=== PATIENT | female | born 1990 | race Two or more races ===

== ENCOUNTER 2023-04-03 21:45 | Outpatient (REF) | payer OTHER, SELFPAY ==
[2023-04-07 08:13] LABS: Age Gdln ACOG Testing Note (.); HPV Aptima Negative (Negative); IGP, Aptima HPV, rfx 16/18,45 Note (.)
== END 2023-04-03 21:46 | disposition home or self-care (01) ==
LOC: LAB 21:45
PROVIDERS: PCP Physician Assistant; Visit Provider Physician Assistant
DX: Z01.419 Encounter for gynecological examination (general) (routine) without abnormal findings (principal)
CPT/HCPCS: 87624; G0145

== ENCOUNTER 2024-07-02 15:12 | Outpatient (REF) | payer OTHER, SELFPAY | END 2024-07-02 15:13 | disposition home or self-care (01) | LOC: LAB 15:12 | PROVIDERS: PCP Physician Assistant; Visit Provider Obstetrics & Gynecology | DX: N92.6 Irregular menstruation, unspecified (principal) ==

== ENCOUNTER 2024-07-28 10:54 | Outpatient (OUT) | payer OTHER, SELFPAY | END 2024-07-28 10:55 | disposition home or self-care (01) | LOC: PST 10:55 | PROVIDERS: PCP Physician Assistant; Visit Provider Obstetrics & Gynecology | DX: Z01.818 Encounter for other preprocedural examination (principal); Z30.2 Encounter for sterilization; N92.0 Excessive and frequent menstruation with regular cycle; N93.9 Abnormal uterine and vaginal bleeding, unspecified; R10.2 Pelvic and perineal pain ==

== ENCOUNTER 2024-08-01 06:14 | Day surgery (SDC) | payer OTHER, SELFPAY ==
[2024-07-28 11:54] VITALS: BP 114/75; PULSE 80; TEMP 36.3; O2SAT 100; BMI 23.3
[2024-08-01] VITALS (11 sets, daily range): BP systolic 100–130; BP diastolic 59–82; PULSE 56–97; TEMP 36.1–36.3; O2SAT 94–100; BMI 23.5
--- OUTSIDE RECORDS SUMMARY | 2024-08-01 06:18 | XMS_ITS | CCD ---
Author Organization [facility] Care Team Providers Care Cna Instructor Name Role Phone SAMINA, DENYS Admitting Unavailable SAMINA, DENYS Attending Unavailable SAMINA, DENYS Consulting Unavailable SAMINA, DENYS Admitting Unavailable SAMINA, DENYS Attending Unavailable SAMINA, DENYS Consulting Unavailable SAMINA, DENYS Admitting Unavailable SAMINA, DENYS Attending Unavailable SAMINA, DENYS Primary Care Unavailable BOONE BAIG V Consulting Unavailable SAMINA, DENYS Consulting Unavailable SAMINA, DENYS Admitting Unavailable SAMINA, DENYS Attending Unavailable SAMINA, DENYS Consulting Unavailable Unavailable Primary Care Provider UnavailAnjana Ace Primary Care Physician [phone] Unavailable Primary Care Provider Unavailbinh e Unavailable Primary Care Provider UnavailBaldo Hawkins Primary Care Physician [phone] TREASURE AVILES Attending Unavailable TREASURE AVILES Attending Unavailable TREASURE AVILES Attending Unavailable DIMOV, VESSELIN Referring Unavailable Baldo Acosta DO Primary Care Provider Baldo Acosta Primary Care Physician Baldo Acosta DO Primary Care Provider Jeffery Rodriguez Admitting Unavailable Jeffery Rodriguez Attending Unavailable Jeffery Rodriguez Referring Unavailable Chuy Villareal Consulting Unavailable Jeffery Rodriguez Attending Unavailable Jeffery Rodriguez Referring Unavailable Jeffery Rodriguez. Admitting Unavailable Mono, Chuy L Consulting Unavailable Mono, Chuy L Consulting Unavailable Mono, Chuy L Consulting Unavailable Mono, Chuy L Consulting Unavailable Mono, Chuy L Consulting Unavailable Mono, Chuy L Consulting Unavailable Mono, Chuy L Consulting Unavailable Mono, Chuy L Consulting Unavailable Mono, Chuy L Consulting Unavailable JOVANA HERMANITA Consulting Unavailable Link, Baldo C Admitting Unavailable Link, Baldo C Attending Unavailable Link, Baldo C Referring Unavailable Link, Baldo C Admitting Unavailable Link, Baldo C Attending Unavailable Link, Baldo C Referring Unavailable JACLYN ALANIS Admitting Unavailabl e JACLYN ALANIS Attending Unavailabl e Estelle, Eunice Gonzalez Referring Unavailable Mccabe, Eunice D Admitting Unavailable Mccabe, Eunice Gonzalez Attending Unavailable Link, Baldo Mayo Attending Unavailable JACLYN ALANIS Attending Unavailabl e Jeffery Rodriguez Attending Unavailable Jeffery Rodriguez Attending Unavailable WILMA ALANISC JACLYN Alberts Attending Unav ailable CLOVER ALANIS Admitting Unav ailable Link, Baldo Mayo Attending Unavailable Link, Baldo C Attending Unavailable Unavailable Primary Care Provider Unavailabl e Unavailable Primary Care Provider Unavailabl e Link , Baldo Primary Care Provider Generic Provider MD, No Assigned Pcp Primary Car e Provider Unavailable DENYS HAAS Attending Unavailable DENYS HAAS Attending Unavailable DO Denys Haas Attending Provider Denys Haas Attending Unavailable Denys Haas Admitting Unavailable Link , Baldo Mayo Primary Care Provider GENERIC PROVIDER, NO ASSIGNED PCP Primary Care Unavailable ARMANI COPE Attending Unavailable LINK, BALDO C Primary Care Unavailable Jeffery Marcial Attending Unavailable TREASURE FRANKEL Attending Unavailabl e DO Nicho Armstrong Attending Unavailable JACLYN ALANIS Attending Unavailabl e JACLYN ALANIS Attending Unavailabl e DO Herrera Fink Attending Unavailable DO Herrera Fink Admitting Unavailable KARY SORIANO Attending Unavailable SHIRLEY SALAZAR Referring Unavailable LINK, BALDO C Primary Care Unavailable LINK, BALDO C Primary Care Unavailable LINK, BALDO C Primary Care Unavailable LINK, BALDO C Primary Care Unavailable LINK, BALDO C Primary Care Unavailable LINK, BALDO C Primary Care Unavailable DEEPALI WEST Attending Unavailable SHIRLEY SALAZAR Attending Unavailable TRINA LEON Attending Unavailable LINK, BALDO C Primary Care Unavailable KING HO Attending Unavailable TREASURE AVILES Referring Unavailable BALDO ACOSTA Primary Care Unavailable KING HO Referring Unavailable BALDO ACOSTA Primary Care Unavailable TREASURE AVILES Attending Unavailable TREASURE AVILES Referring Unavailable TREASURE AVILES Referring Unavailable Allergies Allergy Classification Reported Allergen(s) Allergy Type Date of Onset Reaction(s) Facility (4 sources) Acetaminophen / HYDROcodone; Translations: [Vicodin] Drug Allergy [facility] Repository (20 sources) Acetaminophen / HYDROcodone; Translations: [acetaminophen-hy drocodone] [facility] (20 sources) inFLIXimab; Translations: [infliximab] Drug Allergy 2 Hives, Urticaria (disorder) [facility] Work Phone: (20 sources) leflunomide; Translations: [leflunomide] Drug Allergy 3 Intolerance, Hives, Other [facility] (3 sources) Hand Hide Paster; Translations: [Hand Hide Paster] Propensity to adverse reactions (disorder) [facility] Repository (17 sources) HYDROcodone; Translations: [HYDROCODONE] Drug Allergy 3 [facility] (1 source) inFLIXimab Drug Allergy 2 [facility] (1 source) leflunomide Drug Allergy 3 [facility] (1 source) Ethyl Alcohol (Skin Cleanser) Drug Allergy 4 [facility] Work Phone: Medications Current Medications Medication Drug Class(es) Dates Sig (Normalized) Sig (Original) 1 ml abatacept 125 mg/ml prefilled syringe (3 sources) Selective T Cell Costimulation Modulator Start: 01-08-2023 End: 01-23-2023 abatacept (ORENCIA) 125 mg/mL Inject 1 syringe (125mg) subcutaneously once weekly. 4 mL 3 01/08/2023 01/23/2023 Discontinued Comment on above: Inject 1 mL subcutan eously one time a week. Inject 1 syringe (12 5mg) subcutaneously once weekly. Acetaminophen (20 sources) acetaminophen (Tylenol) 32 mg/mL suspension Take by mouth. Active acetaminophen (T YLENOL ORAL) Take by mouth. Active acetaminophen (T YLENOL ORAL) Take by mouth. 0 Active Comment on above: Take by mouth. acetaminophen 325 mg / oxyCODONE hydrochloride 5 mg oral tablet (5 sources) Opioid Agonist Start: 03-21-2023 End: 03-24-2023 Percocet 5 mg-325 mg oral tablet 1 tab(s), Oral, q6hr as needed for pain for 3 day(s), 15 tab(s), Refill(s) 0, [facility]/pharmacy #[id number], 152.4, cm, 03/21/23 11:55:00 EDT, Height/Length Dosing, 53.6, kg, 03/21/23 11:55:00 EDT, Weight Dosing Start Date: 03/21/23 Stop Date: 03/24/23 Status: Ordered Start: 01-06-2019 Percocet 325 m g-5 mg Tab 1 tab(s), Oral, q6hr as needed for pain, 10 tab(s), Refill(s) 0 Start Date: 01/06/19 Status: Ordered 0.4 ml adalimumab 100 mg/ml auto-injector (20 sources) Tumor Necrosis Factor Ladonna Start: 01-23-2023 End: 01-28-2024 adalimumab (HUMIRA,CF, PEN) 40 mg/0.4 mL pen kit Indications: Inflammatory arthritis , Rheumatoid arthritis involving multiple sites, unspecified whether rheumatoid factor present (HCC) Inject 1 pen (40 mg) subcutaneously every 2 weeks. 4 Each 2 01/28/2024 Active Start: 01-23-2023 Humira Pen 40 MG/0.4ML Pen-injector Kit pen-injector Inject 40 mg under the skin every 14 (fourteen) days. 01/23/2023 Active End: 06-30-2024 adalimumab (HUMIRA,CF, PEDI CROHNS STARTER SUBQ) Inject under the skin. 06/30/2024 Discontinued (Med List Cleanup) adalimumab (HUMI RA,CF, PEDI CROHNS STARTER SUBQ) Inject under the skin. Active Comment on above: Inject 40 mg subcuta neously every 2 weeks. Inject 1 pen (40 mg) subcutaneously every 2 weeks. Allergy (Loratadine) 10 mg oral tablet (20 sources) Start: 08-09-2022 Allergy (Loratadine) 10 mg oral tablet See Instructions, 1 tab(s) Oral PRN, Refills(s) 0 Start Date: 08/09/22 Status: Ordered Start: 08-09-2022 take 1 tablet by [facility] twice daily Allergy (Loratadine) 10 mg oral tablet 10 mg = 1 tab(s), Oral, BID, Refills(s) 0 Start Date: 08/09/22 Status: Ordered atomoxetine 80 mg oral capsule (2 sources) Norepinephrine Reuptake Inhibitor Start: 02-26-2019 take 80 mg by mouth once daily Strattera 80 mg, Oral, Daily, Refills(s) 0 Start Date: 02/26/19 Status: Ordered celecoxib 100 mg oral capsule (19 sources) Nonsteroidal Anti-inflammatory Drug Start: 09-17-2023 take 1 capsule by mouth twice daily celecoxib (CELEBREX) 100 mg capsule Take 1 capsule by mouth two times a day. 30 capsule 09/17/2023 Active Start: 05-10-2023 End: 06-09-2023 take 1 capsule by mouth twice daily celecoxib (CELEBREX) 100 mg capsule Take 1 capsule by mouth twice daily. 60 capsule 0 05/10/2023 06/09/2023 Active Comment on above: Take 1 capsule by mo [facility] twice daily. Take 1 capsule by mo [facility] two times a day. clobetasol propionate 0.5 mg/ml topical cream (1 source) Corticosteroid Start: 08-24-20 End: 09-14-19 clobetasol (TEMOVATE) 0.05 % cream Apply to affected area two times a day for 21 days. 15 g 0 08/24/2023 09/14/2023 Active Comment on above: Apply to affected ar ea two times a day for 21 days. diclofenac sodium 0.01 mg/mg topical gel (20 sources) Nonsteroidal Anti-inflammatory Drug Start: 06-03-20 apply 4 g topically four times daily diclofenac (VOLTAREN) 1 % topical gel Apply 4 g to affected area four times daily. 100 g 06/03/2023 Active Start: 02-27-2019 Voltaren Gel 1 % Gel 4 gram, Topical, QID for pain, 100 gram, Refill(s) , [facility] Start Date: 02/27/19 Status: Ordered Comment on above: Apply 4 g to affecte d area four times daily. doxycycline monohydrate 100 mg oral tablet (18 sources) Tetracycline-class Drug Start: 06-24-2024 End: 07-04-2024 take 1 tablet by mouth twice daily doxycycline monohydrate 100 mg oral tablet 100 mg = 1 tab(s), Oral, BID, X 10 day(s), # 20 tab(s), Refills(s) 0, Pharmacy: [facility]/pharmacy #[id number], 152.4, cm, 06/24/24 9:24:00 EDT, Height/Length Dosing, 54.8, kg, 06/24/24 9:24:00 EDT, Weight Dosing Start Date: 06/24/24 Stop Date: 07/04/24 Status: Ordered Start: 05-09-2024 End: 07-14-2024 take 1 tablet by mouth every twelve hours doxycycline (Vibra-Tabs) 100 mg tablet Take 1 tablet (100 mg) by mouth every 12 hours. 05/09/2024 07/14/2024 Discontinued (Therapy completed) Start: 06-03-2023 End: 06-17-2023 take 1 capsule by mouth twice daily doxycycline hyclate (VIBRAMYCIN) 100 mg capsule Take 1 capsule by mouth twice daily for 14 days. 28 capsule 0 06/03/2023 06/17/2023 Active Start: 05-10-2023 End: 05-24-2023 take 1 capsule by mouth twice daily doxycycline hyclate (VIBRAMYCIN) 100 mg capsule Take 1 capsule by mouth twice daily for 14 days. 28 capsule 0 05/10/2023 05/24/2023 Active Comment on above: Take 1 capsule by [facility] twice daily for 14 days. Ethinyl Estradiol / Ferrous fumarate / Norethindrone (3 sources) Estrogen Start: 05-31-2024 take 1 tablet by mouth in the morning Aurovela Fe 1-20, 28, 1 mg-20 mcg (21)/75 mg (7) tablet Take 1 tablet by mouth early in the morning.. 05/31/2024 Active Start: 03-20-2024 End: 03-20-2025 take 1 tablet by mouth once daily, then take 1 tablet by mouth once daily norethindrone-ethinyl estradiol (Junel F E 09/29) 1-20 MG-MCG tablet Indications: Uses control Take 1 tablet by mouth Daily Take 1 tablet by mouth daily 28 tablet 11 03/20/2024 03/20/2025 Active Start: 02-11-2024 End: 02-10-2025 norethindrone-ethinyl estrad iol (09/29) 1-20 MG-MCG tablet Indications: control counseling Take 1 tablet by mouth Daily 28 tablet 11 02/11/2024 02/10/2025 Active ethinyl estradiol 0.03 mg / norethindrone acetate 1.5 mg oral tablet (20 sources) Estrogen Start: 08-09-2022 take 1 tablet by mouth once daily Microgestin 1.5/30 oral tablet 1 tab(s), Oral, Daily, Refill(s) 0 Start Date: 08/09/22 Status: Ordered Start: 04-15-2022 take 1 tablet by steven th once daily MICROGESTIN 1.5/30 1.5-30 mg-mcg Take 1 tablet by mouth once daily. 04/15/2022 Active Start: 04-15-2022 take 1 tablet by steven th once daily MICROGESTIN 1.5/30 1.5-30 mg-mcg Take 1 tablet by mouth once daily. 0 04/15/2022 Active End: 07-14-2024 take 1 tablet by mouth once daily before mealtime .30, 21, 1.5-30 mg-mcg tablet tablet Take 1 tablet by mouth once daily in the morning. Take before meals. 07/14/2024 Discontinued (Therapy completed) take 1 tablet by steven th once daily before mealtime .30, 21, 1.5-30 mg-mcg tablet tablet Take 1 tablet by mouth once daily in the morning. Take before meals. Active Comment on above: Take 1 tablet by steven th once daily. FLUoxetine 10 mg oral capsule (2 sources) Serotonin Reuptake Inhibitor Start: 9 take 1 capsule by mouth once daily Prozac 10 mg Cap 10 mg = 1 cap(s), Oral, Daily, # 30 cap(s), Refills(s) 0 Start Date: 07/22/19 Status: Ordered folic acid 1 mg oral tablet (20 sources) Start: 4 End: 5 take 1 tablet by mouth twice daily folic acid (Folvite) 1 mg tablet Indications: Granulomatous mastitis of right breast Take 1 tablet (1 mg) by mouth 2 times a day. 60 tablet 2 06/16/2024 06/16/2025 Active Start: 05-07-2024 End: 06-16-2024 take 1 tablet by mouth once daily folic acid (Folvite) 1 mg tablet Indications: Granulomatous mastitis of right breast Take 1 tablet (1 mg) by mouth once daily. 30 tablet 11 05/07/2024 06/16/2024 Discontinued (Reorder) Start: 10-17-2022 End: 11-06-2022 take 2 tablets by mouth once daily folic acid 1 mg tablet Take 2 tablets by mouth once daily. 60 tablet 3 10/17/2022 11/06/2022 Discontinued Start: 07-18-2022 End: 07-14-2024 take 1 tablet by mouth once daily folic acid 1 mg Tab 1 mg = 1 tab(s), Oral, Daily, Refills(s) 0 Start Date: 08/09/22 Status: Ordered Comment on above: Take 1 tablet by steven once daily. Take 2 tablets by mo [facility] once daily. linezolid 600 mg oral tablet (2 sources) Oxazolidinone Antibacterial Start: 06-08-20 End: 06-22-20 take 1 tablet by mouth twice daily linezolid (ZYVOX) 600 mg tablet Take 1 tablet by mouth two times a day for 14 days. 28 tablet 2 06/08/2023 06/22/2023 Active Comment on above: Take 1 tablet by steven two times a day for 14 days. meloxicam 15 mg oral tablet (1 source) Nonsteroidal Anti-inflammatory Drug meloxicam (Mobic) 15 MG tablet 1 (one) time each day at the same time Active methotrexate 2.5 mg oral tablet (20 sources) Folate Analog Metabolic Inhibitor Start: 07-01-20 methotrexate 2.5 mg Tab 2.5 mg = 1 tab(s), Oral, q7day, # 4 tab(s), Refills(s) 0 Start Date: 07/01/24 Status: Ordered Start: 05-07-2024 End: 07-06-2024 take 6 tablets by mouth every week methotrexate (Trexall) 2.5 mg tablet Indications: Granulomatous mastitis of right breast Take 6 tablets (15 mg total) by mouth 1 (one) time per week. Follow directions carefully, and ask to explain any part you do not understand. Take exactly as directed. 12 tablet 3 05/07/2024 07/06/2024 Active Start: 08-15-2022 End: 11-06-2022 take 5 tablets by mouth every week methotrexate 2.5 mg tablet Take 5 tablets by mouth one time a week. 20 tablet 3 10/17/2022 11/06/2022 Discontinued Start: 08-09-2022 methotrexate 2 .5 mg Tab 7.5 mg = 3 tab(s), Oral, q7day, # 4 tab(s), Refills(s) 0 Start Date: 08/09/22 Status: Ordered Start: 07-18-2022 End: 08-15-2022 take 3 tablets by mouth every week methotrexate 2.5 mg tablet Take 3 tablets by mouth one time a week. 12 tablet 3 07/18/2022 08/15/2022 Discontinued Comment on above: Take 3 tablets by mo [facility] one time a week. Take 5 tablets by mo [facility] one time a week. minocycline 50 mg oral tablet (5 sources) Tetracycline-class Drug Start: 08-20-20 End: 09-19-19 take 1 tablet by mouth in the morning minocycline (Dynacin) 50 MG tablet Take 50 mg by mouth in the morning and 50 mg before bedtime. 08/22/2023 Active Comment on above: [facility] nitrofurantoin, macrocrystals 25 mg / nitrofurantoin, monohydrate 75 mg oral capsule (2 sources) Nitrofuran Antibacterial Start: 03-24-20 End: 03-31-20 take 1 capsule by mouth twice daily Macrobid 100 mg Cap 100 mg = 1 cap(s), Oral, BID, X 7 day(s), # 14 cap(s), Refills(s) 0, Pharmacy: [facility]/pharmacy #[id number], 152, cm, 03/24/24 11:36:00 EDT, Height/Length Dosing, 52.5, kg, 03/24/24 11:36:00 EDT, Weight Dosing Start Date: 03/24/24 Stop Date: 03/31/24 Status: Ordered omeprazole 20 mg delayed release oral capsule (1 source) Proton Pump Inhibitor take 1 capsule by mouth twice daily as needed omeprazole (PriLOSEC) [address] capsule Take 20 mg by mouth 2 (two) times a day as needed Active ondansetron 4 mg oral tablet (10 sources) Serotonin-3 Receptor Antagonist Start: 07-15-20 take 1 tablet by mouth every eight hours ondansetron 4 mg Tab 4 mg = 1 tab(s), Oral, q8hr, # 20 tab(s), Refills(s) 0, Pharmacy: [facility]/pharmacy #[id number], 152, cm, 07/15/24 10:32:00 EST, Height/Length Dosing, 55, kg, 07/15/24 10:32:00 EST, Weight Dosing Start Date: 07/15/24 Status: Ordered Start: 06-05-2024 ondansetron (Z ofran) 4 mg/5 mL solution 5 mL (4 mg). 06/05/2024 Active Start: 06-05-2024 End: 07-05-2024 take 1 tablet by mouth every eight hours as needed for nausea and nausea ondansetron (Zofran) 4 mg tablet Indications: Nausea TAKE 1 TABLET (4 MG) BY MOUTH EVERY 8 HOURS IF NEEDED FOR NAUSEA OR VOMITING. 20 tablet 06/05/2024 07/05/2024 Active Start: 06-03-2023 End: 07-03-2023 take 1 tablet by mouth every eight hours as needed ondansetron (ZOFRAN) 4 mg tablet Take 1 tablet by mouth every 8 hours as needed for nausea/vomiting. 30 tablet 0 06/03/2023 07/03/2023 Active Comment on above: Take 1 tablet by steven th every 8 hours as needed for nausea/vomiting. phenazopyridine hydrochloride 200 mg oral tablet (2 sources) Start: End: take 1 tablet by mouth three times daily Pyridium 200 mg Tab 200 mg = 1 tab(s), Oral, TID, X 3 day(s), # 9 tab(s), Refills(s) 0, Pharmacy: [facility]/pharmacy #[id number], 152, cm, 03/24/24 11:36:00 EDT, Height/Length Dosing, 52.5, kg, 03/24/24 11:36:00 EDT, Weight Dosing Start Date: 03/24/24 Stop Date: 03/27/24 Status: Ordered pilocarpine hydrochloride 5 mg oral tablet (20 sources) Cholinergic Receptor Agonist Start: End: take 1 tablet by mouth three times daily pilocarpine (SALAGEN) 5 mg tablet Indications: Sicca, unspecified type (HCC) TAKE 1 TABLET BY MOUTH THREE TIMES A DAY 270 tablet 1 07/24/2024 Active Comment on above: Take 1 tablet by steven th three times daily. TAKE 1 TABLET BY STEVEN TH THREE TIMES DAILY Take 1 tablet by steven th three times a day. predniSONE (17 sources) Start: predniSONE 5 mg Tab Refills(s) 0 Start Date: 07/01/24 Status: Ordered Start: 07-01-2024 predniSONE (De ltasone) 5 mg tablet 1 tablet (5 mg). 07/01/2024 Active Start: 05-07-2024 End: 07-04-2024 take 4 tablets by mouth once daily, then take 3 tablets by mouth once daily, then take 2 tablets by mouth once daily predniSONE (Deltasone) 5 mg tablet Indications: Granulomatous mastitis of right breast Take 4 tablets (20 mg) by mouth once daily for 14 days, THEN 3 tablets (15 mg) once daily for 14 days, THEN 2 tablets (10 mg) once daily. 158 tablet 05/07/2024 07/04/2024 Active Start: 01-08-2023 End: 03-27-2023 take 1 tablet by mouth once daily predniSONE (DELTASONE) 10 mg tablet Take 1 tablet by mouth once daily. 30 tablet 3 01/08/2023 03/27/2023 Discontinued Start: 04-17-2022 End: 05-15-2022 take 1 tablet by mouth once daily, then take 1 tablet by mouth once daily predniSONE (DELTASONE) 5 mg tablet Indications: Rheumatoid arthritis with negative rheumatoid factor, involving unspecified site (HCC) Take 1 tablet by mouth once daily for 14 days, THEN 1 tablet once daily for 14 days. 28 tablet 0 04/17/2022 05/15/2022 Active Start: 02-27-2019 predniSONE 5 m g, Oral, fluctuates, Refills(s) 0 Start Date: 02/27/19 Status: Ordered Comment on above: Take 1 tablet by steven th once daily for 14 days, THEN 1 tablet once daily for 14 days. Take 1 tablet by steven th once daily. Sprintec (12 sources) Start: 02-27-20 take 1 tablet by mouth once daily Sprintec 1 tab(s), Oral, Daily, Refill(s) 0 Start Date: 02/26/19 Status: Ordered Sprintec oral tablet (2 sources) Start: 07-22-20 Sprintec oral tablet 1 tab(s), Oral, Daily, 28 tab(s), Refill(s) 0 Start Date: 07/22/19 Status: Ordered sulfamethoxazole 800 mg / trimethoprim 160 mg oral tablet (2 sources) Dihydrofolate Reductase Inhibitor Antibacterial, Sulfonamide Antimicrobial Start: 07-15-20 sulfamethoxazole -trimethoprim 800 mg-160 mg Tab 160 mg, Refill(s) 0 Start Date: 07/15/24 Status: Ordered Start: 07-14-2024 End: 07-19-2024 take 1 tablet by mouth twice daily sulfamethoxazole-trimethoprim (Bactrim D S) 800-160 mg tablet Indications: bacterial urinary tract infection Take 1 tablet by mouth 2 times a day for 5 days. 10 tablet 1 07/14/2024 07/19/2024 Active tramadol hydrochloride 25 MG Oral Tablet (16 sources) Opioid Agonist Start: 07-15-2024 take 1 tablet by mouth every six hours traMADol 25 mg oral tablet 25 mg = 1 tab(s), Oral, q6hr, # 30 tab(s), Refills(s) 1, Pharmacy: [facility]/pharmacy #[id number], 152, cm, 07/15/24 10:32:00 EST, Height/Length Dosing, 55, kg, 07/15/24 10:32:00 EST, Weight Dosing Start Date: 07/15/24 Status: Ordered Start: 08-24-2023 End: 08-27-2023 take 1 tablet by mouth every eight hours as needed for pain traMADol (ULTRAM) 50 mg tablet Indications: Granulomatous mastitis of right breast Take 1 tablet by mouth every 8 hours as needed for pain for up to 3 days. 5 tablet 0 08/24/2023 08/27/2023 Active Start: 04-09-2023 End: 04-14-2023 take 1 tablet by mouth every six hours as needed traMADol (ULTRAM) 50 mg tablet Take 50 mg by mouth every 6 hours as needed. 0 04/09/2023 Active Comment on above: Take 50 mg by mouth every 6 hours as needed. Take 1 tablet by steven th every 8 hours as needed for pain for up to 3 days. Completed/Discontinued Medications Medication Drug Class(es) Dates Sig (Normalized) Sig (Original) amitriptyline hydrochloride 10 mg oral tablet (20 sources) Tricyclic Antidepressant Start: 08-15-2022 End: 10-17-2022 take 1 tablet by mouth once daily at bedtime amitriptyline (ELAVIL) 10 mg tablet Indications: Rheumatoid arthritis involving multiple sites, unspecified whether rheumatoid factor present (HCC) , Encounter for long-term (current) use of high-risk medication Take 1 tablet by mouth daily at bedtime. 30 tablet 3 10/17/2022 Active Comment on above: Take 1 tablet by steven th daily at bedtime. amoxicillin 500 mg / clavulanate 125 mg oral tablet (13 sources) Penicillin-class Antibacterial Start: 03-21-2023 End: 05-21-2023 amoxicillin-clavul anic acid (AUGMENTIN) 500-125 mg per tablet Refill(s) 0 0 03/21/2023 05/21/2023 Discontinued Start: 03-21-2023 amoxicillin-cl avulanate 500 mg-125 mg Tab Refill(s) 0 Start Date: 03/21/23 Status: Ordered Comment on above: Refill(s) 0 24 hr amphetamine aspartate 5 mg / amphetamine sulfate 5 mg / dextroamphetamine saccharate 5 mg / dextroamphetamine sulfate 5 mg extended release oral capsule (20 sources) Central Nervous System Stimulant Start: take 1 capsule by mouth once daily amphetamine-dex troamphetamine 20 mg Cap-ER 20 mg = 1 cap(s), TAKE 1 CAPSULE BY MOUTH EVERY DAY FOR 30 DAYS Start Date: 07/15/24 Status: Ordered Start: 06-05-2024 End: 07-05-2024 take 1 capsule by mouth once daily amphetamine-dextroamphetamine 20 mg Cap- ER 20 mg = 1 cap(s), Oral, Daily, X 30 day(s), # 30 cap(s), Refills(s) 0, Pharmacy: [facility] #[id number], 152.4, cm, 05/09/24 4:55:00 EDT, Height/Length Dosing, 54.8, kg, 05/09/24 4:55:00 EDT, Weight Dosing Start Date: 06/05/24 Stop Date: 07/05/24 Status: Ordered Start: 08-09-2022 End: 06-01-2024 take 1 capsule by mouth once daily amphetamine-dextroamphetamine 20 mg Cap- ER 20 mg = 1 cap(s), Oral, Daily, X 30 day(s), # 30 cap(s), Refills(s) 0, Pharmacy: [facility]/pharmacy #[id number], 152, cm, 04/15/24 13:28:00 EDT, Height/Length Dosing, 54.7, kg, 04/15/24 13:28:00 EDT, Weight Dosing Start Date: 05/02/24 Stop Date: 06/01/24 Status: Ordered take 1 tablet by [facility] once daily dextroamphetamine-amphetamine (ADDERALL) 20 mg tablet Take 20 mg by mouth once daily. Active End: 07-14-2024 amphetamine-dextroamphetamin e XR (Adderall XR) 20 mg 24 hr capsule 1 capsule (20 mg). 07/14/2024 Discontinued (Med List Cleanup) Comment on above: Take 20 mg by mouth once daily. cephalexin 500 mg oral capsule (3 sources) Cephalosporin Antibacterial Start: 06-24-2024 take 1 capsule by mouth three times daily Keflex 500 mg Cap 500 mg = 1 cap(s), Oral, TID, Take one capsule by mouth three times a day for ten days, # 30 cap(s), Refills(s) 0, Pharmacy: [facility]/pharmacy #[id number], 152.4, cm, 06/24/24 9:24:00 EDT, Height/Length Dosing, 54.8, kg, 06/24/24 9:24:00 EDT, Weight Dosing Start Date: 06/24/24 Status: Ordered Start: 05-09-2024 End: 05-19-2024 take 1 capsule by mouth three times daily Keflex 500 mg Cap 500 mg = 1 cap(s), Oral, TID, X 10 day(s), # 30 cap(s), Refills(s) 0, Pharmacy: [facility]/pharmacy #[id number], 152.4, cm, 05/09/24 4:55:00 EDT, Height/Length Dosing, 54.8, kg, 05/09/24 4:55:00 EDT, Weight Dosing Start Date: 05/09/24 Stop Date: 05/19/24 Status: Ordered cholecalciferol 1.25 mg oral capsule (6 sources) Vitamin D Start: 07-21-2022 End: 08-15-2022 take 1 capsule by mouth every week cholecalciferol, Vitamin D3, (VITAMIN D3) 1,250 mcg (50,000 unit) cap capsule Take 1 capsule by mouth one time a week. 8 capsule 0 07/21/2022 08/15/2022 Discontinued Comment on above: Take 1 capsule by mo ut one time a week. colchicine 0.6 mg oral tablet (9 sources) Start: 12-05-2022 End: 03-27-2023 take 0.5 tablet by mouth once daily, then take 1 tablet by mouth once daily colchicine 0.6 mg tablet Take 0.5 tablets by mouth once daily for 7 days, THEN 1 tablet once daily. 34 tablet 0 12/05/2022 03/27/2023 Discontinued (Side Effects) Comment on above: Take 0.5 tablets by mouth once daily for 7 days, THEN 1 tablet once daily. diphenhydrAMINE hydrochloride 25 mg oral capsule (3 sources) Histamine-1 Receptor Antagonist Start: 08-22-2022 End: 10-17-2022 take 1 capsule by mouth every six hours as needed diphenhydrAMINE (BENADRYL) 25 mg capsule Take 1 capsule by mouth every 6 hours as needed. 30 capsule 0 08/22/2022 10/17/2022 Discontinued (Discontinued by Patient) Comment on above: Take 1 capsule by mo uth every 6 hours as needed. diphenhydrAMINE 12.5 mg/5 mL hydrocortisone lidocaine visc 2% nystatin oral liquid 180 mL:120 m mL:30 mL (CPD) (4 sources) Start: 01-30-2023 End: 03-27-2023 take 5 mL by mouth every six hours as needed diphenhydrAMINE 12.5 mg/5 mL hydrocortisone lidocaine visc 2% nystatin oral liquid 180 mL:120 m mL:30 mL (CPD) Take 5 mL by mouth four times daily as needed. Swish and spit 100 mL 3 01/30/2023 03/27/2023 Discontinued Start: 01-30-2023 take 5 mL by mouth e very six hours as needed diphenhydrAMINE 12.5 mg/5 mL hydrocortisone lidocaine visc 2% nystatin oral liquid 180 mL:120 m mL:30 mL (CPD) Take 5 mL by mouth four times daily as needed. Swish and spit 100 mL 3 01/30/2023 Active Comment on above: Take 5 mL by mouth f our times daily as needed. Swish and spit fluconazole 100 mg oral tablet (17 sources) Azole Antifungal Start: End: take 1 tablet by mouth once daily fluconazole (DIFLUCAN) 100 mg tablet Take 1 tablet by mouth once daily. 30 tablet 08/20/2023 09/19/2023 Start: 07-05-2023 End: 07-19-2023 take 1 tablet by mouth once daily fluconazole (DIFLUCAN) 100 mg tablet Take 1 tablet by mouth once daily for 14 days. 14 tablet 2 07/05/2023 07/19/2023 Active Start: 06-08-2023 End: 06-22-2023 take 1 tablet by mouth once daily fluconazole (DIFLUCAN) 100 mg tablet Take 1 tablet by mouth once daily for 14 days. 14 tablet 2 06/08/2023 06/22/2023 Active Start: 05-10-2023 End: 05-10-2023 take 1 tablet by mouth once fluconazole (DIFLUCAN) 150 mg tablet Take 1 tablet by mouth one time only for 1 dose. 1 tablet 0 05/10/2023 05/10/2023 Start: 03-20-2023 End: 05-10-2023 fluconazole (DIFLUCAN) 150 m g tablet DIRECTED TAKE ONE TABLET NOW AND REPEAT IN 3 DAYS 0 03/20/2023 05/10/2023 Discontinued Comment on above: DIRECTED TAKE ONE TABLET NOW AND REPEAT IN 3 DAYS Take 1 tablet by steven th one time only for 1 dose. Take 1 tablet by steven th once daily for 14 days. Take 1 tablet by steven th once daily. Ibuprofen (9 sources) Nonsteroidal Anti-inflammatory Drug End: 05-10-2023 ibuprofen (MOTRIN ORAL) Take by mouth. 0 05/10/2023 Discontinued ibuprofen (MOTRI N ORAL) Take by mouth. 0 Active Comment on above: Take by mouth. 1 ml ketorolac tromethamine 30 mg/ml injection (1 source) Nonsteroidal Anti-inflammatory Drug, Cyclooxygenase Inhibitor Start: 08-22-2022 End: 08-22-2022 keTORolac 30 mg injection (TORADOL) Start: 08-22-2022 End: 08-22-2022 keTORolac 30 mg injection (T ORADOL) leflunomide 20 mg oral tablet (3 sources) Antirheumatic Agent Start: 11-06-2022 take 1 tablet by mouth once daily leflunomide (ARAVA) 20 mg tablet Take 1 tablet by mouth once daily. 30 tablet 3 11/06/2022 Active Comment on above: Take 1 tablet by steven th once daily. Loratadine (20 sources) Start: 08-09-2022 End: 07-14-2024 LORATADINE ORAL See Instructions, 1 tab(s) Oral PRN, Refills(s) 0 08/09/2022 07/14/2024 Discontinued (Med List Cleanup) Start: 08-09-2022 LORATADINE ORA L See Instructions, 1 tab(s) Oral PRN, Refills(s) 0 08/09/2022 Active take 1 tablet by steven th twice daily loratadine (CLARITIN) 10 mg tablet Take 10 mg by mouth twice daily. Active take 1 tablet by steven th once daily loratadine (Claritin Reditabs) 10 mg disintegrating tablet Take 1 tablet (10 mg) by mouth once daily. Active Comment on above: Take 10 mg by mouth twice daily. Physical therapy (10 sources) Start: 08-10-20 Physical therapy Physical therapy, See Instructions, 1 EA, 0, outpatient physical therapy Diagnosis: RA, Compound Start Date: 08/10/22 Status: Ordered microencapsulated potassium chloride 20 meq extended release oral tablet (1 source) Start: 07-03-20 End: 07-03-20 40 mEq, oral, Once, On Nancy 07/03/24 at 1315, For 1 dose, Best given with food and plenty of water to minimize gastric irritation. Do not crush or chew. rOPINIRole 1 mg oral tablet (20 sources) Nonergot Dopamine Agonist End: 03-27-20 take 1 tablet by mouth every twenty-four hours as needed rOPINIRole (REQUIP) 1 mg tablet Take 1 mg by mouth at bedtime as needed. 0 03/27/2023 Discontinued Comment on above: Take 1 mg by mouth a t bedtime as needed. tofacitinib 5 mg oral tablet (3 sources) Start: 11-13-19 take 1 tablet by mouth twice daily tofacitinib tablet 5 mg (XELJANZ) Indications: Rheumatoid arthritis involving multiple sites, unspecified whether rheumatoid factor present (HCC) Take 1 tablet by mouth twice daily. 60 tablet 11 11/12/2020 Active Comment on above: Take 1 tablet by steven th twice daily. Problems Active Problems Problem Classification Problem Date Documented Date Episodic/Chronic Abdominal pain (1 source) Pain in female pelvis; Translations: [Pelvic and perineal pain] 07-02-2024 Episodic Anxiety disorders (1 source) Panic disorder without agoraphobia; Translations: [Panic disorder [episodic paroxysmal anxiety]] Onset: 08-09-2022 Chronic Asthma (20 sources) Asthma 02-26-2014 Chronic Attention-deficit, conduct, and disruptive behavior disorders (2 sources) Attention deficit hyperactivity disorder; Translations: [Attention-deficit hyperactivity disorder, unspecified type] Onset: 11-19-2023 Chronic Attention-deficit, conduct, and disruptive behavior disorders (10 sources) Adult attention deficit hyperactivity disorder 11-19-2023 Chronic Contraceptive and procreative management (1 source) Sterilization requested; Translations: [Encounter for sterilization] 07-02-2024 Episodic Genitourinary symptoms and ill-defined conditions (1 source) Dysuria; Translations: [Dysuria] Onset: 03-24-2024 Episodic Headache; including migraine (20 sources) Migraine 02-26-2019 Chronic Immunizations and screening for infectious disease (2 sources) Encounter for screening for human papillomavirus (HPV); Translations: [Exposure to sexually transmissible disorder] Onset: 02-13-2020 Episodic Inflammation; infection of eye (except that caused by tuberculosis or sexually transmitteddisease) (1 source) Conjunctivitis; Translations: [Unspecified conjunctivitis] Onset: 01-20-2023 Episodic Menstrual disorders (5 sources) Irregular menstruation, unspecified; Translations: [Menorrhagia] Onset: 11-13-2019 07-02-2024 Chronic Nonmalignant breast conditions (20 sources) Chronic mastitis; Translations: [Diffuse cystic mastopathy of right breast] Onset: 05-21-2023 05-10-2023 Chronic Nonspecific chest pain (1 source) Chest pain; Translations: [Chest pain, unspecified] Onset: 08-09-2022 Episodic Osteoarthritis (20 sources) Arthritis; Translations: [Unspecified osteoarthritis, unspecified site] Onset: 07-18-2022 07-18-2022 Chronic Other aftercare (4 sources) Patient encounter status; Translations: [Other vermin exterminator (current) drug therapy] Episodic Other aftercare (13 sources) Immunosuppression; Translations: [Immunosuppression due to drug therapy] Onset: 05-07-2024 05-07-2024 Episodic Other aftercare (2 sources) Other mcc (current) drug therapy; Translations: [Other vermin exterminator (current) drug therapy] Onset: 05-07-2024 Episodic Other female genital disorders (4 sources) Abnormal uterine and vaginal bleeding, unspecified; Translations: [ABNORMAL UTERINE VAGINAL BLEED UNS] Onset: 12-29-2019 Chronic Other female genital disorders (1 source) Abnormal uterine bleeding; Translations: [Abnormal uterine and vaginal bleeding, unspecified] 07-02-2024 Chronic Other non-traumatic joint disorders (20 sources) Hip pain 06-07-2011 Episodic Other screening for suspected conditions (not mental disorders or infectious disease) (20 sources) Encounter for screening for malignant neoplasm of cervix; Translations: [Other specified abnormal findings of blood chemistry] Onset: 01-14-2020 04-09-2023 Episodic Comment on above: MRSA in axilla absce ss 05/09/2024 Other skin disorders (1 source) Folliculitis; Translations: [Follicular disorder, unspecified] 07-14-2024 Episodic Other skin disorders (2 sources) Follicular disorder, unspecified; Translations: [Follicular disorder, unspecified] Onset: 07-14-2024 Episodic Other upper respiratory infections (3 sources) Upper respiratory infection; Translations: [Acute upper respiratory infection, unspecified] Onset: 07-03-2024 07-03-2024 Episodic Residual codes; unclassified (1 source) Procedure carried out on subject; Translations: [Encounter for prophylactic measures, unspecified] Onset: 08-09-2022 Episodic Residual codes; unclassified (5 sources) Body mass index 20-24 - normal; Translations: [Body mass index (BMI) 23.0-23.9, adult] Onset: 03-23-2023 Episodic Residual codes; unclassified (8 sources) At risk of sexually transmitted infection 03-24-2024 Episodic Rheumatoid arthritis and related disease (20 sources) Rheumatoid arthritis; Translations: [Rheumatoid arthritis, unspecified] Onset: 08-09-2022 02-24-2019 Chronic Screening and history of mental health and substance abuse codes (2 sources) H/O: Disorder; Translations: [Personal history of nicotine dependence] Onset: 11-19-2023 Episodic Skin and subcutaneous tissue infections (6 sources) Abscess of limb; Translations: [Cutaneous abscess of limb, unspecified] Onset: 05-09-2024 Episodic Substance-related disorders (8 sources) Smoker; Translations: [Nicotine dependence] Onset: 08-09-2022 01-08-2016 Chronic Comment on above: Added secondary to d ocumentation in Social History. Superficial injury; contusion (2 sources) Abrasion of left upper arm, initial encounter; Translations: [Abrasion of skin of left upper arm] Onset: 07-15-2024 Episodic Systemic lupus erythematosus and connective tissue disorders (8 sources) Sicca syndrome, unspecified; Translations: [Sicca syndrome] Chronic Transient cerebral ischemia (1 source) Transient cerebral ischemia; Translations: [Transient cerebral ischemic attack, unspecified] Onset: 08-09-2022 Chronic Unclassified (15 sources) Body mass index 20-24 - normal 03-23-2023 Unclassified (2 sources) Granulomatous mastitis of right breast; Translations: [Granulomatous mastitis of right breast] Onset: 08-18-2023 Unclassified (1 source) Established Patient Onset: 05-25-2023 Unclassified (1 source) Non-smoker 07-02-2024 Unclassified (2 sources) Granulomatous mastitis, right breast; Translations: [Granulomatous mastitis, right breast] Onset: 05-07-2024 Unclassified (1 source) 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); Translations: [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)] Onset: 05-07-2024 Urinary tract infections (9 sources) Urinary tract infectious disease; Translations: [Urinary tract infection, site not specified] Onset: 03-24-2024 Episodic Past or Other Problems Problem Classification Problem Date Documented Date Episodic/Chronic Nonmalignant breast conditions (20 sources) Solitary cyst of breast; Translations: [Solitary cyst of unspecified breast] Onset: 03-21-2023 Episodic Other aftercare (20 sources) Taking high risk medication; Translations: [Other mcc (current) drug therapy] Onset: 02-24-2019 02-24-2019 Episodic Pneumonia (except that caused by tuberculosis or sexually transmitted disease) (20 sources) Pneumonia Resolved: 02-23-2010 11-21-2013 Episodic Unclassified (20 sources) Onset: 09-19-2018 Resolved: 02-08-2019 02-21-2019 Unclassified (2 sources) Granulomatous mastitis, right breast; Translations: [Granulomatous mastitis, right breast] Onset: 05-07-2024 Unclassified (1 source) 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); Translations: [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)] Onset: 05-07-2024 Viral infection (20 sources) Herpes zoster Resolved: 02-23-2010 11-21-2013 Episodic Viral infection (2 sources) Disease caused by 2019-nCoV; Translations: [COVID-19] Results Test Name Value Interpretation Reference Range Facility Ambulatory Visit Summaryon 1 09-14-2023 Ambulatory Visit Summary Ambulatory Visit Summary ALYSSA DE LEON :1990 Visit Date:07/15/2024 Ambulatory Visit Instructions Your Diagnosis Abrasion of left axillary fold with infection BMI 23.0-23.9, adult Local infection of the skin and subcutaneous tissue, unspecified Wound pain Your Care Team Attending Physician - VIKTOR WHITTEN Primary Care Physician - Baldo Acosta DO This Is Your Medications List amphetamine-dextroamp hetamine (amphetamine-dextroam phetamine 20 mg Cap-ER) ethinyl estradiol-norethindro ne (Microgestin 1.5/30 oral tablet) folic acid (folic acid 1 mg Tab) loratadine (Allergy (Loratadine) 10 mg oral tablet) methotrexate (methotrexate 2.5 mg Tab) ondansetron (ondansetron 4 mg Tab) pilocarpine (pilocarpine 5 mg Tab) predniSONE (predniSONE 5 mg Tab) sulfamethoxazole-trim ethoprim (sulfamethoxazole-tri methoprim 800 mg-160 mg Tab) tramadol (traMADol 25 mg oral tablet) Procedures Performed Fine needle biopsy of breast (2022), Lumpectomy of right breast (2022), section (11/02/2018), Root canal therapy. Discharge Vitals Heart Rate (Peripheral) 90 Respiratory Rate 16 Blood Pressure 112/62 Height 152 cm Height 60 in Weight 55 kg Weight 121 lb BMI 23.81 What to do next Scheduled Follow-Up Appointments Sunday 10:00 AM EST With: VIKTOR WHITTEN Where: [place] [address] [place] [address]- Medications What How Much When Why Instructions New tramadol (traMADol 25 mg oral tablet) 1 Tablets By Mouth Every 6 hours Wound pain Refills: 1 Pickup at [facility]/pharmacy #[id number] Unchanged amphetamine-dextroamp hetamine (amphetamine-dextroam phetamine 20 mg Cap-ER) 1 Capsules TAKE 1 CAPSULE BY MOUTH EVERY DAY FOR 30 DAYS Unchanged ethinyl estradiol-norethindro ne (Microgestin 1.5/ 30 oral tablet) 1 Tablets By Mouth Every day Unchanged folic acid (folic acid 1 mg Tab) Unchanged loratadine (Allergy (Loratadine) 10 mg oral tablet) See instructions 1 tab(s) Oral PRN Unchanged methotrexate (methotrexate 2.5 mg Tab) 1 Tablets By Mouth Every 7 days Unchanged ondansetron (ondansetron 4 mg Tab) Unchanged pilocarpine (pilocarpine 5 mg Tab) 1 Tablets By Mouth 3 times a day Unchanged predniSONE (predniSONE 5 mg Tab) Unchanged sulfamethoxazole-trim ethoprim (sulfamethoxazole-tri methoprim 800 mg-160 mg Tab) 160 Milligram Pharmacy Information [facility]/pharmacy #[id number]: [address] [place], [place] [id number] [phone] Allergies Vicodin inFLIXimab (Urticaria) leflunomide (Intolerance) Problems Ongoing - Any problem that you are currently receiving treatment for. Abnormal magnetic resonance imaging of breast Abrasion of left axillary fold with infection Adult ADHD Arthritis, rheumatoid BMI 23.0-23.9, adult Breast mass, right Left hip pain MRSA (methicillin resistant staph aureus) culture positive Nonsmoker Possible exposure to STI UTI (urinary tract infection) Historical - Any problem that you are no longer receiving treatment for. asthma Migraine Pneumonia Rheumatoid arthritis Shingles Patient Survey You may receive a survey via text or e-mail asking about your office visit. Please share your experience with us by completing your survey. We appreciate your feedback and thank you for choosing us for your care. Magdaleno Duvall [facility] Family Medicine Office/Clini c Noteon 07-15-2024 Family Medicine Office/Clinic Note Family Medicine Office/Clinic Note HPI Staff ER followup: Hospital: [facility]/ Visit date: 05/09/24 and 06/24/24 [facility] and 07/03/24 ER and 07/14/24 Wound center F/U Symptoms the patient presented with: with left armpit abscess and MRSA Current concerns: pt states abscess is closed now and is healing pt has been at [facility] twice and twice on for the ER and one for Wound cllinc F/U pt stats while at wound clinic was told her glucose lvl in her lab work was high pt stats feels so much better pt stats still feel uncomfortable 01/17 but states nothing compared to what it was Flu Delines History of Present Illness Alyssa is a 34 year old female who presents for an ER follow up. She had some abscesses in her left armpit recently. She was going to the wound care center however, the wounds are closed at this time, and she is starting to improve. She still has some lumps under the skin in the area but they are slowly decreasing. She is on Bactrim currently, and I advised her to cleanse the area with Hibiclens and zinc soap. She is having some pain that is > 5/10 especially after she works all day. She will be seeing her community health education coordinator at the end of this month and she is starting on a new med then. I am going to give her some tramadol to use for severe pain. Staff HPI reviewed and OARRAS reviewed. Review of Systems PHQ Score Initial Depression Screen Score: 0 SCORE Physical Exam Vitals & Measurements HR: 90(Peripheral) RR: 16 BP: 112/62 SpO2: 100% HT: 60 in HT: 152 cm WT: 55 kg WT: 121 lb BMI: 23.81 Left axillary region: small, round masses noted under skin. very tender. no redness Assessment/Plan 1. Abrasion of left axillary fold with infection (S40.812A: Abrasion of left upper arm, initial encounter) cleanse area with hibicleans and zinc soap continue abx 2. BMI 23.0-23.9, adult (Z68.23: Body mass index [BMI] 23.0-23.9, adult) stable Local infection of the skin and subcutaneous tissue, unspecified (L08.9: Local infection of the skin and subcutaneous tissue, unspecified) Wound pain (T14.8XXA: Other injury of unspecified body region, initial encounter) Ordered: tramadol, 25 mg = 1 tab(s), Oral, q6hr, # 30 tab(s), Refills(s) 1, Pharmacy: [facility]/pharmacy #[id number], 152, cm, 07/15/24 10:32:00 EST, Height/Length Dosing, 55, kg, 07/15/24 10:32:00 EST, Weight Dosing Follow-up No qualifying data available Problem List/Past Medical History Ongoing Abnormal magnetic resonance imaging of breast Abrasion of left axillary fold with infection Adult ADHD Arthritis, rheumatoid BMI 23.0-23.9, adult Breast mass, right Left hip pain MRSA (methicillin resistant staph aureus) culture positive Nonsmoker Possible exposure to STI UTI (urinary tract infection) Historical asthma Migraine Pneumonia Rheumatoid arthritis Shingles Procedure/Surgical History Fine needle biopsy of breast (2022), Lumpectomy of right breast (2022), section (11/02/2018), Root canal therapy. Medications Allergy (Loratadine) 10 mg oral tablet, See Instructions amphetamine-dextroamp hetamine 20 mg Cap-ER, 20 mg= 1 cap(s) folic acid 1 mg Tab methotrexate 2.5 mg Tab, 2.5 mg= 1 tab(s), Oral, q7day Microgestin 1.5/30 oral tablet, 1 tab(s), Oral, Daily ondansetron 4 mg Tab pilocarpine 5 mg Tab, 5 mg= 1 tab(s), Oral, TID predniSONE 5 mg Tab sulfamethoxazole-trim ethoprim 800 mg-160 mg Tab, 160 mg traMADol 25 mg oral tablet, 25 mg= 1 tab(s), Oral, q6hr, 1 refills Allergies Vicodin inFLIXimab (Urticaria) leflunomide (Intolerance) Social History Alcohol Current. Beer. 1-2 times per year., 06/30/2024 Employment/School - Low Risk, 08/09/2022 Home/Environment - Low Risk, 08/09/2022 Nutrition/Health - Low Risk, 08/09/2022 Substance Abuse - Denies Substance Abuse, 10/04/2010 Never., 06/30/2024 Tobacco - Denies Tobacco Use, 01/06/2019 Former smoker, quit more than 30 days ago Tobacco Use:. Never Smokeless Tobacco Use:. Household tobacco concerns: No. Yes, 07/02/2024 Family History Depression: Mother. Diabetes mellitus type 2: Father. Immunizations Vaccine Date Status Comments influenza virus vaccine, inactivated - Not Given Patient Refuses SARS-CoV-2 mRNA (tocallynameran 5y-11y) vac - Not Given Postpone due to refusal measles/mumps/rubella virus vaccine 05/25/2005 Recorded hepatitis B pediatric vaccine 08/23/1994 Recorded DTaP, unspecified formulation 08/23/1994 Recorded measles/mumps/rubella virus vaccine 09/27/1993 Recorded hepatitis B pediatric vaccine 09/27/1993 Recorded Hib, unspecified formulation 09/27/1993 Recorded hepatitis B pediatric vaccine 05/10/1993 Recorded Hib, unspecified formulation 05/10/1993 Recorded DTaP, unspecified formulation 05/10/1993 Recorded Hib, unspecified formulation 1992 Recorded DTaP, unspecified formulation 1992 Recorded Hib, unspecified formulation 1992 Recorded DTaP, unspecified formulation 1992 Recorded Normal [facility] Comment on above: Result Comment: Elec tronically Signed By: VIKTOR WHITTEN\.laci\Date and Time Signed: 07/15/24 11:25 EST BI TRANSFER OF OUTSIDE FILMS on 07-10-2024 BI TRANSFER OF OUTSIDE FILMS Outside images for comparison or treatment purposes, not interpreted by Radiologists. [facility] BI TRANSFER OF OUTSIDE FILMS Outside images for comparison or treatment purposes, not interpreted by Radiologists. [facility] BI TRANSFER OF OUTSIDE FILMS Outside images for comparison or treatment purposes, not interpreted by Radiologists. [facility] BI TRANSFER OF OUTSIDE FILMS Outside images for comparison or treatment purposes, not interpreted by Radiologists. [facility] BI TRANSFER OF OUTSIDE FILMS Outside images for comparison or treatment purposes, not interpreted by Radiologists. [facility] MR TRANSFER OF OUTSIDE FILMS on 07-10-2024 MR TRANSFER OF OUTSIDE FILMS Outside images for comparison or treatment purposes, not interpreted by Radiologists. [facility] Study Interpretation of outs deedee studyon 07-10-2024 Outside images for comparison or treatment purposes, not interpreted by Radiologists. IMAGING Outside images for comparison or treatment purposes, not interpreted by Radiologists. IMAGING Outside images for comparison or treatment purposes, not interpreted by Radiologists. IMAGING Outside images for comparison or treatment purposes, not interpreted by Radiologists. IMAGING Outside images for comparison or treatment purposes, not interpreted by Radiologists. IMAGING Outside images for comparison or treatment purposes, not interpreted by Radiologists. IMAGING Outside images for comparison or treatment purposes, not interpreted by Radiologists. IMAGING Bacteria identifiedon 2023 Bacteria identified Cx Nom (Bld) Test: Blood Culture Specimen Source: Peripheral Venipuncture Specimen Type: Blood culture Specimen Date: 07/03/2024 111 Result Date: 07/07/20242000 Result Status: Final result Abnormal: No Resulting Lab: [facility] [id number] [place] [address] CULTURE No growth at 4 days - FINAL REPORT [facility] Comment on above: Performed By: #### 2 [id number] #### JERRELL BERNARDO ([id number]) [facility] ([facility]) [address] [place] [address] Bacteria identified Cx Nom (Bld) Test: Blood Culture Specimen Source: Peripheral Venipuncture Specimen Type: Blood culture Specimen Date: 07/03/2024 1059 Result Date: 07/07/20242000 Result Status: Final result Abnormal: No Resulting Lab: [facility] [address] [id number] CULTURE No growth at 4 days - FINAL REPORT [facility] Comment on above: Performed By: #### 2 0054-8 #### JERRELL BERNARDO ([id number]) [facility] ([facility]) [address] [place] [address] 89108 CBC W Auto Differential pane l (Bld)on 07-03-2024 Basophils (Bld) [#/Vol] 0.02 10*3/uL [facility] Basophils/100 WBC (Bld) 0.3 % 0.0 - 2.0 % [facility] Eosinophils (Bld) [#/Vol] 0.08 10*3/uL [facility] Eosinophils/100 WBC (Bld) 1.2 % 0.0 - 6.0 % [facility] Erythrocyte distribution width (RBC) [Ratio] 12.8 % 11.5 - 14.5 % [facility] Hematocrit (Bld) [Volume fraction] 41.4 % 36.0 - 46.0 % [facility] Hemoglobin (Bld) [Mass/Vol] 14.6 g/dL 12.0 - 16.0 g/dL [facility] Immature granulocytes (Bld) [#/Vol] 0.01 10*3/uL [facility] Immature granulocytes/100 WBC (Bld) 0.1 % 0.0 - 0.9 % [facility] Comment on above: Immature Granulocyte Count (IG) includes promyelocytes, myelocytes and metamyelocytes but does not include bands. Percent differential counts (%) should be interpreted in the context of the absolute cell counts (cells/UL). Lymphocytes (Bld) [#/Vol] 2.8 10*3/uL [facility] Lymphocytes/100 WBC (Bld) 40.4 % 13.0 - 44.0 % [facility] MCH (RBC) [Entitic mass] 32.8 pg 26.0 - 34.[address] [facility] MCHC (RBC) [Mass/Vol] 35.3 g/dL 32.0 - 36.0 g/dL [facility] MCV (RBC) [Entitic vol] 93 fL 80 - [address] [facility] Monocytes (Bld) [#/Vol] 0.62 10*3/uL [facility] Monocytes/100 WBC (Bld) 8.9 % 2.0 - 10.0 % [facility] Neutrophils (Bld) [#/Vol] 3.4 10*3/uL [facility] Comment on above: Percent differential counts (%) should be interpreted in the context of the absolute cell counts (cells/uL). Neutrophils/100 WBC (Bld) 49.1 % 40.0 - 80.0 % [facility] Nucleated RBC/100 WBC (Bld) [Ratio] 0 % [facility] Platelets (Bld) [#/Vol] 292 10*3/uL [facility] RBC (Bld) [#/Vol] 4.45 10*6/uL [facility] WBC (Bld) [#/Vol] 6.9 10*3/uL [facility] Basophils (Bld) [#/Vol] 0.02 x10*3/uL Normal 0.00-0.10 [facility] Comment on above: Performed By: #### 5 7021-8 #### JERRELL BERNARDO ([id number]) [facility] ([facility]) [address] [place] [address] 77377 Basophils/100 WBC (Bld) 0.3 % Normal 0.0-2.0 [facility] Comment on above: Performed By: #### 5 7021-8 #### JERRELL BERNARDO ([id number]) [facility] ([facility]) [address] [place] [address] 09352 Eosinophils (Bld) [#/Vol] 0.08 x10*3/uL Normal 0.00-0.70 [facility] Comment on above: Performed By: #### 5 7021-8 #### JERRELL BERNARDO ([id number]) [facility] ([facility]) [address] [place] [address] 31821 Eosinophils/100 WBC (Bld) 1.2 % Normal 0.0-6.0 [facility] Comment on above: Performed By: #### 5 7021-8 #### JERRELL BERNARDO ([id number]) [facility] ([facility]) [address] [place] [address] 09211 Erythrocyte distribution width (RBC) [Ratio] 12.8 % Normal 11.5-14.5 [facility] Comment on above: Performed By: #### 5 7021-8 #### JERRELL BERNARDO ([id number]) [facility] ([facility]) [address] [place] [address] 64672 Hematocrit (Bld) [Volume fraction] 41.4 % Normal 36.0-46.0 [facility] Comment on above: Performed By: #### 5 7021-8 #### JERRELL BERNARDO ([id number]) [facility] ([facility]) [address] [place] [address] 42580 Hemoglobin (Bld) [Mass/Vol] 14.6 g/dL Normal 12.0-16.0 [facility] Comment on above: Performed By: #### 5 7021-8 #### JERRELL BERNARDO ([id number]) [facility] ([facility]) [address] [place] [address] 04069 Immature granulocytes (Bld) [#/Vol] 0.01 x10*3/uL Normal 0.00-0.70 [facility] Comment on above: Performed By: #### 5 7021-8 #### JERRELL BERNARDO ([id number]) [facility] ([facility]) [address] [place] [address] 68187 Immature granulocytes/100 WBC (Bld) 0.1 % Normal 0.0-0.9 [facility] Comment on above: Result Comment: Svetlana ture Granulocyte Count (IG) includes promyelocytes, myelocytes and metamyelocytes but does not include bands. Percent differential counts (%) should be interpreted in the context of the absolute cell counts (cells/UL). Performed By: #### 5 7021-8 #### JERRELL BERNARDO ([id number]) [facility] ([facility]) [address] [place] [address] 57662 Lymphocytes (Bld) [#/Vol] 2.80 x10*3/uL Normal 1.20-4.80 [facility] Comment on above: Performed By: #### 5 7021-8 #### JERRELL BERNARDO ([id number]) [facility] ([facility]) [address] [place] [address] 27744 Lymphocytes/100 WBC (Bld) 40.4 % Normal 13.0-44.0 [facility] Comment on above: Performed By: #### 5 7021-8 #### JERRELL BERNARDO ([id number]) [facility] ([facility]) [address] [place] [address] 91561 MCH (RBC) [Entitic mass] 32.8 pg Normal 26.0-34.0 [facility] Comment on above: Performed By: #### 5 7021-8 #### JERRELL BERNARDO ([id number]) [facility] ([facility]) [address] [place] [address] 38284 MCHC (RBC) [Mass/Vol] 35.3 g/dL Normal 32.0-36.0 [facility] Comment on above: Performed By: #### 5 7021-8 #### JERRELL BERNARDO ([id number]) [facility] ([facility]) [address] [place] [address] 77529 MCV (RBC) [Entitic vol] 93 fL Normal 80-100 [facility] Comment on above: Performed By: #### 5 7021-8 #### JERRELL BERNARDO ([id number]) [facility] ([facility]) [address] [place] [address] 80004 Monocytes (Bld) [#/Vol] 0.62 x10*3/uL Normal 0.10-1.00 [facility] Comment on above: Performed By: #### 5 7021-8 #### JERRELL BERNARDO ([id number]) [facility] ([facility]) [address] [place] [address] 45454 Monocytes/100 WBC (Bld) 8.9 % Normal 2.0-10.0 [facility] Comment on above: Performed By: #### 5 7021-8 #### JERRELL BERNARDO ([id number]) [facility] ([facility]) [address] [place] [address] 71641 Neutrophils (Bld) [#/Vol] 3.40 x10*3/uL Normal 1.20-7.70 [facility] Comment on above: Result Comment: Perc ent differential counts (%) should be interpreted in the context of the absolute cell counts (cells/uL). Performed By: #### 5 7021-8 #### JERRELL BERNARDO ([id number]) [facility] ([facility]) [address] [place] [address] 69928 Neutrophils/100 WBC (Bld) 49.1 % Normal 40.0-80.0 [facility] Comment on above: Performed By: #### 5 7021-8 #### JERRELL BERNARDO ([id number]) [facility] ([facility]) [address] [place] [address] 05961 Nucleated RBC/100 WBC (Bld) [Ratio] 0.0 /100 WBCs Normal 0.0-0.0 [facility] Comment on above: Performed By: #### 5 7021-8 #### JERRELL BERNARDO ([id number]) [facility] ([facility]) [address] [place] [address] 81456 Platelets (Bld) [#/Vol] 292 x10*3/uL Normal 150-450 [facility] Comment on above: Performed By: #### 5 7021-8 #### JERRELL BERNARDO ([id number]) [facility] ([facility]) [address] [place] [address] 80270 RBC (Bld) [#/Vol] 4.45 x10*6/uL Normal 4.00-5.20 [facility] Comment on above: Performed By: #### 5 7021-8 #### JERRELL BERNARDO ([id number]) [facility] ([facility]) [address] [place] [address] 87631 WBC (Bld) [#/Vol] 6.9 x10*3/uL Normal 4.4-11.3 [facility] Comment on above: Performed By: #### 5 7021-8 #### JERRELL BERNARDO ([id number]) [facility] ([facility]) [address] [place] [address] 45815 Comprehensive metabolic 2000 panelon 07-03-2024 Albumin BCP dye [Mass/Vol] 4.7 g/dL 3.4 - 5.0 g/dL [facility] ALP [Catalytic activity/Vol] 49 U/L 33 - 110 U/L [facility] ALT With P-5'-P [Catalytic activity/Vol] 21 U/L 7 - 45 U/L [facility] Comment on above: Patients treated wit h Sulfasalazine may generate falsely decreased results for ALT. Anion gap [Moles/Vol] 11 mmol/L 10 - 2 0 mmol/L [facility] AST With P-5'-P [Catalytic activity/Vol] 18 U/L 9 - 39 U/L [facility] Bilirubin [Mass/Vol] 0.6 mg/dL 0.0 - 1 .2 mg/dL [facility] Calcium [Mass/Vol] 9.1 mg/dL 8.6 - 10. 3 mg/dL [facility] Chloride [Moles/Vol] 102 mmol/L 98 - 10 7 mmol/L [facility] CO2 [Moles/Vol] 26 mmol/L 21 - 32 mmol/L [facility] Creatinine [Mass/Vol] 0.7 mg/dL 0.50 - 1.05 mg/dL [facility] eGFR - PINF [facility] Comment on above: Calculations of chung mated GFR are performed using the 2020 CKD-EPI Study Refit equation without the race variable for the IDMS-Traceable creatinine methods. https://jasn.asnjournals.org/content//ASN.60721 68891 Glucose [Mass/Vol] 110 mg/dL High 74 - 99 mg/dL [facility] Potassium [Moles/Vol] 3.4 mmol/L Low 3.5 - 5.3 mmol/L [facility] Protein [Mass/Vol] 7.5 g/dL 6.4 - 8.2 g/dL [facility] Sodium [Moles/Vol] 136 mmol/L 136 - 145 mmol/L [facility] Urea nitrogen [Mass/Vol] 9 mg/dL 6 - 23 mg/dL [facility] Albumin BCP dye [Mass/Vol] 4.7 g/dL Normal 3.4-5.0 [facility] Comment on above: Performed By: #### 2 4323-8 #### JERRELL BERNARDO ([id number]) [facility] ([facility]) [address] [place] [address] 85386 ALP [Catalytic activity/Vol] 49 U/L Normal 33-110 [facility] Comment on above: Performed By: #### 2 4323-8 #### JERRELL BERNARDO ([id number]) [facility] ([facility]) [address] [place] [address] 00676 ALT With P-5'-P [Catalytic activity/Vol] 21 U/L Normal 7-45 [facility] Comment on above: Result Comment: January ents treated with Sulfasalazine may generate falsely decreased results for ALT. Performed By: #### 2 1463-8 #### JERRELL BERNARDO ([id number]) [facility] ([facility]) [address] [place] [address] 86810 Anion gap [Moles/Vol] 11 mmol/L Normal 10-20 [facility] Comment on above: Performed By: #### 2 7243-8 #### JERRELL BERNARDO ([id number]) [facility] ([facility]) [address] [place] [address] 11439 AST With P-5'-P [Catalytic activity/Vol] 18 U/L Normal 9-39 [facility] Comment on above: Performed By: #### 2 9153-8 #### JERRELL BERNARDO ([id number]) [facility] ([facility]) [address] [place] [address] 89116 Bilirubin [Mass/Vol] 0.6 mg/dL Normal 0.0-1.2 [facility] Comment on above: Performed By: #### 2 4323-8 #### JERRELL BERNARDO ([id number]) [facility] ([facility]) [address] [place] [address] Calcium [Mass/Vol] 9.1 mg/dL Normal 8.6-10.3 [facility] Comment on above: Performed By: #### 2 4323-8 #### JERRELL BERNARDO ([id number]) [facility] ([facility]) [address] [place] [address] 63580 Chloride [Moles/Vol] 102 mmol/L Normal 98-107 [facility] Comment on above: Performed By: #### 2 4323-8 #### JERRELL BERNARDO ([id number]) [facility] ([facility]) [address] [place] [address] 52202 CO2 [Moles/Vol] 26 mmol/L Normal 21-32 [facility] Comment on above: Performed By: #### 2 4323-8 #### JERRELL BERNARDO ([id number]) [facility] ([facility]) [address] [place] [address] Creatinine [Mass/Vol] 0.70 mg/dL Normal 0.50-1.05 [facility] Comment on above: Performed By: #### 2 4323-8 #### JERRELL BERNARDO ([id number]) [facility] ([facility]) [address] [place] [address] 99887 GFR/1.73 sq M.predicted MDRD (S/P/Bld) [Vol rate/Area] mL/min/{1.73_m2} Normal >60 [facility] Comment on above: Result Comment: Calc ulations of estimated GFR are performed using the 2020 CKD-EPI Study Refit equation without the race variable for the IDMS-Traceable creatinine methods. https://jasn.asnjournals.org/content//ASN.59531 99094 Performed By: #### 2 4323-8 #### JERRELL BERNARDO ([id number]) [facility] ([facility]) [address] [place] [address] 43696 Glucose [Mass/Vol] 110 mg/dL High 74-99 [facility] Comment on above: Performed By: #### 2 4323-8 #### JERRELL BERNARDO ([id number]) [facility] ([facility]) [address] [place] [address] 39189 Potassium [Moles/Vol] 3.4 mmol/L Low 3.5-5.3 [facility] Comment on above: Performed By: #### 2 4323-8 #### JERRELL BERNARDO ([id number]) [facility] ([facility]) [address] [place] [address] 18469 Protein [Mass/Vol] 7.5 g/dL Normal 6.4-8.2 [facility] Comment on above: Performed By: #### 2 4323-8 #### JERRELL BERNARDO ([id number]) [facility] ([facility]) [address] [place] [address] 00264 Sodium [Moles/Vol] 136 mmol/L Normal 136-145 [facility] Comment on above: Performed By: #### 2 4323-8 #### JERRELL BERNARDO ([id number]) [facility] ([facility]) [address] [place] [address] 88560 Urea nitrogen [Mass/Vol] 9 mg/dL Normal 6-23 [facility] Comment on above: Performed By: #### 2 4323-8 #### JERRELL BERNARDO ([id number]) [facility] ([facility]) [address] [place] [address] 09381 FLUAV and FLUBV RNA MAGUI+prob e Nom (Unsp spec)on 07-03-2024 FLUAV RNA MAGUI+probe Ql (Resp) Not detected Not Detected [facility] FLUBV RNA MAGUI+probe Ql (Resp) Not detected Not Detected [facility] This assay is an in vitro diagnostic multiplex nucleic acid amplification test for the detection and discrimination of Influenza A & B from nasopharyngeal specimens, and has been validated for use at [facility]. Negative results do not preclude Influenza A/B infections, and should not be used as the sole basis for diagnosis, treatment, or other management decisions. If Influenza A/B and RSV PCR results are negative, testing for Parainfluenza virus, Adenovirus and Metapneumovirus is routinely performed for [facility] pediatric oncology and intensive care inpatients, and is available on other patients by placing an add-on request. [facility] FLUAV RNA MAGUI+probe Ql (Resp) Not detected Normal Not Detected [facility] Comment on above: Order Comment: This assay is an in vitro diagnostic multiplex nucleic acid amplification test for the detection and discrimination of Influenza A & B from nasopharyngeal specimens, and has been validated for use at [facility]. Negative results do not preclude Influenza A/B infections, and should not be used as the sole basis for diagnosis, treatment, or other management decisions. If Influenza A/B and RSV PCR results are negative, testing for Parainfluenza virus, Adenovirus and Metapneumovirus is routinely performed for [facility] pediatric oncology and intensive care inpatients, and is available on other patients by placing an add-on request. Performed By: #### 4 8509-4 #### JERRELL BERNARDO ([id number]) [facility] ([facility]) [address] [place] [address] 78651 FLUBV RNA MAGUI+probe Ql (Resp) Not detected Normal Not Detected [facility] Comment on above: Order Comment: This assay is an in vitro diagnostic multiplex nucleic acid amplification test for the detection and discrimination of Influenza A & B from nasopharyngeal specimens, and has been validated for use at [facility]. Negative results do not preclude Influenza A/B infections, and should not be used as the sole basis for diagnosis, treatment, or other management decisions. If Influenza A/B and RSV PCR results are negative, testing for Parainfluenza virus, Adenovirus and Metapneumovirus is routinely performed for [facility] pediatric oncology and intensive care inpatients, and is available on other patients by placing an add-on request. Performed By: #### 4 8509-4 #### JERRELL BERNARDO ([id number]) [facility] ([facility]) [address] [place] [address] Group A Streptococcus, PCRon 07-03-2024 S. pyogenes DNA MAGUI+probe Ql (Throat) Not detected Not Detected [facility] Comment on above: This assay is an FDA -cleared, real-time PCR test for the qualitative detection of Group A Streptococcus bacterial DNA from throat swabs that have not undergone a nucleic acid extraction. Negative results do not require confirmation by culture. Lactateon 07-03-2024 Lactate [Moles/Vol] 0.8 mmol/L 0.4 - 2. 0 mmol/L [facility] Lactate [Moles/Vol] 0.8 mmol/L Normal 0.4-2.0 [facility] Comment on above: Order Comment: Venip uncture immediately after or during the administration of Metamizole may lead to falsely low results. Testing should be performed immediately prior to Metamizole dosing. Performed By: #### 2 4323-8 #### JERRELL BERNARDO ([id number]) [facility] ([facility]) [address] [place] [address] Lactate [Moles/Vol] 2.4 mmol/L High 0.4 - 2. 0 mmol/L [facility] Lactate [Moles/Vol] 2.4 mmol/L High 0.4-2.0 [facility] Comment on above: Order Comment: Venip uncture immediately after or during the administration of Metamizole may lead to falsely low results. Testing should be performed immediately prior to Metamizole dosing. Performed By: #### 2 524-7 #### JERRELL BERNARDO ([id number]) [facility] ([facility]) [address] [place] [address] 68077 Lactate [Moles/Vol]on 2023 Interpretation and review of laboratory results Normal [facility] Venipuncture immediately after or during the administration of Metamizole may lead to falsely low results. Testing should be performed immediately prior to Metamizole dosing. [facility] Lipaseon 07-03-2024 Lipase [Catalytic activity/Vol] 21 U/L 9 - 82 U/L [facility] Lipase [Catalytic activity/V ol]on 07-03-2024 Interpretation and review of laboratory results Normal [facility] No Panel Informationon 07-03 Extra Tube Hold for add-ons. [facility] Comment on above: Auto resulted. [facility] Interpretation and review of laboratory results Normal [facility] Interpretation and review of laboratory results Abnormal [facility] Venipuncture immediately after or during the administration of Metamizole may lead to falsely low results. Testing should be performed immediately prior to Metamizole dosing. [facility] RSV PCRon 07-03-2024 RSV RNA MAGUI+probe Ql (Resp) Not detected Not Detected [facility] RSV RNA MAGUI+probe Ql (Resp)o n 07-03-2024 This assay is an FDA-cleared, in vitro diagnostic nucleic acid amplification test for the detection of RSV from nasopharyngeal specimens, and has been validated for use at [facility]. Negative results do not preclude RSV infections, and should not be used as the sole basis for diagnosis, treatment, or other management decisions. If Influenza A/B and RSV PCR results are negative, testing for Parainfluenza virus, Adenovirus and Metapneumovirus is routinely performed for pediatric oncology and intensive care inpatients at [facility], and is available on other patients by placing an add-on request. [facility] Respiratory syncytial virus RNAon 07-03-2024 RSV RNA MAGUI+probe Ql (Resp) Not detected Normal Not Detected [facility] Comment on above: Order Comment: This assay is an FDA-cleared, in vitro diagnostic nucleic acid amplification test for the detection of RSV from nasopharyngeal specimens, and has been validated for use at [facility]. Negative results do not preclude RSV infections, and should not be used as the sole basis for diagnosis, treatment, or other management decisions. If Influenza A/B and RSV PCR results are negative, testing for Parainfluenza virus, Adenovirus and Metapneumovirus is routinely performed for pediatric oncology and intensive care inpatients at [facility], and is available on other patients by placing an add-on request. Performed By: #### 9 2131-2 #### JERRELL BERNARDO ([id number]) [facility] ([facility]) [address] [place] [address] S. pyogenes DNA MAGUI+probe Ql (Throat)on 07-03-2024 Interpretation and review of laboratory results Normal [facility] SARS coronavirus 2 RNAon SARS-CoV-2 (COVID-19) RNA MAGUI+probe Ql (Resp) Not detected Normal Not Detected [facility] Comment on above: Order Comment: This assay has received FDA Emergency Use Authorization (EUA) and is only authorized for the duration of time that circumstances exist to justify the authorization of the emergency use of in vitro diagnostic tests for the detection of SARS-CoV-2 virus and/or diagnosis of COVID-19 infection under section 564(b)(1) of the Act, 21 U.S.C. 360bbb-3(b)(1). This assay is an in vitro diagnostic nucleic acid amplification test for the qualitative detection of SARS-CoV-2 from nasopharyngeal specimens and has been validated for use at [facility]. Negative results do not preclude COVID-19 infections and should not be used as the sole basis for diagnosis, treatment, or other management decisions. Performed By: #### 9 4500-6 #### JERRELL BERNARDO ([id number]) [facility] ([facility]) [address] [place] [address] 33285 SARS-CoV-2 (COVID-19) RNA NA A+probe Ql (Resp)on 07-03-2024 This assay has received FDA Emergency Use Authorization (EUA) and is only authorized for the duration of time that circumstances exist to justify the authorization of the emergency use of in vitro diagnostic tests for the detection of SARS-CoV-2 virus and/or diagnosis of COVID-19 infection under section 564(b)(1) of the Act, 21 U.S.C. 360bbb-3(b)(1). This assay is an in vitro diagnostic nucleic acid amplification test for the qualitative detection of SARS-CoV-2 from nasopharyngeal specimens and has been validated for use at [facility]. Negative results do not preclude COVID-19 infections and should not be used as the sole basis for diagnosis, treatment, or other management decisions. [facility] Sars-CoV-2 PCRon 10-24-2024 SARS-CoV-2 (COVID-19) RNA MAGUI+probe Ql (Resp) Not detected Not Detected [facility] Streptococcus pyogenes DNAon 07-03-2024 S. pyogenes DNA MAGUI+probe Ql (Throat) Streptococcus pyogenes DNA Not Detected This assay is an FDA-cleared, real-time PCR test for the qualitative detection of Group A Streptococcus bacterial DNA from throat swabs that have not undergone a nucleic acid extraction. Negative results do not require confirmation by culture. Normal [facility] Comment on above: Performed By: #### 6 0489-2 #### JERRELL BERNARDO ([id number]) [facility] ([facility]) [address] [place] [address] Triacylglycerol lipaseon Lipase [Catalytic activity/Vol] 21 U/L Normal [facility] Comment on above: Order Comment: Venip uncture immediately after or during the administration of Metamizole may lead to falsely low results. Testing should be performed immediately prior to Metamizole dosing. Performed By: #### 3 040-3 #### JERRELL BERNARDO ([id number]) [facility] ([facility]) [address] [place] [address] Urinalysis complete W Reflex Culture panel (U)on 07-03-2024 Appearance (U) Clear Clear [facility] Bilirubin (U) [Mass/Vol] Negative NEGATIVE [facility] Color (U) Colorless Abnormal Light-Yellow , Yellow, Dark-Yellow [facility] Epithelial cells.squamous Auto (Urine sed) [#/Area] 1-9 (SPARSE) Reference range not established. /HPF [facility] Glucose Auto test strip (U) [Mass/Vol] Normal Normal mg/dL [facility] Interpretation and review of laboratory results Abnormal [facility] [facility] Ketones (U) [Mass/Vol] Negative NEGAT CHIKI mg/dL [facility] Leukocyte esterase Auto test strip Ql (U) Negative NEGATIVE [facility] Nitrite Auto test strip Ql (U) Negative NEGATIVE [facility] pH (U) 7 [pH] 5.0, 5.5, 6.0, 6.5, 7.0, 7.5, 8.0 [facility] Protein (U) [Mass/Vol] Negative NEGAT CHIKI, 10 (TRACE), 20 (TRACE) mg/dL [facility] RBC (U) [#/Vol] 0.06 (1+) Abnormal NEGATIVE [facility] RBC Auto (Urine sed) [#/Area] 3-5 NONE, 1-2, 3-5 /HPF [facility] Specific gravity (U) [Rel density] 1.009 1.005 - 1.035 [facility] Urobilinogen (U) [Mass/Vol] Normal Normal mg/dL [facility] WBC Auto (Urine sed) [#/Area] NONE 1-5, NONE /HPF [facility] Appearance (U) Clear Normal Clear [facility] Comment on above: Performed By: #### 2 4323-8 #### JERRELL BERNARDO ([id number]) [facility] ([facility]) [address] [place] [address] Bilirubin (U) [Mass/Vol] Negative Normal NEGATIVE [facility] Comment on above: Performed By: #### 2 4323-8 #### JERRELL BERNARDO ([id number]) [facility] ([facility]) [address] [place] [address] Color (U) Colorless Normal Light-Yellow , Yellow, Dark-Yellow [facility] Comment on above: Performed By: #### 2 4323-8 #### JERRELL BERNARDO ([id number]) [facility] ([facility]) [address] [place] [address] Epithelial cells.squamous Auto (Urine sed) [#/Area] 1-9 (SPARSE) Normal Reference range not established. [facility] Comment on above: Performed By: #### 5 8077-9 #### JERRELL BERNARDO ([id number]) [facility] ([facility]) [address] [place] [address] Glucose Auto test strip (U) [Mass/Vol] Normal Normal Normal [facility] Comment on above: Performed By: #### 2 1603-8 #### JERRELL BERNARDO ([id number]) [facility] ([facility]) [address] [place] [address] Ketones (U) [Mass/Vol] Negative Normal NEGATIVE Un [facility] Comment on above: Performed By: #### 2 4323-8 #### JERRELL BERNARDO ([id number]) [facility] ([facility]) [address] [place] [address]151 Leukocyte esterase Auto test strip Ql (U) Negative Normal NEGATIVE [facility] Comment on above: Performed By: #### 2 432-8 #### JERRELL BERNADRO ([id number]) [facility] ([facility]) [address] [place] [address] 36052 Nitrite Auto test strip Ql (U) Negative Normal NEGATIVE [facility] Comment on above: Performed By: #### 2 4323-8 #### JERRELL BERNARDO ([id number]) [facility] ([facility]) [address] [place] [address]67 pH (U) 7.0 [pH] Normal 5.0, 5.5, 6.0, 6.5, 7.0, 7.5, 8.0 [facility] Comment on above: Performed By: #### 2 4323-8 #### JERRELL BERNARDO ([id number]) [facility] ([facility]) [address] [place] [address] Protein (U) [Mass/Vol] Negative Normal NEGAT CHIKI, 10 (TRACE), 20 (TRACE) [facility] Comment on above: Performed By: #### 2 4323-8 #### JERRELL BERNARDO ([id number]) [facility] ([facility]) [address] [place] [address]67 RBC (U) [#/Vol] 0.06 (1+) Abnormal NEGATIVE [facility] Comment on above: Performed By: #### 2 4323-8 #### JERRELL BERNARDO ([id number]) [facility] ([facility]) [address] [place] [address] 88327 RBC Auto (Urine sed) [#/Area] 3-5 Normal NONE, 1-2, 3-5 [facility] Comment on above: Performed By: #### 5 8077-9 #### JERRELL BERNARDO ([id number]) [facility] ([facility]) [address] [place] [address] Specific gravity (U) [Rel density] 1.009 Normal 1.005-1.035 [facility] Comment on above: Performed By: #### 2 4323-8 #### JERRELL BERNARDO ([id number]) [facility] ([facility]) [address] [place] [address]97 Urobilinogen (U) [Mass/Vol] Normal Normal Normal [facility] Comment on above: Performed By: #### 2 4323-8 #### JERRELL BERNARDO ([id number]) [facility] ([facility]) [address] [place] [address] 11840 WBC Auto (Urine sed) [#/Area] NONE Normal 1-5, NONE [facility] Comment on above: Performed By: #### 5 8077-9 #### JERRELL BERNARDO ([id number]) [facility] ([facility]) [address] [place] [address]50 XR CHEST 2 VIEWSon XR CHEST 2 VIEWS Interpreted By: Issac Estrada, STUDY: XR CHEST 2 VIEWS; 07/03/2024 11:04 am INDICATION: Signs/Symptoms:Cough. COMPARISON: None. ACCESSION NUMBER(S): [id number] ORDERING CLINICIAN: SHARATH PENDLETON FINDINGS: CARDIOMEDIASTINAL SILHOUETTE: Cardiomediastinal silhouette is normal in size and configuration. LUNGS: Lungs are clear. ABDOMEN: No remarkable upper abdominal findings. BONES: No acute osseous changes. IMPRESSION: 1. No evidence of acute cardiopulmonary process. MACRO: None Signed by: Issac Estrada 07/03/2024 12:04 PM Dictation workstation: [id number] [facility] XR Chest 2 Viewson 4 1. No evidence of acute cardiopulmonary process. MACRO: None Signed by: Issac Estrada 07/03/2024 12:04 PM Dictation workstation: [id number] Interpreted By: Issac Estrada, STUDY: XR CHEST 2 VIEWS; 07/03/2024 11:04 am INDICATION: Signs/Symptoms:Cough. COMPARISON: None. ACCESSION NUMBER(S): [id number] ORDERING CLINICIAN: SHARATH PENDLETON FINDINGS: CARDIOMEDIASTINAL SILHOUETTE: Cardiomediastinal silhouette is normal in size and configuration. LUNGS: Lungs are clear. ABDOMEN: No remarkable upper abdominal findings. BONES: No acute osseous changes. MMODAL Issac Estrada MD - 07/03/2024 Interpreted By: Issac Estrada, STUDY: XR CHEST 2 VIEWS; 07/03/2024 11:04 am INDICATION: Signs/Symptoms:Cough. COMPARISON: None. ACCESSION NUMBER(S): [id number] ORDERING CLINICIAN: SHARATH PENDLETON FINDINGS: CARDIOMEDIASTINAL SILHOUETTE: Cardiomediastinal silhouette is normal in size and configuration. LUNGS: Lungs are clear. ABDOMEN: No remarkable upper abdominal findings. BONES: No acute osseous changes. IMPRESSION: 1. No evidence of acute cardiopulmonary process. MACRO: None Signed by: Issac Estrada 07/03/2024 12:04 PM Dictation workstation: [id number] [facility] Work Phone: Radiology Study observation (narrative) [facility] Work Phone: XR Chest 2 ViewsOrdered By: Issac Estrada on 07-03-2024 [facility] Work Phone: Ambulatory Visit Summaryon 1 Ambulatory Visit Summary Ambulatory Visit Summary DE LEONALYSSA JADE :1990 Visit Date:07/02/2024 Ambulatory Visit Instructions Your Diagnosis Abscess BMI 23.0-23.9, adult Nonsmoker Your Care Team Attending Physician - VALERI FRANKEL CNP Primary Care Physician - Baldo Acosta DO This Is Your Medications List amphetamine-dextroamp hetamine (amphetamine-dextroam phetamine 20 mg Cap-ER) cephalexin (Keflex 500 mg Cap) cephalexin (cephalexin 500 mg Cap) doxycycline (doxycycline monohydrate 100 mg oral tablet) ethinyl estradiol-norethindro ne (Microgestin 1.5/30 oral tablet) folic acid (folic acid 1 mg Tab) loratadine (Allergy (Loratadine) 10 mg oral tablet) methotrexate (methotrexate 2.5 mg Tab) pilocarpine (pilocarpine 5 mg Tab) predniSONE (predniSONE 5 mg Tab) Procedures Performed Fine needle biopsy of breast (2022), Lumpectomy of right breast (2022), section (11/02/2018), Root canal therapy. Discharge Vitals Temperature (Oral) 37.5 ???C Heart Rate (Peripheral) 92 Respiratory Rate 16 Blood Pressure 112/68 Height 152 cm Height 60 in Weight 53.7 kg Weight 118.14 lb BMI 23.24 What to do next Scheduled Follow-Up Appointments Sunday 11:20 AM EDT With: Nicho Armstrong DO Where: [place] [address] [address] [place] [address]- Medications What How Much When Instructions Changed cephalexin (cephalexin 500 mg Cap) Changed cephalexin (Keflex 500 mg Cap) 1 Capsules By Mouth 3 times a day Take one capsule by mouth three times a day for ten days Unchanged amphetamine-dextroamp hetamine (amphetamine-dextroam phetamine 20 mg Cap-ER) 1 Capsules By Mouth Every day Duration: 30 Days Unchanged doxycycline (doxycycline monohydrate 100 mg oral tablet) 1 Tablets By Mouth 2 times a day Duration: 10 Days Unchanged ethinyl estradiol-norethindro ne (Microgestin 1.5/ 30 oral tablet) 1 Tablets By Mouth Every day Unchanged folic acid (folic acid 1 mg Tab) Unchanged loratadine (Allergy (Loratadine) 10 mg oral tablet) See instructions 1 tab(s) Oral PRN Unchanged methotrexate (methotrexate 2.5 mg Tab) 1 Tablets By Mouth Every 7 days Unchanged pilocarpine (pilocarpine 5 mg Tab) 1 Tablets By Mouth 3 times a day Unchanged predniSONE (predniSONE 5 mg Tab) Allergies Vicodin inFLIXimab (Urticaria) leflunomide (Intolerance) Problems Ongoing - Any problem that you are currently receiving treatment for. Abnormal magnetic resonance imaging of breast Adult ADHD Arthritis, rheumatoid BMI 22.0-22.9, adult Breast mass, right Left hip pain MRSA (methicillin resistant staph aureus) culture positive Nonsmoker Possible exposure to STI UTI (urinary tract infection) Historical - Any problem that you are no longer receiving treatment for. asthma Migraine Pneumonia Rheumatoid arthritis Shingles Patient Survey You may receive a survey via text or e-mail asking about your office visit. Please share your experience with us by completing your survey. We appreciate your feedback and thank you for choosing us for your care. Normal [facility] ED Note-Physicianon 07-02-20 ED Note-Physician ED Note-Physician Basic Information Time Seen: Mina Posadas PA-C 06/24/2024 09:23 Chief Complaint Pt was here 06/09/24 for a cyst in her left armpit. Pt states that it came back. History of Present Illness 34-year-old female comes to the ED for evaluation of abscess formation. She presents with abscess formation to the left axilla. She had similar symptoms approximately 6 weeks ago and was treated with antibiotics at that time. No fever, chills, nausea, vomiting. No drainage. Review of Systems A 10 point review of systems is negative except as noted above. Medical and Surgical History: Reviewed and noted Social history: Lives at home Tobacco: Denies Physical Exam Vitals & Measurements T: 36.4 ???C(Oral) HR: 67(Peripheral) RR: 18 BP: 110/73 SpO2: 100% HT: 152.4 cm WT: 54.8 kg BMI: 23.59 Nurses notes and vital signs reviewed and patient is not hypoxic. General: The patient appears well, resting comfortably. Skin: Warm, dry. Approximate 1.5 cm raised area of tenderness erythema and fluctuance to the left axilla. Skin is intact. No drainage. No lymphangitis. No lymphadenopathy. Head: Atraumatic. Neck: No JVD. Eye: Normal conjunctiva. Ears, Nose, Mouth, and Throat: Moist mucous membranes. Cardiovascular: Strong distal pulses. Chest wall: Respiratory: Respirations are nonlabored. Back: Normal range of motion. Musculoskeletal: Normal ROM with no gross deformity. Gastrointestinal: Urological: Neurological: Awake and alert. No focal deficits. Follows commands. Psychiatric: Cooperative. Procedure Incision and drainage: Skin was prepped with chlorhexidine. Area was locally anesthetized 1% lidocaine, 1 cc. An approximately 1 cm incision was made with a 11 blade scalpel over the apex of the abscess. A moderate amount purulent material was expressed. Patient tolerated procedure well. No adverse effects. Area dressed and bandaged by nursing staff. Medical Decision Making Patient resents with abscess formation to the left axilla. That was drained here. See procedure note. She does have a history of MRSA. Discharged on doxycycline and Keflex. Given PCP follow-up. Patient was encouraged to return to the ED if symptoms worsen or change. Assessment/Plan Abscess (L02.91: Cutaneous abscess, unspecified) Orders: cephalexin, 500 mg = 1 cap(s), Oral, TID, Take one capsule by mouth three times a day for ten days, # 30 cap(s), Refills(s) 0, Pharmacy: [facility]/pharmacy #[id number], 152.4, cm, 06/24/24 9:24:00 EDT, Height/Length Dosing, 54.8, kg, 06/24/24 9:24:00 EDT, Weight Dosing doxycycline, 100 mg = 1 tab(s), Oral, BID, X 10 day(s), # 20 tab(s), Refills(s) 0, Pharmacy: [facility]/pharmacy #[id number], 152.4, cm, 06/24/24 9:24:00 EDT, Height/Length Dosing, 54.8, kg, 06/24/24 9:24:00 EDT, Weight Dosing lidocaine, 50 mg, 5 mL, Injection, TransDermal, Once, Stop date 06/24/24 9:26:00 EDT, STAT, Start date 06/24/24 9:26:00 EDT Disposition Plan Patient Discharge Condition Disposition: Discharged home Condition: Improved and stable Counseled: Patient and/or family were counseled to workup, results, treatment plan and follow-up recommendations Discharge Prescription List Prescriptions doxycycline monohydrate 100 mg oral tablet, 100 mg= 1 tab(s), Oral, BID Keflex 500 mg Cap, 500 mg= 1 cap(s), Oral, TID Follow-up With When Contact Information Baldo Link In 3 days 06/27/2024 EDT [address] [place] [address] Business (1) Additional Instructions: Patient Education Skin Abscess Attestation I performed a substantive part of the MDM during the patient???s E/M visit. I personally made or approved the documented management plan and acknowledge its risk of complications. (Independent Interpretation) My (EKG/X-Ray/US/CT) interpretation as above. (Discussion) Management/test interpretation discussed with APC. This report was transcribed using voice recognition software. Every effort was made to ensure accuracy, however, inadvertently computerized full service vending driver mistakes may be present. Appropriate healthcare PPE was used in evaluating this patient. Problem List/Past Medical History Ongoing Abnormal magnetic resonance imaging of breast Adult ADHD Arthritis, rheumatoid BMI 22.0-22.9, adult Breast mass, right Left hip pain MRSA (methicillin resistant staph aureus) culture positive Possible exposure to STI UTI (urinary tract infection) Historical asthma Migraine Pneumonia Rheumatoid arthritis Shingles Procedure/Surgical History Fine needle biopsy of breast (2022), Lumpectomy of right breast (2022), section (11/02/2018), Root canal therapy. Medications Inpatient lidocaine 1% Inj 10 mL, 50 mg= 5 mL, TransDermal, Once Home Allergy (Loratadine) 10 mg oral tablet, See Instructions amphetamine-dextroamp hetamine 20 mg Cap-ER, 20 mg= 1 cap(s), Oral, Daily Humira Pen 40 mg/0.4 mL subcutaneous kit Microgestin 1.5/30 oral tablet, 1 tab(s), Oral, Daily pi (more content not included)... Normal [facility] Comment on above: Result Comment: Elec tronically Signed By: Mina Posadas PA-C\.br\Date and Time Signed: 06/24/24 10:07 EDT\.br\Electronically Co-Signed By: Jeffery Marcial DO\.br\Date and Time Co-Signed: 07/02/24 07:18 EDT Family Medicine Office/Raheem mayo Noteon 07-02-2024 Family Medicine Office/Clinic Note Family Medicine Office/Clinic Note Chief Complaint Lump in Armpit HPI Staff Baldo Acosta pt. Presents today due to abscess under Lt armpit & fever. Finishing 2nd round of abx. No improvement. Wound culture from April was + MRSA Pt states she immunocompromised. Hx of Breast Masses. Did take Tylenol this morning. History of Present Illness 34 year old patient of Dr. Abhinav Acosta DO presents today in f/u to ED visit on 06/24/2024 for abscess to the left axilla. The area was lanced and she was prescribed doxycycline & Keflex. She is concerned because she was never told that she has MRSA. She reports she is immunocompromised and someone should have told her she has MRSA. She wants to know why she has a fever and why she has another abscess. Xavier has a fever of 37.5 today and yesterday. She reports she has a runny nose with the fever. She reports she was strep tested at Dr. Acosta's office yesterday but she was not COVID tested. Review of Systems PHQ Score Initial Depression Screen Score: 2 SCORE Constitutional: no fever, no chills, no sweats, no weakness Skin: no Jaundice, no rash, mild lesions, nopetechiae ENMT: no ear pain, no sore throat, mild congestion, no hoarseness Respiratory: no shortness of breath, no cough, no orthopnea, no wheezing Cardiovascular: no chest pain, no palpitations, no edema Gastrointestinal: no nausea, no vomiting, no diarrhea, no GI bleeding Neurologic: no headache, no dizziness, no numbness, no weakness Psychiatric: no sleeping problems, no irritability, no mood swings/depression. Heme/Lymph: no bleeding tendency, no bruising tendency, no petechiae, no swollen nodes Allergy/Immunologic: no seasonal allergies, no food allergies, no recurrent infections, mild impaired immunity Additional ROS info: Except as noted in the above Review of Systems and in the History of Present Illness all other systems have been reviewed and are negative or noncontributory. Physical Exam Vitals & Measurements T: 37.5 ???C(Oral) HR: 92(Peripheral) RR: 16 BP: 112/68 SpO2: 98% HT: 60 in HT: 152 cm WT: 53.7 kg WT: 118.14 lb BMI: 23.24 General: alert, no acute distress Skin: warm, dry, area under the left armpit- tender to palpation; and slightly red Head: no trauma, normocephalic Neck: Trachea midline, no adenopathy, no tenderness Eye: normal conjunctiva, sclera clear Cardiovascular: regular rate and rhythm, normal peripheral perfusion Respiratory: Lungs CTA, respirations non labored Back: No tenderness, Normal ROM, Normal alignment. Extremities: no deformity, no trauma Neurological: oriented x 4, LOC appropriate for age, CN II-XII intact speech normal Psychiatric: cooperative, affect appropriate for age, normal judgement, normal psychiatric thoughts. Assessment/Plan 1. Abscess (L02.91: Cutaneous abscess, unspecified) Discontinue the Keflex & Doxycycline Start Clindamycin 300 mg one tablet po BID Discuss referral to general surgery if no improvement f/u with pcp Ordered: clindamycin, 300 mg = 1 cap(s), Oral, BID, # 20 cap(s), Refills(s) 0, Pharmacy: [facility]/pharmacy #[id number], 152, cm, 07/02/24 11:38:00 EDT, Height/Length Dosing, 53.7, kg, 07/02/24 11:38:00 EDT, Weight Dosing Rapid COVID POC 74514 2. BMI 23.0-23.9, adult (Z68.23: Body mass index [BMI] 23.0-23.9, adult) Normal BMI Diet as tolerated 3. Nonsmoker (Z78.9: Other specified health status) Encouraged to continue as a non-smoker POCT COVID test negative in the office. Follow-up No qualifying data available Problem List/Past Medical History Ongoing Abnormal magnetic resonance imaging of breast Adult ADHD Arthritis, rheumatoid BMI 22.0-22.9, adult Breast mass, right Left hip pain MRSA (methicillin resistant staph aureus) culture positive Nonsmoker Possible exposure to STI UTI (urinary tract infection) Historical asthma Migraine Pneumonia Rheumatoid arthritis Shingles Procedure/Surgical History Fine needle biopsy of breast (2022), Lumpectomy of right breast (2022), section (11/02/2018), Root canal therapy. Medications Allergy (Loratadine) 10 mg oral tablet, See Instructions amphetamine-dextroamp hetamine 20 mg Cap-ER, 20 mg= 1 cap(s), Oral, Daily clindamycin 300 mg oral cap, 300 mg= 1 cap(s), Oral, BID folic acid 1 mg Tab methotrexate 2.5 mg Tab, 2.5 mg= 1 tab(s), Oral, q7day Microgestin 1.5/30 oral tablet, 1 tab(s), Oral, Daily pilocarpine 5 mg Tab, 5 mg= 1 tab(s), Oral, TID predniSONE 5 mg Tab Allergies Vicodin inFLIXimab (Urticaria) leflunomide (Intolerance) Social History Alcohol Current. Beer. 1-2 times per year., 06/30/2024 Employment/School - Low Risk, 08/09/2022 Home/Environment - Low Risk, 08/09/2022 Nutrition/Health - Low Risk, 08/09/2022 Substance Abuse - Denies Substance Abuse, 10/04/2010 Never., 06/30/2024 Tobacco - Denies Tobacco Use, 01/06/2019 Former smoker, quit more than 30 days ago Tobacco Use:. Never Smokeless Tobac (more content not included)... Normal [facility] Comment on above: Result Comment: Elec tronically Signed By: VALERI FRANKEL CNP\.br\Date and Time Signed: 07/02/24 12:36 EDT HCG ( test) Ql (U)o n 07-02-2024 Interpretation and review of laboratory results Normal [facility] Preg Test, Ur Negative [facility] BI TRANSFER OF OUTSIDE FILMS on 06-27-2024 BI TRANSFER OF OUTSIDE FILMS Outside images for comparison or treatment purposes, not interpreted by Radiologists. Normal [facility] Study Interpretation of outs deedee studyon 06-27-2024 Outside images for comparison or treatment purposes, not interpreted by Radiologists. IMAGING ED Clinical Summaryon 2023 ED Clinical Summary ED Clinical Summary [place] [address] ED Clinical Summary Person Information Name: ALYSSA DE LEON [place] Age: 34 Years : 1990 Sex: Female Language: Colombian PCP: Baldo Acosta DO Marital Status: Single Visit Id: Visit Reason: Cyst; POSS CYST ON ARM Speciality: Acuity: 4 Enc Type: Emergency Med Service: Emergency Arrival: 06/24/2024 09:16:34 Discharge: 06/24/2024 10:41:28 LOS: 000 01:25 Checkin: 06/24/2024 09:16:34 Checkout: 06/24/2024 10:41:28 Dispo Type: Home (Routine DC) EVENTS: Event Name Event Status Request Date/Time Start Date/Time Complete Date/Time Arrive Complete 06/24/2024 09:16:34 06/24/2024 09:16:34 06/24/2024 09:16:34 Document Home Meds Request 06/24/2024 09:16:34 Triage Complete 06/24/2024 09:16:34 06/24/2024 09:24:25 06/24/2024 09:24:25 Bed Assign Complete 06/24/2024 09:19:18 06/24/2024 09:19:18 06/24/2024 09:19:18 Dr Exam Complete 06/24/2024 09:19:18 06/24/2024 09:23:26 06/24/2024 09:23:26 RN Exam Complete 06/24/2024 09:19:18 06/24/2024 09:26:20 06/24/2024 09:26:20 Registration Complete 06/24/2024 09:23:26 06/24/2024 09:35:58 06/24/2024 10:20:04 Dr Exam Complete 06/24/2024 09:24:28 06/24/2024 09:24:28 06/24/2024 09:24:28 Meds Admin Complete 06/24/2024 09:27:02 06/24/2024 10:29:27 Discharge Complete 06/24/2024 10:05:27 06/24/2024 10:41:35 06/24/2024 10:41:35 Reg Complete Request 06/24/2024 10:20:04 Reg Bed Request Complete 06/24/2024 10:20:04 06/24/2024 10:20:04 06/24/2024 10:20:04 Transfer Complete 06/24/2024 10:41:35 06/24/2024 10:41:35 06/24/2024 10:41:35 ADDRESS: [facility] [address] [facility] [id number] PHYS DOC NOTES: MEDICAL INFORMATION: Prescriptions Given: New Medications [id number], [address], [place] [id number], [phone] cephalexin (Keflex 500 mg Cap) 1 Capsules By Mouth 3 times a day. Take one capsule by mouth three times a day for ten days. Refills: 0. doxycycline (doxycycline monohydrate 100 mg oral tablet) 1 Tablets By Mouth 2 times a day for 10 Days. Refills: 0. Medications to Continue with No Changes Other Medications amphetamine-dextroamp hetamine (amphetamine-dextroam phetamine 20 mg Cap-ER) 1 Capsules By Mouth every day for 30 Days. Refills: 0. ethinyl estradiol-norethindro ne (Microgestin 1.5/30 oral tablet) 1 Tablets By Mouth every day. loratadine (Allergy (Loratadine) 10 mg oral tablet) 1 tab(s) Oral PRN. pilocarpine (pilocarpine 5 mg Tab) 1 Tablets By Mouth 3 times a day. PATIENT EDUCATION INFORMATION: Instructions: Skin Abscess Follow up: With: Address: When: Baldo Acosta [address] [place] [address] Business (1) In 3 days 06/27/2024 DIAGNOSIS: Abscess Normal [facility] ED Patient Summaryon 024 ED Patient Summary ED Patient Summary [address] [address] Patient Discharge Instructions Person Information Name: ALYSSA DE LEON Age: 34 Years Arrival Date: 06/24/2024 09:16:34 Discharge Diagnosis: Abscess Primary Care Physician: Baldo Acosta DO Provider Information Primary Provider: Jeffery Marcial DO Advanced Roll Examiner:Mina Posadas PA-C The exam and treatment you received in the Emergency Department were for an urgent problem and are not intended as complete care. It is important that you follow up with a doctor, nurse practitioner, or physician?s preschool assistant director for ongoing care. If your symptoms become worse or you do not improve as expected and you are unable to reach your usual health care provider, you should return to the Emergency Department. We are available 24 hours a day. AUSTEN DE LEONA SANDRA has been given the following list of patient education materials, prescriptions and follow-up instructions: Follow-up Instructions: With: Address: When: Baldo Aguillon [address] [place] [id number] Business (1) In 3 days 06/27/2024 In the event that this physician does not participate in your insurance network, please consult with your insurance company to find a nearby participating provider. Patient Education Materials: Skin Abscess A MESSAGE TO ALL PATIENTS REGARDING OPIOIDS PRESCRIPTION OPIOIDS: WHAT YOU NEED TO KNOW Prescription opioids can be used to help relieve buklucro-pk-kpdvnm pain and are often prescribed following a surgery or injury, or for certain health conditions. These medications can be an important part of the treatment but also come with serious risks. It is important to work with your healthcare provider to make sure you are getting the safest, most effective care. WHAT ARE THE RISKS AND SIDE EFFECTS OF OPIOID USE? Prescription opioids carry serious risks of addiction and overdose, especially with prolonged use. An opioid overdose, often marked by slowed breathing, can cause sudden . The use of prescription opioids can have a number of side effects as well, even when taken as directed: ? Tolerance?meaning you might need to take more of the medication for the same pain relief ? Physical dependence?meaning you have symptoms of withdrawal when a medication is stopped ? Increased sensitivity to pain ? Constipation ? Nausea, vomiting, and dry mouth ? Sleepiness and dizziness ? Confusion ? Depression ? Low levels of testosterone that can result in lower sex drive, energy, and strength ? Itching and sweating RISKS ARE GREATER WITH: ? History of drug misuse, substance use disorder, or overdose ? Mental health conditions (such as depression or anxiety) ? Sleep apnea ? Older age (65 years and older) ? Avoid alcohol while taking prescription opioids. Also, unless specifically advised by your health care provider, medications to avoid include: ? Benzodiazepines (such as Xanax or Valium) ? Muscle relaxants (such as Soma or Flexeril) ? Hypnotics (such as Ambien or Lunesta) ? Other prescription opioids KNOW YOUR OPTIONS Talk to your health care provider about ways to manage your pain that don?t involve prescription opioids. Some of these options may actually work better and have fewer risks and side effects. Options may include: ? Pain relievers such as acetaminophen, ibuprofen, and naproxen ? Some medication that are also used for depression or seizures ? Physical therapy and exercise ? Cognitive behavioral therapy, a psychological, goal-directed approach, in which patients learn how to modify physical, behavioral, and emotional triggers of pain and stress. IF YOU ARE PRESCRIBED OPIOIDS FOR PAIN: ? Never take opioids in greater amounts or more often than prescribed. ? Follow up with your primary health care provider. o Work together to create a plan on how to manage your pain. o Talk about ways to help manage your pain that don?t involve prescription opioids. o Talk about any and all concerns and side effects. ? Help prevent misuse and abuse o Never sell or share prescription opioids. o Never use another person?s prescription opioids. ? Store prescription opioids in a secure place and out of reach of others (this may include visitors, children, friends, and family). ? Safely dispose of unused prescription opioids: Find your community drug take-back program or your pharmacy mail-back program, or flush them down the toilet, following guidance from the Food and Drug Administration (www.fda.gov/Drugs/Re sourcesForYou). ? Visit www.cdc.gov/drugoverd ose to learn about the risks of opioids abuse and overdose. ? If you believe you may be struggling with addiction, tell your health child caregiver and ask for guidance or call [employer] National Helpline at 8-372-475-REFV. t Source: [place] Department of (more content not included)... Normal [facility] No Panel InformationOrdered By: Ophelia Fuller on 05-09-2024 GS Occasional White Blood Cells 1+ Gram Positive Cocci [facility] C reactive proteinon 024 CRP [Mass/Vol] 0.13 mg/dL Normal <1.00 [facility] Comment on above: Performed By: #### 1 988-5 #### SKYLER Winkler ([id number]) [facility] ([facility]) [address] [place] [address] CBC W Auto Differential pane l (Bld)on 05-07-2024 Basophils (Bld) [#/Vol] 0.02 x10*3/uL Normal 0.00-0.10 [facility] Comment on above: Performed By: #### 5 7021-8 #### SKYLER Winkler ([id number]) [facility] ([facility]) [address] [place] [address] 97032 Basophils/100 WBC (Bld) 0.3 % Normal 0.0-2.0 [facility] Comment on above: Performed By: #### 5 7021-8 #### SKYLER Winkler ([id number]) [facility] ([facility]) [address] [place] [address] 21661 Eosinophils (Bld) [#/Vol] 0.06 x10*3/uL Normal 0.00-0.70 [facility] Comment on above: Performed By: #### 5 7021-8 #### SKYLER Winkler ([id number]) [facility] ([facility]) [address] [place] [address] 96168 Eosinophils/100 WBC (Bld) 0.9 % Normal 0.0-6.0 [facility] Comment on above: Performed By: #### 5 7021-8 #### SKYLER Winkler ([id number]) [facility] ([facility]) [address] [place] [address] 89928 Erythrocyte distribution width (RBC) [Ratio] 12.0 % Normal 11.5-14.5 [facility] Comment on above: Performed By: #### 5 7021-8 #### SKYLER Winkler ([id number]) [facility] ([facility]) [address] [place] [address] 14863 Hematocrit (Bld) [Volume fraction] 38.3 % Normal 36.0-46.0 [facility] Comment on above: Performed By: #### 5 7021-8 #### SKYLER Winkler ([id number]) [facility] ([facility]) [address] [place] [address] 32256 Hemoglobin (Bld) [Mass/Vol] 13.0 g/dL Normal 12.0-16.0 [facility] Comment on above: Performed By: #### 5 7021-8 #### SKYLER WILEY L ([id number]) [facility] ([facility]) [address] [place] [address] 60939 Immature granulocytes (Bld) [#/Vol] 0.01 x10*3/uL Normal 0.00-0.70 [facility] Comment on above: Performed By: #### 5 7021-8 #### SKYLER Winkler ([id number]) [facility] ([facility]) [id number] [place] [address] 44368 Immature granulocytes/100 WBC (Bld) 0.1 % Normal 0.0-0.9 [facility] Comment on above: Result Comment: Svetlana ture Granulocyte Count (IG) includes promyelocytes, myelocytes and metamyelocytes but does not include bands. Percent differential counts (%) should be interpreted in the context of the absolute cell counts (cells/UL). Performed By: #### 5 7021-8 #### SKYLER Winkler ([id number]) [facility] ([facility]) [address] [place] [address] 16511 Lymphocytes (Bld) [#/Vol] 2.15 x10*3/uL Normal 1.20-4.80 [facility] Comment on above: Performed By: #### 5 7021-8 #### SKYLER Winkler ([id number]) [facility] ([facility]) [address] [place] [address] 95302 Lymphocytes/100 WBC (Bld) 31.5 % Normal 13.0-44.0 [facility] Comment on above: Performed By: #### 5 7021-8 #### SKYLER Winkler ([id number]) [facility] ([facility]) [address] [place] [address] 17610 MCH (RBC) [Entitic mass] 31.3 pg Normal 26.0-34.0 [facility] Comment on above: Performed By: #### 5 7021-8 #### SKYLER Winkler ([id number]) [facility] ([facility]) [address] [place] [address] 49701 MCHC (RBC) [Mass/Vol] 33.9 g/dL Normal 32.0-36.0 [facility] Comment on above: Performed By: #### 5 7021-8 #### SKYLER Winkler ([id number]) [facility] ([facility]) [address] [place] [address] MCV (RBC) [Entitic vol] 92 fL Normal 80-100 [facility] Comment on above: Performed By: #### 5 7021-8 #### SKYLER Winkler ([id number]) [facility] ([facility]) [address] [place] [address] Monocytes (Bld) [#/Vol] 0.32 x10*3/uL Normal 0.10-1.00 [facility] Comment on above: Performed By: #### 5 7021-8 #### SKYLER Winkler ([id number]) [facility] ([facility]) [address] [place] [address] 10647 Monocytes/100 WBC (Bld) 4.7 % Normal 2.0-10.0 [facility] Comment on above: Performed By: #### 5 7021-8 #### SKYLER Winkler ([id number]) [facility] ([facility]) [id number] [place] [address] 79020 Neutrophils (Bld) [#/Vol] 4.26 x10*3/uL Normal 1.20-7.70 [facility] Comment on above: Result Comment: Perc ent differential counts (%) should be interpreted in the context of the absolute cell counts (cells/uL). Performed By: #### 5 7021-8 #### SKYLER Winkler ([id number]) [facility] ([facility]) [address] [place] [address] Neutrophils/100 WBC (Bld) 62.5 % Normal 40.0-80.0 [facility] Comment on above: Performed By: #### 5 7021-8 #### SKYLER Winkler ([id number]) [facility] ([facility]) [id number] [place] [address] 04101 Nucleated RBC/100 WBC (Bld) [Ratio] 0.0 /100 WBCs Normal 0.0-0.0 [facility] Comment on above: Performed By: #### 5 7021-8 #### SKYLER Winkler ([id number]) [facility] ([facility]) [id number] [place] [address] 06915 Platelets (Bld) [#/Vol] 293 x10*3/uL Normal 150-450 [facility] Comment on above: Performed By: #### 5 7021-8 #### SKYLER Winkler ([id number]) [facility] ([facility]) [address] [place] [address] 58971 RBC (Bld) [#/Vol] 4.16 x10*6/uL Normal 4.00-5.20 [facility] Comment on above: Performed By: #### 5 7021-8 #### SKYLER Winkler ([id number]) [facility] ([facility]) [address] [place] [address] 93615 WBC (Bld) [#/Vol] 6.8 x10*3/uL Normal 4.4-11.3 [facility] Comment on above: Performed By: #### 5 7021-8 #### SKYLER Winkler ([id number]) [facility] ([facility]) [address] [place] [address] 03684 Comprehensive metabolic 2000 panelon 05-07-2024 Albumin BCP dye [Mass/Vol] 4.7 g/dL Normal 3.4-5.0 [facility] Comment on above: Performed By: #### 2 4323-8 #### SKYLER Winkler ([id number]) [facility] ([facility]) [id number] [place] [address] 01434 ALP [Catalytic activity/Vol] 44 U/L Normal 33-110 [facility] Comment on above: Performed By: #### 2 4323-8 #### SKYLER WILEY L ([id number]) [facility] ([facility]) [address] [place] [address] 32434 ALT With P-5'-P [Catalytic activity/Vol] 12 U/L Normal 7-45 [facility] Comment on above: Result Comment: January ents treated with Sulfasalazine may generate falsely decreased results for ALT. Performed By: #### 2 4323-8 #### SKYLER Winkler ([id number]) [facility] ([facility]) [id number] [place] [address] 96224 Anion gap [Moles/Vol] 13 mmol/L Normal 10-20 [facility] Comment on above: Performed By: #### 2 4323-8 #### SKYLER Winkler ([id number]) [facility] ([facility]) [id number] [place] [address] 82350 AST With P-5'-P [Catalytic activity/Vol] 12 U/L Normal 9-39 [facility] Comment on above: Performed By: #### 2 4323-8 #### SKYLER Winkler ([id number]) [facility] ([facility]) [address] [place] [address] 10715 Bilirubin [Mass/Vol] 0.5 mg/dL Normal 0.0-1.2 [facility] Comment on above: Performed By: #### 2 4323-8 #### SKYLER Winkler ([id number]) [facility] ([facility]) [address] [place] [address] 33495 Calcium [Mass/Vol] 9.2 mg/dL Normal 8.6-10.6 [facility] Comment on above: Performed By: #### 2 4323-8 #### SKYLER Winkler ([id number]) [facility] ([facility]) [address] [place] [address] 11766 Chloride [Moles/Vol] 102 mmol/L Normal 98-107 [facility] Comment on above: Performed By: #### 2 4323-8 #### SKYLER Winkler ([id number]) [facility] ([facility]) [address] [place] [address] 05437 CO2 [Moles/Vol] 28 mmol/L Normal 21-32 [facility] Comment on above: Performed By: #### 2 4323-8 #### SKYLER Winkler ([id number]) [facility] ([facility]) [address] [place] [address] Creatinine [Mass/Vol] 0.57 mg/dL Normal 0.50-1.05 [facility] Comment on above: Performed By: #### 2 4323-8 #### SKYLER Winkler ([id number]) [facility] ([facility]) [address] [place] [address] GFR/1.73 sq M.predicted MDRD (S/P/Bld) [Vol rate/Area] mL/min/{1.73_m2} Normal >60 [facility] Comment on above: Result Comment: Calc ulations of estimated GFR are performed using the 2020 CKD-EPI Study Refit equation without the race variable for the IDMS-Traceable creatinine methods. https://jasn.asnjournals.org/content/early/ASN.67246 01743 Performed By: #### 2 4323-8 #### SKYLER Winkler ([id number]) [facility] ([facility]) [id number] [place] [address] 64661 Glucose [Mass/Vol] 91 mg/dL Normal 74-99 [facility] Comment on above: Performed By: #### 2 4323-8 #### SKYLER iWnkler ([id number]) [facility] ([facility]) [id number] [place] [address] 15124 Potassium [Moles/Vol] 3.7 mmol/L Normal 3.5-5.3 [facility] Comment on above: Performed By: #### 2 4323-8 #### SKYLER Winkler ([id number]) [facility] ([facility]) [id number] [place] [address] 52553 Protein [Mass/Vol] 7.3 g/dL Normal 6.4-8.2 [facility] Comment on above: Performed By: #### 2 4323-8 #### SKYLER Winkler ([id number]) [facility] ([facility]) [address] [place] [address] Sodium [Moles/Vol] 139 mmol/L Normal 136-145 [facility] Comment on above: Performed By: #### 2 4323-8 #### SKYLER Winkler ([id number]) [facility] ([facility]) [address] [place] [address] Urea nitrogen [Mass/Vol] 9 mg/dL Normal 6-23 [facility] Comment on above: Performed By: #### 2 4323-8 #### SKYLER Winkler ([id number]) [facility] ([facility]) [address] [place] [address] Ambulatory Visit Summaryon 0 04-15-2024 Ambulatory Visit Summary Ambulatory Visit Summary ALYSSA DE LEON :1990 Visit Date:04/15/2024 Ambulatory Visit Instructions Your Diagnosis Adult ADHD BMI 23.0-23.9, adult Former smoker Your Care Team Attending Physician Baldo Tello DO Primary Care Physician - Baldo Acosta DO This Is Your Medications List adalimumab (Humira Pen 40 mg/0.4 mL subcutaneous kit) amphetamine-dextroamp hetamine (amphetamine-dextroam phetamine 20 mg Cap-ER) ethinyl estradiol-norethindro ne (Microgestin 1.5/30 oral tablet) loratadine (Allergy (Loratadine) 10 mg oral tablet) pilocarpine (pilocarpine 5 mg Tab) Procedures Performed Fine needle biopsy of breast (2022), Lumpectomy of right breast (2022), section (11/02/2018), Root canal therapy. Discharge Vitals Heart Rate (Peripheral) 98 Blood Pressure 109/72 Height 152 cm Height 60 in Weight 54.7 kg Weight 120.34 lb BMI 23.68 Medications What How Much When Instructions Unchanged adalimumab (Humira Pen 40 mg/ 0.4 mL subcutaneous kit) Unchanged amphetamine-dextroamp hetamine (amphetamine-dextroam phetamine 20 mg Cap-ER) 1 Capsules By Mouth Every day Duration: 30 Days Pickup at [facility] #[id number] Unchanged ethinyl estradiol-norethindro ne (Microgestin 1.5/ 30 oral tablet) 1 Tablets By Mouth Every day Unchanged loratadine (Allergy (Loratadine) 10 mg oral tablet) See instructions 1 tab(s) Oral PRN Unchanged pilocarpine (pilocarpine 5 mg Tab) 1 Tablets By Mouth 3 times a day Pharmacy Information [facility] #[id number]: [address] [place], [place] [id number] [phone] Allergies Vicodin inFLIXimab (Urticaria) leflunomide (Intolerance) Problems Ongoing - Any problem that you are currently receiving treatment for. Abnormal magnetic resonance imaging of breast Adult ADHD Arthritis, rheumatoid BMI 22.0-22.9, adult Breast mass, right Left hip pain Possible exposure to STI UTI (urinary tract infection) Historical - Any problem that you are no longer receiving treatment for. asthma Migraine Pneumonia Rheumatoid arthritis Shingles Patient Survey You may receive a survey via text or e-mail asking about your office visit. Please share your experience with us by completing your survey. We appreciate your feedback and thank you for choosing us for your care. Normal [facility] Family Medicine Office/Clini c Noteon 04-15-2024 Family Medicine Office/Clinic Note Family Medicine Office/Clinic Note Chief Complaint Annual Physical HPI Staff Patient here for Annual Physical ADHD Sleeping well: No, sleeping less than 6 hours Patient notes it has to do with her breast tumor flare up Eating habits:Eating well, maintaining weight Blood pressure:Reviewed, wnl Side effects: None Focused at home: Yes Concerns/complaints: None OARRS reviewed with no concerns Urine Drug Screen done: Due Medication Agreement updated: Yes, 11/2023 Rheumatoid Arthritis: Rheumatology referral place at last visit, scheduled: yes, appointment scheduled with , 05/07 - Patient notes with her recent breast tumor flare up she is pretty miserable right now with pain, onset 04/09. - Requesting refill: Pilocarpine, until Rheumatology appointment Labs: DUE Pap: 04/01, per pt Dr. Haas ([place]) History of Present Illness Patient presents today for recheck on ADHD. OARRS reviewed: Yes Medication Agreement updated: Yes Urine Drug Screen done: No, due today Pill Count Done: No Patient is doing well on medication. She has no concerns today. She denies any side effects to medication. She is needing refill at this time. She states that her rheumatoid appears to be flaring. Review of Systems PHQ Score Initial Depression Screen Score: 0 SCORE ROS - Provider Constitutional: no fever, no chills Skin: no rash, no lesions ENMT: no ear pain, no sore throat, no congestion, no hoarseness. Respiratory: no shortness of breath, no cough, no wheezing. Cardiovascular: no chest pain, no palpitations, no edema. Gastrointestinal: no nausea, no vomiting, no diarrhea, Musculoskeletal: yes back pain, no trauma, yes joint pain Neurologic: no headache, no dizziness, no numbness, no weakness. Psychiatric: no sleeping problems, no irritability, no mood swings/depression. Physical Exam Vitals & Measurements HR: 98(Peripheral) BP: 109/72 SpO2: 100% HT: 60 in HT: 152 cm WT: 54.7 kg WT: 120.34 lb BMI: 23.68 General: Well developed, well nourished, in no acute distress Head: Normocephalic/atrauma tic Eyes: Pupils equal, round, and reactive to light. Sclerae normal, and extraocular movements intact Lungs: Normal respiratory effort and clear to auscultation Cardio: Regular rate and rhythm, normal S1 and S2, no murmur, no rub Musculoskeletal: No deformity or scoliosis noted. Normal range of motion. Joints normal. No erythema, edema, effusion, or ecchymosis Extremity: No clubbing, cyanosis, edema, or deformity, with normal ROM in both upper and lower bilateral extremities Neurologic: Grossly normal Skin: No rash, petechiae, suspicious lesions Mental Status: Alert and oriented x3. Normal mood and affect Assessment/Plan 1. Adult ADHD (F90.9: Attention-deficit hyperactivity disorder, unspecified type) Ordered: Drug Screen POC 95508 2. BMI 23.0-23.9, adult (Z68.23: Body mass index [BMI] 23.0-23.9, adult) 3. Former smoker (Z87.891: Personal history of nicotine dependence) Orders: amphetamine-dextroamp hetamine, 20 mg = 1 cap(s), Oral, Daily, X 30 day(s), # 30 cap(s), Refills(s) 0, Pharmacy: [facility] #[id number], 152, cm, 04/15/24 13:28:00 EDT, Height/Length Dosing, 54.7, kg, 04/15/24 13:28:00 EDT, Weight Dosing amphetamine-dextroamp hetamine, 20 mg = 1 cap(s), Oral, Daily, X 30 day(s), # 30 cap(s), Refills(s) 0, Pharmacy: [facility]/pharmacy #[id number], 152, cm, 04/15/24 13:28:00 EDT, Height/Length Dosing, 54.7, kg, 04/15/24 13:28:00 EDT, Weight Dosing Follow-up With When Contact Information Baldo Acosta DO, FAM Within 3 months [address] [id number] Additional Instructions: Controlled Medication Followup Problem List/Past Medical History Ongoing Abnormal magnetic resonance imaging of breast Adult ADHD Arthritis, rheumatoid BMI 22.0-22.9, adult Breast mass, right Left hip pain Possible exposure to STI UTI (urinary tract infection) Historical asthma Migraine Pneumonia Rheumatoid arthritis Shingles Procedure/Surgical History Fine needle biopsy of breast (2022), Lumpectomy of right breast (2022), section (11/02/2018), Root canal therapy. Medications Allergy (Loratadine) 10 mg oral tablet, See Instructions amphetamine-dextroamp hetamine 20 mg Cap-ER, 20 mg= 1 cap(s), Oral, Daily Humira Pen 40 mg/0.4 mL subcutaneous kit Microgestin 1.5/30 oral tablet, 1 tab(s), Oral, Daily pilocarpine 5 mg Tab, 5 mg= 1 tab(s), Oral, TID Allergies Vicodin inFLIXimab (Urticaria) leflunomide (Intolerance) Social History Alcohol Current, Beer, 1-2 times per year, Previous treatment: None., 10/04/2010 Employment/School - Low Risk, 08/09/2022 Home/Environment - Low Risk, 08/09/2022 Nutrition/Health - Low Risk, 08/09/2022 Substance Abuse - Denies Substance Abuse, 10/04/2010 Tobacco - Denies Tobacco Use, 01/06/2019 Former smoker, quit more than 30 days ago Tobacco Use:. Never Smokeless Tobacco Use:. Cigarettes, Started a (more content not included)... Normal [facility] Comment on above: Result Comment: Elec tronically Signed By: Baldo Acosta DO\.br\Date and Time Signed: 04/15/24 14:01 EDT Chlamydia/Gonococcus, NAAon 03-27-2024 C. trachomatis rRNA MAGUI+probe Ql (Unsp spec) Negative Invalid Interpretation Code Negative [facility] Comment on above: Performed By: #### 1 [id number] #### [facility] [address] [place] [address] N. gonorrhoeae rRNA MAGUI+probe Ql (Unsp spec) Negative Invalid Interpretation Code Negative [facility] Comment on above: Result Comment: Perf ormed at: =[facility] [address] [facility] [id number] MD Bethany Tucker Performed By: #### 1 [id number] #### [facility] [address] [place] [address] Ambulatory Visit Summaryon 0 03-24-2024 Ambulatory Visit Summary Ambulatory Visit Summary ALYSSA DE LEON :1990 Visit Date:03/24/2024 Ambulatory Visit Instructions Your Diagnosis Possible exposure to STI UTI (urinary tract infection) BMI 22.0-22.9, adult Dysuria Your Care Team Attending Physician - VIKTOR WHITTEN Primary Care Physician - Baldo Acosta DO This Is Your Medications List adalimumab (Humira Pen 40 mg/0.4 mL subcutaneous kit) amphetamine-dextroamp hetamine (amphetamine-dextroam phetamine 20 mg Cap-ER) ethinyl estradiol-norethindro ne (Microgestin 1.5/30 oral tablet) loratadine (Allergy (Loratadine) 10 mg oral tablet) nitrofurantoin (Macrobid 100 mg Cap) phenazopyridine (Pyridium 200 mg Tab) pilocarpine (pilocarpine 5 mg Tab) Procedures Performed Fine needle biopsy of breast (2022), Lumpectomy of right breast (2022), section (11/02/2018), Root canal therapy. Discharge Vitals Heart Rate (Peripheral) 82 Respiratory Rate 16 Blood Pressure 108/62 Height 152 cm Height 60 in Weight 52.5 kg Weight 115.5 lb BMI 22.72 Medications What How Much When Why Instructions New nitrofurantoin (Macrobid 100 mg Cap) 1 Capsules By Mouth 2 times a day Possible exposure to STI UTI (urinary tract infection) BMI 22.0-22.9, adult Dysuria Duration: 7 Days Pickup at [facility]/pharmacy #[id number] New phenazopyridine (Pyridium 200 mg Tab) 1 Tablets By Mouth 3 times a day Possible exposure to STI UTI (urinary tract infection) BMI 22.0-22.9, adult Dysuria Duration: 3 Days Pickup at [facility]/pharmacy #[id number] Unchanged adalimumab (Humira Pen 40 mg/ 0.4 mL subcutaneous kit) Unchanged amphetamine-dextroamp hetamine (amphetamine-dextroam phetamine 20 mg Cap-ER) 1 Capsules By Mouth Every day Unchanged ethinyl estradiol-norethindro ne (Microgestin 1.5/ 30 oral tablet) 1 Tablets By Mouth Every day Unchanged loratadine (Allergy (Loratadine) 10 mg oral tablet) See instructions 1 tab(s) Oral PRN Unchanged pilocarpine (pilocarpine 5 mg Tab) 1 Tablets By Mouth 3 times a day [id number] [address] [place], [place] [phone] Allergies Vicodin inFLIXimab (Urticaria) leflunomide (Intolerance) Problems Ongoing - Any problem that you are currently receiving treatment for. Abnormal magnetic resonance imaging of breast Adult ADHD Arthritis, rheumatoid BMI 22.0-22.9, adult Breast mass, right Left hip pain Possible exposure to STI UTI (urinary tract infection) Historical - Any problem that you are no longer receiving treatment for. asthma Migraine Pneumonia Rheumatoid arthritis Shingles Patient Survey You may receive a survey via text or e-mail asking about your office visit. Please share your experience with us by completing your survey. We appreciate your feedback and thank you for choosing us for your care. Normal [facility] Family Medicine Office/Clini c Noteon 03-24-2024 Family Medicine Office/Clinic Note Family Medicine Office/Clinic Note HPI Staff Dysuria: Onset: sunday Symptoms: bladder pain, stinging urination, cramping, some breakthrough, OTC used: UA in office documented in chart History of Present Illness Alyssa is a 33 year old female who presents with s/s UTI. She is concerned about possible STI due to having sexual intercourse. We obtained a urine today and will send for culture. Staff HPI reviewed and accurate. Review of Systems PHQ Score Initial Depression Screen Score: 0 SCORE Physical Exam Vitals & Measurements HR: 82(Peripheral) RR: 16 BP: 108/62 SpO2: 98% HT: 60 in HT: 152 cm WT: 52.5 kg WT: 115.5 lb BMI: 22.72 General: alert, no acute distress ENMT: TM's clear, oral mucosa moist, no pharyngeal erythema or exudate Cardiovascular: regular rate and rhythm, normal peripheral perfusion Respiratory: Lungs CTA, respirations non labored Extremities: no deformity, no trauma Neurological: oriented x 4, LOC appropriate for age, CN II-XII intact, motor strength equal & normal bilaterally, sensation equal & normal bilaterally, speech normal Assessment/Plan 1. Possible exposure to STI (Z20.2: Contact with and (suspected) exposure to infections with a predominantly sexual mode of transmission) Urine culture ordered Ordered: nitrofurantoin, 100 mg = 1 cap(s), Oral, BID, X 7 day(s), # 14 cap(s), Refills(s) 0, Pharmacy: [facility]/pharmacy #[id number], 152, cm, 03/24/24 11:36:00 EDT, Height/Length Dosing, 52.5, kg, 03/24/24 11:36:00 EDT, Weight Dosing phenazopyridine, 200 mg = 1 tab(s), Oral, TID, X 3 day(s), # 9 tab(s), Refills(s) 0, Pharmacy: [facility]/pharmacy #[id number], 152, cm, 03/24/24 11:36:00 EDT, Height/Length Dosing, 52.5, kg, 03/24/24 11:36:00 EDT, Weight Dosing Chlamydia trachomatis, MAGUI Chlamydia/Gonococcus, MAGUI Neisseria gonorrhoeae, MAGUI UA with Cult Rflx 2. UTI (urinary tract infection) (N39.0: Urinary tract infection, site not specified) TX as prescribed Ordered: nitrofurantoin, 100 mg = 1 cap(s), Oral, BID, X 7 day(s), # 14 cap(s), Refills(s) 0, Pharmacy: [facility]/pharmacy #[id number], 152, cm, 03/24/24 11:36:00 EDT, Height/Length Dosing, 52.5, kg, 03/24/24 11:36:00 EDT, Weight Dosing phenazopyridine, 200 mg = 1 tab(s), Oral, TID, X 3 day(s), # 9 tab(s), Refills(s) 0, [id number], 152, cm, 03/24/24 11:36:00 EDT, Height/Length Dosing, 52.5, kg, 03/24/24 11:36:00 EDT, Weight Dosing Chlamydia trachomatis, MAGUI Chlamydia/Gonococcus, MAGUI Neisseria gonorrhoeae, MAGUI UA with Cult Rflx 3. BMI 22.0-22.9, adult (Z68.22: Body mass index [BMI] 22.0-22.9, adult) Ordered: nitrofurantoin, 100 mg = 1 cap(s), Oral, BID, X 7 day(s), # 14 cap(s), Refills(s) 0, [id number], 152, cm, 03/24/24 11:36:00 EDT, Height/Length Dosing, 52.5, kg, 03/24/24 11:36:00 EDT, Weight Dosing phenazopyridine, 200 mg = 1 tab(s), Oral, TID, X 3 day(s), # 9 tab(s), Refills(s) 0, [id number], 152, cm, 03/24/24 11:36:00 EDT, Height/Length Dosing, 52.5, kg, 03/24/24 11:36:00 EDT, Weight Dosing Chlamydia trachomatis, MAGUI Chlamydia/Gonococcus, MAGUI Neisseria gonorrhoeae, MAGUI UA with Cult Rflx 4. Dysuria (R30.0: Dysuria) Ordered: nitrofurantoin, 100 mg = 1 cap(s), Oral, BID, X 7 day(s), # 14 cap(s), Refills(s) 0, [id number], 152, cm, 03/24/24 11:36:00 EDT, Height/Length Dosing, 52.5, kg, 03/24/24 11:36:00 EDT, Weight Dosing phenazopyridine, 200 mg = 1 tab(s), Oral, TID, X 3 day(s), # 9 tab(s), Refills(s) 0, Pharmacy: [facility]/pharmacy #[id number], 152, cm, 03/24/24 11:36:00 EDT, Height/Length Dosing, 52.5, kg, 03/24/24 11:36:00 EDT, Weight Dosing Chlamydia trachomatis, MAGUI Chlamydia/Gonococcus, MAGUI Neisseria gonorrhoeae, MAGUI UA with Cult Rflx Urnls Dip Stick Auto w/o Microscopy POC 29741 Follow-up No qualifying data available Problem List/Past Medical History Ongoing Abnormal magnetic resonance imaging of breast Adult ADHD Arthritis, rheumatoid BMI 22.0-22.9, adult Breast mass, right Left hip pain Possible exposure to STI UTI (urinary tract infection) Historical asthma Migraine Pneumonia Rheumatoid arthritis Shingles Procedure/Surgical History Fine needle biopsy of breast (2022), Lumpectomy of right breast (2022), section (11/02/2018), Root canal therapy. Medications Allergy (Loratadine) 10 mg oral tablet, See Instructions amphetamine-dextroamp hetamine 20 mg Cap-ER, 20 mg= 1 cap(s), Oral, Daily Humira Pen 40 mg/0.4 mL subcutaneous kit Macrobid 100 mg Cap, 100 mg= 1 cap(s), Oral, BID Microgestin 1.5/30 oral tablet, 1 tab(s), Oral, Daily pilocarpine 5 mg Tab, 5 mg= 1 tab(s), Oral, TID Pyridium 200 mg Tab, 200 mg= 1 tab(s), Oral, TID Allergies Vicodin inFLIXimab (Urticaria) leflunomide (Intolerance) Social History Alcohol Current, Beer, 1-2 times per year, Previous treatment: None., 10/04/2010 Employment/School - Low Risk, 08/09/2022 Home/Environment - Low Risk, 08/09/2022 Nutrition/Health - Low Ri (more content not included)... Normal [facility] Comment on above: Result Comment: Elec tronically Signed By: VIKTOR WHITTEN\.br\Date and Time Signed: 03/24/24 11:55 EDT UA with Cult Rflxon 03-24-20 Bilirubin Ql (U) Negative Normal Negative [facility] Comment on above: Performed By: #### 4 [id number] #### [facility] [address] [place] [address] Clarity (U) Ex.Turbid Abnormal Clear [facility] Comment on above: Performed By: #### 4 [id number] #### [facility] [address] [place] [address] Color (U) Redwood Abnormal Yellow [facility] Comment on above: Result Comment: Micr oscopic readings are only performed on those samples that meet specific criteria set forth by [facility]. Performed By: #### 4 [id number] #### [facility] [address] [place] [address] Epithelial cells.squamous Auto (Urine sed) [#/Area] >10 Invalid Interpretation Code [facility] Comment on above: Performed By: #### 4 [id number] #### [facility] [address] [place] [address] Glucose Ql (U) Negative Normal Negative [facility] Comment on above: Performed By: #### 4 [id number] #### [facility] [address] [place] [address] Hemoglobin Auto test strip (U) [Mass/Vol] 2+ mg/dL Abnormal Negative [facility] Comment on above: Performed By: #### 4 [id number] #### [facility] [address] [place] [address] Ketones Auto test strip Ql (U) Negative Normal Negative [facility] Comment on above: Performed By: #### 4 [id number] #### [facility] [address] [place] [address] Leukocyte esterase Auto test strip Ql (U) Negative Normal Negative [facility] Comment on above: Performed By: #### 4 [id number] #### [facility] [address] [place] [address] Mucus Auto Ql (U) 4+ [id number] Abnormal Negative [facility] Comment on above: Performed By: #### 4 [id number] #### [facility] [address] [place] [address] Nitrite Auto test strip Ql (U) Negative Normal Negative [facility] Comment on above: Performed By: #### 4 [id number] #### [facility] [address] [place] [address] pH (U) 5.5 [pH] Invalid Interpretation Code 5.0-9.0 [facility] Comment on above: Performed By: #### 4 [id number] #### [facility] [address] [place] [address] Protein Ql (U) Trace Abnormal Negative [facility] Comment on above: Performed By: #### 4 [id number] #### [facility] [address] [place] [address] Specific gravity (U) [Rel density] 1.026 Invalid Interpretation Code 1.005-1.030 [facility] Comment on above: Performed By: #### 4 [id number] #### [facility] [address] [place] [address] Urobilinogen (U) [Mass/Vol] Negative Normal Negative [facility] Comment on above: Performed By: #### 4 [id number] #### [facility] [address] [place] [address] Type of Urine collection method Clean Catch Normal [facility] Comment on above: Performed By: #### 4 [id number] #### [facility] [address] [place] [address] URINALYSISOrdered By: SYSTEM SYSTEM on 03-24-2024 Bilirubin Ql (U) Negative Normal Negativemg/ d L [facility] UA Auto SS Clarity (U) Ex.Turbid *ABN* (03/24/24 12:05 PM) Invalid Interpretation Code Clear [facility] UA Auto SS Color (U) Redwood 1 *ABN* (03/24/24 12:05 PM) Invalid Interpretation Code Yellow [facility] UA Auto SS Comment on above: Interpretive Data: M icroscopic readings are only performed on those samples that meet specific criteria set forth by [facility]. Epithelial cells.squamous Auto (Urine sed) [#/Area] >10 graded/HPF Invalid Interpretation Code [facility] UA Auto SS Glucose Ql (U) Negative Normal Negativemg/d L [facility] UA Auto SS Hemoglobin Auto test strip (U) [Mass/Vol] 2+ mg/dL Invalid Interpretation Code Negativemg/d L [facility] UA Auto SS Ketones Auto test strip Ql (U) Negative Normal Negativemg/d L [facility] UA Auto SS Leukocyte esterase Auto test strip Ql (U) Negative Normal NegativeLeu/ uL [facility] UA Auto SS Mucus Auto Ql (U) 4+ graded/LPF Invalid Interpretation Code Negativegrad ed/LPF [facility] UA Auto SS Nitrite Auto test strip Ql (U) Negative Normal Negativemg/d L [facility] UA Auto SS pH (U) 5.5 *NA* (03/24/24 12:05 PM) Invalid Interpretation Code 5.0 - 9.0 [facility] UA Auto SS Protein Ql (U) Trace mg/dL Invalid Interpretation Code Negativemg/d L [facility] UA Auto SS Specific gravity (U) [Rel density] 1.026 *NA* (03/24/24 12:05 PM) Invalid Interpretation Code 1.005 - 1.030 [facility] UA Auto SS Urobilinogen (U) [Mass/Vol] Negative Normal Negativemg/d L [facility] UA Auto SS URINALYSISOrdered By: Young De La Torre on 03-24-2024 UA Spec Desc Clean Catch (03/24/24 12:05 PM) Normal [facility] UA Auto SS MA Mamm Diag w/CAD if perf a nd 3D RTon 11-29-2023 MA Mamm Diag w/CAD if perf and 3D RT Exam Date/Time: 11/26/2023 10:26 EDT Reason for Exam: N63.10 Unspecified lump in the right breast, unspecified quadrant;Abnormal mammogram Report [facility] [phone] IMPRESSION: BIRADS 2 BENIGN FINDINGS, NORMAL INTERVAL FOLLOW-UP Follow-up: NO FOLLOWUP NEEDED; until routine screening based on risk factors. Density: Heterogeneously dense. Vascular calcifications: Absent. EXAM: MA Mamm Diag w/CAD if perf and 3D RT DATE: 11/26/2023 9:35 AM CLINICAL HISTORY: Abnormal mammogram, N63.10 Unspecified lump in the right breast, unspecified quadrant. History of two benign medial right breast mass biopsies; only one using a marking clip. COMPARISONS: Mammograms and bilateral breast ultrasound 03/20/2023, right breast ultrasound and breast MRI 04/03/2023, ultrasound-guided right breast biopsy 04/13/2023, and outside right breast ultrasound 09/17/2023. TECHNIQUE: Routine full-field digital mammograms and 3D breast tomosynthesis of the right breast were obtained. FINDINGS: The previously biopsied partially obscured mass within the inferomedial right breast appears substantially similar to prior mammograms. There are no suspicious microcalcifications, or areas of architectural distortion identified on the current study. No significant changes are identified from the prior studies, given differences in technique and positioning. Dense Breast: Yes. CAD analysis was performed and used in the interpretation. Board Certified Radiologists. Accredited by the ACR and FDA. MAMMOGRAPHY IS VERY IMPORTANT TO YOUR HEALTH. THE CURRENT [employer] GUIDELINES RECOMMENDS ANNUAL MAMMOGRAPHY BEGINNING AT AGE 40. THIS FACILITY UTILIZES A REMINDER SYSTEM TO ENSURE ALL PATIENTS RECEIVE REMINDER Report NOTIFICATIONS AT THE APPROPRIATE TIME BASED ON THE RECOMMENDATIONS OF THIS EXAM. Ordering Provider: Baldo Acosta FINAL REPORT Dictated: 11/29/2023 2:24 pm Denis Lam MD Signed (Electronic Signature): 11/29/2023 2:24 pm Signed by: Denis Lam MD Transcribed by: LAVONNE Technologist: URSULA Assessment: BI-RADS Category 2-Benign finding Recommendation: Normal interval follow-up Normal [facility] Outside Recordson 11-28-2023 Outside Records [id number]# 1.00TIFF Normal [facility] RAD - Mammography Reporton 0 11-27-2023 RAD - Mammography Report [id number]#1 .00TIFF Normal [facility] Consent for Treatmenton 11-08 Consent for Treatment [id number]#1 .00TIFF Normal [facility] Medication Consenton 024 Medication Consent [id number]#1 .00TIFF Normal [facility] Physician Referralon 024 Physician Referral [id number]# 1.00TIFF Normal [facility] Ambulatory Visit Summaryon 0 11-19-2023 Ambulatory Visit Summary ALYSSA DE LEON :1990 Visit Date:11/19/2023 Ambulatory Visit Instructions Your Diagnosis Arthritis, rheumatoid Breast mass, right Adult ADHD BMI 23.0-23.9, adult Former smoker Your Care Team Attending Physician - Baldo Acosta DO Primary Care Physician - Baldo Acosta DO This Is Your Medications List amphetamine-dextroamp hetamine (amphetamine-dextroam phetamine 20 mg Cap-ER) Contact prescribing physician if questions or concerns adalimumab (Humira Pen 40 mg/0.4 mL subcutaneous kit) ethinyl estradiol-norethindro ne (Microgestin 1.5/30 oral tablet) loratadine (Allergy (Loratadine) 10 mg oral tablet) pilocarpine (pilocarpine 5 mg Tab) Procedures Performed Fine needle biopsy of breast (2022), Lumpectomy of right breast (2022), section (11/02/2018). Discharge Vitals Heart Rate (Peripheral) 99 Blood Pressure 120/84 Height 152 cm Height 60 in Weight 53.8 kg Weight 118.36 lb BMI 23.29 What to do next You Need to Schedule the Following Appointments Follow Up with Baldo Acosta DO, FAM When: Within 3 months Comments: Controlled Medication Followup Where: [address] [address]- You Need to Complete the Following MA Mamm Diag w/CAD if perf and 3D RT, 11/19/23, Routine, Order for Future Visit, Transport Mode: Bed, Reason: Abnormal mammogram, No, Breast mass, right, CPT-46792 US Breast Unilateral - RIGHT Complete (ONLY IF INDICATED), pp_set_radiology_subs pecialty, [place] [facility] [place] US Breast Unilateral Rt Complete, 11/19/23, Routine, Order for future visit, Transport Mode: Bed, Reason: Abnormal mammogram, No, Breast mass, right, pp_set_radiology_subs pecialty, [place] [facility] [place] Someone Will Contact You Regarding These Appointments [facility] External Ambulatory Referral, Service not offered at [facility], Rheumatology, Would like to see Dr. Levine/Dr. Gomez with [facility] if in network/taking patients, cannot go to F, 11/19/23 16:33:00 EDT, Arthritis, rheumatoid Medications What How Much When Instructions Changed amphetamine-dextroamp hetamine (amphetamine-dextroam phetamine 20 mg Cap-ER) 1 Capsules By Mouth Every day Pickup at [facility]/pharmacy #[id number] Unchanged adalimumab (Humira Pen 40 mg/ 0.4 mL subcutaneous kit) Contact prescribing physician if questions or concerns Unchanged ethinyl estradiol-norethindro ne (Microgestin 1.5/ 30 oral tablet) 1 Tablets By Mouth Every day Contact prescribing physician if questions or concerns Unchanged loratadine (Allergy (Loratadine) 10 mg oral tablet) See instructions 1 tab(s) Oral PRN Contact prescribing physician if questions or concerns Unchanged pilocarpine (pilocarpine 5 mg Tab) 1 Tablets By Mouth 3 times a day Contact prescribing physician if questions or concerns Pharmacy Information [facility]/pharmacy #[id number]: [address] [place], [place] [phone] Allergies Vicodin inFLIXimab (Urticaria) leflunomide (Intolerance) Problems Ongoing - Any problem that you are currently receiving treatment for. Abnormal magnetic resonance imaging of breast Adult ADHD Arthritis, rheumatoid BMI 23.0-23.9, adult Breast mass, right Left hip pain Historical - Any problem that you are no longer receiving treatment for. asthma Migraine Pneumonia Rheumatoid arthritis Shingles Patient Survey You may receive a survey via text or e-mail asking about your office visit. Please share your experience with us by completing your survey. We appreciate your feedback and thank you for choosing us for your care. Education Materials Fibroadenoma A fibroadenoma is a lump (tumor) in the breast. The lump is benign. This means that it is not cancer. It may move under your skin when you touch it. This kind of lump can grow in one breast or in both breasts. What are the causes? The cause of this condition is not known. What increases the risk? ? Being a woman between the ages of 20 and 30. ? Being a woman of descent. What are the signs or symptoms? Some lumps are too small to be felt. If you can feel it, it may feel like a lump that is: ? Firm. ? Round. ? Smooth. ? Able to move around a bit. How is this treated? ? Regular breast exams are done to check for changes in the lump. ? In some cases, the lump may be removed if: ? It is large. ? It keeps growing. ? It causes pain or changes in the skin of the breast. ? A young girl has a lump. Lumps in young girls tend to grow over time. Follow these instructions at home: Breast exams Check your breasts at home as told by your doctor. Report any changes or concerns. Check for the following: ? The size of the lump. ? The look and feel of the skin of your breasts. ? The look and feel of your nipples. General instructions ? Do not smoke or use any products that contain nicotine or tobacco. These can further inc (more content not included)... Normal [facility] Family Medicine Office/Clini c Noteon 11-19-2023 Family Medicine Office/Clinic Note Chief Complaint establish care HPI Staff Pt here to establish care Establish Care: History: Any previous diagnosis: see below History of seeing any specialist: Rheumatology ([facility]), Breast Surgeon ([facility]) and Oncology ([facility]) When was your last doctors visit: 10/02 Last provider: Dr. Acosta Any recent labs: no Health Maintenance UTD: Pelvic/Pap: per pt 04/01 Dr. Samina Winkler Flu: declines Acute: Current issues/complaints: Per pt due to change in insurance pt is struggling with [facility], noting they are requesting her to now pay out of pocket. Pt is requesting imaging orders due to change in breast lumps (size, placement and texture). Pt also here for refills. History of Present Illness Patient known to me from prior practice at [facility]. Patient currently sees rheumatology for management of rheumatoid arthritis. She has been doing well on her current medication setup for this condition. She has been seeing [facility] for this long-term, but with a recent insurance change she is now out of network and this is getting out of control monetarily for her. She would like to discuss changes as she is not on medication and her joints are getting painful. She would like a new referral. Patient has had a recent workup including aspiration biopsy of her right breast due to lumps found on her last exam and concerns on her mammogram. These have come back as benign structures, and she is on regular followups with general surgery. She denies any new sites of concern at this time, they are moving and changing and getting smaller at this time. She states that the bruising from the biopsy is gone, but it is still uncomfortable for her with seat belts, bras, etc. Patient has known history of adult ADHD, well managed in the past on Adderall XR 20mg PO QD. She is up to date on her OARRS and UDS, there have been no concerns with her past OARRS. She is doing well on this medication at this time, would like to continue the medication. Patient states that today she would like a new mammogram as above, refill on her Adderall XR, and would like a referral to a new community health education coordinator. Social Patient is a 33-year-old female Patient is currently Patient has 2 children. Patient has no smoking history. Patient has no use of marijuana. Patient has never abused drugs or prescriptions. Patient has social alcohol use without abuse. Medical Conditions Last physical - 2022 - [facility] Last Labs - 2022 - [facility] Patient has from records found to have the following information relevant to their care: - [facility] Review of Systems PHQ Score Initial Depression Screen Score: 0 SCORE ROS - Provider Constitutional: no fever, no chills Skin: no rash, no lesions ENMT: no ear pain, no sore throat, no congestion, no hoarseness. Respiratory: no shortness of breath, no cough, no wheezing. Cardiovascular: no chest pain, no palpitations, no edema. Gastrointestinal: no nausea, no vomiting, no diarrhea, Musculoskeletal: yes back pain, no trauma, yes joint pain Neurologic: no headache, no dizziness, no numbness, no weakness. Psychiatric: no sleeping problems, no irritability, no mood swings/depression. Physical Exam Vitals & Measurements HR: 99(Peripheral) BP: 120/84 SpO2: 100% HT: 60 in HT: 152 cm WT: 53.8 kg WT: 118.36 lb BMI: 23.29 General: Well developed, well nourished, in no acute distress Head: Normocephalic/atrauma tic Eyes: Pupils equal, round, and reactive to light. Sclerae normal, and extraocular movements intact Lungs: Normal respiratory effort and clear to auscultation Cardio: Regular rate and rhythm, normal S1 and S2, no murmur, no rub Musculoskeletal: No deformity or scoliosis noted. Normal range of motion. Joints normal. No erythema, edema, effusion, or ecchymosis Extremity: No clubbing, cyanosis, edema, or deformity, with normal ROM in both upper and lower bilateral extremities Neurologic: Grossly normal Skin: No rash, petechiae, suspicious lesions Mental Status: Alert and oriented x3. Normal mood and affect Assessment/Plan 1. Arthritis, rheumatoid (M06.9: Rheumatoid arthritis, unspecified) Patient is currently continued on Humira. We will plan to continue her while she is referred to a new community health education coordinator. Patient to call with any changes or concerns. Ordered: [facility] External Ambulatory Referral 2. Breast mass, right (N63.10: Unspecified lump in the right breast, unspecified quadrant) Patient feels mass is changing, will repeat diagnostic mammogram with ultrasound. Will call results once report comes back. Will consider referral back to general surgery based on results, her last biopsy of these sites was benign. Ordered: MA Mamm Diag w/CAD if perf and 3D RT US Breast Unilateral Rt Complete 3. Adult ADHD (F90.9: Attention-deficit hyperactivity disorder, unspecified type) Stable on Adderall XR 20mg at this time. We will hold her current medications at this dose. OARRS reviewed, controll (more content not included)... Normal [facility] Comment on above: Result Comment: Elec tronically Signed By: Baldo Acosta DO\.br\Date and Time Signed: 11/19/23 16:45 EDT Patient Educationon 11-19-19 Patient Education Obstetrics and Gynecology Fibroadenoma A fibroadenoma is a lump (tumor) in the breast. The lump is benign. This means that it is not cancer. It may move under your skin when you touch it. This kind of lump can grow in one breast or in both breasts. What are the causes? The cause of this condition is not known. What increases the risk? ? Being a woman between the ages of 20 and 30. ? Being a woman of descent. What are the signs or symptoms? Some lumps are too small to be felt. If you can feel it, it may feel like a lump that is: ? Firm. ? Round. ? Smooth. ? Able to move around a bit. How is this treated? ? Regular breast exams are done to check for changes in the lump. ? In some cases, the lump may be removed if: ? It is large. ? It keeps growing. ? It causes pain or changes in the skin of the breast. ? A young girl has a lump. Lumps in young girls tend to grow over time. Follow these instructions at home: Breast exams Check your breasts at home as told by your doctor. Report any changes or concerns. Check for the following: ? The size of the lump. ? The look and feel of the skin of your breasts. ? The look and feel of your nipples. General instructions ? Do not smoke or use any products that contain nicotine or tobacco. These can further increase your cancer risk. If you need help quitting, ask your doctor. ? Keep all follow-up visits. You will need breast exams on a regular basis. Contact a doctor if: ? The lump changes in size or feels different. ? The lump starts to be painful. ? You find a new lump. ? You have any changes in how the skin on your breast looks. ? You have any changes in your nipple, such as: ? Fluid leaking from your nipple. ? Redness around your nipple. Summary ? A fibroadenoma is a lump (tumor) in the breast. The lump is benign. This means that it is not cancer. ? This may feel firm, round, or smooth, and it may move around a bit when touched. Some lumps are too small to be felt. ? Do breast exams at home. Watch for changes in the size of the lump. ? Contact your doctor if the lump grows bigger or starts to cause pain. Also, let your doctor know if you have any changes in your nipple or in how the skin on your breast looks. This information is not intended to replace advice given to you by your health care provider. Make sure you discuss any questions you have with your health care provider. Document Revised: 06/27/2021 Document Reviewed: 06/27/2021 [employer] Patient Education ? 2022 [employer] [facility] CBC W Auto Differential pane l (Bld)on 10-02-2023 Basophils (Bld) [#/Vol] 0.03 10*3/uL Normal <0.11 [facility] Comment on above: Order Comment: Speci men Type: BLOOD SPECIMENOrdering Facility: [facility] Address: [address] [place] [address] Performed By: #### 5 7021-8 ####[facility] LABCLIA [id number] [place] [address] Basophils/100 WBC (Bld) 0.4 % Normal [facility] Comment on above: Order Comment: Speci men Type: BLOOD SPECIMENOrdering Facility: [facility] Address: [address] [place] [address] Performed By: #### 5 7021-8 ####[facility] LABCLIA [id number] [place] [address] Differential cell count method Nom (Bld) Auto Normal [facility] Comment on above: Order Comment: Speci men Type: BLOOD SPECIMENOrdering Facility: [facility] Address: [address] [place] [address] Performed By: #### 5 7021-8 ####[facility] LABCLIA [id number] [place] [address] Eosinophils (Bld) [#/Vol] 0.26 10*3/uL Normal <0.46 [facility] Comment on above: Order Comment: Speci men Type: BLOOD SPECIMENOrdering Facility: [facility] Address: [address] [place] [address] Performed By: #### 5 7021-8 ####[facility] LABCLIA [id number] [place] [address] Eosinophils/100 WBC (Bld) 3.8 % Normal [facility] Comment on above: Order Comment: Speci men Type: BLOOD SPECIMENOrdering Facility: [facility] Address: [address] [place] [address] Performed By: #### 5 7021-8 ####[facility] LABCLIA [id number] [place] [address] Erythrocyte distribution width (RBC) [Ratio] 12.5 % Normal 11.5-15.0 [facility] Comment on above: Order Comment: Speci men Type: BLOOD SPECIMENOrdering Facility: [facility] Address: [address] [place] [address] Performed By: #### 5 7021-8 ####[facility] LABCLIA [id number] [place] [address] Hematocrit (Bld) [Volume fraction] 40.6 % Normal 36.0-46.0 [facility] Comment on above: Order Comment: Speci men Type: BLOOD SPECIMENOrdering Facility: [facility] Address: [address] [place] [address] Performed By: #### 5 7021-8 ####[facility] LABCLIA [id number] [place] [address] Hemoglobin (Bld) [Mass/Vol] 14.0 g/dL Normal 11.5-15.5 [facility] Comment on above: Order Comment: Speci men Type: BLOOD SPECIMENOrdering Facility: [facility] Address: [address] [place] [address] Performed By: #### 5 7021-8 ####[facility] LABCLIA [id number] [place] [address] Immature granulocytes (Bld) [#/Vol] 0.03 10*3/uL Normal <0.10 [facility] Comment on above: Order Comment: Speci men Type: BLOOD SPECIMENOrdering Facility: [facility] Address: [address] [place] [address] Performed By: #### 5 7021-8 ####[facility] LABCLIA [id number] [place] [address] Immature granulocytes/100 WBC (Bld) 0.4 % Normal [facility] Comment on above: Order Comment: Speci men Type: BLOOD SPECIMENOrdering Facility: [facility] Address: [address] [place] [address] Performed By: #### 5 7021-8 ####[facility] LABCLIA [id number] [place] [address] Lymphocytes (Bld) [#/Vol] 2.51 10*3/uL Normal 1.00-4.00 [facility] Comment on above: Order Comment: Speci men Type: BLOOD SPECIMENOrdering Facility: [facility] Address: [address] [place] [address] Performed By: #### 5 7021-8 ####[facility] LABCLIA [id number] [place] [address] Lymphocytes/100 WBC (Bld) 36.4 % Normal [facility] Comment on above: Order Comment: Speci men Type: BLOOD SPECIMENOrdering Facility: [facility] Address: [address] [place] [address] Performed By: #### 5 7021-8 ####[facility] LABCLIA [id number] [place] [address] MCH (RBC) [Entitic mass] 31.3 pg Normal 26.0-34.0 [facility] Comment on above: Order Comment: Speci men Type: BLOOD SPECIMENOrdering Facility: [facility] Address: [address] [place] [address] Performed By: #### 5 7021-8 ####[facility] LABCLIA [id number] [place] [address] MCHC (RBC) [Mass/Vol] 34.5 g/dL Normal 30.5-36.0 [facility] Comment on above: Order Comment: Speci men Type: BLOOD SPECIMENOrdering Facility: [facility] Address: [address] [place] [address] Performed By: #### 5 7021-8 ####[facility] LABCLIA [id number] [place] [address] MCV (RBC) [Entitic vol] 90.6 fL Normal 80.0-100.0 [facility] Comment on above: Order Comment: Speci men Type: BLOOD SPECIMENOrdering Facility: [facility] Address: [address] [place] [address] Performed By: #### 5 7021-8 ####[facility] LABCLIA [id number] [place] [address] Monocytes (Bld) [#/Vol] 0.48 10*3/uL Normal <0.87 [facility] Comment on above: Order Comment: Speci men Type: BLOOD SPECIMENOrdering Facility: [facility] Address: [address] [place] [address] Performed By: #### 5 7021-8 ####[facility] LABCLIA [id number] [place] [address] Monocytes/100 WBC (Bld) 7.0 % Normal [facility] Comment on above: Order Comment: Speci men Type: BLOOD SPECIMENOrdering Facility: [facility] Address: [address] [place] [address] Performed By: #### 5 7021-8 ####[facility] LABCLIA [id number] [place] [address] Neutrophils (Bld) [#/Vol] 3.58 10*3/uL Normal 1.45-7.50 [facility] Comment on above: Order Comment: Speci men Type: BLOOD SPECIMENOrdering Facility: [facility] Address: [address] [place] [address] Performed By: #### 5 7021-8 ####[facility] LABIA [id number] [place] [address] Neutrophils/100 WBC (Bld) 52.0 % Normal [facility] Comment on above: Order Comment: Speci men Type: BLOOD SPECIMENOrdering Facility: [facility] Address: [address] [place] [address] Performed By: #### 5 7021-8 ####[facility] LABCLIA [id number] [place] [address] Nucleated RBC (Bld) [#/Vol] 10*3/uL Normal <0.01 [facility] Comment on above: Order Comment: Speci men Type: BLOOD SPECIMENOrdering Facility: [facility] Address: [address] [place] [address] Performed By: #### 5 7021-8 ####[facility] LABCLIA [id number] [place] [address] Nucleated RBC/100 WBC (Bld) [Ratio] 0.0 /100 WBC Normal [facility] Comment on above: Order Comment: Speci men Type: BLOOD SPECIMENOrdering Facility: [facility] Address: [address] [place] [address] Performed By: #### 5 7021-8 ####[facility] LABCLIA [id number] [place] [address] Platelet mean volume (Bld) [Entitic vol] 9.6 fL Normal 9.0-12.7 [facility] Comment on above: Order Comment: Speci men Type: BLOOD SPECIMENOrdering Facility: [facility] Address: [address] [place] [address] Performed By: #### 5 7021-8 ####[facility] LABCLIA [id number] [place] [address] Platelets (Bld) [#/Vol] 282 10*3/uL Normal 150-400 [facility] Comment on above: Order Comment: Speci men Type: BLOOD SPECIMENOrdering Facility: [facility] Address: [address] [place] [address] Performed By: #### 5 7021-8 ####[facility] LABCLIA [id number] [place] [address] RBC (Bld) [#/Vol] 4.48 10*6/uL Normal 3.90-5.20 [facility] Comment on above: Order Comment: Speci men Type: BLOOD SPECIMENOrdering Facility: [facility] Address: [address] [place] [address] Performed By: #### 5 7021-8 ####[facility] LABCLIA [id number] [place] [address] WBC (Bld) [#/Vol] 6.89 10*3/uL Normal 3.70-11.00 [facility] Comment on above: Order Comment: Speci men Type: BLOOD SPECIMENOrdering Facility: [facility] Address: [address] [place] [address] Performed By: #### 5 7021-8 ####[facility] LABCLIA [id number] [place] [address] Lillian 09-18-2023 TREASUREN Telephone (SANIA) HALEYALYSSA L ([id number]) 1990 F Date Time Provider Department 09/18/23 JANIE HERMAN During your visit today, we recorded the following information about you: Janie Herman MD 09/18/2023 3:50 PM Signed Missed about 3 doses of humira, feels achy but has not had any joint swelling. She was otherwise doing well. Okay to resume Humira, Humira does not seem to be the cause for her breast lesion since it did not get better despite missing for almost 6 weeks. 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 Start prednisone 30 mg twice daily for 7 days then 25 mg twice daily for another 7 days then 20 mg twice daily for another 7 days then 15 mg twice daily until next visit with breast clinic in a month. We discussed possible side effects including mood changes, insomnia, temporary increase in blood pressure and blood glucose. Carolyn Sage 09/19/2023 9:51 AM Signed Called and spoke with patient. Unable to schedule patient due to the insurance being out of network. I placed a referral waiting for authorization and someone will contact to schedule once cleared. Carolyn Sage September 19, 2023 9:50 AM Allergies As of Date: 09/18/2023 Noted Allergy Reaction HYDROCODONE-ACETAMINO PHEN 04/30/2018 4 - Hives INFLIXIMAB 08/22/2022 4 - Hives LEFLUNOMIDE 12/05/2022 5 - Intolerance Date Reviewed: 09/17/2023 Reviewed by: Chata Daley LPN - Fully Assessed Order(s):predniSONE (DELTASONE) 10 mg tabletTake 3 tablets by mouth two times a day for 7 days, THEN 2.5 tablets two times a day for 7 days, THEN 2 tablets two times a day for 7 days, THEN 1.5 tablets two times a day for 10 days.Disp: 135 tabletRfl: 0 Prescriptions as of 09/19/2023 - predniSONE (DELTASONE) 10 mg tablet Take 3 tablets by mouth two times a day for 7 days, THEN 2.5 tablets two times a day for 7 days, THEN 2 tablets two times a day for 7 days, THEN 1.5 tablets two times a day for 10 days. - celecoxib (CELEBREX) 100 mg capsule Take 1 capsule by mouth two times a day. - Minocycline HCl 50 mg tablet Take 1 tablet by mouth two times a day. - fluconazole (DIFLUCAN) 100 mg tablet Take 1 tablet by mouth once daily. - adalimumab (HUMIRA,CF, PEN) 40 mg/0.4 mL pen kit Inject 1 pen (40 mg) subcutaneously every 2 weeks. - diclofenac (VOLTAREN) 1 % topical gel Apply 4 g to affected area four times daily. - pilocarpine (SALAGEN) 5 mg tablet TAKE 1 TABLET BY MOUTH THREE TIMES DAILY - acetaminophen (TYLENOL ORAL) Take by mouth. - loratadine (CLARITIN) 10 mg tablet Take 10 mg by mouth twice daily. - MICROGESTIN 1.5/30 1.5-30 mg-mcg Take 1 tablet by mouth once daily. - dextroamphetamine-amp hetamine (ADDERALL) 20 mg tablet Take 20 mg by mouth once daily. 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 Encounter Status:Closed by JANIE HERMAN on 09/18/23 [facility] CNOVon 09-17-2023 CNOV Office Visit ([facility] ) ALYSSA DE LEON ([id number]) 1990 F Date Time Provider Department 09/17/23 3:00 PM [facility] During your visit today, we recorded the following information about you: Chata Daley LPN 09/17/2023 3:25 PM Signed Increased right breast pain Last mammogram on: 03/20/23 bilateral Results: see report Is the patient active on MyChart Yes Electronically Signed By: Chata Daley LPN In Department: [facility] REVIEW OF PATIENT HISTORY: OB History T0 L2 SAB0 IAB0 Ectopic0 Multiple0 Live Births0 FAMILY HISTORY Problem Relation Age of Onset Bipolar disorder Mother Diabetes Father Breast Cancer Paternal Aunt PAST MEDICAL HISTORY Diagnosis Date Anxiety Depression Rheumatoid arthritis (HCC) PAST SURGICAL HISTORY Procedure Laterality Date NONE US BREAST NEEDLE CORE BIOPSY RT Right 03/23/2023 Social History Tobacco Use Smoking status: Former Types: Cigarettes Quit date: 02/25/2016 Years since quittin.5 Smokeless tobacco: Never Tobacco comments: Less than a pack. Substance Use Topics Alcohol use: Never Drug use: Never Treasure Aviles DO 09/18/2023 3:38 PM Signed REASON FOR TODAY'S VISIT: Patient presents with: Established Patient: Right breast pain Marleen De Leon is a 33 year old / female who presented with a RIGHT breast painful mass on 03/06/2023. 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 States right breast is very painful (8/10 on scale) and she is taking Tramadol nightly along with Elavil. On Humira. Denies any nipple discharge. Trial of doxycyline without tolerability Minocycline currently - but not able to again tolerate the full dose (Dr. Ho ID) Kenalog injection on 08/24/23. States it helps for 2 weeks but not the chronic pain is back . She is tearful. States this has not improved since February Repeat imaging today RESULT: #[id number] - [facility] BREAST LTD RT LIMITED ULTRASOUND OF RIGHT BREAST: 09/17/2023 HISTORY: Granulomatous Mastitis Of Right Breast. RESULT: Comparison is made to exams dated: 03/20/2023 ultrasound and 04/13/2023 ultrasound. Real-time ultrasound of the right breast was performed. Farnsworth scale images of the real-time examination were reviewed. Ultrasound evaluation of the area of clinical concern in the medial right breast was performed. There are multiple ill defined confluent hypoechoic areas at 3:00 1-3 cmfn, consistent with known biopsy proven granulomatous mastitis. This appears similar compared to ultrasound from 03/2023, and slightly more prominent compared to 04/2023. The patient received kenalog injection on 08/24/2023. No new suspicious sonographic findings. IMPRESSION: BENIGN FINDING There is no sonographic evidence of malignancy. Multiple ill defined hypoechoic areas at 3:0 in the right breast consistent with known biopsy proven granulomatous mastitis, not suspiciously changed compared to 03/2023. Follow up to full clinical and imaging resolution is recommended. Imaging follow up interval can be at the discretion of the surgeon based on the overall clinical asessment of the patient. If the patient continues to clinically improve, a three month follow up ultrasound may be considered. Patient is under the care of Dr. Aviles. EXAMINATION: GEN alert and orientated, well nourished, calm Regional Lymph Nodes There is no concerning supraclavicular, infraclavicular or cervical lymphadenopathy. BREASTS: The patient was examined in the upright and supine position. RIGHT breast continued palpable mass(es) @ 3:00 2 cm FN no fistulas, some resolving ecchymosis from recent injection. No signs of infection, no improvement RIGHT axilla no palpable axillary lymphadenopathy LEFT breast soft, no dominant masses, nipple everted, no discharge, no skin changes LEFT axilla no palpable axillary lymphadenopathy ABD soft, non-distended, non-tender, no organomegaly EXT ambulated independently, good ROM of upper extremities, no evidence of lymphedema IMPRESSION: Alyssa De Leon is a 33 year old female with IGM sx since February 2024. Not worsening, but not improving PLAN: Discussed moving forward with trial of high-does systemic steroids at this pint. She is in agreement. I will reach out to her community health education coordinator Dr. Herman to discuss management of steroid course. She has our names and numbers to stay in touch if she has any questions, concerns or problems in the interim. Treasure Aviles, Breast Surgeon Cc: Dr. Batsheva Ho Referring Provider: STEFAN (more content not included)... Normal [facility] [employer] BREAST LTD RTon 09-17 [facility] [employer] BREAST LTD RT * * *Final Report* * * DATE OF EXAM: Sep 17 2023 3:42PM [id number] - [facility] [employer] [facility]AST [employer] RT / PROCEDURE REASON: Granulomatous mastitis of right breast * * * * Physician Interpretation * * * * RESULT: #[id number] - [facility] [employer] BREAST [employer] RT LIMITED ULTRASOUND OF RIGHT BREAST: 09/17/2023 HISTORY: Granulomatous Mastitis Of Right Breast. RESULT: Comparison is made to exams dated: 03/20/2023 ultrasound and 04/13/2023 ultrasound. Real-time ultrasound of the right breast was performed. Farnsworth scale images of the real-time examination were reviewed. Ultrasound evaluation of the area of clinical concern in the medial right breast was performed. There are multiple ill defined confluent hypoechoic areas at 3:00 1-3 cmfn, consistent with known biopsy proven granulomatous mastitis. This appears similar compared to ultrasound from 03/2023, and slightly more prominent compared to 04/2023. The patient received kenalog injection on 08/24/2023. No new suspicious sonographic findings. IMPRESSION: BENIGN FINDING There is no sonographic evidence of malignancy. Multiple ill defined hypoechoic areas at 3:0 in the right breast consistent with known biopsy proven granulomatous mastitis, not suspiciously changed compared to 03/2023. Follow up to full clinical and imaging resolution is recommended. Imaging follow up interval can be at the discretion of the surgeon based on the overall clinical asessment of the patient. If the patient continues to clinically improve, a three month follow up ultrasound may be considered. Patient is under the care of Dr. Aviles. Stephy Gregorio M.D. sb/sorin:09/17/2023 16:04:50 Actuary(s): RT Kvng(Aristeo)(M), [facility] Ultrasound BI-RADS: 2 Benign finding Multiple national specialty organizations have released breast cancer screening guidelines for women at average risk for developing breast cancer - guidelines that are based on both evidence and opinion, yet differ on when to start and how often to screen for breast cancer. With representation from Breast Imaging, Internal Medicine, Women's Health, Family Medicine, and Medical/Surgical Oncology, the [facility] has carefully reviewed the data and reached the following consensus: 1) All women should engage in shared decision-making with their providers to decide when to start and how often to screen; 2) All women should have the opportunity to start screening mammography at age 40; 3) For women ages 45-55, we recommend annual screening mammograms; 4) For women ages 55 and over, we support both the transition from an annual to a biennial interval if this aligns more with patient's values and preferences, or continuation with annual screening; 5) All women should discuss with their providers when to stop screening mammograms. Explosive Operator Grenade: Sorin Transcribe Date/Time: Sep 17 2023 3:21P Dictated by: STEPHY GREGORIO MD This examination was interpreted and the report reviewed and electronically signed by: STEPHY GREGORIO MD on Sep 17 2023 4:04PM EST [id number] Normal [facility] US Breast - right limitedon 09-17-2023 IMPRESSION: BENIGN FINDING There is no sonographic evidence of malignancy. Multiple ill defined hypoechoic areas at 3:0 in the right breast consistent with known biopsy proven granulomatous mastitis, not suspiciously changed compared to 03/2023. Follow up to full clinical and imaging resolution is recommended. Imaging follow up interval can be at the discretion of the surgeon based on the overall clinical asessment of the patient. If the patient continues to clinically improve, a three month follow up ultrasound may be considered. Patient is under the care of Dr. Aviles. Stephy kerr/sorin:09/17/2023 16:04:50 Actuary(s): RT Kvng(R)(M), [facility] Ultrasound BI-RADS: 2 Benign finding Multiple national specialty organizations have released breast cancer screening guidelines for women at average risk for developing breast cancer - guidelines that are based on both evidence and opinion, yet differ on when to start and how often to screen for breast cancer. With representation from Breast Imaging, Internal Medicine, Women's Health, Family Medicine, and Medical/Surgical Oncology, the [facility] has carefully reviewed the data and reached the following consensus: 1) All women should engage in shared decision-making with their providers to decide when to start and how often to screen; 2) All women should have the opportunity to start screening mammography at age 40; 3) For women ages 45-55, we recommend annual screening mammograms; 4) For women ages 55 and over, we support both the transition from an annual to a biennial interval if this aligns more with patient's values and preferences, or continuation with annual screening; 5) All women should discuss with their providers when to stop screening mammograms. Explosive Operator Grenade: Sorin Transcribe Date/Time: Sep 17 2023 3:21P Dictated by: STEPHY GREGORIO MD This examination was interpreted and the report reviewed and electronically signed by: STEPHY GREGORIO MD on Sep 17 2023 4:04PM [facility] DIVISION OF RADIOLOGY * * *Final Report* * * DATE OF EXAM: Sep 17 2023 3:42PM [facility] 0594 - [facility] RT / PROCEDURE REASON: Granulomatous mastitis of right breast * * * * Physician Interpretation * * * * RESULT: #[id number] - [facility] RT LIMITED ULTRASOUND OF RIGHT BREAST: 09/17/2023 HISTORY: Granulomatous Mastitis Of Right Breast. RESULT: Comparison is made to exams dated: 03/20/2023 ultrasound and 04/13/2023 ultrasound. Real-time ultrasound of the right breast was performed. Farnsworth scale images of the real-time examination were reviewed. Ultrasound evaluation of the area of clinical concern in the medial right breast was performed. There are multiple ill defined confluent hypoechoic areas at 3:00 1-3 cmfn, consistent with known biopsy proven granulomatous mastitis. This appears similar compared to ultrasound from 03/2023, and slightly more prominent compared to 04/2023. The patient received kenalog injection on 08/24/2023. No new suspicious sonographic findings. DIVISION OF RADIOLOGY Provider, [facility] - 09/17/2023 * * *Final Report* * * DATE OF EXAM: Sep 17 2023 3:42PM [facility] 0594 - [facility] RT / PROCEDURE REASON: Granulomatous mastitis of right breast * * * * Physician Interpretation * * * * RESULT: #[id number] - [facility] RT LIMITED ULTRASOUND OF RIGHT BREAST: 09/17/2023 HISTORY: Granulomatous Mastitis Of Right Breast. RESULT: Comparison is made to exams dated: 03/20/2023 ultrasound and 04/13/2023 ultrasound. Real-time ultrasound of the right breast was performed. Farnsworth scale images of the real-time examination were reviewed. Ultrasound evaluation of the area of clinical concern in the medial right breast was performed. There are multiple ill defined confluent hypoechoic areas at 3:00 1-3 cmfn, consistent with known biopsy proven granulomatous mastitis. This appears similar compared to ultrasound from 03/2023, and slightly more prominent compared to 04/2023. The patient received kenalog injection on 08/24/2023. No new suspicious sonographic findings. IMPRESSION IMPRESSION: BENIGN FINDING There is no sonographic evidence of malignancy. Multiple ill defined hypoechoic areas at 3:0 in the right breast consistent with known biopsy proven granulomatous mastitis, not suspiciously changed compared to 03/2023. Follow up to full clinical and imaging resolution is recommended. Imaging follow up interval can be at the discretion of the surgeon based on the overall clinical asessment of the patient. If the patient continues to clinically improve, a three month follow up ultrasound may be considered. Patient is under the care of Dr. Aviles. Stephy kerr/sorin:09/17/2023 16:04:50 Actuary(s): RT Kvng(R)(M), [facility] Ultrasound BI-RADS: 2 Benign finding Multiple national specialty organizations have released breast cancer screening guidelines for women at average risk for developing breast cancer - guidelines that are based on both evidence and opinion, yet differ on when to start and how often to screen for breast cancer. With representation from Breast Imaging, Internal Medicine, Women's Health, Family Medicine, and Medical/Surgical Oncology, the [facility] has carefully reviewed the data and reached the following consensus: 1) All women should engage in shared decision-making with their providers to decide when to start and how often to screen; 2) All women should have the opportunity to start screening mammography at age 40; 3) For women ages 45-55, we recommend annual screening mammograms; 4) For women ages 55 and over, we support both the transition from an annual to a biennial interval if this aligns more with patient's values and preferences, or continuation with annual screening; 5) All women should discuss with their providers when to stop screening mammograms. Explosive Operator Grenade: Sorin Transcribe Date/Time: Sep 17 2023 3:21P Dictated by: STEPHY GREGORIO MD This examination was interpreted and the report reviewed and electronically signed by: STEPHY GREGORIO MD on Sep 17 2023 4:04PM EST [facility] Radiology Study observation (narrative) [facility] US Breast - right limitedOrd ered By: Ccyesi Provider on 09-17-2023 [facility] CNPNon 09-13-2023 [facility] DE LEONALYSSA JADE ([id number]) 1990 F Date Time Provider Department 09/13/23 KING HO During your visit today, we recorded the following information about you: Luis Frances 09/13/2023 1:37 PM Signed 3 weeks ago the patient had injections into her breast tumors. Pt has been in a lot of pain, tenderness, and tomorrow will be 3 weeks post injections. She would like to discuss this with you. [phone] (home) Luis Lara 09/14/2023 11:23 AM Addendum Pt reports that she has crippling pain in her breasts and would like to discuss this with you. [phone] (home) Luis Shah Called patient back. Excruciating pain. WOrse over last few days. No relief of pain w steroid injections. Black and bruised area still not resolved. She worries the cysts have ruptured. Pain w slightest touch. Can keep Minocycline down once daily. No change in pain w atbxs. Patient tearful- cannot tolerate/function w ongoing unrelieved pain any longer. Advised ED admission if it continues. Pain control. Can try IV Doxy 100 bid- in the past some relief w doxy but GI intolerant. Imaging of breast and potential resection for aim of cure. King Ho Allergies As of Date: 09/13/2023 Noted Allergy Reaction HYDROCODONE-ACETAMINO PHEN 04/30/2018 4 - Hives INFLIXIMAB 08/22/2022 4 - Hives LEFLUNOMIDE 12/05/2022 5 - Intolerance Date Reviewed: 08/24/2023 Reviewed by: Chata Daley LPN - Fully Assessed Reason for Visit: Patient Question [5217] Prescriptions as of 09/14/2023 - clobetasol (TEMOVATE) 0.05 % cream Apply to affected area two times a day for 21 days. - Minocycline HCl 50 mg tablet Take 1 tablet by mouth two times a day. - fluconazole (DIFLUCAN) 100 mg tablet Take 1 tablet by mouth once daily. - adalimumab (HUMIRA,CF, PEN) 40 mg/0.4 mL pen kit Inject 1 pen (40 mg) subcutaneously every 2 weeks. - diclofenac (VOLTAREN) 1 % topical gel Apply 4 g to affected area four times daily. - pilocarpine (SALAGEN) 5 mg tablet TAKE 1 TABLET BY MOUTH THREE TIMES DAILY - acetaminophen (TYLENOL ORAL) Take by mouth. - loratadine (CLARITIN) 10 mg tablet Take 10 mg by mouth twice daily. - MICROGESTIN 1.5/30 1.5-30 mg-mcg Take 1 tablet by mouth once daily. - dextroamphetamine-amp hetamine (ADDERALL) 20 mg tablet Take 20 mg by mouth once daily. 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] 08/18/2023 Encounter Status:Closed by KING HO on 09/14/23 Normal [facility] Transfer Inon 09-13-2023 Transfer In 104.35 1 [id number] .00TIFF [facility] Auth for Release of Medical Recordson 09-12-2023 Auth for Release of Medical Records 47 [id number] .00TIFF [facility] Auth for Release of Medical Records [id number] .00TIFF [facility] Auth for Release of Medical Records 35 [id number] .00TIFF [facility] Auth for Release of Medical Records [id number] .00TIFF Normal [facility] CNOVon 08-24-2023 CNOV Office Visit (GENSF) DE LEONALYSSA JADE ([id number]) 1990 F Date Time Provider Department 08/24/23 9:30 AM [facility] GENSF During your visit today, we recorded the following information about you: Treasure Aviles DO 09/04/2023 12:33 PM Signed REASON FOR TODAY'S VISIT: Patient presents with: Established Patient: Injection right breast HISTORY of PRESENT ILLNESS: Patient was initially seen for a follow up of RIGHT breast IGM IGM on 08/10/2023 At that time, she was continuing the antibiotic therapy and reported some improvement of symptoms, but not resolution of the issue. She was scheduled to return for ultrasound-guided Kenalog injection for IGM 08/24/2023 in the office. PROCEDURE RIGHT breast IGM kenalog/lidocine injection Risks and benefits were discussed with the patient and she agreed to proceed. Consent signed. Patient and site were confirmed. The palpable RIGHT breast abscess @ 2:00 was identified with US and the additional mass @ 3:00 and the area was prepped and draped in a sterile manner. In the RIGHT breast using US guidance, a 1 cc of lidocaine 1% was used to make a small skin wheal for local anesthesia at 2:00 and 3:00. Next a 18 nicol needle was advanced to the abscess. Aspiration was attempted, but the material was too thick. Kenalog (40mg.ml), 2 ampule was mixed with 5 cc of lidocine 1% Under US guidance 0.5 cc of the mixture at a time was slowly injected into the tissue planes surrounding the abscesses both at 2:00 posterior and at 3:00 anterior. Total Used: (total 80 mg/ML and 7 cc lidocaine 1% injected, 2 areas UIQ) The patient tolerated the procedure well. A bandage was placed over the are and a ice pack. Topical temovate steroid cream was prescribed and the patient instructed to place this TID over the injection sites to prevent development of fistula. She tolerated the procedure well. RTC in 2 weeks for a wound check. She has genetic testing pending for next month. Treasure Aviles, DO Breast Surgeon cc: Tere Norton [address] [facility] [address] Chata Daley LPN 08/24/2023 9:36 AM Signed Pt here for injection to right breast for pain Last mammogram on: 03/20/23 bilateral Results: see report Is the patient active on MyChart Yes Electronically Signed By: Chata Daley LPN In Department: GENERAL SURGERY REVIEW OF PATIENT HISTORY: OB History T0 L2 SAB0 IAB0 Ectopic0 Multiple0 Live Births0 FAMILY HISTORY Problem Relation Age of Onset Bipolar disorder Mother Diabetes Father Breast Cancer Paternal Aunt PAST MEDICAL HISTORY Diagnosis Date Anxiety Depression Rheumatoid arthritis (HCC) PAST SURGICAL HISTORY Procedure Laterality Date NONE US BREAST NEEDLE CORE BIOPSY RT Right 03/23/2023 Social History Tobacco Use Smoking status: Former Types: Cigarettes Quit date: 02/25/2016 Years since quittin.4 Smokeless tobacco: Never Tobacco comments: Less than a pack. Substance Use Topics Alcohol use: Never Drug use: Never Referring Provider: TERE NORTON V [[id number]] Allergies As of Date: 08/24/2023 Noted Allergy Reaction HYDROCODONE-ACETAMINO PHEN 04/30/2018 4 - Hives INFLIXIMAB 08/22/2022 4 - Hives LEFLUNOMIDE 12/05/2022 5 - Intolerance Date Reviewed: 08/24/2023 Reviewed by: Chata Daley LPN - Fully Assessed Reason for Visit: Established Patient [175] Cmt: Injection right breast Primary Visit Diagnosis:Granulomato us mastitis of right breast [N61.21] Order(s):[] triamcinolone acetonide 40 mg injection (KeNALog 40)Disp: Rfl: [] triamcinolone acetonide 40 mg injection (KeNALog 40)Disp: Rfl: clobetasol (TEMOVATE) 0.05 % creamApply to affected area two times a day for 21 days.Disp: 15 gRfl: 0 [] traMADol (ULTRAM) 50 mg tabletTake 1 tablet by mouth every 8 hours as needed for pain for up to 3 days.Disp: 5 tabletRfl: 0 Prescriptions as of 09/04/2023 - clobetasol (TEMOVATE) 0.05 % cream Apply to affected area two times a day for 21 days. - Minocycline HCl 50 mg tablet Take 1 tablet by mouth two times a day. - fluconazole (DIFLUCAN) 100 mg tablet Take 1 tablet by mouth once daily. - adalimumab (HUMIRA,CF, PEN) 40 mg/0.4 mL pen kit Inject 1 pen (40 mg) subcutaneously every 2 weeks. - diclofenac (VOLTAREN) 1 % topical gel Apply 4 g to affected area four times daily. - pilocarpine (SALAGEN) 5 mg tablet TAKE 1 TABLET BY MOUTH THREE TIMES DAILY - acetaminophen (TYLENOL ORAL) Take by mouth. - loratadine (CLARITIN) 10 mg tablet Take 10 mg by mouth twice daily. - MICROGESTIN 1.5/30 1.5-30 mg-mcg Take 1 tablet by mouth once daily. - dextroamphetamine-amp hetamine (ADDERALL) 20 mg tablet Take 20 mg by mouth once daily. Meds Comments as of 07/18/2022: CBD cream Problem List As Of Date 08/24/2023 Noted Resolved Rheu (more content not included)... [facility] 08-24-2023 LOUISE Telephone (RHEUMN) ALYSSA DE LEON ([id number]) 1990 F Date Time Provider Department 08/24/23 JANIE HERMAN During your visit today, we recorded the following information about you: Hanny Knapp 08/24/2023 11:55 AM Signed Faxed form to [phone]. 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 - traMADol (ULTRAM) 50 mg tablet Take 1 tablet by mouth every 8 hours as needed for pain for up to 3 days. - Minocycline HCl 50 mg tablet Take 1 tablet by mouth two times a day. - fluconazole (DIFLUCAN) 100 mg tablet Take 1 tablet by mouth once daily. - adalimumab (HUMIRA,CF, PEN) 40 mg/0.4 mL pen kit Inject 1 pen (40 mg) subcutaneously every 2 weeks. - diclofenac (VOLTAREN) 1 % topical gel Apply 4 g to affected area four times daily. - pilocarpine (SALAGEN) 5 mg tablet TAKE 1 TABLET BY MOUTH THREE TIMES DAILY - acetaminophen (TYLENOL ORAL) Take by mouth. - loratadine (CLARITIN) 10 mg tablet Take 10 mg by mouth twice daily. - MICROGESTIN 1.5/30 1.5-30 mg-mcg Take 1 tablet by mouth once daily. - dextroamphetamine-amp hetamine (ADDERALL) 20 mg tablet Take 20 mg by mouth once daily. 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 Patient asking if Dr. Herman will read over her notes and clear her for injection without being seen. Patient states she cancelled her appointment today as she did not feel well. Patient has been identified by name and birthdate. Duration of symptoms: N/A Person calling: self Call patient at: on cell [phone] (home) [phone] (cell) Was an appointment scheduled: No Closing statement: Results or non-symptom based questions: Thank you for calling [facility], your call will be returned within the next business day. Becka Erazo Radha Stone LPN 08/21/2023 11:59 AM Signed Called to get clarification as to what injection patient referring. Requested return call or MC. Janie Herman MD 08/21/2023 2:26 PM Signed I think she is talking about steroid injection into her breast. If this is the case, please let her know that this is okay from my perspective. Thank you Radha Lynne LPN 08/23/2023 12:46 PM Signed Patient aware of below. Allergies As of Date: 08/21/2023 Noted Allergy Reaction HYDROCODONE-ACETAMINO PHEN 04/30/2018 4 - Hives INFLIXIMAB 08/22/2022 4 - Hives LEFLUNOMIDE 12/05/2022 5 - Intolerance Date Reviewed: 08/10/2023 Reviewed by: Chata Daley LPN - Fully Assessed Reason for Visit: Patient Question [3147] Prescriptions as of 08/23/2023 - Minocycline HCl 50 mg tablet Take 1 tablet by mouth two times a day. - fluconazole (DIFLUCAN) 100 mg tablet Take 1 tablet by mouth once daily. - adalimumab (HUMIRA,CF, PEN) 40 mg/0.4 mL pen kit Inject 1 pen (40 mg) subcutaneously every 2 weeks. - diclofenac (VOLTAREN) 1 % topical gel Apply 4 g to affected area four times daily. - traMADol (ULTRAM) 50 mg tablet Take 50 mg by mouth every 6 hours as needed. - pilocarpine (SALAGEN) 5 mg tablet TAKE 1 TABLET BY MOUTH THREE TIMES DAILY - acetaminophen (TYLENOL ORAL) Take by mouth. - amitriptyline (ELAVIL) 10 mg tablet Take 1 tablet by mouth daily at bedtime. - loratadine (CLARITIN) 10 mg tablet Take 10 mg by mouth twice daily. - MICROGESTIN 1.5/30 1.5-30 mg-mcg Take 1 tablet by mouth once daily. - dextroamphetamine-amp hetamine (ADDERALL) 20 mg tablet Take 20 mg by mouth once daily. 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 Zyvox not option/insurance. Initial response to Doxy + Celebrex but could not tolerateGI side effects. R breat lumpy and throbbing- limiting- cannot wear nl bra. 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 REVIEW OF SYSTEMS: All systems were reviewed and are negative except for the ones mentioned in the HPI. PHYSICAL EXAM: Last menstrual period 07/30/2023. GEN:NAD HEENT:MMM NECK:supple no LAD LUNGS:CTA HEART:RRR ABD:soft,BS present EXT: no tenderness SKIN:no rash Breast tender indurated R CURRENT MEDICATIONS: Current Outpatient Medications Medication Sig adalimumab (HUMIRA,CF, PEN) 40 mg/0.4 mL pen kit Inject 1 pen (40 mg) subcutaneously every 2 weeks. diclofenac (VOLTAREN) 1 % topical gel Apply 4 g to affected area four times daily. traMADol (ULTRAM) 50 mg tablet Take 50 mg by mouth every 6 hours as needed. pilocarpine (SALAGEN) 5 mg tablet TAKE 1 TABLET BY MOUTH THREE TIMES DAILY acetaminophen (TYLENOL ORAL) Take by mouth. amitriptyline (ELAVIL) 10 mg tablet Take 1 tablet by mouth daily at bedtime. (Patient taking differently: Take 10 mg by mouth at bedtime as needed.) loratadine (CLARITIN) 10 mg tablet Take 10 mg by mouth twice daily. MICROGESTIN 1.5/30 1.5-30 mg-mcg Take 1 tablet by mouth once daily. dextroamphetamine-amp hetamine (ADDERALL) 20 mg tablet Take 20 mg by mouth once daily. No current facility-administered medications for this visit. Antibiotic Treatment Duration: 2 weeks Medication Related Side Effects: none LABS:reviewed Culture:[place] Imaging:Imaging studies personally reviewed and discussed with team. 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 If no change in pain after 1-2 weeks of steroid injection- Minocycline can be tried. King Ho MD 08/20/2023 Referring Provider: TREASURE AVILES [[id number]] Allergies As of Date: 08/20/2023 Noted Allergy Reaction HYDROCODONE-ACETAMINO PHEN 04/30/2018 4 - Hives INFLIXIMAB 08/22/2022 4 - Hives LEFLUNOMIDE 12/05/2022 5 - Intolerance Date Reviewed: 08/10/2023 Reviewed by: Chata Daley LPN - Fully Assessed Primary Visit Diagnosis:Granulomato us mastitis of right breast [N61.21] Order(s):Minocycline HCl 50 mg tabletTake 1 tablet by mouth two times a day.Disp: 60 tabletRfl: 0 fluconazole (DIFLUCAN) 100 mg tabletTake 1 tablet by mouth once daily.Disp: 30 tabletRfl: 0 Prescriptions as of 08/21/2023 - Minocycline HCl 50 mg tablet Take 1 tablet by mouth two times a day. - fluconazole (DIFLUCAN) 100 mg tablet Take 1 tablet by mouth once daily. - adalimumab (HUMIRA,CF, PEN) 40 mg/0.4 mL pen kit Inject 1 pen (40 mg) subcutaneously every 2 weeks. - diclofenac (VOLTAREN) 1 % topical gel Apply 4 g to affected area four times daily. - traMADol (ULTRAM) 50 mg tablet Take 50 mg by mouth every 6 hours as needed. - pilocarpine (SALAGEN) 5 mg tablet TAKE 1 TABLET BY MOUTH THREE TIMES DAILY - acetaminophen (TYLENOL ORAL) Take by mouth. - amitriptyline (ELAVIL) 10 mg tablet Take 1 tablet by mouth daily at bedtime. - loratadine (CLARITIN) 10 mg tablet Take 10 mg by mouth twice daily. - MICROGESTIN 1.5/30 1.5-30 mg-mcg Take 1 tablet by mouth once daily. - dextroamphetamine-amp hetamine (ADDERALL) 20 mg tablet Take 20 mg by mouth once daily. 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 FLUCONAZOLE 100 MG TABLET 30 t* 0 08/20/2023 09/19/2023 Route: ORAL Sig: Take 1 tablet by mouth once daily. Encounter Status:Closed by KING HO on 08/21/[address] [facility] for Release of Medical Recordson 08-14-2023 Auth for Release of Medical Records [id number] .00TIFF [facility] CNOVon 08-10-2023 CNOV Office Visit (GENSF) ALYSSA DE LEON ([id number]) 1990 F Date Time Provider Department 08/10/23 3:30 PM [facility]ILES During your visit today, we recorded the following information about you: Last Period 07/30/23 Treasure Aviles DO 08/18/2023 7:48 AM Signed REASON FOR TODAY'S VISIT: Patient presents with: Established Patient Follow Up HISTORY of PRESENT ILLNESS: Alyssa De Leon is a 32 year old female with a RIGHT breast 3 cm cystic mass structure @ 3:00 position, core bx consistent with IGM. Review showed corynebacterium. HISTORY: Patient was last seen for a follow up of a recurrent RIGHT breast infection, core biopsy consistent with IGM. At that time, she was healing and she was scheduled to meet with Dr. King Ho ( ID) who recommended Zyvox 600 mg po bid, but antibiotic was not covered by her insurance. One time dose of IV Dalbancin was recommended She states she saw some decreased pain improvement with doxycycline but had no appetite and lost 15 pounds. She is disappointed that she did not achieve better relief with the [place]. She does have a follow up later this month. She also has a next week with her community health education coordinator Dr. Janie Herman. She takes Humaria for inflammatory arthritis. (+[place]) Has tried medications in the past see Dr. Herman note 03/27/23 close the medications and side effects. States she has tolerated steroids in the past but currently not on them. States regarding her breast she has noticed increased pain over the past month. Specifically when she raises her arm above her head to get a plate or cup. 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 States she hold her breast most days due to the inflammatory change. She has prescriptions for Ultram. She states she has tried topical Voltaren gel but has not received any relief. States she cannot do celebrex or ibuprofen. EXAMINATION: GEN alert and orientated, well nourished, calm Regional Lymph Nodes There is no concerning supraclavicular, infraclavicular or cervical lymphadenopathy. BREASTS: The patient was examined in the upright and supine position. RIGHT breast soft, lanette a 3 cm mass, centimeters from the nipple approximately 1 cm deep which corresponds to her area of pain and palpable IgM, she does not have any fistula tract formation or overlying skin thckening or erythema, nipple everted, no discharge, no skin changes RIGHT axilla no palpable axillary lymphadenopathy LEFT breast soft, no dominant masses, nipple everted, no discharge, no skin changes LEFT axilla no palpable axillary lymphadenopathy ABD soft, non-distended, non-tender, no organomegaly EXT ambulated independently, good ROM of upper extremities, no evidence of lymphedema IMPRESSION: Alyssa De Leon is a 33 year old female with 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 Corynebacterium identified on stains. Is currently following with ID on antibiotic therapy. Presents today complaining of increased pain. PLAN: Discussed IGM is more common in patients with history of autoimmune disorder. We discussed the course of IGM, and that per the literature it typically resolve within 5 to 18 months and mainstay of treatment is symptomatic. Many patients can manage symptoms, however in cases where symptoms worsen despite antibiotics targeted to corynebacterium - the first next step would be to employ use of steroids. Intrathecal lesion injection of a steroid specifically Kenalog mixed with lidocaine would be the next step over oral antibiotics -although she could try that as an option as well. She has a follow-up with her community health education coordinator next week and will discuss. Plan for ultrasound-guided Kenalog injection for IGM 08/24/2023 in the office. Follow up with ID, Dr. Ho scheduled She has our names and numbers to stay in touch if she has any questions, concerns or problems in the interim. Treasure Aviles, DO Breast Surgeon Cc: Dr. Janie Hreman (Rheum) Dr. King Ho (ID) cc: Chata Daley LPN 08/10/2023 3:48 PM Signed Mastitis follow up Last mammogram on: 03/20/23 bilateral Results: see report Is the patient active on MyChart Yes Electronically Signed By: Chata Daley LPN In Department: GENERAL SURGERY REVIEW OF PATIENT HISTORY: OB History T0 L2 SAB0 IAB0 Ectopic0 Multiple0 Live Births0 FAMILY HISTORY Problem Relation Age of Onset Bipolar disorder Mother Diabetes Father Breast Cancer Paternal Aunt PAST MEDICAL HISTORY Diagnosis Date Anxiety Depression Rheumatoid arthritis (HCC) PAST SURGICAL HISTORY Procedure Laterality Date NONE US BREAST NEEDLE CORE BIOPSY RT Right 03/23/2023 Social History Tobacco Use Smoking status: Former Types: Cigarettes Quit date: 02/25/2016 Years since quittin.4 Smokeless tobacco (more content not included)... Normal [facility] LE Venous Duplex Lefton 1 US LE Venous Duplex Left Exam Date/Time: 06/11/2023 18:48 EDT Reason for Exam: R07.1 Report IMPRESSION: NO EVIDENCE OF VENOUS THROMBOSIS INVOLVING VISUALIZED DEEP VEINS OF THE LEFT LEG. CLINICAL HISTORY: R07.1. Left calf pain. COMMENT: On the left, the external iliac vein, greater saphenous vein, common femoral vein, deep femoral vein, femoral vein, and popliteal vein demonstrate spontaneous phasic venous flow, with augmentation, non-pulsatility, and compressibility every 2 cm. The left posterior tibial and peroneal veins of the deep venous system compress. The contralateral right common femoral vein demonstrates spontaneous phasic venous flow. Ordering Provider: Baldo Acosta FINAL REPORT Dictated: 06/12/2023 11:58 am Chuy Villareal M.D. Signed (Electronic Signature): 06/12/2023 11:58 am Signed by: Chuy Villareal M.D. Transcribed by: LAVONNE Technologist: FRENCH [facility] Consent for Treatmenton Consent for Treatment [id number] .00CD:127 [facility] Physician Orderon 06-11-2023 Physician Order [id number] .00CD:127 [facility] Physician Order [id number] .00CD:127 [facility] CNOVon 05-25-2023 CNOV Office Visit (GENSF) ALYSSA DE LEON ([id number]) 1990 F Date Time Provider Department 05/25/23 1:00 PM [facility] During your visit today, we recorded the following information about you: Treasure Aviles DO 06/03/2023 3:14 PM Signed REASON FOR TODAY'S VISIT: No chief complaint on file. HISTORY of PRESENT ILLNESS: Alyssa De Leon is a 32 year old female with a RIGHT breast 3 cm cystic mass structure @ 3:00 position, core bx consistent with IGM. Pathology review shows corynebacterium. HISTORY: Patient was initially seen for a recurrent RIGHT breast infection on 05/10/2023 At that time, her imaging and past history was thought to be consistent with idiopathic granulomatous mastitis. Cultures results were reviewed and she began a two week course of doxycyline was prescribed and consult With infections disease physician as well as a genetic counselor. These consult are scheduled for the near future. Returns to day for a wound check. Reports area does feel less tender and slightly improved with the medicine States she is nauseous and not eating. Cannot tell if it is from the antibiotics EXAMINATION: GEN alert and orientated, well nourished, calm Regional Lymph Nodes There is no concerning supraclavicular, infraclavicular or cervical lymphadenopathy. BREASTS: The patient was examined in the upright and supine position. RIGHT breast soft, with 3 cm palpable area medial corresponding to the IGM, no fistula tracts, not draining, nipple everted, no discharge, no skin changes RIGHT axilla no palpable axillary lymphadenopathy ABD soft, non-distended, non-tender, no organomegaly EXT ambulated independently, good ROM of upper extremities, no evidence of lymphedema IMPRESSION: Alyssa De Leon is a 32 year old female with a RIGHT breast 3 cm cystic mass structure @ 3:00 position, core bx consistent with IGM. Review shows corynebacterium. PLAN:. Ms. De Leon will follow-up with Dr. Ho (ID) as scheduled, 06/08/2023. Continue with doxycycline, Voltaren gel topical and script given for zofran to help with the nausea. Ms. De Leon will follow-up with me in 1 month. She has our names and numbers to stay in touch if she has any questions, concerns or problems in the interim. Treasure Aviles, DO Breast Surgeon Chata Daley LPN 05/25/2023 1:22 PM Signed Follow up Last mammogram on: 03/20/2023 bilateral Results: see report Is the patient active on MyChart Yes Electronically Signed By: Chata Daley LPN In Department: GENERAL SURGERY REVIEW OF PATIENT HISTORY: OB History T0 L2 SAB0 IAB0 Ectopic0 Multiple0 Live Births0 FAMILY HISTORY Problem Relation Age of Onset Bipolar disorder Mother Diabetes Father Breast Cancer Paternal Aunt PAST MEDICAL HISTORY Diagnosis Date Anxiety Depression Rheumatoid arthritis (HCC) PAST SURGICAL HISTORY Procedure Laterality Date NONE US BREAST NEEDLE CORE BIOPSY RT Right 03/23/2023 Social History Tobacco Use Smoking status: Former Types: Cigarettes Quit date: 02/25/2016 Years since quittin.2 Smokeless tobacco: Never Tobacco comments: Less than a pack. Substance Use Topics Alcohol use: Never Drug use: Never Allergies As of Date: 05/25/2023 Noted Allergy Reaction HYDROCODONE-ACETAMINO PHEN 04/30/2018 4 - Hives INFLIXIMAB 08/22/2022 4 - Hives LEFLUNOMIDE 12/05/2022 5 - Intolerance Date Reviewed: 05/25/2023 Reviewed by: Chata Daley LPN - Fully Assessed Reason for Visit: Established Patient [175] Primary Visit Diagnosis:Mastitis chronic, right [N60.11] Order(s):doxycycline hyclate (VIBRAMYCIN) 100 mg capsuleTake 1 capsule by mouth twice daily for 14 days.Disp: 28 capsuleRfl: 0 diclofenac (VOLTAREN) 1 % topical gelApply 4 g to affected area four times daily.Disp: 100 gRfl: 0 ondansetron (ZOFRAN) 4 mg tabletTake 1 tablet by mouth every 8 hours as needed for nausea/vomiting.Disp: 30 tabletRfl: 0 Prescriptions as of 06/03/2023 - doxycycline hyclate (VIBRAMYCIN) 100 mg capsule Take 1 capsule by mouth twice daily for 14 days. - diclofenac (VOLTAREN) 1 % topical gel Apply 4 g to affected area four times daily. - ondansetron (ZOFRAN) 4 mg tablet Take 1 tablet by mouth every 8 hours as needed for nausea/vomiting. - traMADol (ULTRAM) 50 mg tablet Take 50 mg by mouth every 6 hours as needed. - celecoxib (CELEBREX) 100 mg capsule Take 1 capsule by mouth twice daily. - pilocarpine (SALAGEN) 5 mg tablet TAKE 1 TABLET BY MOUTH THREE TIMES DAILY - acetaminophen (TYLENOL ORAL) Take by mouth. - adalimumab (HUMIRA,CF, PEN) 40 mg/0.4 mL pen kit Inject 1 pen (40 mg) subcutaneously every 2 weeks. - amitriptyline (ELAVIL) 10 mg tablet Take 1 tablet by mouth daily at bedtime. - loratadine (CLARITIN) 10 mg tablet Take 10 mg by mouth twice daily. - MICROGESTIN 1.02/06 (more content not included)... Normal [facility] Pathology Noteon 05-15-2023 Pathology Note [id number] .00CD:127 Normal [facility] Pathology Reporton Pathology Report [id number]# 1.00CD:127 Normal [facility] Pathology Noteon 05-07-2023 Pathology Note [id number]#1 .00CD:127 Normal [facility] RAD - MISCon 05-07-2023 RAD - MISC [id number]# 1.00CD:127 Normal [facility] XR CHEST 2V FRONTAL/LATon [facility] Physician Referralon 023 Physician Referral [id number] .00CD:127 Normal [facility] General Surgery Office/Clini c Noteon 04-23-2023 General Surgery Office/Clinic Note HPI Staff Alyssa is a 32 y.o. female here for s/p US needle core bx done 04/09/2023 I/O right breast biopsy done 03/23/2023 MRI and US done 04/03/2023 She continues with pain but has noticed some improvement when taking tramadol History of Present Illness Alyssa Wilson is a 32-year-old female who presents today for a follow-up of an ultrasound-guided core needle biopsy of the right breast. Final pathology is pending due to waiting on heme sustained per discussion with our pathologist. However, preliminary report shows no malignancy, but benign granulomatous disease that is in the right breast. The patient states that her pain is better controlled with a combination of tramadol which we prescribed her as well as amitriptyline with her community health education coordinator, Dr. Simental. Review of Systems ROS - Constitutional: No fever, no sweats, no weight loss. Eyes: No glasses, no blurred vision, no visual loss. ENMT: No dentures, no hoarseness, no swallowing difficulties, no hearing loss, no ear infection (s), no nose bleeds. Cardiovascular: Normal blood pressure, no chest pain, regular heartbeat, no heart murmur. Respiratory: No shortness of breath, no cough, no wheezing, no asthma. Gastrointestinal: No nausea, no vomiting, no diarrhea, no constipation, no change in bowel habits, no abdominal pain, no hepatitis. Genitourinary: No kidney stones, no urine infection, no difficulty passing urine. Musculoskeletal: No pain, no weakness. Skin: No changing moles, no rash, no skin lumps. Neurologic: No seizures, no epilepsy, no headache. Psychiatric: No emotional, no psychiatric problem. Endocrine: No thyroid, no diabetes. Heme/Lymph: No bleeding problems, no anemia, no blood clots, no transfusions. Allergy/Immunologic: No swollen lymph nodes/glands, no IV drug abuse. Other: Additional ROS info: Except as noted in the above Review of Systems and in the History of Present Illness, all other systems have been reviewed and are negative or noncontributory. Physical Exam General: No acute distress Respiratory: Unlabored breathing on room air Cardiac: Regular rate and rhythm Abdomen: Soft nontender nondistended Assessment/Plan The patient is a 32-year-old female with what appears to be granulomatous disease of the breasts. 1. Breast mass, right (N63.10: Unspecified lump in the right breast, unspecified quadrant) We will refer her to [facility] given the patient's history of rheumatoid arthritis or extensive previous adverse reactions to her immunosuppression medication and the absence of a clear cause for the granular formation. For example, she has had no prior infections nor recent trauma to the breast. We will refer her to breast surgery for further evaluation per the patient's request. Portions of this record may have been created with voice recognition artificial intelligence software, specifically Airseed, Burpple and or TrustHop. Substitutions may have occurred voice recognition and artificial intelligence software. ATTESTATION: Documentation services were performed after patient or guardian consented to allow [employer] to record this visit. KAPIL transit specialist and provider reviewed before signing. KAPIL: Aliza Verdugo. Follow-up No qualifying data available Problem List/Past Medical History Ongoing Abnormal magnetic resonance imaging of breast Arthritis, rheumatoid BMI 23.0-23.9, adult Breast mass, right Left hip pain Historical asthma Migraine Pneumonia Rheumatoid arthritis Shingles Medications Allergy (Loratadine) 10 mg oral tablet, 10 mg= 1 tab(s), Oral, BID amitriptyline 10 mg Tab, Oral, Once a day (at bedtime) amphetamine-dextroamp hetamine 20 mg Cap-ER, 20 mg= 1 cap(s), Oral, Daily folic acid 1 mg Tab, 1 mg= 1 tab(s), Oral, Daily Humira Pen 40 mg/0.4 mL subcutaneous kit Microgestin 1.5/30 oral tablet, 1 tab(s), Oral, Daily Physical therapy, See Instructions pilocarpine 5 mg Tab, 5 mg= 1 tab(s), Oral, TID Sprintec, 1 tab(s), Oral, Daily Allergies Vicodin inFLIXimab (Urticaria) leflunomide (Intolerance) Social History Alcohol Current, Beer, 1-2 times per month, 01/20/2023 Alcohol use interferes with work or home: No., 06/11/2018 Current, Beer, 1-2 times per week, 03/10/2018 Current, Beer, 1-2 times per year, Previous treatment: None., 10/04/2010 Employment/School - Low Risk, 08/09/2022 Home/Environment - Low Risk, 08/09/2022 Nutrition/Health - Low Risk, 08/09/2022 Substance Abuse - Denies Substance Abuse, 10/04/2010 Tobacco - Denies Tobacco Use, 01/06/2019 Former smoker, quit more than 30 days ago Tobacco Use:., 04/20/2023 Past, 06/09/2012 Family History Depression: Mother. Diabetes mellitus type 2: Father. Immunizations Vaccine Date Status Comments SARS-CoV-2 mRNA (tosiseran 5y-11y) vac - Not Given Postpone due to refusal [facility] Comment on above: Result Comment: Elec tronically Signed By: Jeffery Rodriguez MD\.br\Date and Time Signed: 04/23/23 08:10 EDT\.br\Electronically Co-Signed By: Aliza Verdugo.br\Date and Time Co-Signed: 04/20/23 12:31 EDT Consent for Treatmenton Consent for Treatment [id number] .00CD:127 [facility] RAD - Consent to Procedureon 04-13-2023 RAD - Consent to Procedure [id number]# 1.00CD:127 [facility] RAD - MISCon 04-13-2023 RAD - MISC [id number]# 1.00CD:127 Normal [facility] US Breast biopsy Vac Asst, F irst Lesionon 04-13-2023 US Breast biopsy Vac Asst, First Lesion Exam Date/Time: 04/13/2023 14:25 EDT Reason for Exam: N63.10;Breast Mass / Nodule Addendum ADDENDUM: FINAL PATHOLOGIC DIAGNOSIS: RIGHT BREAST NODULE, 3 O'CLOCK, ULTRASOUND GUIDED CORE BIOPSY: \X2013\ BENIGN BREAST WITH EXTENSIVE PATCHY AND PERIDUCTAL ACUTE CHRONIC GRANULOMATOUS INFLAMMATION AND GRANULATION TISSUE. The pathologic diagnosis corresponds to the imaging findings, and appropriate follow-up imaging is suggested. Ordering Provider: Jeffery Rodriguez FINAL REPORT Dictated: 04/25/2023 9:43 am Denis Lam MD Signed (Electronic Signature): 04/25/2023 9:43 am Signed by: Denis Lam MD Transcribed by: LAVONNE Technologist: MARYCRUZ, Report IMPRESSION: ULTRASOUND-GUIDED RIGHT BREAST BIOPSY. BIOPSY RESULTS ARE PENDING. EXAM: US Breast biopsy Vac Asst, First Lesion DATE: 04/13/2023 CLINICAL HISTORY: Breast Mass / Nodule, N63.10. COMPARISON: 04/03/2023. PROCEDURE: Informed consent was obtained. Sterile technique, local lidocaine anesthesia and ultrasound guidance were used to place a 9 gauge [facility] vacuum-assisted biopsy needle directly within to the suspicious nodule within the 3 o'clock position of the the breast. Numerous core samples were obtained in the usual fashion. A NOBOT top hat-shaped marking clip was then deployed. Report The patient tolerated the procedure without evidence of an immediate complication. She was discharged home in stable condition with usual instructions. Ordering Provider: Jeffery Rodriguez FINAL REPORT Dictated: 04/13/2023 3:16 pm Denis Lam MD Signed (Electronic Signature): 04/13/2023 3:16 pm Signed by: Denis Lam MD Transcribed by: LAVONNE Technologist: MARYCRUZ, Report last revised on 04/25/2023 09:43 EDT by Denis Lam MD [facility] Insurance Correspondenceon 0 04-09-2023 Insurance Correspondence [id number] #1.00CD:127 Normal [facility] General Surgery Office/Clini c Noteon 04-06-2023 General Surgery Office/Clinic Note Chief Complaint Follow up to s/p breast biopsy HPI Staff Alyssa is a 32 y.o. female here for follow up to breast mass I/O right breast biopsy done 03/23/2023-pathology completed MRI and US done 04/03/2023 She continues with pain History of Present Illness Alyssa De Leon is a 32-year-old female who presents today for a follow-up of right breast ultrasound and MRI. She was biopsied in the office on 03/23/2023, which showed a 3 o'clock right breast mass consistent with benign breast tissue with focal myxoid fibrosis and mild periductal and perivascular lymphocytic infiltration. There was continued clinical correlation. The pathology note recommended re-biopsy; however, the patient reports the pain has not improved at all. She is wearing a sports bra, which does provide some support. Review of Systems ROS - Constitutional: No fever, no sweats, no weight loss. Eyes: No glasses, no blurred vision, no visual loss. ENMT: No dentures, no hoarseness, no swallowing difficulties, no hearing loss, no ear infection (s), no nose bleeds. Cardiovascular: Normal blood pressure, no chest pain, regular heartbeat, no heart murmur. Respiratory: No shortness of breath, no cough, no wheezing, no asthma. Gastrointestinal: No nausea, no vomiting, no diarrhea, no constipation, no change in bowel habits, no abdominal pain, no hepatitis. Genitourinary: No kidney stones, no urine infection, no difficulty passing urine. Musculoskeletal: No pain, no weakness. Skin: No changing moles, no rash, no skin lumps. Neurologic: No seizures, no epilepsy, no headache. Psychiatric: No emotional, no psychiatric problem. Endocrine: No thyroid, no diabetes. Heme/Lymph: No bleeding problems, no anemia, no blood clots, no transfusions. Allergy/Immunologic: No swollen lymph nodes/glands, no IV drug abuse. Other: Additional ROS info: Except as noted in the above Review of Systems and in the History of Present Illness, all other systems have been reviewed and are negative or noncontributory. Physical Exam Vitals & Measurements BP: 106/73 HT: 60 in HT: 152 cm WT: 53 kg WT: 116.6 lb BMI: 22.94 General: No acute distress Respiratory: Unlabored breathing on room air Cardiac: Regular rate and rhythm Abdomen: Soft nontender nondistended Breast: There is an area of small superficial bruising above the biopsy site, though the mass is still palpable and tender. There is no axillary adenopathy on the right side. The mass in question for review purposes is at the 3 o'clock position on the right side. Assessment/Plan The patient is a 32-year-old female with a right breast mass with inconclusive findings on biopsy. 1. Breast mass, right (N63.10: Unspecified lump in the right breast, unspecified quadrant) We will proceed with an excisional biopsy if the results of the MRI should prove inconclusive as well, so as to further ascertain the underlying source of the lesion. ATTESTATION: Portions of this record may have been created with voice recognition artificial intelligence software, specifically Airseed, Burpple and or TrustHop. Substitutions may have occurred due to inherent limitations of voice recognition and artificial intelligence software. ATTESTATION: Documentation services were performed after patient or guardian consented to allow [employer] to record this visit. KAPIL transit specialist and provider reviewed before signing. KAPIL: Benji Kearney / Pasted by [employer]. Follow-up No qualifying data available Problem List/Past Medical History Ongoing Arthritis, rheumatoid BMI 23.0-23.9, adult Breast mass, right Left hip pain Historical asthma Migraine Pneumonia Rheumatoid arthritis Shingles Medications Allergy (Loratadine) 10 mg oral tablet, 10 mg= 1 tab(s), Oral, BID amoxicillin-clavulana te 500 mg-125 mg Tab amphetamine-dextroamp hetamine 20 mg Cap-ER, 20 mg= 1 cap(s), Oral, Daily folic acid 1 mg Tab, 1 mg= 1 tab(s), Oral, Daily Humira Pen 40 mg/0.4 mL subcutaneous kit Microgestin 1.5/30 oral tablet, 1 tab(s), Oral, Daily Physical therapy, See Instructions pilocarpine 5 mg Tab, 5 mg= 1 tab(s), Oral, TID Sprintec, 1 tab(s), Oral, Daily Allergies Vicodin inFLIXimab (Urticaria) leflunomide (Intolerance) Social History Alcohol Current, Beer, 1-2 times per month, 01/20/2023 Alcohol use interferes with work or home: No., 06/11/2018 Current, Beer, 1-2 times per week, 03/10/2018 Current, Beer, 1-2 times per year, Previous treatment: None., 10/04/2010 Employment/School - Low Risk, 08/09/2022 Home/Environment - Low Risk, 08/09/2022 Nutrition/Health - Low Risk, 08/09/2022 Substance Abuse - Denies Substance Abuse, 10/04/2010 Tobacco - Denies Tobacco Use, 01/06/2019 Former smoker, quit more than 30 days ago Tobacco Use:., 04/06/2023 Past, 06/09/2012 Family History Depression: Mother. Diabetes mellitus type 2: Father. Imm (more content not included)... Normal [facility] Comment on above: Result Comment: Elec tronically Signed By: Jeffery Rodriguez MD\.br\Date and Time Signed: 04/06/23 12:12 EDT\.br\Electronically Co-Signed By: Freedom An\.br\Date and Time Co-Signed: 04/06/23 11:16 EDT MRI Breast w/o and w/ Contra st, [place] 04-06-2023 MRI Breast w/o and w/ Contrast, Bilat Exam Date/Time: 04/03/2023 14:51 EDT Reason for Exam: breast mass on exam with discordant imaging;Other (please specify) Report IMPRESSION: BI-RADS CATEGORY 4: SUSPICIOUS. THIS MASS WOULD BE AMENABLE TO ULTRASOUND-GUIDED BIOPSY. CLINICAL HISTORY: breast mass on exam with discordant imaging. Palpable right breast mass, with core biopsy on 03/23/2023: Benign breast tissue with focal myxoid fibrosis, mild periductal and perivascular lymphocytic inflammation. COMPARISON: Mammogram and ultrasound 03/20/2023 and ultrasound 04/03/2023. COMMENT: Unenhanced and intravenous contrast enhanced images were obtained. There is a heterogeneous to extreme amount of fibroglandular tissue within the breasts. There is a minimal level of background parenchymal enhancement in the breasts. In the right breast, at and medial to the nipple line on axial views, and at and inferior to the nipple line on sagittal views, there is a contrast-enhancing mass, that measures approximately 2.5 x 4.5 x 2.5 cm. This mass is mainly located at mid to posterior depth, but on the sagittal images, there is a band of contrast enhancement extending to the retroareolar region and there is apparent mild nipple retraction. The mass has lobulated irregular margin. The long axis of the mass is directed towards the nipple. The mass appears to be comprised of multiple contiguous nodular areas of contrast enhancement. There are thin lines of contrast enhancement extending from the mass to the medial skin. On kinetic analysis, there is a fast initial phase of contrast enhancement followed by plateau delayed phase. No abnormal contrast enhancement nor contrast enhancing lesion in the left breast is noted. There are small bilateral axillary lymph nodes, without prominently enlarged lymph nodes noted. No chest wall mass is evident. ULTRASOUND RIGHT BREAST. An ultrasound was obtained at all clock face positions and in the central/ retroareolar region of the right breast. On scanning of the palpable lump at 3:00, there is an irregularly contoured area of heterogeneous echogenicity, with hypoechogenicity predominating, and with quite irregular margin. This has a long axis diameter of approximately 4 cm. On color flow Doppler images, there is prominent vascular flow within this mass. The remainder of the right breast is unremarkable on this ultrasound exam. The patient was discussed with Dr. Rodriguez on 04/06/2023. Report Ordering Provider: Jeffery Rodriguez FINAL REPORT Dictated: 04/06/2023 1:43 pm Chuy Villareal M.D. Signed (Electronic Signature): 04/06/2023 1:43 pm Signed by: Chuy Villareal M.D. Transcribed by: LAVONNE Technologist: CARL Technical Comments MultiHance Contrast amount in ml's: 10 Normal [facility] US Breast Unilateral Rt Comp leteon 04-06-2023 US Breast Unilateral Rt Complete Exam Date/Time: 04/03/2023 13:47 EDT Reason for Exam: N63.10 Report PLEASE REFER TO THE MRI BREAST REPORT. Ordering Provider: Eunice Mccabe FINAL REPORT Dictated: 04/06/2023 1:44 pm Chuy Villareal M.D. Signed (Electronic Signature): 04/06/2023 1:44 pm Signed by: Chuy Villareal M.D. Transcribed by: LAVONNE Technologist: FABIOLA Normal [facility] Consent for Treatmenton 03-11 Consent for Treatment [id number] .[id number]:127 [facility] Consent for Treatment [id number] .[id number]:127 [facility] RAD - MISCon 04-03-2023 RAD - MISC [id number] 1.00CD:127 [facility] RAD - MRI Screening Formon 0 04-03-2023 RAD - MRI Screening Form [id number] 1.00CD:127 [facility] Urinalysis complete panel (U )on 12-05-2022 Bilirubin Ql (U) Negative Negative [facility] Clarity (Unsp spec) Clear Clear [facility] Color (U) Colorless Yellow [facility] Epithelial cells LM.HPF (Urine sed) [#/Area] Few [facility] Glucose Test strip (U) [Mass/Vol] Negative Trace, Negative [facility] Hemoglobin Ql (U) Trace Negative, Trace [facility] Ketones Ql (U) Negative Trace, Negative [facility] Leukocyte esterase Test strip Ql (U) Negative Negative, 25 Danny/uL [facility] Nitrite Ql (U) Negative Negative [facility] pH (U) 6.5 [pH] 5.0 - 8.0 [facility] Protein (U) [Mass/Vol] Negative Trace , Negative [facility] RBC LM.HPF (Urine sed) [#/Area] 0-3 /HPF 0-3 /HPF [facility] Specific gravity (U) [Rel density] 1.009 1.005 - 1.030 [facility] Urobilinogen Ql (U) Negative Negative [facility] WBC LM.HPF (Urine sed) [#/Area] 0-5 /HPF 0-5 /HPF [facility] CBC W Auto Differential pane l (Bld)on 10-17-2022 Basophils (Bld) [#/Vol] 0.03 10*3/uL <0.11 k/uL [facility] Basophils/100 WBC (Bld) 0.7 % [facility] Differential cell count method Nom (Bld) Auto [facility] Eosinophils (Bld) [#/Vol] 0.22 10*3/uL <0.46 k/uL [facility] Eosinophils/100 WBC (Bld) 4.8 % [facility] Erythrocyte distribution width (RBC) [Ratio] 12.6 % 11.5 - 15.0 % [facility] Hematocrit (Bld) [Volume fraction] 38.5 % 36.0 - 46.0 % [facility] Hemoglobin (Bld) [Mass/Vol] 13.0 g/dL 11.5 - 15.5 g/dL [facility] Immature granulocytes (Bld) [#/Vol] <0.10 k/uL [facility] Immature granulocytes/100 WBC (Bld) 0.2 % [facility] Lymphocytes (Bld) [#/Vol] 1.66 10*3/uL 1.00 - 4.00 k/uL [facility] Lymphocytes/100 WBC (Bld) 36.0 % [facility] MCH (RBC) [Entitic mass] 31.0 pg 26.0 - 34.0 pg [facility] MCHC (RBC) [Mass/Vol] 33.8 g/dL 30.5 - 36.0 g/dL [facility] MCV (RBC) [Entitic vol] 91.7 fL 80.0 - 100.0 fL [facility] Monocytes (Bld) [#/Vol] 0.32 10*3/uL <0.87 k/uL [facility] Monocytes/100 WBC (Bld) 6.9 % [facility] Neutrophils (Bld) [#/Vol] 2.37 10*3/uL 1.45 - 7.50 k/uL [facility] Neutrophils/100 WBC (Bld) 51.4 % [facility] Nucleated RBC (Bld) [#/Vol] <0.01 k/uL [facility] Nucleated RBC/100 WBC (Bld) [Ratio] 0.0 /100 WBC [facility] Platelet mean volume (Bld) [Entitic vol] 10.2 fL 9.0 - 12.7 fL [facility] Platelets (Bld) [#/Vol] 322 10*3/uL 150 - 400 k/uL [facility] RBC (Bld) [#/Vol] 4.20 10*6/uL 3.90 - 5.2 0 m/uL [facility] WBC (Bld) [#/Vol] 4.61 10*3/uL 3.70 - 11. 00 k/uL [facility] CBC W Auto Differential pane l (Bld)on 08-15-2022 Basophils (Bld) [#/Vol] 0.04 10*3/uL <0.11 k/uL [facility] Basophils/100 WBC (Bld) 0.5 % [facility] Differential cell count method Nom (Bld) Auto [facility] Eosinophils (Bld) [#/Vol] 0.18 10*3/uL <0.46 k/uL [facility] Eosinophils/100 WBC (Bld) 2.2 % [facility] Erythrocyte distribution width (RBC) [Ratio] 11.8 % 11.5 - 15.0 % [facility] Hematocrit (Bld) [Volume fraction] 41.7 % 36.0 - 46.0 % [facility] Hemoglobin (Bld) [Mass/Vol] 14.1 g/dL 11.5 - 15.5 g/dL [facility] Immature granulocytes (Bld) [#/Vol] 0.08 10*3/uL <0.10 k/uL [facility] Immature granulocytes/100 WBC (Bld) 1.0 % [facility] Lymphocytes (Bld) [#/Vol] 2.36 10*3/uL 1.00 - 4.00 k/uL [facility] Lymphocytes/100 WBC (Bld) 29.0 % [facility] MCH (RBC) [Entitic mass] 30.3 pg 26.0 - 34.0 pg [facility] MCHC (RBC) [Mass/Vol] 33.8 g/dL 30.5 - 36.0 g/dL [facility] MCV (RBC) [Entitic vol] 89.7 fL 80.0 - 100.0 fL [facility] Monocytes (Bld) [#/Vol] 0.52 10*3/uL <0.87 k/uL [facility] Monocytes/100 WBC (Bld) 6.4 % [facility] Neutrophils (Bld) [#/Vol] 4.95 10*3/uL 1.45 - 7.50 k/uL [facility] Neutrophils/100 WBC (Bld) 60.9 % [facility] Nucleated RBC (Bld) [#/Vol] <0.01 k/uL [facility] Nucleated RBC/100 WBC (Bld) [Ratio] 0.0 /100 WBC [facility] Platelet mean volume (Bld) [Entitic vol] 9.9 fL 9.0 - 12.7 fL [facility] Platelets (Bld) [#/Vol] 373 10*3/uL 150 - 400 k/uL [facility] RBC (Bld) [#/Vol] 4.65 10*6/uL 3.90 - 5.2 0 m/uL [facility] WBC (Bld) [#/Vol] 8.13 10*3/uL 3.70 - 11. 00 k/uL [facility] ESR Westergren method (Bld) [Velocity]on 08-15-2022 ESR (Bld) [Velocity] 47 mm/h High 0 - 20 mm/hr Cl [facility] CHEMISTRYOrdered By: SYSTEM SYSTEM on 08-10-2022 Troponin I.cardiac [Mass/Vol] 3.10 pg/mL Low 10.10 - 27.10 pg/mL [facility] CHEMISTRYOrdered By: SYSTEM SYSTEM on 08-09-2022 Albumin [Mass/Vol] 4.2 g/dL Normal 3.3 - 5.0 gm/dL [facility] Albumin/Globulin [Mass ratio] 1.3 {ratio} Normal 1.1 - 2.2 [facility] ALP [Catalytic activity/Vol] 58 [iU]/d Normal 21 - 98 Int._Unit/L [facility] ALT No additional P-5'-P [Catalytic activity/Vol] 20 [iU]/d Normal 6 - 46 Int._Unit/L [facility] Anion gap [Moles/Vol] 17 mmol/L High 6 - 16 mEq/L [facility] AST [Catalytic activity/Vol] 26 [iU]/d Normal 5 - 43 Int._Unit/L [facility] Bilirubin [Mass/Vol] 0.6 mg/dL Normal 0.0 - 1 .1 mg/dL [facility] Bilirubin.direct [Mass/Vol] 0.1 mg/dL Normal 0.1 - 0.4 mg/dL [facility] Bilirubin.indirect [Mass or moles/Vol] 0.5 mg/dL Normal 0.1 - 0.9 mg/dL [facility] Calcium [Mass/Vol] 9.1 mg/dL Normal 8.9 - 11. 1 mg/dL [facility] Chloride [Moles/Vol] 99 mmol/L Low 101 - 1 11 mmol/L [facility] CO2 [Moles/Vol] 24 mmol/L Normal 21 - 31 mmol/L [facility] Creatinine [Mass/Vol] 0.5 mg/dL Normal 0.5 - 1.3 mg/dL [facility] CRP [Mass/Vol] 2.5 mg/dL High <=1.9mg/dL [facility] Remis ol GFR/1.73 sq M.predicted among blacks MDRD (S/P/Bld) [Vol rate/Area] mL/min/1.73 m2 Normal >=59mL/min/1 .73 m2 [facility] Chem S GFR/1.73 sq M.predicted among non-blacks MDRD (S/P/Bld) [Vol rate/Area] mL/min/1.73 m2 Normal >=59mL/min/1 .73 m2 [facility] Chem S Globulin (S) [Mass/Vol] 3.3 g/dL Normal 1.4 - 4.0 gm/dL [facility] Glucose [Mass/Vol] 106 mg/dL Normal 55 - 199 mg/dL [facility] Lactate [Mass/Vol] 1.9 mmol/L Normal 0.5 - 2.2 mmol/L [facility] Lipase [Catalytic activity/Vol] 28 U/L Normal 13 - 58 unit/L [facility] Potassium [Moles/Vol] 3.8 mmol/L Normal 3.5 - 5.3 mmol/L [facility] Protein [Mass/Vol] 7.5 g/dL Normal 6.0 - 7.8 gm/dL [facility] Sodium [Moles/Vol] 136 mmol/L Normal 135 - 145 mmol/L [facility] Troponin I.cardiac [Mass/Vol] pg/mL Low 10.10 - 27.10 pg/mL [facility] Urea nitrogen [Mass/Vol] 10 mg/dL Normal 5 - 21 mg/dL [facility] Urea nitrogen/Creatinine [Mass ratio] 20 mg/mg Normal 10 - 20 [facility] COAGULATIONOrdered By: Milvia Mo on 08-09-2022 aPTT Coag (PPP) [Time] 27.1 s Normal 25.1 - 36.5 second(s) [facility]ag INR Coag (PPP) [Relative time] 1.0 {INR} Invalid Interpretation Code [facility] Auto Coag PT Coag (PPP) [Time] 11.4 s Normal 9.4 - 1 2.5 second(s) [facility]ag HEMATOLOGYOrdered By: SYSTEM SYSTEM on 08-09-2022 Basophils/100 WBC (Bld) 0.4 % Normal 0.0 - 2.0 % [facility] Basophils/Leukocytes Auto (Bld) [Pure # fraction] 0.0 E9/L Normal 0.0 - 0.2 E9/L [facility] Eosinophils/100 WBC (Bld) 0.2 % Normal 0.0 - 8.0 % [facility] Eosinophils/Leukocytes Auto (Bld) [Pure # fraction] 0.0 E9/L Normal 0.0 - 0.5 E9/L [facility] Lymphocytes/100 WBC (Bld) 15.4 % Normal 14.0 - 50.0 % [facility] Lymphocytes/Leukocytes Auto (Bld) [Pure # fraction] 1.8 E9/L Normal 1.0 - 4.0 E9/L [facility] Monocytes/100 WBC (Bld) 6.5 % Normal 4.0 - 14.0 % [facility] Monocytes/Leukocytes Auto (Bld) [Pure # fraction] 0.8 E9/L Normal 0.2 - 1.0 E9/L [facility] Neutrophils/100 WBC (Bld) 77.5 % High 36.0 - 75.0 % [facility] Neutrophils/Leukocytes Auto (Bld) [Pure # fraction] 9.0 E9/L High 2.0 - 7.5 E9/L [facility] HEMATOLOGYOrdered By: Klaudai Luna on 08-09-2022 Erythrocyte distribution width (RBC) [Ratio] 12.6 % Normal 10.9 - 14.2 % [facility] Hematocrit (Bld) [Volume fraction] 37.9 % Normal 34.0 - 46.0 % [facility] Hemoglobin (Bld) [Mass/Vol] 13.7 g/dL Normal 12.0 - 16.0 gm/dL [facility] MCH (RBC) [Entitic mass] 30.9 pg Normal 27.0 - 34.0 pg [facility] MCHC (RBC) [Mass/Vol] 36.1 g/dL High 31.4 - 36.0 gm/dL [facility] MCV (RBC) [Entitic vol] 85.7 fL Normal 80.0 - 100.0 fL [facility] Platelet mean volume (Bld) [Entitic vol] 7.5 fL Normal 6.4 - 10.8 fL [facility] Platelets (Bld) [#/Vol] 279.0 E9/L Normal 150.0 - 500.0 E9/L [facility] RBC (Bld) [#/Vol] 4.4 E12/L Normal 4.3 - 5.9 E12/L [facility] Sed Rate Automated 23 mm/h Normal 0 - 34 mm/hr [facility] WBC corrected for nucl RBC Auto (Bld) [#/Vol] 11.6 E9/L High 4.0 - 11.0 E9/L [facility] Comment on above: Result Comment: Slid e reviewed by ts. SEROLOGYOrdered By: Chata Mo on 08-09-2022 HCG.beta subunit (U) [Moles/Vol] Negative Normal [facility] URINALYSISOrdered By: Jean Claude Mo on 08-09-2022 Bacteria LM Ql (Urine sed) Trace /HPF Normal Trace/HPF [facility] Bilirubin Ql (U) Negative (08/09/22 4:20 PM) Normal Negative [facility] Clarity (U) Clear (08/09/22 4:20 PM) Normal Clear [facility] Color (U) Yellow (08/09/22 4:20 PM) Normal Yellow [facility] Epithelial cells.squamous LM.HPF (Urine sed) [#/Area] 3-4 /HPF Normal 0-2/HPF [facility] o [facility] Glucose Test strip (U) [Mass/Vol] Negative (08/09/22 4:20 PM) Normal Negative [facility] Hemoglobin Ql (U) 1+ *ABN* (08/09/22 4:20 PM) Invalid Interpretation Code Negative [facility] Ketones (U) [Mass/Vol] Negative (08/09/22 4:20 PM) Normal Negative [facility] Auto SS Bessie.plasma/Bessie .RBC (Bld) [Mass ratio] 4-20 /HPF Normal 0-3/HPF [facility] Nitrite Ql (U) Negative (08/09/22 4:20 PM) Normal Negative [facility] pH (U) 7.0 *NA* (08/09/22 4:20 PM) Invalid Interpretation Code 5.0 - 9.0 [facility] Protein (U) [Mass/Vol] Negative (08/09/22 4:20 PM) Normal Negative [facility] Specific gravity (U) [Rel density] 1.010 *NA* (08/09/22 4:20 PM) Invalid Interpretation Code 1.005 - 1.030 [facility] UA Spec Desc Clean Catch (08/09/22 4:20 PM) Normal [facility] Urobilinogen Qn (U) 0.6217487 {Winter'U}/dL Normal 0.0 - 1.0 EU/dL [facility] Auto SS WBC Auto Ql (U) Negative (08/09/22 4:20 PM) Normal Negative [facility]A Auto SS WBC LM.HPF (Urine sed) [#/Area] 0-5 /HPF Normal 0-5/HPF [facility]A Auto SS No Panel Informationon 07-18 [facility] Reference Laboratory Testing Ordered By: Generated DomainUser on 10-02-2021 SARS-CoV-2 (COVID-19) RNA MAGUI+probe Ql (Resp) Detected Invalid Interpretation Code Not Detected [facility] Comment on above: Result Comment: January ents who have a positive COVID-19 test result may now have treatment options. Treatment options are available for patients with mild to moderate symptoms and for hospitalized patients. Visit our website at [email or web address] for resources and information. This nucleic acid amplification test was developed and its performance characteristics determined by [facility]. Nucleic acid amplification tests include RT-PCR and TMA. This test has not been FDA cleared or approved. This test has been authorized by FDA under an Emergency Use Authorization (EUA). This test is only authorized for the duration of time the declaration that circumstances exist justifying the authorization of the emergency use of in vitro diagnostic tests for detection of SARS-CoV-2 virus and/or diagnosis of COVID-19 infection under section 564(b)(1) of the Act, 21 U.S.C. 360bbb-3(b) (1), unless the authorization is terminated or revoked sooner. When diagnostic testing is negative, the possibility of a false negative result should be considered in the context of a patient's recent exposures and the presence of clinical signs and symptoms consistent with COVID-19. An individual without symptoms of COVID-19 and who is not shedding SARS-CoV-2 virus would expect to have a negative (not detected) result in this assay. Performed at: [address] [id number] PhD Jose Munoz Reference Laboratory Testing Ordered By: [facility] DomainUser on 09-27-2021 SARS-CoV-2 (COVID-19) RNA MAGUI+probe Ql (Resp) Detected Invalid Interpretation Code Not Detected [facility] Comment on above: Result Comment: January ents who have a positive COVID-19 test result may now have treatment options. Treatment options are available for patients with mild to moderate symptoms and for hospitalized patients. Visit our website at [email or web address] for resources and information. This nucleic acid amplification test was developed and its performance characteristics determined by [employer]. Nucleic acid amplification tests include RT-PCR and TMA. This test has not been FDA cleared or approved. This test has been authorized by FDA under an Emergency Use Authorization (EUA). This test is only authorized for the duration of time the declaration that circumstances exist justifying the authorization of the emergency use of in vitro diagnostic tests for detection of SARS-CoV-2 virus and/or diagnosis of COVID-19 infection under section 564(b)(1) of the Act, 21 U.S.C. 360bbb-3(b) (1), unless the authorization is terminated or revoked sooner. When diagnostic testing is negative, the possibility of a false negative result should be considered in the context of a patient's recent exposures and the presence of clinical signs and symptoms consistent with COVID-19. An individual without symptoms of COVID-19 and who is not shedding SARS-CoV-2 virus would expect to have a negative (not detected) result in this assay. Performed at: [facility] [id number] PhD Jose Munoz PAP ACOG PANEL 2: 21 to 29on 02-18-2020 Age Gdln ACOG Testing - [facility] Comment on above: Performed By: #### [id number] #### [facility] [address] [place] [address] Paulo Cheney DIAGNOSIS: Comment [facility] Comment on above: Result Comment: NEGA TIVE FOR INTRAEPITHELIAL LESION OR MALIGNANCY. THIS SPECIMEN WAS RESCREENED PART OF OUR PRESIDING JUDGE PROGRAM. Performed By: #### [id number] #### [facility] [address] [place] [address] Paulo Cheney Methodology: Comment [facility] Comment on above: Result Comment: This liquid based SurePath(R) pap test was screened with the assistance of an image guided system. Performed By: #### [id number] #### [facility] [address] [place] [address] Paulo Cheney Note: Comment [facility] Comment on above: Result Comment: The Pap smear is a screening test designed to aid in the detection of premalignant and malignant conditions of the uterine cervix. It is not a diagnostic procedure and should not be used as the sole means of detecting cervical cancer. Both false-positive and false-negative reports do occur. . Performed By: #### [id number] #### [facility] [address] [place] [address] Paulo Cheney Performed by: Comment Normal [facility] Comment on above: Result Comment: Shagufta Hernandez, Specialty Food Products Supervisor (ASCP) Performed By: #### [id number] #### [facility] [address] [place] [address] Paulo Cheney QC reviewed by: Comment Normal [facility] Comment on above: Result Comment: Selin Anderson, Supervisory Specialty Food Products Supervisor (ASCP) Performed By: #### [id number] #### [facility] [address] [place] [address] Pauloshauna Cheney Reflex Criteria: Comment Normal [facility] Comment on above: Result Comment: The HPV DNA reflex criteria were not met with this specimen result therefore, no HPV testing was performed. . Performed By: #### 4 [id number] #### [facility] [address] [place] [address] Paulo Noni Specimen adequacy: Comment Normal [facility] Comment on above: Result Comment: Sati sfactory for evaluation. Endocervical and/or squamous metaplastic cells (endocervical component) are present. Performed By: #### 4 [id number] #### [facility] [address] [place] [address] Paulo Noni . . Normal [facility] Comment on above: Performed By: #### [id number] #### [facility] [address] [place] [address] Paulo Cheney MRI PITUITARY WO W CONon MRI PITUITARY WO W CON EXAMINATION: MRI PITUITARY WO W CON HISTORY: Abnormal prolactin COMPARISON: No relevant comparison available. TECHNIQUE: A variety of imaging planes and parameters were utilized for visualization of suspected pathology. Images were performed without and with 12 ml intravenous Dotarem contrast. FINDINGS: PITUITARY: Normal size for age and gender. No visible lesion of the pituitary, infundibulum, suprasellar cistern, or cavernous sinus. BRAIN: Limited views of the included areas are unremarkable. SINUSES: Limited views of the included areas demonstrate no significant mucosal thickening or fluid. ORBITS: Limited views are unremarkable. OTHER: Negative. IMPRESSION: No focal or enhancing mass identified in the pituitary gland to explain the patient's abnormal prolactin level Electronically authenticated by: BOONE BAIG Date: 2020-01-14 14:[address] [facility] PROLACTINon 12-30-2019 Prolactin 24.8 ng/mL Critically high 4.8-23.[address] [facility] Comment on above: Performed By: #### P ROLAC #### [facility] [address] [place], [place] [id number] Paulo Noni CBC AUTO DIFFon 12-29-2019 Basophils (Bld) [#/Vol] 0.0 103/ul Normal 0.0-0.[address] [facility] Comment on above: Performed By: #### C BC #### [facility] [address] [place], [place] [id number] Paulo Noni Basophils/100 WBC (Bld) 0.6 % Normal 0.2-2.[address] [facility] Comment on above: Performed By: #### C BC #### [facility] [address] [place], [place] [id number] Paulo Noni Eosinophils (Bld) [#/Vol] 0.1 103/ul Normal 0.0-0.[address] [facility] Comment on above: Performed By: #### C BC #### [facility] [address] [place] [address] Paulo Noni Eosinophils/100 WBC (Bld) 1.8 % Normal 0.9-7.[address] [facility] Comment on above: Performed By: #### C BC #### [facility] [address] [place] [address] Paulo Noni Erythrocyte distribution width (RBC) [Ratio] 11.9 % Normal 11.0-15.[address] [facility] Comment on above: Performed By: #### C BC #### [facility] [address] [place] [address] Paulo Noni Hematocrit (Bld) [Volume fraction] 40.6 % Normal 36.0-48.[address] [facility] Comment on above: Performed By: #### C BC #### [facility] [address] [place], [place] [id number] Paulo Noni Hemoglobin (Bld) [Mass/Vol] 13.7 g/dL Normal 12.0-16.[address] [facility] Comment on above: Performed By: #### C BC #### [facility] [address] [place] [address] Paulo Noni IG # 0.03 10e3/ul Normal 0.00-0.[address] [facility] Comment on above: Performed By: #### C BC #### [facility] [address] [place], [place] [id number] Paulo Noni IG % 0.5 % Normal 0.0-0.[address] [facility] Comment on above: Performed By: #### C BC #### [facility] [address] [place], [place] [id number] Paulo Noni Lymphocytes (Bld) [#/Vol] 2.3 103/ul Normal 1.2-3.[address] [facility] Comment on above: Performed By: #### C BC #### [facility] [address] [place], [place] [id number] Paulo Noni Lymphocytes/100 WBC (Bld) 36.9 % Normal 20.5-60.[address] [facility] Comment on above: Performed By: #### C BC #### [facility] [address] [place], [place] [id number] Paulo Noni MANUAL DIFF REQ NO Normal [facility] Comment on above: Performed By: #### C BC #### [facility] [address] [place], [place] [id number] Paulo Noni MCH (RBC) [Entitic mass] 30.9 pg Normal 26.7-34.[address] [facility] Comment on above: Performed By: #### C BC #### [facility] [address] [place], [place] [id number] Pauloshauna Cheney MCHC (RBC) [Mass/Vol] 33.7 g/dL Normal 29.9-35.[address] [facility] Comment on above: Performed By: #### C BC #### [facility] [address] [place], [place] [id number] Paulo Noni MCV (RBC) [Entitic vol] 91.4 fL Normal 81.0-99.[address] [facility] Comment on above: Performed By: #### C BC #### [facility] [address] [place], [place] [id number] Paulo Noni Monocytes (Bld) [#/Vol] 0.5 103/ul Normal 0.3-0.8 [facility] Comment on above: Performed By: #### C BC #### [facility] Laboratory [address], [place] [address] Paulo Noni Monocytes/100 WBC (Bld) 7.2 % Normal 1.7-12.[address] [facility] Comment on above: Performed By: #### C BC #### [facility] [address], [place] [address] Paulo Noni Neutrophils (Bld) [#/Vol] 3.3 103/ul Normal 1.4-6.[address] [facility] Comment on above: Performed By: #### C BC #### [facility] [address] [place] [id number] Paulo Noni Neutrophils/100 WBC (Bld) 53.0 % Normal 43.0-75.[address] [facility] Comment on above: Performed By: #### C BC #### [facility] [address] [place] [id number] Paulo Noni Platelet mean volume (Bld) [Entitic vol] 10.2 fL Normal 9.5-13.[address] [facility] Comment on above: Performed By: #### C BC #### [facility] [address] [place] [id number] Paulo Noni Platelets (Bld) [#/Vol] 312 103/ul Normal 150-[address] [facility] Comment on above: Performed By: #### C BC #### [facility] [address] [place] [address] Paulo Noni RBC (Bld) [#/Vol] 4.44 106/ul Normal 4.20-5.40 [facility] Comment on above: Performed By: #### C BC #### [facility] [address] [place] [id number] Paulo Noni WBC (Bld) [#/Vol] 6.2 103/ul Normal 4.0-11.0 [facility] Comment on above: Performed By: #### C BC #### [facility] [address] [place] [id number] Paulo Noni PREG QUANT HCGon 12-29-2019 HCG QUANT <1.[address] [facility] Comment on above: Performed By: #### T SH, PREGQNT #### [facility] [address] [place] [address] Paulo Noni HCG RANGE SEE BELOW Normal [facility] Comment on above: Result Comment: 0-1 WEEK 40-300 1-2 WEEKS 100-1,000 2-3 WEEKS 500-6,000 3-4 WEEKS 5,000-200,000 1-2 MONTHS 10,000-100,000 2-3 MONTHS 3,000-50,000 2ND TRIMESTER 1,000-50,000 3RD TRIMESTER Performed By: #### T SH, PREGQNT #### [facility] [address] [place] [address] Paulo Noni TSHon 12-29-2019 TSH Qn 1.274 uIU/mL Normal 0.470-4.680 [facility] Comment on above: Performed By: #### T SH, PREGQNT #### [facility] [address] [place] [address] Paulo Noni TSH Qn SEE BELOW Normal [facility] Comment on above: Result Comment: <0.3 4 UIU/ml HYPERTHYROID 0.34-5.60 UIU/ml EUTHYROID >5.60 UIU/ml HYPOTHYROID Performed By: #### T SH, PREGQNT #### [facility] [address] [place] [address] Paulo Noni PREG QUANT HCGon 11-13-2019 HCG QUANT <1.[address] [facility] Comment on above: Performed By: #### P REGQNT #### [facility] [address] [place] [address] Paulo Noni HCG RANGE SEE BELOW Normal [facility] Comment on above: Result Comment: 0-1 WEEK 40-300 1-2 WEEKS 100-1,000 2-3 WEEKS 500-6,000 3-4 WEEKS 5,000-200,000 1-2 MONTHS 10,000-100,000 2-3 MONTHS 3,000-50,000 2ND TRIMESTER 1,000-50,000 3RD TRIMESTER Performed By: #### P REGQNT #### [facility] [address] [place] [address] Paulo Cheney Vital Signs Date Time Vital Sign Value Performing Clinician Claudia koch 07-15-2024 10:23-0500 Blood Pressure Location JACLYN ALANIS [facility] 07-15-2024 10:23-0500 Diastolic blood pressure 62 mm[Hg] JACLYN ALANIS [facility] 07-15-2024 10:23-0500 Heart rate 90 /min JACLYN ALANIS [facility] 07-15-2024 10:23-0500 Respiratory rate 16 /min JACLYN ALANIS [facility] 07-15-2024 10:23-0500 SaO2% (BldA) [Mass fraction] 100 % JACLYN ALANIS [facility] 07-15-2024 10:23-0500 Systolic blood pressure 112 mm[Hg] JACLYN ALANIS [facility] 07-14-2024 10:06-0500 Body height 152.4 cm Trina Leon MD Work Phone: [facility] 07-14-2024 10:06-0500 Body mass index (BMI) [Ratio] 23.53 kg/m2 Trina Leon MD Work Phone: [facility] 07-14-2024 10:06-0500 Body weight 54.66 kg Trina Leon MD Work Phone: [facility] 07-14-2024 10:06-0500 Diastolic blood pressure 80 mm[Hg] Trina Leon MD Work Phone: [facility] 07-14-2024 10:06-0500 Systolic blood pressure 110 mm[Hg] Trina Leon MD Work Phone: [facility] 07-03-2024 14:41-0400 Diastolic blood pressure 80 mm[Hg] No Generic Provider [facility] 07-03-2024 14:41-0400 Heart rate 80 /min No Generic Provider [facility] 07-03-2024 14:41-0400 Respiratory rate 18 /min No Generic Provider [facility] 07-03-2024 14:41-0400 SaO2% (BldA) [Mass fraction] 100 % No Generic Provider [facility] 07-03-2024 14:41-0400 Systolic blood pressure 118 mm[Hg] No Generic Provider [facility] 07-03-2024 10:22-0400 Body height 152.4 cm No Generic Provider [facility] 07-03-2024 10:22-0400 Body mass index (BMI) [Ratio] 22.85 kg/m2 No Generic Provider [facility] 07-03-2024 10:22-0400 Body temperature 97.9 [degF] No Generic Provider [facility] 07-03-2024 10:22-0400 Body weight 53.07 kg No Generic Provider [facility] 07-02-2024 13:04-0400 Body mass index (BMI) [Ratio] 23.01 kg/m2 Denys Samina DO Work Phone: [facility] 07-02-2024 13:04-0400 Body weight 53.43 kg Denys Samina DO Work Phone: [facility] 07-02-2024 13:04-0400 Diastolic blood pressure 70 mm[Hg] Denys Samina DO Work Phone: [facility] 07-02-2024 13:04-0400 Systolic blood pressure 118 mm[Hg] Denys Samina DO Work Phone: [facility] 07-01-2024 14:31-0400 Blood [facility] 07-01-2024 14:31-0400 Body temperature 99.5 [degF] Nicho Cromley [facility] 07-01-2024 14:31-0400 Diastolic blood pressure 70 mm[Hg] Nicho Nathaniel [facility] 07-01-2024 14:31-0400 Heart rate 99 /min [facility] 07-01-2024 14:31-0400 SaO2% (BldA) [Mass fraction] 98 % [facility] 07-01-2024 14:31-0400 Systolic blood pressure 100 mm[Hg] Nicho Armstrong [facility] 06-30-2024 15:52-0400 Body mass index (BMI) [Ratio] 23.63 kg/m2 Kary Soriano INSPECTOR RUBBER STAMP DIE-THREAD MACHINE OPERATOR Work Phone: [facility] 06-30-2024 15:52-0400 Body temperature 98.8 [degF] Kary Soriano INSPECTOR RUBBER STAMP DIE-THREAD MACHINE OPERATOR Work Phone: [facility] 06-30-2024 15:52-0400 Body weight 54.88 kg Kary Soriano INSPECTOR RUBBER STAMP DIE-THREAD MACHINE OPERATOR Work Phone: [facility] 06-30-2024 15:52-0400 Diastolic blood pressure 72 mm[Hg] Kary Soriano INSPECTOR RUBBER STAMP DIE-THREAD MACHINE OPERATOR Work Phone: [facility] 06-30-2024 15:52-0400 Heart rate 106 /min Kary Soriano INSPECTOR RUBBER STAMP DIE-THREAD MACHINE OPERATOR Work Phone: [facility] 06-30-2024 15:52-0400 Systolic blood pressure 113 mm[Hg] Kary Soriano INSPECTOR RUBBER STAMP DIE-THREAD MACHINE OPERATOR Work Phone: [facility] 06-24-2024 09:20-0400 Body temperature 97.52 [degF] Jeffery Marcial [facility] 06-24-2024 09:20-0400 Diastolic blood pressure 73 mm[Hg] Jeffery Marcial [facility] 06-24-2024 09:20-0400 Heart rate 67 /min Jeffery Marcial [facility] 06-24-2024 09:20-0400 Respiratory rate 18 /min Jeffery Marcial [facility] 06-24-2024 09:20-0400 SaO2% (BldA) [Mass fraction] 100 % Jeffery Marcial [facility] 06-24-2024 09:20-0400 Systolic blood pressure 110 mm[Hg] Jeffery Marcial [facility] 06-16-2024 09:26-0400 Body height 152.4 cm Shirley Salazar MD Work Phone: [facility] 06-16-2024 09:26-0400 Body mass index (BMI) [Ratio] 23.63 kg/m2 Shirley Salazar MD Work Phone: [facility] 06-16-2024 09:26-0400 Body temperature 97.7 [degF] Shirley Salazar MD Work Phone: [facility] 06-16-2024 09:26-0400 Body weight 54.88 kg Shirley Salazar MD Work Phone: [facility] 06-16-2024 09:26-0400 Diastolic blood pressure 76 mm[Hg] Shirley Salazar MD Work Phone: [facility] 06-16-2024 09:26-0400 Heart rate 78 /min Shirley Salazar MD Work Phone: [facility] 06-16-2024 09:26-0400 Systolic blood pressure 111 mm[Hg] Shirley Salazar MD Work Phone: [facility] 05-09-2024 04:48-0400 Body temperature 98.06 [degF] Herrera Fink [facility] 05-09-2024 04:48-0400 Diastolic blood pressure 72 mm[Hg] Kaylinn Dokken [facility] 05-09-2024 04:48-0400 Heart rate 81 /min Kaylinn Dokken [facility] 05-09-2024 04:48-0400 Respiratory rate 16 /min Sevenylinn Dokken [facility] 05-09-2024 04:48-0400 SaO2% (BldA) [Mass fraction] 100 % Sevenylinn Dokken [facility] 05-09-2024 04:48-0400 Systolic blood pressure 110 mm[Hg] Kaylinn Dokken [facility] 04-15-2024 13:24-0400 Blood Pressure Location Baldo Link [facility] 04-15-2024 13:24-0400 Diastolic blood pressure 72 mm[Hg] Baldo Link [facility] 04-15-2024 13:24-0400 Heart rate 98 /min Baldo Link [facility] 04-15-2024 13:24-0400 SaO2% (BldA) [Mass fraction] 100 % Baldo Link [facility] 04-15-2024 13:24-0400 Systolic blood pressure 109 mm[Hg] Baldo Link [facility] 03-24-2024 11:28-0400 Blood Pressure Location JACLYN ALANIS [facility] 03-24-2024 11:28-0400 Diastolic blood pressure 62 mm[Hg] JACLYN ALANIS [facility] 03-24-2024 11:28-0400 Heart rate 82 /min JACLYN ALANIS [facility] 03-24-2024 11:28-0400 Respiratory rate 16 /min JACLYN ALANIS [facility] 03-24-2024 11:28-0400 SaO2% (BldA) [Mass fraction] 98 % JACLYN ALANIS [facility] 03-24-2024 11:28-0400 Systolic blood pressure 108 mm[Hg] JACLYN ALANIS [facility] 11-19-2023 16:12-0400 Blood Pressure Location Baldo Link [facility] 11-19-2023 16:12-0400 Diastolic blood pressure 84 mm[Hg] Baldo Link [facility] 11-19-2023 16:12-0400 Heart rate 99 /min Baldo Link [facility] 11-19-2023 16:12-0400 SaO2% (BldA) [Mass fraction] 100 % Baldo Link [facility] 11-19-2023 16:12-0400 Systolic blood pressure 120 mm[Hg] Baldo Link [facility] 03-27-2023 09:04-0400 Body weight 55.34 kg Janie Herman MD Work Phone: [facility] 03-27-2023 09:04-0400 Diastolic blood pressure 75 mm[Hg] Janie Herman MD Work Phone: [facility] 03-27-2023 09:04-0400 Heart rate 75 /min Janie Herman MD Work Phone: [facility] 03-27-2023 09:04-0400 SaO2% (BldA) [Mass fraction] 99 % Janie Herman MD Work Phone: [facility] 03-27-2023 09:04-0400 Systolic blood pressure 106 mm[Hg] Janie Herman MD Work Phone: [facility] 03-23-2023 09:30-0400 Diastolic blood pressure 73 mm[Hg] Jeffery Rodriguez [facility] 03-23-2023 09:30-0400 Heart rate 85 /min Jeffery Rodriguez [facility] 03-23-2023 09:30-0400 SaO2% (BldA) [Mass fraction] 98 % Jeffery Rodriguez [facility] 03-23-2023 09:30-0400 Systolic blood pressure 106 mm[Hg] Jeffery Rodriguez [facility] 03-21-2023 11:51-0400 Body temperature 98.42 [degF] Federico Gongora [facility] 03-21-2023 11:51-0400 Diastolic blood pressure 74 mm[Hg] Federico Gongora [facility] 03-21-2023 11:51-0400 Heart rate 105 /min Federico Gongora [facility] 03-21-2023 11:51-0400 Respiratory rate 16 /min Federico Gongora [facility] 03-21-2023 11:51-0400 SaO2% (BldA) [Mass fraction] 100 % Federico Gongora [facility] 03-21-2023 11:51-0400 Systolic blood pressure 113 mm[Hg] Federico Gongora [facility] 01-20-2023 20:52-0400 Body temperature 97.52 [degF] Federico Gongora [facility] 01-20-2023 20:52-0400 Diastolic blood pressure 75 mm[Hg] Federico Gongora [facility] 01-20-2023 20:52-0400 Heart rate 89 /min Federico Gongora [facility] 01-20-2023 20:52-0400 Respiratory rate 16 /min Federico Gongora [facility] 01-20-2023 20:52-0400 SaO2% (BldA) [Mass fraction] 99 % Federico Gongora [facility] 01-20-2023 20:52-0400 Systolic blood pressure 114 mm[Hg] Federico Gongora [facility] 12-05-2022 10:42-0400 Body weight 59.28 kg Janie Herman MD Work Phone: [facility] 12-05-2022 10:42-0400 Diastolic blood pressure 72 mm[Hg] Janie Herman MD Work Phone: [facility] 12-05-2022 10:42-0400 Heart rate 76 /min Janie Herman MD Work Phone: [facility] 12-05-2022 10:42-0400 SaO2% (BldA) [Mass fraction] 98 % Janie Herman MD Work Phone: [facility] 12-05-2022 10:42-0400 Systolic blood pressure 109 mm[Hg] Janie Herman MD Work Phone: [facility] 10-17-2022 10:32-0500 Body weight 58.88 kg Janie Herman MD Work Phone: [facility] 10-17-2022 10:32-0500 Diastolic blood pressure 66 mm[Hg] Janie Herman MD Work Phone: [facility] 10-17-2022 10:32-0500 Heart rate 96 /min Janie Herman MD Work Phone: [facility] 10-17-2022 10:32-0500 SaO2% (BldA) [Mass fraction] 99 % Janie Herman MD Work Phone: [facility] 10-17-2022 10:32-0500 Systolic blood pressure 111 mm[Hg] Janie Herman MD Work Phone: [facility] 08-22-2022 15:45-0500 Diastolic blood pressure 72 mm[Hg] Rheu Gill Work Phone: [facility] 08-22-2022 15:45-0500 Heart rate 91 /min Rheu Gill Work Phone: [facility] 08-22-2022 15:45-0500 Systolic blood pressure 113 mm[Hg] Rheu Gill Work Phone: [facility] 08-22-2022 15:10-0500 Respiratory rate 20 /min Rheu Gill Work Phone: [facility] 08-22-2022 14:32-0500 Body temperature 98.71 [degF] Rheu Gill Work Phone: [facility] 08-15-2022 10:25-0500 Body temperature 97.5 [degF] Janie Herman MD Work Phone: [facility] 08-15-2022 10:25-0500 Body weight 60.33 kg Janie Herman MD Work Phone: [facility] 08-15-2022 10:25-0500 Diastolic blood pressure 72 mm[Hg] Janie Herman MD Work Phone: [facility] 08-15-2022 10:25-0500 Heart rate 90 /min Janie Herman MD Work Phone: [facility] 08-15-2022 10:25-0500 SaO2% (BldA) [Mass fraction] 95 % Janie Herman MD Work Phone: [facility] 08-15-2022 10:25-0500 Systolic blood pressure 127 mm[Hg] Janie Herman MD Work Phone: [facility] 08-10-2022 13:23-0500 Hourly Rounding [facility] 08-10-2022 13:23-0500 Promise to Return [facility] 08-10-2022 12:52-0500 Hourly Rounding [facility] 08-10-2022 12:52-0500 Promise to Return [facility] 08-10-2022 11:52-0500 Hourly Rounding [facility] 08-10-2022 11:52-0500 Promise to Return [facility] 08-10-2022 11:50-0500 Blood Pressure Location [facility] 08-10-2022 11:50-0500 Body temperature 98.24 [degF] [facility] 08-10-2022 11:50-0500 BP/Pulse Patient Position [facility] 08-10-2022 11:50-0500 Diastolic blood pressure 50 mm[Hg] [facility] 08-10-2022 11:50-0500 Heart rate 83 /min [facility] 08-10-2022 11:50-0500 Mean blood pressure 63 mm[Hg] [facility] 08-10-2022 11:50-0500 SaO2% (BldA) [Mass fraction] 98 % [facility] 08-10-2022 11:50-0500 [facility] 88 [facility] 11:00-0500 Diastolic blood pressure 53 mm[Hg] [facility] 08-10-2022 11:00-0500 Mean blood pressure 65 mm[Hg] [facility] 08-10-2022 08:24-0500 Body temperature 97.34 [degF] [facility] 08-10-2022 08:24-0500 [facility]astolic blood [facility] 69 mm[facility]Hg] [facility]10[facility] 08:24-0500 Heart rate 91 /min [facility] 08-10-2022 08:24-0500 Mean blood pressure 79 mm[Hg] [facility] 08-10-2022 08:24-0500 SaO2% (BldA) [Mass fraction] 98 % [facility] 08-10-2022 08:24-0500 Systolic blood pressure 101 mm[Hg] [facility] 08-10-2022 07:00-0500 Mean blood pressure 80 mm[Hg] [facility] 08-10-2022 04:13-0500 Body temperature 98.42 [degF] [facility] 08-10-2022 04:13-0500 Heart rate 82 /min [facility] 08-10-2022 04:13-0500 Mean blood pressure 75 mm[Hg] [facility] 08-10-2022 04:13-0500 Respiratory rate 16 /min [facility] 08-10-2022 04:13-0500 SaO2% (BldA) [Mass fraction] 100 % [facility] 08-09-2022 19:15-0500 Blood Pressure Location [facility] 08-09-2022 18:00-0500 Heart rate 96 /min [facility] 08-09-2022 14:58-0500 Body temperature 99.32 [degF] Jael DUARTE [facility] 08-01-2022 10:26-0500 Diastolic blood pressure 72 mm[Hg] Rheu Gill Work Phone: [facility] 08-01-2022 10:26-0500 Heart rate 84 /min Rheu Gill Work Phone: [facility] 08-01-2022 10:26-0500 Respiratory rate 18 /min Rheu Gill Work Phone: [facility] 08-01-2022 10:26-0500 Systolic blood pressure 114 mm[Hg] Rheu Gill Work Phone: [facility] 08-01-2022 08:00-0500 Body temperature 97.9 [degF] Rheu Gill Work Phone: [facility] 08-01-2022 08:00-0500 Body weight 58.79 kg Rheu Gill Work Phone: [facility] 04-17-2022 09:30-0400 Body height 152.4 cm Abbi Ceron PA-C Work Phone: [facility] 04-17-2022 09:30-0400 Body weight 56.7 kg Abbi Ceron PA-C Work Phone: [facility] Encounters Encounter Date Encounter Type Care Provider Facility Start: 08-11-2024 ambulatory JACLYN ALANIS Fa cility: [facility] Start: 07-24-2024 End: 07-24-2024 Refill Janie Herman MD Work Phone: Rheumatology Comment on above: Refill Request Start: 07-18-2024 End: 07-18-2024 ambulatory BALDO C LINK Facility:[facility] Start: 07-15-2024 End: 07-15-2024 ambulatory JACLYN ALANIS Facility:[facility] Start: 07-15-2024 End: 07-15-2024 Patient encounter procedure JACLYN ALANIS [facility] [place] Start: 07-14-2024 End: 07-14-2024 Office consultation new/estab patient 80 min Trina Leon MD Work Phone: [facility] Comment on above: Folliculitis (Primar y Dx) Start: 07-14-2024 End: 07-14-2024 ambulatory TRINA Ramirez [facility] Start: 07-10-2024 End: 07-10-2024 Subsequent hospital visit by physician Rad External Film EF RAD EXTERNAL FILM VIRTUAL Comment on above: Arrived Start: 07-10-2024 End: 07-10-2024 ambulatory BALDO ACOSTA [facility] Start: 07-07-2024 End: 07-07-2024 ambulatory ARMANI Ramirez [facility] Start: 07-07-2024 End: 07-07-2024 Patient encounter procedure Armani Cope MD Work Phone: [facility] Comment on above: Arrived Start: 07-03-2024 End: 07-03-2024 Emergency department patient visit NO ASSIGNED PCP GENERIC PROVIDER [facility] Comment on above: Abscess of axilla, l eft (Primary Dx); Upper respiratory tract infection, unspecified type Start: 07-02-2024 End: 07-02-2024 Patient encounter procedure Denys Samina DO Work Phone: [facility] Comment on above: Pre-op examination; Request for sterilization; Menorrhagia with regular cycle; Abnormal uterine bleeding (AUB); Pelvic pain in female Start: 07-02-2024 End: 07-02-2024 Preprocedural examination done Denys Samina DO Work Phone: [facility] Start: 07-02-2024 End: 07-02-2024 Departed Referred DO Denys Samina Work Phone: [facility] Work Phone: Start: 07-02-2024 End: 07-02-20[facility] Start: 07-02-2024 End: 07-02-2024 ambulatory THREAD MACHINE OPERATOR VALERI FRANKEL Facility:[facility] Start: 07-01-2024 End: 07-01-2024 ambulatory DO Nicho Armstrong Facility: [facility] Start: 07-01-2024 End: 07-01-2024 Patient encounter procedure Nicho Armstrong [facility] [place] Start: 06-30-2024 End: 06-30-2024 ambulatory [facility] Start: 06-30-2024 End: 06-30-2024 Office outpatient new 45 minutes Kary Metcalfwin INSPECTOR RUBBER STAMP DIE-THREAD MACHINE OPERATOR Work Phone: [facility] Comment on above: 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 Start: 06-27-2024 End: 06-27-2024 Subsequent hospital visit by physician Rad External Film EF RAD EXTERNAL FILM VIRTUAL Comment on above: Arrived Start: 06-27-2024 End: 06-27-2024 ambulatory KARY [facility] Start: 06-24-2024 End: 06-24-2024 Emergency department patient visit Jeffery Marcial [facility] Start: 06-19-2024 End: 06-19-2024 Specialty Pharmacy [facility] Comment on above: SPP Inflammatory Con ditions - Medication Refill (Humira CF - (NCA 01/2025)) Start: 06-16-2024 End: 06-16-2024 ambulatory SHIRLEY SALAZAR [facility] Start: 06-16-2024 End: 06-16-2024 Office outpatient new 60 minutes Shirley Salazar MD Work Phone: [facility] Comment on above: Rheumatoid arthritis in remission (Multi) (Primary Dx); High risk medication use; Granulomatous mastitis of right breast Start: 05-20-2024 End: 05-20-2024 Specialty Pharmacy [facility] Comment on above: SPP Inflammatory Con ditions - Medication Refill (Humira - (NCA 01/2025)) Start: 05-09-2024 End: 05-09-2024 Emergency department patient visit Herrera Fink [facility] Start: 05-07-2024 End: 05-07-2024 ambulatory KARY [facility] Start: 05-07-2024 End: 05-07-2024 ambulatory [facility] Start: 04-22-2024 Specialty Pharmacy [facility] Comment on above: SPP Inflammatory Con ditions - Medication Refill (Humira CF - (NCA 01/2025)) Start: 04-15-2024 End: 04-15-2024 ambulatory Baldo C Link Facility:[facility] Start: 04-15-2024 End: 04-15-2024 Patient encounter procedure Baldo C Link [facility] Start: 04-08-2024 End: 04-08-2024 ambulatory Baldo C Link Facility:[facility] Start: 04-08-2024 End: 04-08-2024 Patient encounter procedure Baldo C Link [facility] Start: 03-25-2024 Specialty Pharmacy [facility] Comment on above: SPP Inflammatory Con ditions - Medication Refill (Humira - (NCA 03/2026)) Start: 03-24-2024 End: 03-24-2024 Lab Drop off JACLYN ALANIS [facility] Start: 03-24-2024 End: 03-24-2024 ambulatory JACLYN ALANIS Facility:[facility] Start: 03-24-2024 End: 03-24-2024 Patient encounter procedure JACLYN ALANIS [facility] Start: 02-25-2024 Specialty Pharmacy [facility] Comment on above: SPP Inflammatory Con ditions - Medication Refill (Humira CF -()) Start: 01-29-2024 Specialty Pharmacy Odessa Heath [facility] Comment on above: SPP Inflammatory Con ditions - Medication Refill (Humira CF) Start: 01-28-2024 Refill Janie Herman MD Work Phone: Rheumatology Comment on above: Refill Request Start: 01-21-2024 Refill Janie Herman MD Work Phone: Rheumatology Comment on above: Med Change Request Start: 01-05-2024 Refill Janie Herman MD Work Phone: Rheumatology Comment on above: Refill Request Start: 01-01-2024 End: 01-01-2024 ambulatory DENYS HAAS Not Available Start: 12-31-2023 Specialty Pharmacy Odessa rahman [facility] Comment on above: SPP Inflammatory Con ditions - Medication Refill (Humira) Start: 11-27-2023 Refill Janie Herman MD Work Phone: Rheumatology Comment on above: Refill Request Start: 11-26-2023 End: 11-26-2023 ambulatory Baldo C Link Facility:[facility] Start: 11-26-2023 End: 11-26-2023 Patient encounter procedure Baldo C Link [facility] Start: 11-19-2023 End: 11-19-2023 ambulatory Baldo C Link Facility:[facility] Start: 11-19-2023 End: 11-19-2023 Patient encounter procedure Baldo C Link [facility] Start: 11-06-2023 Specialty Pharmacy Odessa Heath RP [facility] Comment on above: SPP Inflammatory Con ditions - Medication Refill (Humira CF) Start: 10-02-2023 End: 10-02-2023 ambulatory Akosua DIOGO Facility:[facility] Start: 09-17-2023 End: 09-17-2023 Subsequent hospital visit by physician Diagnostic Mammo [facility] Comment on above: 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 [N61.21] Start: 09-17-2023 End: 09-19-2023 ambulatory [facility] Facility:[facility] Start: 08-24-2023 Telephone encounter Janie cash MD Work Phone: Rheumatology Comment on above: Forms (Patient gualberto tant form ) Start: 08-24-2023 End: 08-24-2023 ambulatory [facility] Facility:[facility] Start: 08-21-2023 Telephone encounter Janie cash MD Work Phone: Rheumatology Comment on above: Patient Question Start: 08-20-2023 End: 08-21-2023 ambulatory KING HO Facility:[facility] Start: 08-20-2023 End: 08-21-2023 Patient encounter procedure King Ho MD Work Phone: Infectious Disease Comment on above: 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 (Primary Dx) Start: 08-10-2023 End: 08-10-2023 ambulatory [facility] Facility:[facility] Start: 08-10-2023 End: 08-10-2023 Patient encounter procedure Treasure Aviles DO Work Phone: General Surgery Comment on above: 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 (Primary Dx) Start: 07-24-2023 Specialty Pharmacy Brad Arrieta [facility] Comment on above: SPP Inflammatory Con ditions - Medication Refill (Humira) Start: 07-23-2023 Refill Janie Herman MD Work Phone: Rheumatology Comment on above: Refill Request Start: 07-05-2023 Refill King Ho MD Work Phone: Infectious Disease Comment on above: Refill Request Start: 07-04-2023 Nursing evaluation o f patient and report Itz Fregoso RN Infectious Disease Comment on above: Mastitis chronic, ri ght (Primary Dx) Start: 06-25-2023 Specialty Pharmacy Brad Arrieta [facility] Comment on above: SPP Inflammatory Con ditions - Medication Refill (Humira) Start: 06-11-2023 End: 06-11-2023 ambulatory Baldo C Link Facility:[facility] Start: 06-11-2023 End: 06-11-2023 Patient encounter procedure Baldo C Link [facility] Start: 06-08-2023 Telephone encounter King Ho MD Work Phone: Infectious Disease Comment on above: Medication Problem ( Linezolid) Start: 06-08-2023 End: 06-08-2023 Patient encounter procedure King Ho MD Work Phone: Infectious Disease Comment on above: Mastitis chronic, ri ght Start: 06-01-2023 Specialty Pharmacy Brad Arrieta [facility] Comment on above: SPP Inflammatory Con ditions - Medication Refill (Humira CF) Start: 05-25-2023 End: 05-25-2023 ambulatory TREASURE A STEFAN Facility:[facility] Start: 05-25-2023 End: 05-25-2023 Patient encounter procedure Treasurerodrick Allredente DO Work Phone: General Surgery Comment on above: Mastitis chronic, ri ght (Primary Dx) Start: 05-10-2023 End: 05-10-2023 Patient encounter procedure Treasurerodrick Allredente DO Work Phone: [facility] Comment on above: Mastitis chronic, ri ght (Primary Dx) Start: 05-07-2023 Specialty Pharmacy Brad Arrieta [facility] Comment on above: SPP Inflammatory Con ditions - Medication Refill (Humira) Start: 05-02-2023 ambulatory Chata brown LPN Work Phone: [facility] Comment on above: Regarding imaging on 05/10 Start: 05-02-2023 E-mail encounter fro m caregiver Chata Daley LPN Work Phone: [facility] Start: 05-01-2023 End: 05-01-2023 Subsequent hospital visit by physician Xr [facility] Comment on above: Inflammatory arthrit is [M19.90] Start: 04-27-2023 ambulatory Brad Arrieta [facility] CC [facility] Start: 04-27-2023 Follow-up encounter Brad Arrieta [facility] Comment on above: SPP Inflammatory Con ditions - Follow-up (Humira); Insurance Authorization (Prior Auth Renewal Pending) Start: 04-25-2023 Orders Only Chata brown LPN Work Phone: [facility] Start: 04-24-2023 Orders Only Janie Herman MD Work Phone: Rheumatology Comment on above: Inflammatory arthrit is (Primary Dx) Final Start: 04-20-2023 End: 04-20-2023 ambulatory Jeffery Rodriguez Facility:[facility] Start: 04-20-2023 End: 04-20-2023 Patient encounter procedure Jeffery Rodriguez [facility] [place] Start: 04-13-2023 End: 04-13-2023 ambulatory Chuy Villareal Facility:[facility] Start: 04-13-2023 End: 04-13-2023 Patient encounter procedure Jeffery Rodriguez [facility] Start: 04-06-2023 End: 04-06-2023 ambulatory Jeffery Rodriguez Facility:[facility] Start: 04-03-2023 End: 04-03-2023 ambulatory Jeffery Rodriguez Facility:[facility] Start: 03-27-2023 End: 03-27-2023 Office outpatient visit 25 minutes Janie Herman MD Work Phone: Rheumatology Comment on above: Rheumatoid arthritis involving multiple sites, unspecified whether rheumatoid factor present (HCC) (Primary Dx); Encounter for long-term (current) use of high-risk medication Start: 03-23-2023 End: 03-23-2023 Lab Drop off Jeffery Edmondsrika [facility] Start: 03-23-2023 End: 03-23-2023 Patient encounter procedure Jeffery Edmondsrika [facility] General Surgery [place] Start: 03-21-2023 End: 03-21-2023 Emergency department patient visit Federico Gongora [facility] Start: 03-20-2023 End: 03-20-2023 Patient encounter procedure Eunice Mccabe [facility] Start: 02-12-2023 Telephone encounter Janie cash MD Work Phone: Rheumatology Comment on above: Medication Problem Start: 02-06-2023 Telephone encounter Janie cash MD Work Phone: [address] [place] [address] Comment on above: Medication Assistanc e Start: 01-30-2023 Orders Only Janie Herman MD Work Phone: Rheumatology Start: 01-23-2023 Orders Only Janie Herman MD Work Phone: Rheumatology Comment on above: Inflammatory arthrit is (Primary Dx); Rheumatoid arthritis involving multiple sites, unspecified whether rheumatoid factor present (HCC) Start: 01-20-2023 End: 01-20-2023 Emergency department patient visit Federico Gongora [facility] Start: 01-09-2023 ambulatory Brad Arrieta [facility] CC [facility] Start: 01-09-2023 Patient encounter procedure Brad Arrieta [facility] Comment on above: SPP Inflammatory Con ditions - Treatment Referral (Orencia); Insurance Authorization (Prior Auth Submission Pending) Start: 01-07-2023 ambulatory Janie Herman MD Work Phone: Rheumatology Comment on above: Update Start: 12-14-2022 Refill Patsamira hernandez MD Work Phone: Rheumatology Comment on above: Refill Request Start: 12-06-2022 Telephone encounter Janie cash MD Work Phone: Rheumatology Comment on above: Patient Update; Wris t Pain Start: 12-05-2022 End: 12-05-2022 Office outpatient visit 25 minutes Janie Herman MD Work Phone: Rheumatology Comment on above: Rheumatoid arthritis involving multiple sites, unspecified whether rheumatoid factor present (HCC) (Primary Dx); Encounter for long-term (current) use of high-risk medication Start: 11-06-2022 Telephone encounter Janie cash MD Work Phone: Rheumatology Comment on above: Patient Update; Hand Pain Start: 10-17-2022 End: 10-17-2022 Office outpatient visit 25 minutes Janie Herman MD Work Phone: Rheumatology Comment on above: Rheumatoid arthritis involving multiple sites, unspecified whether rheumatoid factor present (HCC) (Primary Dx); High risk medication use; Encounter for long-term (current) use of high-risk medication Start: 09-10-2022 Refill Patsamira hernandez MD Work Phone: Rheumatology Comment on above: Refill Request Start: 08-22-2022 End: 08-22-2022 ambulatory Rheu Chair 3 Gill Work Phone: Infusion Comment on above: Inflammatory arthrit is (Primary Dx); Rheumatoid arthritis of multiple sites with negative rheumatoid factor (HCC) Start: 08-21-2022 ambulatory Janie Herman MD Work Phone: Infusion Comment on above: Infusion for tomorro w Start: 08-21-2022 E-mail encounter fro m caregiver Janie Herman MD Work Phone: [facility] Start: 08-15-2022 End: 08-15-2022 Patient encounter procedure Janie Herman MD Work Phone: Rheumatology Comment on above: Rheumatoid arthritis involving multiple sites, unspecified whether rheumatoid factor present (HCC) (Primary Dx); Encounter for long-term (current) use of high-risk medication Start: 08-14-2022 Telephone encounter Janie cash MD Work Phone: Rheumatology Comment on above: Appointment Start: 08-12-2022 ambulatory Radha Drew RN NURSE O N CALL Comment on above: Question (Remicade q uestion) Start: 08-09-2022 End: 08-10-2022 [facility] Start: 08-01-2022 End: 08-01-2022 ambulatory Jaymeu Chair 4 Gill Work Phone: Infusion Comment on above: Inflammatory arthrit is (Primary Dx); Rheumatoid arthritis of multiple sites with negative rheumatoid factor (HCC) Start: 07-28-2022 Telephone encounter Janie cash MD Work Phone: Rheumatology Comment on above: Infusion Start: 07-21-2022 Orders Only Janie Herman MD Work Phone: Rheumatology Start: 07-20-2022 Telephone encounter Janie cash MD Work Phone: [facility] Comment on above: Insurance Authorizat ion (Renflexis Approval ( 07/19/2022 - 10/17/2022 175.5 mg D1, D15 for induction: caresource)) Start: 07-18-2022 Telephone encounter Janie cash MD Work Phone: Rheumatology Comment on above: Medication Preauthor ization Start: 07-18-2022 End: 07-18-2022 Subsequent hospital visit by physician [facility] Comment on above: Rheumatoid arthritis involving multiple sites, unspecified whether rheumatoid factor present (HCC) [M06.9] Start: 06-19-2022 Refill Patsamira hernandez MD Work Phone: Rheumatology Comment on above: Refill Request Start: 04-17-2022 End: 04-17-2022 ambulatory Abbi Osmany PENNINGTON Work Phone: Family Medicine Comment on above: Rheumatoid arthritis with negative rheumatoid factor, involving unspecified site (HCC) (Primary Dx) Start: 04-17-2022 End: 04-17-2022 Telemedicine consultation with patient Abbi Edgarnj PENNINGTON Work Phone: [facility] Start: 12-14-2021 Refill Patsamira hernandez MD Work Phone: Rheumatology Comment on above: Refill Request Start: 10-02-2021 End: 12-31-2021 Patient encounter procedure Anjana Barreto [facility] Start: 09-27-2021 End: 12-26-2021 Patient encounter procedure Anjana Barreto [facility] Start: 02-12-2020 End: 02-12-2020 Patient encounter procedure DENYS SAMINA Facility:[facility] Start: 01-14-2020 End: 01-15-2020 Patient encounter procedure DENYS SAMINA Facility:[facility] Start: 12-29-2019 End: 12-30-2019 Patient encounter procedure DENYS SAMINA Facility:[facility] Start: 11-13-2019 End: 11-14-2019 Patient encounter procedure DENYS SAMINA Facility:[facility] Procedures Date Procedure Procedure Detail Performing Clinician Start: 07-10-2024 End: 07-10-2024 Study Interpretation of outside study External Data Provider Generic Start: 07-03-2024 Assay of lactate Sharath Pendleton PA-C Work Phone: Start: 07-03-2024 Urinalysis complete W Reflex Culture panel - Urine Sharath Pendleton PA-C Work Phone: Start: 07-03-2024 Urnls dip stick/tabl et reagent auto microscopy Sharath Pendleton PA-C Work Phone: Start: 07-03-2024 Radiologic exam ches t 2 views Sharath Pendleton PA-C Work Phone: Start: 07-03-2024 Comprehensive metabo lic panel Sharath BAUMANN-C Work Phone: Start: 07-03-2024 EXTRA TUBES Sharath dao PA-C Work Phone: Start: 07-03-2024 Iadna streptococcus group a amplified probe tq Sharath BAUMANN-C Work Phone: Start: 07-03-2024 Influenza virus A an d B RNA [Identifier] in Unspecified specimen by MAGUI with probe detection Sharath BAUMANN-C Work Phone: Start: 07-03-2024 LAVENDER TOP Sharath dao PA-C Work Phone: Start: 07-03-2024 LIGHT BLUE TOP Sharath BAUMANN-C Work Phone: Start: 07-03-2024 Respiratory syncytia l virus RNA [Presence] in Respiratory specimen by MAGUI with probe detection Sharath BAUMANN-C Work Phone: Start: 07-03-2024 SARS-CoV-2 (COVID-19 ) RNA [Presence] in Respiratory specimen by MAGUI with probe detection Sharath BAUMANN-C Work Phone: Start: 07-02-2024 Urine test visual color cmprsn meths Denys Samina DO Work Phone: Start: 06-27-2024 Study Interpretation of outside study Non- Radiology Contrast Provider Start: 09-17-2023 Us breast uni real t lin with image limited Treasure Aviles DO Work Phone: Start: 05-01-2023 Radiologic exam ches t 2 views Janie Herman MD Work Phone: Start: 04-03-2023 Microscopic observat ion [Identifier] in Cervix by Cyto stain Rad Film Start: 09-10-2022 Fine needle aspirati on of breast Baldo Link Comment on above: Right x 2 Start: 09-10-2022 Lumpectomy of right breast Baldo Link Start: 07-18-2022 Radiologic examinati on sacroiliac jnts <3 views Janie Herman MD Work Phone: Start: 10-01-2020 Adult depression scr eening assessment Joselyn Foster MD Work Phone: Start: 11-02-2018 section Baldo sánchez Comment on above: Healthy baby boy Treatment of root ca nal of tooth JACLYN ALANIS Plan of Treatment Date Care Activity Detail Author Start: 04-03-2026 Screening for malign ant neoplasm of cervix [facility] Start: 10-24-2024 End: 10-24-2024 Patient encounter procedure 10/24/2024 1:30 PM EST Office Visit [facility] [address] [place] [address] Kary Soriano, INSPECTOR RUBBER STAMP DIE-THREAD MACHINE OPERATOR [address] [place] [address] [facility] Start: 08-13-2024 End: 08-13-2024 Patient encounter procedure 08/13/2024 8:30 AM EST Office Visit [facility] [address] [place] [address] Eunice Sahu PA [address] [address] [facility] Start: 08-06-2024 End: 08-06-2024 Patient encounter procedure [facility] Start: 07-14-2024 End: 07-14-2024 Patient encounter procedure 07/14/2024 9:30 AM EST Office Visit [place] [address] [place] [address] Armani Cope MD [address] [place] [address] [address] [place], [place] [id number] [facility] Start: 06-30-2024 End: 06-30-2024 Patient encounter procedure 06/30/2024 3:30 PM EDT Office Visit [facility] [address] [place] [address] Kary Soriano, INSPECTOR RUBBER STAMP DIE-THREAD MACHINE OPERATOR [address] [place] [address] [facility] Start: 06-24-2024 End: 06-24-2024 Specialty Pharmacy 06/24/2024 10:00 AM EDT Specialty Pharmacy [facility] [id number] [place] [address] Pharmacist, [facility] [place] [address] REFILL - Humira- NCA 01/2025- PAx 09/13/24 - 06/27-LVM 06/19 [facility] Comment on above: REFILL - Humira- NCA 01/2025- PAx 09/13/24 - 06/27-LVM 06/19 Start: 06-16-2024 End: 06-16-2025 C reactive protein [Mass/volume] in Serum or Plasma C-Reactive Protein Lab Routine Rheumatoid arthritis in remission (Multi) High risk medication use Expected: 06/16/2024 (Approximate), Expires: 06/16/2025 [facility] Work Phone: Comment on above: Expected: 06/16/2024 (Approximate), Expires: 06/16/2025 Start: 06-16-2024 End: 06-16-2025 CBC W Auto Differential panel - Blood CBC and Auto Differential Lab Routine Rheumatoid arthritis in remission (Multi) High risk medication use Expected: 06/16/2024 (Approximate), Expires: 06/16/2025 [facility] Service [facility] Work Phone: Comment on above: Expected: 06/16/2024 (Approximate), Expires: 06/16/2025 Start: 06-16-2024 End: 06-16-2025 Comprehensive metabolic 2000 panel - Serum or Plasma Comprehensive Metabolic Panel Lab Routine Rheumatoid arthritis in remission (Multi) High risk medication use Expected: 06/16/2024 (Approximate), Expires: 06/16/2025 [facility] Work Phone: Comment on above: Expected: 06/16/2024 (Approximate), Expires: 06/16/2025 Start: 06-16-2024 End: 06-16-2025 Erythrocyte sedimentation rate Sedimentation Rate Lab Routine Rheumatoid arthritis in remission (Multi) High risk medication use Expected: 06/16/2024 (Approximate), Expires: 06/16/2025 [facility] Work Phone: Comment on above: Expected: 06/16/2024 (Approximate), Expires: 06/16/2025 Start: 05-27-2024 End: 05-27-2024 Specialty Pharmacy 05/27/2024 10:15 AM EDT Specialty Pharmacy [facility] [place] [address] Pharmacist, [facility] [address] [place] [address] [place] [phone] REFILL - Humira- NCA 01/2025- PAx 09/13/24 - ND 05/30 - pt due for f/u patient aware 04/22-LVM /10, 9*13 [facility] Comment on above: REFILL - Humira- NCA 01/2025- PAx 09/13/24 - ND 05/30 - pt due for f/u patient aware 04/22-LVM 9/10, 9*13 Start: 05-23-2024 End: 05-23-2024 Specialty Pharmacy 05/23/2024 10:15 AM EDT Specialty Pharmacy [facility] [employer] [address] [phone] Pharmacist, [facility] [address] [place] [address] [place] [address] REFILL - Humira- NCA 01/2025- PAx 09/13/24 - 05/30 - pt due for f/u patient aware 04/22-LVM 05/20 [facility] Comment on above: REFILL - Humira- NCA 01/2025- PAx 09/13/24 - 05/30 - pt due for f/u patient aware 04/22-LVM 05/20 Start: 05-20-2024 End: 05-20-2024 Specialty Pharmacy 05/20/2024 10:00 AM EDT Specialty Pharmacy [facility] [address] [place] [id number] Pharmacist, [facility] [address] [place] [address] [place] [address] REFILL - Humira- NCA 01/2025- PAx 09/13/24 - 05/30 - pt due for f/u patient aware 04/22 [facility] Comment on above: REFILL - Humira- NCA 01/2025- PAx 09/13/2405/30 - pt due for f/u patient aware 04/22 Start: 05-11-2024 Influenza vaccination [facility] Start: 03-28-2024 End: 03-28-2024 Specialty Pharmacy 03/28/2024 10:00 AM EDT Specialty Pharmacy [facility] [address] [place] [id number] Pharmacist, [facility] [address] [place] [address] [place] [address] REFILL - Humira- NCA 01/2025- PAx 09/13/2404/04 - LVM 03/25 [facility] Comment on above: REFILL - Humira- NCA 01/2025- PAx 09/13/2404/04 - LVM 03/25 Start: 02-28-2024 End: 02-28-2024 Specialty Pharmacy 02/28/2024 10:00 AM EDT Specialty Pharmacy [facility] [address] [place] [phone] Pharmacist, [facility] [address] [place] [address] [place] [address] REFILL - Humira- NCA 01/2025- PAx 09/13/24 - ND 03/07 - LVM 02/24 [facility] Comment on above: REFILL - Humira- NCA 01/2025- PAx 09/13/24 - ND 03/07 - LVM 02/24 Start: 02-01-2024 End: 02-01-2024 Specialty Pharmacy 02/01/2024 10:00 AM EDT Specialty Pharmacy [facility] [address] [place] [phone] Pharmacist, [facility] [address] [place] [address] [place] [address] REFILL - Humira- PAx 09/13/24 - 02/07 - LVM 01/28 [facility] Comment on above: REFILL - Humira- PAx 09/13/24 - 02/07 - LVM 01/28 Start: 01-29-2024 End: 01-29-2024 Specialty Pharmacy 01/29/2024 11:00 AM EDT Specialty Pharmacy [facility] [address] [place] [id number] Pharmacist, [facility] [address] [place] [address] [place] [address] REFILL - Humira- PAx 09/13/24 - 02/07 [facility] Comment on above: REFILL - Humira- PAx 09/13/24 - 02/07 Start: 01-08-2024 End: 01-08-2024 Patient encounter procedure 01/08/2024 8:00 AM EDT Office Visit [facility] [address] [place] [address] Cele Tellez, [facility] [address] [place] [address] Mastitis chronic, right [N60.11] [facility] Comment on above: Mastitis chronic, ri ght [N60.11] Start: 09-10-2023 Behavioral Health Screening Behavioral Health Screening [facility] Start: 09-10-2023 Depression Assessment Depression Ass essment [facility] Start: 05-11-2023 Influenza vaccination [facility] Start: 04-24-2023 End: 06-24-2023 Angiotensin converting enzyme [Enzymatic activity/volume] in Serum or Plasma LEANDER/ANGIOTENSIN BLD Lab Routine Inflammatory arthritis Expected: 04/24/2023, Expires: 06/24/2023 [facility] Work Phone: Comment on above: Expected: 04/24/2023 , Expires: 06/24/2023 Start: 04-24-2023 End: 06-24-2023 ANTI NEUTRO CYTO AB ANTI NEUTRO CYTO AB Lab Routine Inflammatory arthritis Expected: 04/24/2023, Expires: 06/24/2023 [facility] Work Phone: Comment on above: Expected: 04/24/2023 , Expires: 06/24/2023 Start: 04-24-2023 End: 06-24-2023 Myeloperoxidase Ab [Units/volume] in Serum MYELOPEROXID AUTOAB Lab Routine Inflammatory arthritis Expected: 04/24/2023, Expires: 06/24/2023 [facility] Work Phone: Comment on above: Expected: 04/24/2023 , Expires: 06/24/2023 Start: 04-24-2023 End: 06-24-2023 PROTEINASE 3 ANTIBODY PROTEINASE 3 ANTIBODY Lab Routine Inflammatory arthritis Expected: 04/24/2023, Expires: 06/24/2023 [facility] Work Phone: Comment on above: Expected: 04/24/2023 , Expires: 06/24/2023 Start: 03-27-2023 End: 05-27-2023 C reactive protein [Mass/volume] in Serum or Plasma [facility] Work Phone: Comment on above: Expected: 03/27/2023 , Expires: 05/27/2023 Start: 03-27-2023 End: 05-27-2023 CBC W Auto Differential panel - Blood [facility] Work Phone: Comment on above: Expected: 03/27/2023 , Expires: 05/27/2023 Start: 03-27-2023 End: 05-27-2023 Comprehensive metabolic 2000 panel - Serum or Plasma [facility] Work Phone: Comment on above: Expected: 03/27/2023 , Expires: 05/27/2023 Start: 03-27-2023 End: 05-27-2023 Erythrocyte sedimentation rate [facility] Work Phone: Comment on above: Expected: 03/27/2023 , Expires: 05/27/2023 Start: 12-05-2022 End: 02-04-2023 [place] BY IFA WITH REFLEX [facility] Work Phone: Comment on above: Expected: 12/05/2022 , Expires: 02/04/2023 Start: 12-05-2022 End: 02-04-2023 CBC W Auto Differential panel - Blood [facility] Work Phone: Comment on above: Expected: 12/05/2022 , Expires: 02/04/2023 Start: 12-05-2022 End: 02-04-2023 Comprehensive metabolic 2000 panel - Serum or Plasma [facility] Work Phone: Comment on above: Expected: 12/05/2022 , Expires: 02/04/2023 Start: 12-05-2022 End: 02-04-2023 DNA double strand Ab [Units/volume] in Serum by Immunoassay [facility] Work Phone: Comment on above: Expected: 12/05/2022 , Expires: 02/04/2023 Start: 12-05-2022 End: 02-04-2023 Extractable nuclear Ab panel - Serum [facility] Work Phone: Comment on above: Expected: 12/05/2022 , Expires: 02/04/2023 Start: 10-17-2022 End: 12-17-2022 Albumin [Mass/volume] in Serum or Plasma [facility] Work Phone: Comment on above: Expected: 10/17/2022 , Expires: 12/17/2022 Start: 10-17-2022 End: 12-17-2022 Aspartate aminotransferase [Enzymatic activity/volume] in Serum or Plasma [facility] Work Phone: Comment on above: Expected: 10/17/2022 , Expires: 12/17/2022 Start: 10-17-2022 End: 12-17-2022 C reactive protein [Mass/volume] in Serum or Plasma [facility] Work Phone: Comment on above: Expected: 10/17/2022 , Expires: 12/17/2022 Start: 10-17-2022 End: 12-17-2022 CREATININE BLD [facility] Work Phone: Comment on above: Expected: 10/17/2022 , Expires: 12/17/2022 Start: 10-17-2022 End: 12-17-2022 Erythrocyte sedimentation rate [facility] Work Phone: Comment on above: Expected: 10/17/2022 , Expires: 12/17/2022 Start: 09-10-2022 DEPRESSION ASSESSMENT DEPRESSION ASS ESSMENT [facility] Start: 08-15-2022 End: 10-15-2022 Albumin [Mass/volume] in Serum or Plasma [facility] Work Phone: Comment on above: Expected: 08/15/2022 , Expires: 10/15/2022 Start: 08-15-2022 End: 10-15-2022 Aspartate aminotransferase [Enzymatic activity/volume] in Serum or Plasma [facility] Work Phone: Comment on above: Expected: 08/15/2022 , Expires: 10/15/2022 Start: 08-15-2022 End: 10-15-2022 C reactive protein [Mass/volume] in Serum or Plasma [facility] Work Phone: Comment on above: Expected: 08/15/2022 , Expires: 10/15/2022 Start: 08-15-2022 End: 10-15-2022 Creatine kinase [Enzymatic activity/volume] in Serum or Plasma [facility] Work Phone: Comment on above: Expected: 08/15/2022 , Expires: 10/15/2022 Start: 08-15-2022 End: 10-15-2022 CREATININE BLD [facility] Work Phone: Comment on above: Expected: 08/15/2022 , Expires: 10/15/2022 Start: 08-15-2022 End: 10-15-2022 INFLIXIMAB ACTIVITY AND NEUTRALIZING AB [facility] Work Phone: Comment on above: Expected: 08/15/2022 , Expires: 10/15/2022 Start: 2022 HPV TESTING HPV TESTING [facility] Start: 2022 Screening for malign ant neoplasm of cervix HPV Testing [facility] Start: 05-11-2022 Influenza vaccination [facility] Start: 10-01-2021 Adult depression scr eening assessment DEPRESSION SCREENING [facility] Start: 09-10-2021 DEPRESSION ASSESSMENT DEPRESSION ASS ESSMENT [facility] Start: 2013 PAP TESTING PAP TESTING [facility] Start: 2013 Screening for malign ant neoplasm of cervix [facility] Start: 2011 Hepatitis A Vaccines (1 of 2 - Risk 2-dose series) Hepatitis A Vaccines (1 of 2 - Risk 2-dose series) [facility] Start: 2011 SHINGRIX VACCINE (1 of 2) GARY GRIX VACCINE (1 of 2) [facility] Start: 2011 Urine microalbumin profile [facility] Start: 2011 Zoster Vaccines (1 of 2) Zoste r Vaccines (1 of 2) [facility] Start: 2010 Anxiety Screening Anxiety Screening [facility] Start: 2010 Depression Screening Depression Scre ening [facility] Start: 2010 Diabetes mellitus screening Diabetes Screening [facility] Start: 2010 Hepatitis C screening Hepatitis C Sc reening [facility] Start: 2010 HIV SCREENING HIV SCREENING [facility] Start: 2010 HIV screening HIV Screening [facility] Start: 06-22-2005 Varicella vaccination Varicell a Vaccines (1 of - 13+ 2-dose series) [facility] Start: 2003 DTaP/Tdap/Td Vaccine s (5 - Tdap) DTaP/Tdap/Td Vaccines (5 - Tdap) [facility] Start: 2003 Screening for malign ant neoplasm of cervix Cervical Cancer Screening [facility] Start: 1998 PNEUMOCOCCAL (1 - PCV) PNEUMOCOCCAL (1 - PCV) [facility] Start: 1998 Pneumococcal vaccination [facility] Start: 1998 Pneumococcal Vaccine : Pediatrics (0 to 5 Years) and At-Risk Patients (6 to 64 Years) (1 of 2 - PCV) Pneumococcal Vaccine: Pediatrics (0 to 5 Years) and At-Risk Patients (6 to 64 Years) (1 of 2 - PCV) [facility] Start: 1997 COVID-19 VACCINE (#1) COVID-19 VACCI NE (#1) [facility] Start: 1997 COVID-19 VACCINE (1) COVID-19 VACCIN E (1) [facility] Start: 1996 IPV Vaccines (4 of 4 - 4-dose series) IPV Vaccines (4 of 4 - 4-dose series) [facility] Start: 1992 COVID-19 VACCINE (#1) COVID-19 VACCI NE (#1) [facility] Start: 1992 HIV screening HIV Screening [facility] Start: 1992 Lipid panel Lipid Panel [facility] Start: 1992 Yearly Adult Physical Yearly Adult P hysical [facility] End: 07-03-2024 Bacteria identified in Blood by Culture [facility] Work Phone: Comment on above: STAT (Lab) for 1 Occ urrences starting 07/03/2024 until 07/03/2024 Biopsy endometrium Biopsy endome trium Procedures Routine Pre-op examination Menorrhagia with regular cycle Abnormal uterine bleeding (AUB) Pelvic pain in female Ordered: 07/02/2024 [facility] Work Phone: Comment on above: Ordered: 07/02/2024 End: 12-14-2022 C reactive protein [Mass/volume] in Serum or Plasma C-REACTIVE PROTEIN (CRP) Lab Routine Sicca, unspecified type (HCC) Every 2 months for 6 Occurrences starting 12/14/2021 until 12/14/2022 [facility] Work Phone: Comment on above: Every 2 months for 6 Occurrences starting 12/14/2021 until 12/14/2022 End: 12-14-2022 CBC W Auto Differential panel - Blood CBC + DIFF Lab Routine Sicca, unspecified type (HCC) Every 2 months for 6 Occurrences starting 12/14/2021 until 12/14/2022 [facility] Work Phone: Comment on above: Every 2 months for 6 Occurrences starting 12/14/2021 until 12/14/2022 End: 06-07-2024 CBC W Auto Differential panel - Blood CBC + DIFF Lab Routine Mastitis chronic, right Once per week for 4 Occurrences starting 06/08/2023 until 06/07/2024 [facility] Work Phone: Comment on above: Once per week for 4 Occurrences starting 06/08/2023 until 06/07/2024 End: 12-14-2022 Comprehensive metabolic 2000 panel - Serum or Plasma COMP METABOLIC PANEL Lab Routine Sicca, unspecified type (HCC) Every 2 months for 6 Occurrences starting 12/14/2021 until 12/14/2022 [facility] Work Phone: Comment on above: Every 2 months for 6 Occurrences starting 12/14/2021 until 12/14/2022 End: 12-14-2022 Erythrocyte sedimentation rate SED RATE WESTERGREN Lab Routine Sicca, unspecified type (HCC) Every 2 months for 6 Occurrences starting 12/14/2021 until 12/14/2022 [facility] Work Phone: Comment on above: Every 2 months for 6 Occurrences starting 12/14/2021 until 12/14/2022 End: 07-03-[address] [place] [address] [facility] Work Phone: Comment on above: Once for 1 Occurrenc es starting 07/03/2024 until 07/03/2024 OUTSIDE SURG PATH SL DEEDEE REVIEW OUTSIDE SURG PATH SLIDE REVIEW Lab Routine Ordered: 04/25/2023 [facility] Work Phone: Comment on above: Ordered: 04/25/2023 End: 05-23-2024 Radiologic exam chest 2 views XR CHEST 2V FRONTAL/LAT Radiology Routine Inflammatory arthritis 1 Occurrences starting 04/24/2023 until 05/23/2024 [facility] Work Phone: Comment on above: 1 Occurrences starti ng 04/24/2023 until 05/23/2024 End: 07-03-2024 Urinalysis complete W Reflex Culture panel - Urine [facility] Work Phone: Comment on above: Once (Lab) for 1 Occ urrences starting 07/03/2024 until 07/03/2024 [facility] c [facility] c [facility] c [facility] c [facility] c [facility] c [facility] c [facility] c [facility] c [facility] c [facility] c [facility] Immunizations Immunization Date Immunization Notes Care Provider Ayush arriaga 05-25-2005 measles, mumps and rubella virus vaccine Baldo Link [facility] 08-23-1994 DTaP, unspecified formulation Baldo Link [facility] 08-23-1994 hepatitis B vaccine, pediatric or pediatric/adolescent dosage Baldo Link [facility] 09-27-1993 hepatitis B vaccine, pediatric or pediatric/adolescent dosage Baldo Link [facility] 09-27-1993 Hib, unspecified formulation Baldo Link [facility] 09-27-1993 measles, mumps and rubella virus vaccine Baldo Link [facility] 09-27-1993 poliovirus vaccine, unspecified formulation Shirley Salazar MD Work Phone: [facility] Work Phone: 05-10-1993 DTaP, unspecified formulation Baldo Link [facility] 05-10-1993 hepatitis B vaccine, pediatric or pediatric/adolescent dosage Baldo Link [facility] 05-10-1993 Hib, unspecified formulation Baldo Link [facility] 1992 DTaP, unspecified formulation Baldo Link [facility] 1992 Hib, unspecified formulation Baldo Link [facility] 1992 DTaP, unspecified formulation Baldo Link [facility] 1992 Hib, unspecified formulation Baldo Link [facility] NEGATED: Highlighted row has not occurred!07-01-2024 influenza virus vaccine, unspecified formulation Nicho Armstrong [facility] NEGATED: Highlighted row has not occurred!03-23-2023 SARS-CoV-2 mRNA (tozinameran 5y-11y) vaccine Jeffery Rodriguez [facility] [place] Payers Date Payer Category Payer Self-pay [id number] 2023 Managed Care (Private) [employer] [id number] 2023 Private Health Insurance MÓNICA EMERSON [id number] 2023 Unknown [id number]. 1.13.159.2. [id number] 2023 Unknown [id number] 2022 Medicaid [id number] 2018 Medicaid [employer] [id number] 2018-Present [phone] [address] [place] [address] Medicaid [id number]. [id number] 2018 Medicaid [id number]. 1.13.159.2. [id number] 1992 Unknown [id number] 2.16.840.1.739675.3.579.2. 593 1992 Unknown [id number] 2.16.840.1.386366.3.579.2. 593 1992 Unknown [id number] 2.16.840.1.421032.3.579.2. 593 1992 Unknown [id number] 2.16.840.1.275891.3.579.2. 593 1992 Unknown [id number] 2.16.840.1.664057.3.579.2. 727 1992 Unknown [id number] 2.16.840.1.066100.3.579.2. 727 1992 Unknown [id number] 2.16.840.1.768098.3.579.2. 727 1992 Unknown [id number] 2.16.840.1.132515.3.579.2. 727 1992 Unknown [id number] 2.16.840.1.394092.3.579.2. 727 1992 Unknown [id number] 2.16.840.1.333227.3.579.2. 727 1992 Unknown [id number] 2.16.840.1.134455.3.579.2. 72 1992 Unknown [id number] 2.16.840.1.676832.3.579.2. 727 1992 Unknown [id number] 2.16.840.1.185566.3.579.2. 72 1992 Unknown [id number] 2.16.840.1.738035.3.579.2. 727 1992 Unknown [id number] 2.16.840.1.529706.3.579.2. 727 1992 Unknown [id number] 2.16.840.1.714272.3.579.2. 727 1992 Unknown [id number] 2.16.840.1.757833.3.579.2. 1259 1992 Unknown [id number] 2.16.840.1.471586.3.579.2. 1259 1992 Unknown [id number] 2.16.840.1.509931.3.579.2. 1246 1992 Unknown [id number] 2.16.840.1.277774.3.579.2. 1246 1992 Unknown [id number] 2.16.840.1.939799.3.579.2. 727 1992 Unknown [id number] 2.16.840.1.186374.3.579.2. 727 1992 Unknown [id number] 2.16.840.1.069444.3.579.2. 727 1992 Unknown [id number] 2.16.840.1.003245.3.579.2. 727 1992 Unknown [id number] 2.16.840.1.379170.3.579.2. 727 1992 Unknown [id number] 2.16.840.1.184931.3.579.2. 727 1992 Unknown [id number] 2.16.840.1.161285.3.579.2. 1244 1992 Unknown [id number] 2.16.840.1.558982.3.579.2. 1244 1992 Unknown [id number] 2.16.840.1.336420.3.579.2. 1244 1992 Unknown [id number] 2.16.840.1.840049.3.579.2. 1244 1992 Unknown [id number] 2.16.840.1.224511.3.579.2. 1244 1992 Unknown [id number] 2.16.840.1.243237.3.579.2. 1244 1992 Unknown [id number] 2.16.840.1.307261.3.579.2. 1244 1992 Unknown [id number] 2.16.840.1.723598.3.579.2. 124 1992 Unknown [id number] 2.16.840.1.279380.3.579.2. 1244 1992 Unknown [id number] 2.16.840.1.130625.3.579.2. 124 1992 Unknown [id number] 2.16.840.1.229552.3.579.2. 124 1992 Unknown [id number] 2.16.840.1.038671.3.579.2. 124 1992 Unknown [id number] 2.16.840.1.955772.3.579.2. 1244 1959 Unknown [id number] Private Health Insurance [employer] [id number] Unknown [id number] 2.16.840.1.418764.3.579.2. 531 Social History Date Type Detail Facility Start: 02-24-2019 End: 04-17-2022 Tobacco smoking status NHIS Ex-smoker [facility] End: 02-25-2016 History of tobacco use Current smoker [facility] End: 02-25-2016 History of tobacco use Cigarette Smoker [facility] Start: 02-24-2019 End: 04-17-2022 Tobacco use and exposure Smokeless tobacco non-user [facility] Start: 02-24-2019 End: 04-17-2022 Tobacco Comment Less than a pack. [facility] Start: 1992 Sex Assigned At Not on file [facility] Tobacco Past [facility] Comment on above: Pt states she quit s moking in April when she found out she was Start: 04-17-2022 End: 01-15-2023 Sex Assigned At Female [facility] Start: 04-17-2022 End: 08-24-2023 Alcohol intake Lifetime non-drinker (finding) [facility] Start: 04-17-2022 History SDOH Alcohol Frequency 3 [facility] Start: 04-17-2022 History SDOH Alcohol Std Drinks 1 [facility] Start: 04-17-2022 History SDOH Social Connections Phone 5 [facility] Start: 04-17-2022 History SDOH Social Connections [employer]op[employer] 98 [facility] Start: 04-17-2022 History SDOH Social Connections Membership 2 [facility] Start: 04-17-2022 History SDOH Social Connections Living 7 [facility] Start: 07-08-2022 End: 07-07-2024 Exposure to SARS-CoV-2 (event) Not sure [facility] Tobacco smoking status No Smokin g Status Entered [facility] Start: 04-17-2022 End: 01-15-2023 History of Social function [facility] How often do you att end jain or sikh services? Patient refused [facility] Do you belong to any clubs or organizations such as jain groups, unions, fraternal or athletic groups, or school groups? No [facility] Are you now , , , , never or living with a partner? Never [facility] How often to you hav e a drink containing alcohol? 2-4 times a month [facility] How many standard dr inks containing alcohol do you have on a typical day? 1 or 2 [facility] How hard is it for y ou to pay for the very basics like food, housing, medical care, and heating Somewhat hard [facility] Do you feel stress - tense, restless, nervous, or anxious, or unable to sleep at night because your mind is troubled all the time - these days [OSQ] To some extent [facility] (I/We) worried jayme er (my/our) food would run out before (I/we) got money to buy more. DK or Refused [facility] Start: 07-04-2024 End: 07-14-2024 In the past 12 months, was there a time when you were not able to pay the mortgage or rent on time? Yes [facility] Start: 06-16-2024 End: 07-14-2024 Alcoholic beverage intake Ex-drinker (finding) [facility] Work Phone: Start: 04-03-2023 Gender identity Identifies as female gender (finding) [facility] Start: 07-02-2024 Alcoholic beverage intake Curr ent drinker of alcohol (finding) [facility] Start: 04-03-2023 Alcohol Comment 1-2 drinks les s than monthly in the past year, Caffeine intake: rarely [facility] Start: 1992 Sex assigned at [facility] Functional Status Date Assessment Result Facility 07-15-2024 Functional Status N/A [facility] 07-01-2024 Functional Status N/A [facility] 06-24-2024 Functional Status N/A [facility] 05-09-2024 Functional Status N/A [facility] 04-15-2024 Functional Status N/A [facility] 03-24-2024 Functional Status N/A [facility] 11-19-2023 Functional Status N/A [facility] 03-23-2023 Functional Status N/A [facility] [place] 03-21-2023 Functional Status N/A [facility] 01-20-2023 Functional Status N/A [facility] 08-09-2022 Functional Status No [facility] 08-09-2022 Functional Status N/A [facility] Clinical Notes 12-14-2021 to 07-24-2024 Telephone Encounter - Vale Felton RN - 07/24/2024 3:02 PM ESTTelephone Encounter - Vale Felton RN - 07/24/2024 3:02 PM Rand Leon MD - 07/14/2024 10:15 AM ESTPatient Instructions Note Date & Type Note Facility 07-24-2024 Telephone encounter Note Images from the original note were not included. Most recent Rheumatology visit: 03/27/2023 (with Janie Herman) Last Bone Density on file: None on file Rheumatology Care Team: None on file Recent Office Visits - This Specialty 03/27/2023 Rheumatoid arthritis involving multiple sites, unspecified whether rheumatoid factor present (HCC) Rheumatology Janie Herman MD 12/27/2022 Inflammatory arthritis Rheumatology Janie Herman MD 12/05/2022 Rheumatoid arthritis involving multiple sites, unspecified whether rheumatoid factor present (HCC) Rheumatology Janie Herman MD Upcoming Rheumatology Appointments - Next 365 Days No appointments to display CBC: Latest Ref Rng & Units 03/27/2023 10/02/2023 CBC WBC 3.70 - 11.00 k/uL 5.06 6.89 Hemoglobin 11.5 - 15.5 g/dL 13.0 14.0 Hematocrit 36.0 - 46.0 % 39.6 40.6 Platelet Count 150 - 400 k/uL 325 282 Abs Neut (ANC) 1.45 - 7.50 k/uL 2.43 3.58 Abs Lymph 1.00 - 4.00 k/uL 2.20 2.51 Vitamin D: None on file in the last 6 months LFT: Latest Ref Rng & Units 12/05/2022 03/27/2023 CMP Sodium 136 - 144 mmol/L 139 140 Potassium 3.7 - 5.1 mmol/L 4.0 3.5 Chloride 97 - 105 mmol/L 103 104 CO2 22 - 30 mmol/L 26 25 Glucose 74 - 99 mg/dL 86 84 BUN 7 - 21 mg/dL 6 10 Creatinine 0.58 - 0.96 mg/dL 0.59 0.63 Calcium 8.5 - 10.2 mg/dL 9.6 8.8 AST 13 - 35 U/L 19 29 ALT 7 - 38 U/L 17 35 Alkaline Phosphatase 34 - 123 U/L 65 48 Hepatic Function: Creatinine: None on file in the last 6 months ESR/CRP: None on file in the last 6 months Uric Acid: None on file in the last 6 months Open Standing (Multiple Instance) Lab Orders None Open Future (Single Instance) Lab Orders None [facility] 07-24-2024 Miscellaneous Notes Images from the original note were not included. Most recent Rheumatology visit: 03/27/2023 (with Janie Herman) Last Bone Density on file: None on file Rheumatology Care Team: None on file Recent Office Visits - This Specialty 03/27/2023 Rheumatoid arthritis involving multiple sites, unspecified whether rheumatoid factor present (HCC) Rheumatology Janie Herman MD 12/27/2022 Inflammatory arthritis Rheumatology Janie Herman MD 12/05/2022 Rheumatoid arthritis involving multiple sites, unspecified whether rheumatoid factor present (HCC) Rheumatology Janie Herman MD Upcoming Rheumatology Appointments - Next 365 Days No appointments to display CBC: Latest Ref Rng & Units 03/27/2023 10/02/2023 CBC WBC 3.70 - 11.00 k/uL 5.06 6.89 Hemoglobin 11.5 - 15.5 g/dL 13.0 14.0 Hematocrit 36.0 - 46.0 % 39.6 40.6 Platelet Count 150 - 400 k/uL 325 282 Abs Neut (ANC) 1.45 - 7.50 k/uL 2.43 3.58 Abs Lymph 1.00 - 4.00 k/uL 2.20 2.51 Vitamin D: None on file in the last 6 months LFT: Latest Ref Rng & Units 12/05/2022 03/27/2023 CMP Sodium 136 - 144 mmol/L 139 140 Potassium 3.7 - 5.1 mmol/L 4.0 3.5 Chloride 97 - 105 mmol/L 103 104 CO2 22 - 30 mmol/L 26 25 Glucose 74 - 99 mg/dL 86 84 BUN 7 - 21 mg/dL 6 10 Creatinine 0.58 - 0.96 mg/dL 0.59 0.63 Calcium 8.5 - 10.2 mg/dL 9.6 8.8 AST 13 - 35 U/L 19 29 ALT 7 - 38 U/L 17 35 Alkaline Phosphatase 34 - 123 U/L 65 48 Hepatic Function: Creatinine: None on file in the last 6 months ESR/CRP: None on file in the last 6 months Uric Acid: None on file in the last 6 months Open Standing (Multiple Instance) Lab Orders None Open Future (Single Instance) Lab Orders None documented in this encounter [facility] 07-14-2024 History of Present illness Narrative 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 Land Checker: Brad Del Real CMA Comments NPV Had abscess in left armpit in the Middle of April. Had 2 biopsies done. Took antibiotics. Second biopsy came back positive for MRSA, was treated with antibiotics. On 06/24 she had the mass lanced. She went to the ER on 07/05. Was given another antibiotic, completed treatment. Hx of breast tumors, autoimmune disorder. Mass is on left armpit. Closed wound. Possibly HS. Noticed that her blood work was flagged for high blood sugar. Father has Type 2 diabetes. Last edited by Brad Del Real CMA on 07/14/2024 10:24 AM. Reviewed case with patient, reviewed plans. 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 HISTORY: Past Medical History: Diagnosis Date Arthritis Breast mass 03/06/23 GERD (gastroesophageal reflux disease) IgM deficiency (Multi) Rheumatoid arthritis Past Surgical History: Procedure Laterality Date BREAST BIOPSY BREAST LUMPECTOMY SECTION, LOW TRANSVERSE DENTAL SURGERY Social History Socioeconomic History Marital status: Single Spouse name: Not on file Number of children: Not on file Years of education: Not on file Highest education level: Not on file Occupational History Not on file Tobacco Use Smoking status: Former Current packs/day: 0.00 Types: Cigarettes Quit date: 09/10/2015 Years since quittin.8 Smokeless tobacco: Never Vaping Use Vaping status: Never Used Substance and Sexual Activity Alcohol use: Not Currently Drug use: Never Sexual activity: Yes Partners: Male control/protection: Other Comment: Pill form Other Topics Concern Not on file Social History Narrative Not on file Social Drivers of Health Financial Resource Strain: Medium Risk (04/17/2022) Received from [facility] Overall Financial Resource Strain (CARDIA) Difficulty of Paying Living Expenses: Somewhat hard Food Insecurity: Unknown (04/17/2022) Received from [facility] Hunger Vital Sign Worried About Running Out of Food in the Last Year: Patient declined Ran Out of Food in the Last Year: Patient declined Transportation Needs: Unknown (04/17/2022) Received from [facility] PRAPARE - Transportation Lack of Transportation (Medical): Patient declined Lack of Transportation (Non-Medical): Patient declined Physical Activity: Insufficiently Active (04/17/2022) Received from [facility] Exercise Vital Sign Days of Exercise per Week: 5 days Minutes of Exercise per Session: 20 min Stress: Stress Concern Present (04/17/2022) Received from [facility] [employer] [place] [employer] - Occupational Stress Questionnaire Feeling of Stress : To some extent Social Connections: Unknown (04/17/2022) Received from [facility] Social Connection and Isolation Panel [NHANES] Frequency of Communication with Friends and Family: More than three times a week Frequency of Social Gatherings with Friends and Family: Twice a week Attends Orthodox Services: Patient declined Active Member of Clubs or Organizations: No Attends Club or Organization Meetings: Patient declined Marital Status: Never Intimate Partner Violence: Not on file Housing Stability: Not on file Cancer-related family history includes Breast cancer in her father's sister; Cancer in her paternal grandmother; Colon cancer in her paternal grandfather. PHYSICAL EXAM: BP 110/80 Ht 1.524 m (5') Wt 54.7 kg (120 lb 8 oz) LMP 06/21/2024 (Exact Date) BMI 23.53 kg/m GEN: A&O, NAD HEENT: head HC/AT, no visible goiter PSYCH: normal affect, non-anxious Right axillary area to pigmented areas no tracking healed folliculitis? IMPRESSION/PLAN: 34-year-old axillary folliculitis with MRSA unclear if treated with appropriate antibiotics, no current suspicion for chronic wound issues Decontamination with Hibiclens nightly for 2 weeks Bactrim if recurrence Trina Leon MD documented in this encounter [facility] Work Phone: 07-03-2024 Emergency department Note HPI Chief Complaint Patient presents with Fever Pt thinks she is becoming septic from mrsa diagnosed back in April, c/o fever and flu like sx A 34-year-old female patient with autoimmune disease comes into the emergency department today concerned about sepsis. States she has been treated for an axillary abscess. States this about a month ago states it altered for MRSA. States she just got put on a new antibiotic she had a second lesion forearm yesterday. States he is also been having upper respiratory symptoms including cough, congestion just generally not feeling well in that regard. States when she went to have her axilla evaluated she expressed her concern and wanting blood work but request were not filled. This purpose comes into the emergency department today for further evaluation. Patient History No past medical history on file. No past surgical history on file. No family history on file. Social History Tobacco Use Smoking status: Former Types: Cigarettes Smokeless tobacco: Never Substance Use Topics Alcohol use: Not Currently Drug use: Not on file Physical Exam ED Triage Vitals Temperature Heart Rate Respirations BP 07/03/24 1022 07/03/24 1022 07/03/24 1022 07/03/24 1022 36.6 C (97.9 F) 98 17 (!) 132/94 Pulse Ox Temp Source Heart Rate Source Patient Position 07/03/24 1022 07/03/24 1022 07/03/24 1022 07/03/24 1344 100 % Temporal Monitor Sitting BP Location FiO2 (%) 07/03/24 1344 -- Left arm Physical Exam Constitutional: General: She is not in acute distress. Appearance: Normal appearance. She is not ill-appearing or diaphoretic. HENT: Head: Normocephalic and atraumatic. Nose: Congestion present. Eyes: Extraocular Movements: Extraocular movements intact. Conjunctiva/sclera: Conjunctivae normal. Pupils: Pupils are equal, round, and reactive to light. Cardiovascular: Rate and Rhythm: Normal rate and regular rhythm. Pulmonary: Effort: Pulmonary effort is normal. No respiratory distress. Breath sounds: Normal breath sounds. No stridor. No wheezing. Musculoskeletal: General: Normal range of motion. Cervical back: Normal range of motion. Skin: General: Skin is warm and dry. Comments: Indurated erythematous 1 cm area to the left axilla, no fluctuance or pustule Neurological: General: No focal deficit present. Mental Status: She is alert and oriented to person, place, and time. Mental status is at baseline. ED Course & MDM Diagnoses as of 07/03/24 1430 Abscess of axilla, left Upper respiratory tract infection, unspecified type No data recorded [place] Coma Scale Score: 15 (07/03/24 1318 : Tristan Agarwal LPN) Medical Decision Making A 34-year-old female patient with autoimmune disease comes into the emergency department today concerned about sepsis. States she has been treated for an axillary abscess. States this about a month ago states it altered for MRSA. States she just got put on a new antibiotic she had a second lesion forearm yesterday. States he is also been having upper respiratory symptoms including cough, congestion just generally not feeling well in that regard. States when she went to have her axilla evaluated she expressed her concern and wanting blood work but request were not filled. This purpose comes into the emergency department today for further evaluation. Patient had laboratory studies ordered, chest x-ray ordered as well as testing for COVID-19, influenza, RSV, strep pharyngitis. Rule out pneumonia, leukocytosis, shift, acute kidney injury or electrolyte abnormality. Patient negative for strep pharyngitis COVID-19 influenza and RSV. Lipase negative, potassium 3.4 p.o. potassium ordered for the patient. Normal renal function no leukocytosis or left shift. Initial lactate of 2.4. Urinalysis negative. Repeat lactate 0.8. I looked at patient's charting where she was prescribed her antibiotic she was placed on clindamycin and this would be appropriate as it covers for staph. Will give patient close follow-up with wound care center. Patient agrees with this plan expressed verbal understanding. Questions were answered. Historian is the patient Diagnosis: Left axillary abscess, URI Labs Reviewed COMPREHENSIVE METABOLIC PANEL - Abnormal Result Value Glucose 110 (*) Sodium 136 Potassium 3.4 (*) Chloride 102 Bicarbonate 26 Anion Gap 11 Urea Nitrogen 9 Creatinine 0.70 eGFR >90 Calcium 9.1 Albumin 4.7 Alkaline Phosphatase 49 Total Protein 7.5 AST 18 Bilirubin, Total 0.6 ALT 21 LACTATE - Abnormal Lactate 2.4 (*) Narrative: Venipuncture immediately after or during the administration of Metamizole may lead to falsely low results. Testing should be performed immediately prior to Metamizole dosing. URINALYSIS WITH REFLEX CULTURE AND MICROSCOPIC - Abnormal Color, Urine Colorless (*) Appearance, Urine Clear Specific [place], Urine 1.009 pH, Urine 7.0 Protein, Urine NEGATIVE Glucose, Urine Normal Blood, Urine 0.06 (1+) (*) Ketones, Urine NEGATIVE Bilirubin, Urine NEGATIVE Urobilinogen, Urine Normal Nitrite, Urine NEGATIVE Leukocyte Esterase, Urine NEGATIVE GROUP A STREPTOCOCCUS, PCR - Normal Group A Strep PCR Not Detected LIPASE - Normal Lipase 21 Narrative: Venipuncture immediately after or during the administration of Metamizole may lead to falsely low results. Testing should be performed immediately prior to Metamizole dosing. SARS-COV-2 PCR - Normal Coronavirus 2019, PCR Not Detected Narrative: This assay has received FDA Emergency Use Authorization (EUA) and is only authorized for the duration of time that circumstances exist to justify the authorization of the emergency use of in vitro diagnostic tests for the detection of SARS-CoV-2 virus and/or diagnosis of COVID-19 infection under section 564(b)(1) of the Act, 21 U.S.C. 360bbb-3(b)(1). This assay is an in vitro diagnostic nucleic acid amplification test for the qualitative detection of SARS-CoV-2 from nasopharyngeal specimens and has been validated for use at [facility]. Negative results do not preclude COVID-19 infections and should not be used as the sole basis for diagnosis, treatment, or other management decisions. INFLUENZA A AND B PCR - Normal Flu A Result Not Detected Flu B Result Not Detected Narrative: This assay is an in vitro diagnostic multiplex nucleic acid amplification test for the detection and discrimination of Influenza A & B from nasopharyngeal specimens, and has been validated for use at [facility]. Negative results do not preclude Influenza A/B infections, and should not be used as the sole basis for diagnosis, treatment, or other management decisions. If Influenza A/B and RSV PCR results are negative, testing for Parainfluenza virus, Adenovirus and Metapneumovirus is routinely performed for [facility] pediatric oncology and intensive care inpatients, and is available on other patients by placing an add-on request. RSV PCR - Normal RSV PCR Not Detected Narrative: This assay is an FDA-cleared, in vitro diagnostic nucleic acid amplification test for the detection of RSV from nasopharyngeal specimens, and has been validated for use at [facility]. Negative results do not preclude RSV infections, and should not be used as the sole basis for diagnosis, treatment, or other management decisions. If Influenza A/B and RSV PCR results are negative, testing for Parainfluenza virus, Adenovirus and Metapneumovirus is routinely performed for pediatric oncology and intensive care inpatients at [facility], and is available on other patients by placing an add-on request. LACTATE - Normal Lactate 0.8 Narrative: Venipuncture immediately after or during the administration of Metamizole may lead to falsely low results. Testing should be performed immediately prior to Metamizole dosing. BLOOD CULTURE BLOOD CULTURE CBC WITH AUTO DIFFERENTIAL WBC 6.9 nRBC 0.0 RBC 4.45 Hemoglobin 14.6 Hematocrit 41.4 MCV 93 MCH 32.8 MCHC 35.3 RDW 12.8 Platelets 292 Neutrophils % 49.1 Immature Granulocytes %, Automated 0.1 Lymphocytes % 40.4 Monocytes % 8.9 Eosinophils % 1.2 Basophils % 0.3 Neutrophils Absolute 3.40 Immature Granulocytes Absolute, Automated 0.01 Lymphocytes Absolute 2.80 Monocytes Absolute 0.62 Eosinophils Absolute 0.08 Basophils Absolute 0.02 URINALYSIS WITH REFLEX CULTURE AND MICROSCOPIC Narrative: The following orders were created for panel order Urinalysis with Reflex Culture and Microscopic. Procedure Abnormality Status --------- ------ Urinalysis with Reflex C...[[id number]] Abnormal Final result Extra Urine Farnsworth Tube[[id number]] In process Please view results for these tests on the individual orders. EXTRA URINE FARNSWORTH TUBE URINALYSIS MICROSCOPIC WITH REFLEX CULTURE WBC, Urine NONE RBC, Urine 3-5 Squamous Epithelial Cells, Urine 1-9 (SPARSE) XR chest 2 views Final Result 1. No evidence of acute cardiopulmonary process. MACRO: None Signed by: Issac Estrada 07/03/2024 12:04 PM Dictation workstation: [id number] Procedure Procedures Sharath Pendleton PA-C 07/03/24 1430 [address] encounter [facility] Work Phone: 07-03-2024 Physician Emergency department Note HPI Chief Complaint Patient presents with Fever Pt thinks she is becoming septic from mrsa diagnosed back in April, c/o fever and flu like sx A 34-year-old female patient with autoimmune disease comes into the emergency department today concerned about sepsis. States she has been treated for an axillary abscess. States this about a month ago states it altered for MRSA. States she just got put on a new antibiotic she had a second lesion forearm yesterday. States he is also been having upper respiratory symptoms including cough, congestion just generally not feeling well in that regard. States when she went to have her axilla evaluated she expressed her concern and wanting blood work but request were not filled. This purpose comes into the emergency department today for further evaluation. Patient History No past medical history on file. No past surgical history on file. No family history on file. Social History Tobacco Use Smoking status: Former Types: Cigarettes Smokeless tobacco: Never Substance Use Topics Alcohol use: Not Currently Drug use: Not on file Physical Exam ED Triage Vitals Temperature Heart Rate Respirations BP 07/03/24 1022 07/03/24 1022 07/03/24 1022 07/03/24 1022 36.6 C (97.9 F) 98 17 (!) 132/94 Pulse Ox Temp Source Heart Rate Source Patient Position 07/03/24 1022 07/03/24 1022 07/03/24 1022 07/03/24 1344 100 % Temporal Monitor Sitting BP Location FiO2 (%) 07/03/24 1344 -- Left arm Physical Exam Constitutional: General: She is not in acute distress. Appearance: Normal appearance. She is not ill-appearing or diaphoretic. HENT: Head: Normocephalic and atraumatic. Nose: Congestion present. Eyes: Extraocular Movements: Extraocular movements intact. Conjunctiva/sclera: Conjunctivae normal. Pupils: Pupils are equal, round, and reactive to light. Cardiovascular: Rate and Rhythm: Normal rate and regular rhythm. Pulmonary: Effort: Pulmonary effort is normal. No respiratory distress. Breath sounds: Normal breath sounds. No stridor. No wheezing. Musculoskeletal: General: Normal range of motion. Cervical back: Normal range of motion. Skin: General: Skin is warm and dry. Comments: Indurated erythematous 1 cm area to the left axilla, no fluctuance or pustule Neurological: General: No focal deficit present. Mental Status: She is alert and oriented to person, place, and time. Mental status is at baseline. ED Course & MDM Diagnoses as of 07/03/24 1430 Abscess of axilla, left Upper respiratory tract infection, unspecified type No data recorded [place] Coma Scale Score: 15 (07/03/24 1318 : Tristan Agarwal LPN) Medical Decision Making A 34-year-old female patient with autoimmune disease comes into the emergency department today concerned about sepsis. States she has been treated for an axillary abscess. States this about a month ago states it altered for MRSA. States she just got put on a new antibiotic she had a second lesion forearm yesterday. States he is also been having upper respiratory symptoms including cough, congestion just generally not feeling well in that regard. States when she went to have her axilla evaluated she expressed her concern and wanting blood work but request were not filled. This purpose comes into the emergency department today for further evaluation. Patient had laboratory studies ordered, chest x-ray ordered as well as testing for COVID-19, influenza, RSV, strep pharyngitis. Rule out pneumonia, leukocytosis, shift, acute kidney injury or electrolyte abnormality. Patient negative for strep pharyngitis COVID-19 influenza and RSV. Lipase negative, potassium 3.4 p.o. potassium ordered for the patient. Normal renal function no leukocytosis or left shift. Initial lactate of 2.4. Urinalysis negative. Repeat lactate 0.8. I looked at patient's charting where she was prescribed her antibiotic she was placed on clindamycin and this would be appropriate as it covers for staph. Will give patient close follow-up with wound care center. Patient agrees with this plan expressed verbal understanding. Questions were answered. Historian is the patient Diagnosis: Left axillary abscess, URI Labs Reviewed COMPREHENSIVE METABOLIC PANEL - Abnormal Result Value Glucose 110 (*) Sodium 136 Potassium 3.4 (*) Chloride 102 Bicarbonate 26 Anion Gap 11 Urea Nitrogen 9 Creatinine 0.70 eGFR >90 Calcium 9.1 Albumin 4.7 Alkaline Phosphatase 49 Total Protein 7.5 AST 18 Bilirubin, Total 0.6 ALT 21 LACTATE - Abnormal Lactate 2.4 (*) Narrative: Venipuncture immediately after or during the administration of Metamizole may lead to falsely low results. Testing should be performed immediately prior to Metamizole dosing. URINALYSIS WITH REFLEX CULTURE AND MICROSCOPIC - Abnormal Color, Urine Colorless (*) Appearance, Urine Clear Specific [place], Urine 1.009 pH, Urine 7.0 Protein, Urine NEGATIVE Glucose, Urine Normal Blood, Urine 0.06 (1+) (*) Ketones, Urine NEGATIVE Bilirubin, Urine NEGATIVE Urobilinogen, Urine Normal Nitrite, Urine NEGATIVE Leukocyte Esterase, Urine NEGATIVE GROUP A STREPTOCOCCUS, PCR - Normal Group A Strep PCR Not Detected LIPASE - Normal Lipase 21 Narrative: Venipuncture immediately after or during the administration of Metamizole may lead to falsely low results. Testing should be performed immediately prior to Metamizole dosing. SARS-COV-2 PCR - Normal Coronavirus 2019, PCR Not Detected Narrative: This assay has received FDA Emergency Use Authorization (EUA) and is only authorized for the duration of time that circumstances exist to justify the authorization of the emergency use of in vitro diagnostic tests for the detection of SARS-CoV-2 virus and/or diagnosis of COVID-19 infection under section 564(b)(1) of the Act, 21 U.S.C. 360bbb-3(b)(1). This assay is an in vitro diagnostic nucleic acid amplification test for the qualitative detection of SARS-CoV-2 from nasopharyngeal specimens and has been validated for use at [facility]. Negative results do not preclude COVID-19 infections and should not be used as the sole basis for diagnosis, treatment, or other management decisions. INFLUENZA A AND B PCR - Normal Flu A Result Not Detected Flu B Result Not Detected Narrative: This assay is an in vitro diagnostic multiplex nucleic acid amplification test for the detection and discrimination of Influenza A & B from nasopharyngeal specimens, and has been validated for use at [facility]. Negative results do not preclude Influenza A/B infections, and should not be used as the sole basis for diagnosis, treatment, or other management decisions. If Influenza A/B and RSV PCR results are negative, testing for Parainfluenza virus, Adenovirus and Metapneumovirus is routinely performed for [facility] pediatric oncology and intensive care inpatients, and is available on other patients by placing an add-on request. RSV PCR - Normal RSV PCR Not Detected Narrative: This assay is an FDA-cleared, in vitro diagnostic nucleic acid amplification test for the detection of RSV from nasopharyngeal specimens, and has been validated for use at [facility]. Negative results do not preclude RSV infections, and should not be used as the sole basis for diagnosis, treatment, or other management decisions. If Influenza A/B and RSV PCR results are negative, testing for Parainfluenza virus, Adenovirus and Metapneumovirus is routinely performed for pediatric oncology and intensive care inpatients at [facility], and is available on other patients by placing an add-on request. LACTATE - Normal Lactate 0.8 Narrative: Venipuncture immediately after or during the administration of Metamizole may lead to falsely low results. Testing should be performed immediately prior to Metamizole dosing. BLOOD CULTURE BLOOD CULTURE CBC WITH AUTO DIFFERENTIAL WBC 6.9 nRBC 0.0 RBC 4.45 Hemoglobin 14.6 Hematocrit 41.4 MCV 93 MCH 32.8 MCHC 35.3 RDW 12.8 Platelets 292 Neutrophils % 49.1 Immature Granulocytes %, Automated 0.1 Lymphocytes % 40.4 Monocytes % 8.9 Eosinophils % 1.2 Basophils % 0.3 Neutrophils Absolute 3.40 Immature Granulocytes Absolute, Automated 0.01 Lymphocytes Absolute 2.80 Monocytes Absolute 0.62 Eosinophils Absolute 0.08 Basophils Absolute 0.02 URINALYSIS WITH REFLEX CULTURE AND MICROSCOPIC Narrative: The following orders were created for panel order Urinalysis with Reflex Culture and Microscopic. Procedure Abnormality Status --------- ------ Urinalysis with Reflex C...[[id number]] Abnormal Final result Extra Urine Farnsworth Tube[[id number]] In process Please view results for these tests on the individual orders. EXTRA URINE FARNSWORTH TUBE URINALYSIS MICROSCOPIC WITH REFLEX CULTURE WBC, Urine NONE RBC, Urine 3-5 Squamous Epithelial Cells, Urine 1-9 (SPARSE) XR chest 2 views Final Result 1. No evidence of acute cardiopulmonary process. MACRO: None Signed by: Issac Estrada 07/03/2024 12:04 PM Dictation workstation: [id number] Procedure Procedures Sharath Pendleton PA-C 07/03/24 1430 [facility] Work Phone: 07-02-2024 History of Present illness Narrative Reason for Appointment: Patient ID: Alyssa De Leon is a 34 y.o. female who presents for Pre-op Visit and Endometrial Biopsy Patient presents today for Pre Op/Endometrial Biopsy appointment. Patient is scheduled to undergo Da Ayaz assisted Bilateral Laparoscopic Salpingectomy and Endometrial Ablation with Leanne on 08/01/[address] Haas at [facility]. MEDICATIONS Current Outpatient Medications Medication Instructions amphetamine-dextroamphetamine (Adderall) 20 MG tablet 20 mg, Oral, Daily RT amphetamine-dextroamphetamine XR (Adderall XR) 20 MG 24 hr capsule TAKE 1 CAPSULE BY MOUTH ONCE DAILY IN THE MORNING DX: F90.0 celecoxib (CELEBREX) 100 mg, Oral, 2 times daily Humira (2 Pen) 40 mg, Subcutaneous, Every 14 days meloxicam (Mobic) 15 MG tablet Every 24 hours minocycline (DYNACIN) 50 mg, Oral, 2 times daily norethindrone-ethinyl estradiol (09/29) 1-20 MG-MCG tablet 1 tablet, Oral, Daily norethindrone-ethinyl estradiol (09/29) 1-20 MG-MCG tablet 1 tablet, Oral, Daily, Take 1 tablet by mouth daily omeprazole (PRILOSEC) 20 mg, Oral, 2 times daily PRN pilocarpine (SALAGEN) 5 mg, Oral, 3 times daily ALLERGIES Allergies Allergen Reactions Hydrocodone-Acetaminophen Hives Other Reaction(s): hives Ethyl Alcohol (Skin Cleanser) Other Reaction(s): Unknown Hydrocodone Infliximab Hives Leflunomide Other Reaction(s): Intolerance PROBLEMS Active Ambulatory Problems Diagnosis Date Noted No Active Ambulatory Problems Resolved Ambulatory Problems Diagnosis Date Noted No Resolved Ambulatory Problems Past Medical History: Diagnosis Date Chronic allergic rhinitis History of shingles Irregular heartbeat RA (rheumatoid arthritis) ([facility]) Varicella zoster HISTORY PAST MEDICAL HISTORY SOCIAL HISTORY Past Medical History: Diagnosis Date Chronic allergic rhinitis History of shingles Irregular heartbeat full term(2012) RA (rheumatoid arthritis) ([facility]) Varicella zoster Social History Tobacco Use Smoking status: Former Types: Cigarettes Smokeless tobacco: Not on file Substance Use Topics Alcohol use: Yes Comment: 1-2 drinks less than monthly in the past year, Caffeine intake: rarely Drug use: Not on file FAMILY HISTORY Family History Problem Relation Name Age of Onset Diabetes Father Asthma Father Breast cancer Father's Sister SURGICAL HISTORY Past Surgical History: Procedure Laterality Date SECTION, LOW TRANSVERSE OTHER SURGICAL HISTORY 2013 vaginal forceps WISDOM TOOTH EXTRACTION 2012 REVIEW OF SYSTEMS Review of Systems: Review of Systems Constitutional: Negative. HENT: Negative. Eyes: Negative. Respiratory: Negative. Cardiovascular: Negative. Gastrointestinal: Negative. Genitourinary: Positive for menstrual problem and pelvic pain. Musculoskeletal: Negative. Skin: Negative. Neurological: Negative. All other systems reviewed and are negative. Hematological: Negative. Endocrine: Negative. Allergic/Immunologic: Negative. OBJECTIVE Objective: Physical Exam Constitutional: Appearance: Normal appearance. She is well-developed. Genitourinary: Vulva normal. Cardiovascular: Rate and Rhythm: Normal rate and regular rhythm. Pulmonary: Effort: Pulmonary effort is normal. Breath sounds: Normal breath sounds. Abdominal: General: Bowel sounds are normal. There is no distension. Palpations: Abdomen is soft. Tenderness: There is no abdominal tenderness. There is no guarding or rebound. Musculoskeletal: General: No swelling. Normal range of motion. Right lower leg: No edema. Left lower leg: No edema. Neurological: Mental Status: She is alert and oriented to person, place, and time. Skin: General: Skin is warm and dry. Psychiatric: Mood and Affect: Mood normal. Behavior: Behavior normal. Vitals and nursing note reviewed. Exam conducted with a skein yarn dyer helper present. Vitals: Estimated body mass index is 23.59 kg/m as calculated from the following: Height as of 04/03/23: 5'. Weight as of 01/01/24: 120 lb 12.8 oz. BP: No LMP recorded. ASSESSMENT & PLAN ICD-10-CM 1. Pre-op examination Z01.818 2. Request for sterilization Z30.2 3. Menorrhagia with regular cycle N92.0 4. Abnormal uterine bleeding (AUB) N93.9 5. Pelvic pain in female R10.2 EMBX: Patient was placed in dorsal lithotomy position with feet in stirrups. A sterile speculum was placed into the vagina and the cervix was visualized. The cervix was grasped with a single tooth tenaculum. The endometrial pipette was placed through the cervix into the uterus, endometrial curettage was performed and sampling was obtained, endometrial curettings were placed in formalin, and single tooth tenaculum was removed. Excellent hemostasis was assured. All instruments were removed from vagina. Pre Op: Patient is doing well but has desire for sterilization and has complaints of bleeding and pelvic pain. Patient has tried hormone therapy in the past but all attempts to subside patients issues of bleeding have failed. I have discussed conservative management vs. surgical management with the patient in detail and patient desires surgical management at this time. Patient has voiced understanding that a Bilateral Salpingectomy is considered to be permanent and patient will undergo Da Ayaz assisted Bilateral Laparoscopic Salpingectomy & Endometrial Ablation with Leanne on 08/01/2024. Surgical consents were signed, mmc was reviewed, and patient is to proceed to [facility] OR. Follow Up: Patient is to follow up between 1-2 weeks post op to assess proper healing and recovery from procedure. Documented by Noni Wheeler LPN on behalf of: Denys Haas DO documented in this encounter [facility] 06-30-2024 History of Present illness Narrative Images from the original note were not included. Alyssa De Leon female 1990 34 y.o. [id number] HPI Alyssa De Leon is a 34 y.o. female [facility]ous [facility]itis. 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 Histochemical stains show rare gram-positive rods in cystic spaces, morphologically compatible with Corynebacterium. She was followed by Rheumatology at [facility] which it is suspect her paradoxical granulomatous could be a reaction to TNFi (extremely rare). She is now seeing Dr Salazar in rheumatology at and is on prednisone. She states she has breast pain 4 on 0-10 painscall, and lumps. Was on Humira -January 2023-June 2024 for seronegative RA diagnosed as a teen and has taken many various medications for her RA. She is on Trexall and prednisone taper and doxycycline. BREAST IMAGIN12/26/2023 left breast diagnostic mammogram and left ultrasound, BI-RADS Category 3, left breast asymmetry without ultrasound correlate. 12/14/2023 bilateral screening mammogram, BI-RADS Category 0, left breast asymmetry Additional imaging at [facility] but not available at the time of her visit. REPRODUCTIVE HISTORY: menarche age 14, , first age 22, did not breastfeed, premenopausal, heterogeneously dense breast tissue, benign breast biopsy FAMILY CANCER HISTORY: Maternal aunt: breast cancer Paternal great aunt: breast cancer REVIEW OF SYSTEMS Constitutional: Negative for appetite change, fatigue, fever and unexpected weight change. HENT: Negative for ear pain, hearing loss, nosebleeds, sore throat and trouble swallowing. Eyes: Negative for discharge, itching and visual disturbance. Respiratory: Negative for cough, chest tightness and shortness of breath. Cardiovascular: Negative for chest pain, palpitations and leg swelling. Breast: as indicated in HPI Gastrointestinal: Negative for abdominal pain, constipation, diarrhea and nausea. Endocrine: Negative for cold intolerance and heat intolerance. Genitourinary: Negative for dysuria, frequency, hematuria, pelvic pain and vaginal bleeding. Musculoskeletal: Negative for arthralgias, back pain, gait problem, joint swelling and myalgias. Skin: Negative for color change and rash. Allergic/Immunologic: Negative for environmental allergies and food allergies. Neurological: Negative for dizziness, tremors, speech difficulty, weakness, numbness and headaches. Hematological: Does not bruise/bleed easily. Psychiatric/Behavioral: Negative for agitation, dysphoric mood and sleep disturbance. The patient is not nervous/anxious. MEDICATIONS Current Outpatient Medications Medication Instructions acetaminophen (Tylenol) 32 mg/mL suspension oral amphetamine-dextroamphetamine (Adderall) 20 mg tablet 20 mg, oral, Daily RT doxycycline (Vibra-Tabs) 100 mg tablet 1 tablet, Every 12 hours scheduled (0630,1830) folic acid (FOLVITE) 1 mg, oral, 2 times daily .5, 21, 1.5-30 mg-mcg tablet tablet 1 tablet, oral, Daily before breakfast LORATADINE ORAL See Instructions, 1 tab(s) Oral PRN, Refills(s) 0 methotrexate (TREXALL) 15 mg, oral, Weekly, Follow directions carefully, and ask to explain any part you do not understand. Take exactly as directed. ondansetron (ZOFRAN) 4 mg, oral, Every 8 hours PRN pilocarpine (SALAGEN) 5 mg, oral, 3 times daily predniSONE (Deltasone) 5 mg tablet Take 4 tablets (20 mg) by mouth once daily for 14 days, THEN 3 tablets (15 mg) once daily for 14 days, THEN 2 tablets (10 mg) once daily. ALLERGIES Allergies Allergen Reactions Hydrocodone Hives Infliximab Hives Leflunomide Hives Other Reaction(s): Intolerance Patient Active Problem List Diagnosis Date Noted Granulomatous mastitis of right breast 05/07/2024 Rheumatoid arthritis in remission (Multi) 05/07/2024 Immunosuppression due to drug therapy 05/07/2024 No past medical history on file. No past surgical history on file. No family history on file. SOCIAL HISTORY Social History Tobacco Use Smoking status: Former Types: Cigarettes Smokeless tobacco: Never Substance Use Topics Alcohol use: Not Currently VITALS Vitals: 06/30/24 1552 BP: 113/72 Pulse: 106 Temp: 37.1 C (98.8 F) PHYSICAL EXAM Patient is alert and oriented x3, with appropriate mood. The gait is steady and hand grasps are equal. Sclera clear. The breasts are nearly symmetrical. The tissue is soft without palpable abnormalities, discrete nodules or masses. The skin is normal without scarring and nipples appear normal. There is no cervical, supraclavicular, or axillary lymphadenopathy palpable. The left axilla with 2 visible noninfective pustules. Heart rate and rhythm normal, S1 and S2 appreciated. The lungs are clear bilaterally. Abdomen is soft & non-tender. Physical Exam ASSESSMENT/PLAN 1. Granulomatous mastitis of right breast Referral to Breast Surgery Follow up as needed. No clinical evidence of granulomatous mastitis. JEB Ortega [facility] documented in this encounter [facility] Work Phone: 06-24-2024 Hospital Discharge instructions Patient Education 06/24/2024 10:41:35 Skin Abscess Skin Abscess A skin abscess is an infected area on or under your skin. It contains pus and other material. An abscess may also be called a furuncle, carbuncle, or boil. It is often the result of an infection caused by bacteria. An abscess can occur in or on almost any part of your body. Sometimes, an abscess may break open (rupture) on its own. In most cases, it will keep getting worse unless it is treated. An abscess can cause pain and make you feel ill. An untreated abscess can cause infection to spread to other parts of your body or your bloodstream. The abscess may need to be drained. You may also need to take antibiotics. What are the causes? An abscess occurs when germs, like bacteria, pass through your skin and cause an infection. This may be caused by: A scrape or cut on your skin. A puncture wound through your skin, such as a needle injection or insect bite. Blocked oil or sweat glands. Blocked and infected hair follicles. A fluid-filled sac that forms beneath your skin (sebaceous cyst) and becomes infected. What increases the risk? You may be more likely to develop an abscess if: You have problems with blood circulation, or you have a weak body defense system (immune system). You have diabetes. You have dry and irritated skin. You get injections often or use IV drugs. You have a foreign body in a wound, such as a splinter. You smoke or use tobacco products. What are the signs or symptoms? Symptoms of this condition include: A painful, firm bump under the skin. A bump with pus at the top. This may break through the skin and drain. Other symptoms include: Redness and swelling around the abscess. Warmth or tenderness. Swelling of the lymph nodes (glands) near the abscess. A sore on the skin. How is this diagnosed? This condition may be diagnosed based on a physical exam and your medical history. You may also have tests done, such as: A test of a sample of pus. This may be done to find what is causing the infection. Blood tests. Imaging tests, such as an ultrasound, CT scan, or MRI. How is this treated? A small abscess that drains on its own may not need to be treated. Treatment for larger abscesses may include: Moist heat or a heat pack applied to the area a few times a day. Incision and drainage. This is a procedure to drain the abscess. Antibiotics. For a severe abscess, you may first get antibiotics through an IV and then change to antibiotics by mouth. Follow these instructions at home: Medicines Take [id number] and prescription medicines only as told by your provider. If you were prescribed antibiotics, take them as told by your provider. Do not stop using the antibiotic even if you start to feel better. Abscess care If you have an abscess that has not drained, apply heat to the affected area. Use the heat source that your provider recommends, such as a moist heat pack or a heating pad. ?Place a towel between your skin and the heat source. ?Leave the heat on for 20 30 minutes at a time. ?If your skin turns bright red, remove the heat right away to prevent miller. The risk of miller is higher if you cannot feel pain, heat, or cold. Follow instructions from your provider about how to take care of your abscess. Make sure you: ?Cover the abscess with a bandage (dressing). ?Wash your hands with soap and water for at least 20 seconds before and after you change the dressing or gauze. If soap and water are not available, use hand cigarette and filter chief inspector. ?Change your dressing or gauze as told by your provider. Check your abscess every day for signs of an infection that is getting worse. Check for: ?More redness, swelling, pain, or tenderness. ?More fluid or blood. ?Warmth. ?More pus or a worse smell. General instructions To avoid spreading the infection: ?Do not share personal care items, towels, or hot tubs with others. ?Avoid making skin contact with other people. ?Be careful when getting rid of used dressings, wound packing, or any drainage from the abscess. Do not use any products that contain nicotine or tobacco. These products include cigarettes, chewing tobacco, and vaping devices, such as e-cigarettes. If you need help quitting, ask your provider. Do not use any creams, ointments, or liquids unless you have been told to by your provider. Contact a health care provider if: You see redness that spreads quickly or red streaks on your skin spreading away from the abscess. You have any signs of worse infection at the abscess. You vomit every time you eat or drink. You have a fever, chills, or muscle aches. The cyst or abscess returns. Get help right away if: You have severe pain. You make less pee (urine) than normal. This information is not intended to replace advice given to you by your health care provider. Make sure you discuss any questions you have with your health care provider. Document Revised: 04/11/2023 Document Reviewed: 04/11/2023 [employer] Patient Education 2023 CNS Response. Follow Up Care 06/24/2024 09:17:31 With:Baldo Link Address: [address] [place] [address] Business (1) When:06/27/2024 10:05:24 [facility] 06-24-2024 Note ED Patient Education Note Infectious Disease Skin Abscess A skin abscess is an infected area on or under your skin. It contains pus and other material. An abscess may also be called a furuncle, carbuncle, or boil. It is often the result of an infection caused by bacteria. An abscess can occur in or on almost any part of your body. Sometimes, an abscess may break open (rupture) on its own. In most cases, it will keep getting worse unless it is treated. An abscess can cause pain and make you feel ill. An untreated abscess can cause infection to spread to other parts of your body or your bloodstream. The abscess may need to be drained. You may also need to take antibiotics. What are the causes? An abscess occurs when germs, like bacteria, pass through your skin and cause an infection. This may be caused by: ? A scrape or cut on your skin. ? A puncture wound through your skin, such as a needle injection or insect bite. ? Blocked oil or sweat glands. ? Blocked and infected hair follicles. ? A fluid-filled sac that forms beneath your skin (sebaceous cyst) and becomes infected. What increases the risk? You may be more likely to develop an abscess if: ? You have problems with blood circulation, or you have a weak body defense system (immune system). ? You have diabetes. ? You have dry and irritated skin. ? You get injections often or use IV drugs. ? You have a foreign body in a wound, such as a splinter. ? You smoke or use tobacco products. What are the signs or symptoms? Symptoms of this condition include: ? A painful, firm bump under the skin. ? A bump with pus at the top. This may break through the skin and drain. Other symptoms include: ? Redness and swelling around the abscess. ? Warmth or tenderness. ? Swelling of the lymph nodes (glands) near the abscess. ? A sore on the skin. How is this diagnosed? This condition may be diagnosed based on a physical exam and your medical history. You may also have tests done, such as: ? A test of a sample of pus. This may be done to find what is causing the infection. ? Blood tests. ? Imaging tests, such as an ultrasound, CT scan, or MRI. How is this treated? A small abscess that drains on its own may not need to be treated. Treatment for larger abscesses may include: ? Moist heat or a heat pack applied to the area a few times a day. ? Incision and drainage. This is a procedure to drain the abscess. ? Antibiotics. For a severe abscess, you may first get antibiotics through an IV and then change to antibiotics by mouth. Follow these instructions at home: Medicines ? Take [id number] and prescription medicines only as told by your provider. ? If you were prescribed antibiotics, take them as told by your provider. Do not stop using the antibiotic even if you start to feel better. Abscess care ? If you have an abscess that has not drained, apply heat to the affected area. Use the heat source that your provider recommends, such as a moist heat pack or a heating pad. ? Place a towel between your skin and the heat source. ? Leave the heat on for 20?30 minutes at a time. ? If your skin turns bright red, remove the heat right away to prevent miller. The risk of miller is higher if you cannot feel pain, heat, or cold. ? Follow instructions from your provider about how to take care of your abscess. Make sure you: ? Cover the abscess with a bandage (dressing). ? Wash your hands with soap and water for at least 20 seconds before and after you change the dressing or gauze. If soap and water are not available, use hand cigarette and filter chief inspector. ? Change your dressing or gauze as told by your provider. ? Check your abscess every day for signs of an infection that is getting worse. Check for: ? More redness, swelling, pain, or tenderness. ? More fluid or blood. ? Warmth. ? More pus or a worse smell. General instructions ? To avoid spreading the infection: ? Do not share personal care items, towels, or hot tubs with others. ? Avoid making skin contact with other people. ? Be careful when getting rid of used dressings, wound packing, or any drainage from the abscess. ? Do not use any products that contain nicotine or tobacco. These products include cigarettes, chewing tobacco, and vaping devices, such as e-cigarettes. If you need help quitting, ask your provider. ? Do not use any creams, ointments, or liquids unless you have been told to by your provider. Contact a health care provider if: ? You see redness that spreads quickly or red streaks on your skin spreading away from the abscess. ? You have any signs of worse infection at the abscess. ? You vomit every time you eat or drink. ? You have a fever, chills, or muscle aches. ? The cyst or abscess returns. Get help right away if: ? You have severe pain. ? You make less pee (urine) than normal. This information is not intended to replac (more content not included)... [facility] 06-19-2024 Note HNO ID: [id number] Author: ?, ?, ? Service: ? Author Type: ? Type: Progress Notes Filed: 07/04/2024 09:29 Note Text: Unable to reach patient for refill of Humira after multiple call attempts. Pt last refilled medication on 05/29/2024. Will schedule future follow-up in 2 weeks from today's date. Office will be updated if future attempts are unsuccessful. Eduarda Staley CPhT [facility] 06-19-2024 Note HNO ID: [id number] Author: ODESSA HEATH RPh Service: ? Author Type: ? Type: Progress Notes Filed: 07/18/2024 11:06 Note Text: Attestation signed by Odessa Heath RPh at 07/18/2024 11:06 AM Unable to reach pt after multiple attempts to set up delivery. Rx will be profiled at this time. If pt contacts us, we are happy to set up delivery for them at that time. No additional action required by [facility] at this time. Odessa Heath, AdrienD Clinical Pharmacist, [employer] [facility] ; Pool: P [facility] Pool #: [id number] [facility] Discontinuation Assessment: Disease group: Inflammatory Medication: HUMIRA SUBCUTANEOUS Discontinue reason: Unable to reach patient Eduarda Staley CPhT [facility] 06-16-2024 History of Present illness Narrative Rheumatology New Outpatient Note Subjective Alyssa De Leon is a 33 y.o. female presenting today for Rheumatoid Arthritis. History of Presenting Problem: Rheum history: Diagnosed with seronegative inflammatory arthritis For many years RF/ACPA -ve [place] 1:160 + sicca symptoms Hydroxychloroquine - Discontinued because of inefficacy Certolizumab (06/03/20) - painful skin sores, muscle aches and cramps, leg swelling. It was helping her joint pain and swelling. Xeljanz 11/2020-11/2021 - diarrhea, nausea, headache, did not help much with joint pain and swelling Infliximab 10/2017-08/2018, 90% of symptoms had resolved, 08/2022- infusion reaction, hives, back pain, numbness Leflunomide 20 mg daily 10/2022 discontinued 10/12 ? 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 Histochemical stains show rare gram-positive rods in cystic spaces, morphologically compatible with Corynebacterium. Has tried doxycycline but Had side effects from doxycycline and was discontinued Currently , distressed because of IGM and is getting worse Current immunosuppressant Now on Humira - since January 2023 for seronegative RA MTX 15 mg weekly Prednisone 10 mg daily Past Medical History: History reviewed. No pertinent past medical history. Allergies: Allergies Allergen Reactions Hydrocodone Hives Infliximab Hives Leflunomide Hives Other Reaction(s): Intolerance Medications: Current Outpatient Medications: acetaminophen (Tylenol) 32 mg/mL suspension, Take by mouth., Disp: , Rfl: adalimumab (HUMIRA,CF, PEDI CROHNS STARTER SUBQ), Inject under the skin., Disp: , Rfl: adalimumab (HUMIRA,CF, PEDI CROHNS STARTER SUBQ), Inject under the skin., Disp: , Rfl: folic acid (Folvite) 1 mg tablet, Take 1 tablet (1 mg) by mouth once daily., Disp: 30 tablet, Rfl: 1.02/06, 21, 1.5-30 mg-mcg tablet tablet, Take 1 tablet by mouth once daily in the morning. Take before meals., Disp: , Rfl: LORATADINE ORAL, See Instructions, 1 tab(s) Oral PRN, Refills(s) 0, Disp: , Rfl: methotrexate (Trexall) 2.5 mg tablet, Take 6 tablets (15 mg total) by mouth 1 (one) time per week. Follow directions carefully, and ask to explain any part you do not understand. Take exactly as directed., Disp: 12 tablet, Rfl: 3 ondansetron (Zofran) 4 mg tablet, TAKE 1 TABLET (4 MG) BY MOUTH EVERY 8 HOURS IF NEEDED FOR NAUSEA OR VOMITING., Disp: 20 tablet, Rfl: 0 pilocarpine (Salagen) 5 mg tablet, Take 1 tablet (5 mg) by mouth 3 times a day., Disp: , Rfl: predniSONE (Deltasone) 5 mg tablet, Take 4 tablets (20 mg) by mouth once daily for 14 days, THEN 3 tablets (15 mg) once daily for 14 days, THEN 2 tablets (10 mg) once daily., Disp: 158 tablet, Rfl: 0 Review of Systems: Constitutional: Denies fever, chills Eyes: Denies dry eyes, pain in the eyes ENT: Denies dry mouth, loss of taste, sores in the mouth Cardiovascular: Denies chest pain, palpitations Respiratory: Denies shortness of breath Gastrointestinal: Denies heartburn Integumentary: Denies photosensitivity, rash or lesions, Raynaud's Neurological: Denies any numbness or tingling MSK: As per HPI. All 10 review of systems have been reviewed and are negative for complaint except as noted in the HPI Objective Physical Examination: Vitals: 06/16/24 0926 BP: 111/76 Pulse: 78 Temp: 36.5 C (97.7 F) Growth %ile [employer] Medias can only be used for patients less than 20 years old. Ht Readings from Last Encounters: 06/16/24 1.524 m (5') Wt Readings from Last 1 Encounters: 06/16/24 54.9 kg (121 lb) General - NAD, sitting up in chair, well-groomed, pleasant, AAOx3 Head: Normocephalic, atraumatic Eyes - PERRLA, EOMI. No conjunctiva injection. Mouth/ENT - Moist oral and nasal mucosa. No facial rash. Cardiovascular - Normal S1, S2. Regular rate and rhythm. No murmurs or rubs. Lungs - Symmetric chest expansion. Clear to auscultation bilaterally. Skin - No rashes or ulcers. Skin warm and dry. No erythema on bilateral cheeks. Extremities - No edema, cyanosis ,or clubbing Neurological - Alert and oriented x 3, grossly intact. No focal deficit. Musculoskeletal - Shoulders: Full ROM, without pain, no swelling, warmth or tenderness. Elbows: Full ROM, without pain, no swelling, warmth or tenderness. Wrists: Full ROM, without pain, no swelling, warmth or tenderness. MCP: No swelling, warmth or tenderness. Metacarpal squeeze negative PIP: No swelling, warmth or tenderness. DIP: No swelling, warmth or tenderness. Hands [employer] Agent: 5/5. Sacroiliac joints: No local tenderness. MUKUND negative. Hips: Full ROM. No malalignment. Knees: Full ROM, without pain, no swelling, warmth or point tenderness. Ankles: Full ROM, without pain, swelling, warmth or tenderness. Toes: Metatarsal squeeze negative Cervical spine: No tenderness or limitation of movement Lumbar spine: No tenderness or limitation of movement Assessment/Plan Alyssa De Leon is a 33 y.o. 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 RF/ACPA -ve. [place] 1:160 + sicca symptoms -Reviewed labs from 04/2024: CBC/CMP/CRP normal -Hand/foot x-rays 07/2022: No acute radiographic findings. No bony erosions. -Continue Humira 40 mg subcutaneous q 14 days, methotrexate 15 mg weekly, folic acid 1 mg daily -Encouraged to increase exercise and physical activity -Advised to improve cardiovascular risk factors (smoking, BP, diabetes, lipids..etc) ##Granulomatous mastitis: -As per previous evaluations by Dr. Martinez: It is plausible that this is a paradoxical granulomatous reaction to TNFi which is extremely rare -Will hold adalimumab and see response with. -s/p doxycycline -Continue to follow with breast surgeon. The assessment and plan, risk and benefits were discussed with the patient. All of the patients questions were answered and patient agrees to the plan. Shirley Salazar MD Clinical Nuclear Monitoring Technician Department of Rheumatology [facility] Subjective Patient ID: Alyssa De Leon is a 33 y.o. female who presents for Rheumatoid Arthritis. HPI Review of Systems Objective Physical Exam Assessment/Plan Shirley Salazar MD 06/16/24 10:15 AM documented in this encounter [facility] Work Phone: 06-16-2024 Instructions Shirley Salazar MD - 06/16/2024 9:20 AM EDT Hold Humira Continue MTX 15 mg weekly Increase folic acid to 1 mg twice daily Prednisone as per Dr. Martinez 10 mg daily for 4 weeks, then go down to 5 mg daily until follow up documented in this encounter [facility] Work Phone: 05-20-2024 Note HNO ID: [id number] Author: BRAD ARRIETA [facility] Service: ? Author Type: ? Type: Progress Notes Filed: 05/28/2024 15:55 Note Text: [facility] Specialty Refill Assessment Medication(s): Humira Patient's current medication list and adherence status to current therapy were reviewed by Specialty Pharmacy clinical pharmacist to identify any new drug interactions or non-compliance to therapy. Therapy continues to be appropriate for disease, patient response, and medical condition. Verification of therapeutic benefit and effectiveness with current therapy was completed. Adverse events, barriers in adherence, and side effects were assessed and addressed if applicable. Will proceed with refill with no changes in therapy - patient progressing towards achieving therapeutic goals based on medication-specific laboratory parameters, disease state markers and outcomes. Office/provider notes have been reviewed prior to dispensing the medication. Last Rheum OV 03/27/23. No future appt scheduled at this time. Last labs Apr 2023. Will inform provider. Cindy Arritea PharmD Clinical Pharmacist, [employer] [facility] ; Pool: [facility] Pool #: [id number] [employer] Planning Internship Assessment Patient confirmed: Yes Med/dose confirmed: Yes Supplies needed: Bandages, Sharps container Missed doses: No Estimated days supply on hand: 0 Next cycle/dose due: 05/30/24 Copay amount: 0 Payment confirmed: Yes Delivery method: FedEx Signature required: Waived on patient request Delivery address: [address] [address] Delivery date: 05/30/24 Questions or concerns for the pharmacist?: No Did you have any side effects believed to be related to this medication, that resulted in hospitalization?: No Current Outpatient Medications on File Prior to Visit Medication Sig adalimumab (HUMIRA,CF, PEN) 40 mg/0.4 mL pen kit Inject 1 pen (40 mg) subcutaneously every 2 weeks. pilocarpine (SALAGEN) 5 mg tablet TAKE 1 TABLET BY MOUTH THREE TIMES A DAY celecoxib (CELEBREX) 100 mg capsule Take 1 capsule by mouth two times a day. diclofenac (VOLTAREN) 1 % topical gel Apply 4 g to affected area four times daily. acetaminophen (TYLENOL ORAL) Take by mouth. loratadine (CLARITIN) 10 mg tablet Take 10 mg by mouth twice daily. MICROGESTIN 1.5/30 1.5-30 mg-mcg Take 1 tablet by mouth once daily. dextroamphetamine-amphetamine (ADDERALL) 20 mg tablet Take 20 mg by mouth once daily. No current facility-administered medications on file prior to visit. [facility] SPECIALTY CLINICAL ASSESSMENT - INFLAMMATORY CONDITIONS V6: Ivent complete: Yes Assessment to use: Refill Assessment of injection issues: Yes Infection screening, including annual TB assessment when applicable to medication: Yes Current medication list (including drug interaction assessment): Yes Experience of adverse reactions to the medication: Yes Date of influenza vaccination reminder: 06/04/2023 Date of most recent vaccination assessment: 06/04/2023 Treatment Plan Information: Humira CF 40mg/0.4mL pen Inject 1 pen (40 mg) subcutaneously every 2 weeks. 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 Tx Plan Start Date: No information available Estimated Start Date Info: No information available Est. Estimated Treatment Duration: Until disease progression or unacceptable toxicity Frankie Guaman CPhT, Inflammatory/allergy [facility] [phone] [facility] 05-11-2024 Note Microbiology PROCEDURE: Wound Culture [R1] SOURCE: Abscess BODY SITE: Axilla COLLECTED DATE/TIME: 05/09/2024 05:44 EDT RECEIVED DATE/TIME: 05/09/2024 11:19 EDT START DATE/TIME: 05/09/2024 11:19 EDT FREE TEXT SOURCE: Herrera Fink DO, DO, Kaylinn A FINAL REPORTS Final Report [] Verified Date/Time: 05/11/2024 12:17 EDT 2+ Methicillin-Resistant Staphylococcus aureus MRSA Final Report Printed to Emergency Dept (1300) Result Review. STAINS Gram Stain Report [] Verified Date/Time: 05/09/2024 12:04 EDT Occasional White Blood Cells 1+ Gram Positive Cocci SUSCEPTIBILITY RESULTS ____ LEGEND: S=Susceptible, N/R=Not Reported, Blank=Data not available, or drug not advisable or tested, I=Intermediate, ESBL=Extended spectrum beta-lactamase, R=Resistant, TFG=Thymidine-dependent strain, MAIRA=Beta-lactamase positive, JANE=mcg/m;(mg/L), S*=Predicted susceptible interp, R*=Predicted resistant interp MRSA Antibiotic JANE Dilutn JANE Interp Amoxicillin/ >4/2 R* Clavulanate Ampicillin >8 R* Ampicillin/ 16/8 R* Sulbactam Azithromycin >4 R Cefazolin <=8 R* Ceftaroline <=0.5 S Ciprofloxacin <=1 S Clindamycin <=0.25 S Daptomycin <=1 S Erythromycin >4 R Gentamicin <=4 S Inducible <=4/0.5 Negative Clindamycin Levofloxacin <=1 S Linezolid <=2 S Oxacillin >2 R Penicillin >8 R* Rifampin <=1 S Tetracycline <=4 S Trimethoprim/ <=0.5/9.5 S Sulfa Vancomycin 1 S Performing Locations R1: This test was performed at: [facility], [address] [place] [address], [id number] , , [facility] Comment on above: Performed By: #### 2 [id number] #### [facility] [address] [place] [id number] 05-09-2024 Evaluation + Plan note Extrac bailey from: Title:ED Note Author:Herrera Fink DO Date :05/09/24 Axillary abscess (L02.419: C utaneous abscess of limb, unspecified) Orders: acetaminophen-oxycodone, 1 EA, Tab, Oral, Once, Stop date 05/09/24 5:48:00 EDT, STAT, Start date 05/09/24 5:48:00 EDT cephalexin, 500 mg = 1 cap(s), Cap, Oral, Once, Stop date 05/09/24 5:16:00 EDT, STAT, Start date 05/09/24 5:16:00 EDT, 05/09/24 5:16:00 EDT cephalexin, 500 mg = 1 cap(s), Oral, TID, X 10 day(s), # 30 cap(s), Refills(s) 0, [id number], 152.4, cm, 05/09/24 4:55:00 EDT, Height/Length Dosing, 54.8, kg, 05/09/24 4:55:00 EDT, Weight Dosing doxycycline, 100 mg = 1 cap(s), Cap, Oral, Once, Stop date 05/09/24 5:16:00 EDT, STAT, Start date 05/09/24 5:16:00 EDT, 05/09/24 5:16:00 EDT doxycycline, 100 mg = 1 tab(s), Oral, q12hr, X 10 day(s), # 20 tab(s), Refills(s) 0, [id number], 152.4, cm, 05/09/24 4:55:00 EDT, Height/Length Dosing, 54.8, kg, 05/09/24 4:55:00 EDT, Weight Dosing Wound Culture [facility] 08-30-2024 Hospital Discharge instructions Patient Education 05/09/2024 05:55:14 Skin Abscess, Qfiz-cq-Dwea Skin Abscess A skin abscess is an infected spot of skin. It can have pus in it. An abscess can happen in any part of your body. Some abscesses break open (rupture) on their own. Most keep getting worse unless they are treated. If your abscess is not treated, the infection can spread deeper into your body and blood. This can make you feel sick. What are the causes? Germs that enter your skin. This may happen if you have: ?A cut or scrape. ?A wound from a needle or an insect bite. ?Blocked oil or sweat glands. ?A problem with the spot where your hair goes into your skin. ?A fluid-filled sac called a cyst under your skin. What increases the risk? Having problems with how your blood moves through your body. Having a weak body defense system (immune system). Having diabetes. Having dry and irritated skin. Needing to get shots often. Putting drugs into your body with a needle. Having a splinter or something else in your skin. Smoking. What are the signs or symptoms? A firm bump under your skin that hurts. A bump with pus at the top. Redness and swelling. Warm or tender spots. A sore on the skin. How is this treated? You may need to: Put a heat pack or a warm, wet washcloth on the spot. Have the pus drained. Take antibiotics. Follow these instructions at home: Medicines Take lfyz-xcg-tekvabk and prescription medicines only as told by your doctor. If you were prescribed antibiotics, take them as told by your doctor. Do not stop taking them even if you start to feel better. Abscess care If you have an abscess that has not drained, put heat on it. Use the heat source that your doctor recommends, such as a moist heat pack or a heating pad. ?Place a towel between your skin and the heat source. ?Leave the heat on for 20 30 minutes. ?If your skin turns bright red, take off the heat right away to prevent miller. The risk of miller ishigher if you cannot feel pain, heat, or cold. Follow instructions from your doctor about how to take care of your abscess. Make sure you: ?Cover the abscess with a bandage. ?Wash your hands with soap and water for at least 20 seconds before and after you change your bandage. If you cannot use soap and water, use hand cigarette and filter chief inspector. ?Change your bandage as told by your doctor. Check your abscess every day for signs that the infection is getting worse. Check for: ?More redness, swelling, or pain. ?More fluid or blood. ?Warmth. ?More pus or a worse smell. General instructions To keep the infection from spreading: ?Do not share personal items or towels. ?Do not go in a hot tub with others. ?Avoid making skin contact with others. ?Be careful when you get rid of used bandages or any pus from the abscess. Do not smoke or use any products that contain nicotine or tobacco. If you need help quitting, ask your doctor. Contact a doctor if: You see red streaks on your skin near the abscess. You have any signs of worse infection. You vomit every time you eat or drink. You have a fever, chills, or muscle aches. The cyst or abscess comes back. Get help right away if: You have very bad pain. You make less pee (urine) than normal. This information is not intended to replace advice given to you by your health care provider. Make sure you discuss any questions you have with your health care provider. Document Revised: 04/11/2023 Document Reviewed: 04/11/2023 [employer] Patient Education 2023 SmartCare system Follow Up Care 05/09/2024 04:48:16 With:Baldo Link Address: [address] [place], [place] [id number]- Business (1) When:05/12/2024 05:46:25 Comments:Take the antibiotics as prescribed till you have completed the course. Follow-up with your primary care doctor in the next 2 to 3 days for further evaluation management. Please return to the ED for any new or worsening symptoms. [facility] 08-13-2024 History of Present illness Narrative* Eduarda Staley - 04/22/2024 9:58 AM EDT [facility] Specialty Refill Assessment Medication(s): Humira Patient's current medication list and adherence status to current therapy were reviewed by Specialty Pharmacy clinical pharmacist to identify any new drug interactions or non-compliance to therapy. Therapy continues to be appropriate for disease, patient response, and medical condition. Verification of therapeutic benefit and effectiveness with current therapy was completed. Adverse events, barriers in adherence, and side effects were assessed and addressed if applicable. Will proceed with refill with no changes in therapy - patient progressing towards achieving therapeutic goals based on medication- specific laboratory parameters, disease state markers and outcomes. Wedding Planning Internship Assessment Patient confirmed: Yes Med/dose confirmed: Yes Supplies needed: No supplies needed Missed doses: No Estimated days supply on hand: 0 Next cycle/dose due: 05/02/24 Copay amount: 0 Payment confirmed: Yes Delivery method: FedEx Signature required: No Delivery address: [address] [place] [address] [address] [place] [place], [place] [address] Delivery date: 04/29/24 Questions or concerns for the pharmacist?: No Did you have any side effects believed to be related to this medication, that resulted in hospitalization?: No Current Outpatient Medications on File Prior to Visit Medication Sig adalimumab (HUMIRA,CF, PEN) 40 mg/0.4 mL pen kit Inject 1 pen (40 mg) subcutaneously every 2 weeks. pilocarpine (SALAGEN) 5 mg tablet TAKE 1 TABLET BY MOUTH THREE TIMES A DAY celecoxib (CELEBREX) 100 mg capsule Take 1 capsule by mouth two times a day. diclofenac (VOLTAREN) 1 % topical gel Apply 4 g to affected area four times daily. acetaminophen (TYLENOL ORAL) Take by mouth. loratadine (CLARITIN) 10 mg tablet Take 10 mg by mouth twice daily. MICROGESTIN 1.5/30 1.5-30 mg-mcg Take 1 tablet by mouth once daily. dextroamphetamine-amphetamine (ADDERALL) 20 mg tablet Take 20 mg by mouth once daily. No current facility-administered medications on file prior to visit. [facility] SPECIALTY CLINICAL ASSESSMENT - INFLAMMATORY CONDITIONS V6: Assessment to use: Refill Date of influenza vaccination reminder: 06/04/2023 Date of most recent vaccination assessment: 06/04/2023 Treatment Plan Information: Humira CF 40mg/0.4mL pen Inject 1 pen (40 mg) subcutaneously every 2 weeks. 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 Tx Plan Start Date: No information available Estimated Start Date Info: No information available Est. Estimated Treatment Duration: Until disease progression or unacceptable toxicity Eduarda Staley CPhT [facility] NoteHNO ID: [id number] Author: ODESSA HEATH RPh Service: ? Author Type: ? Type: Progress Notes Filed: 04/23/2024 16:52 Note Text: [facility] Specialty Refill Assessment Medication(s): Humira Patient's current medication list and adherence status to current therapy were reviewed by Specialty Pharmacy clinical pharmacist to identify any new drug interactions or non-compliance to therapy. Therapy continues to be appropriate for disease, patient response, and medical condition. Verification of therapeutic benefit and effectiveness with current therapy was completed. Adverse events, barriers in adherence, and side effects were assessed and addressed if applicable. Will proceed with refill with no changes in therapy - patient progressing towards achieving therapeutic goals based on medication-specific laboratory parameters, disease state markers and outcomes. Odessa Heath PharmD Clinical Pharmacist, [employer] [facility] ; Pool: [facility]AG[facility] Pool #: [id number] Wedding Planning Internship Assessment Patient confirmed: Yes Med/dose confirmed: Yes Supplies needed: No supplies needed Missed doses: No Estimated days supply on hand: 0 Next cycle/dose due: 05/02/24 Copay amount: 0 Payment confirmed: Yes Delivery method: FedEx Signature required: No Delivery address: [address] [place] [address] [address] [place], [place] [address] Delivery date: 04/29/24 Questions or concerns for the pharmacist?: No Did you have any side effects believed to be related to this medication, that resulted in hospitalization?: No Current Outpatient Medications on File Prior to Visit Medication Sig adalimumab (HUMIRA,CF, PEN) 40 mg/0.4 mL pen kit Inject 1 pen (40 mg) subcutaneously every 2 weeks. pilocarpine (SALAGEN) 5 mg tablet TAKE 1 TABLET BY MOUTH THREE TIMES A DAY celecoxib (CELEBREX) 100 mg capsule Take 1 capsule by mouth two times a day. diclofenac (VOLTAREN) 1 % topical gel Apply 4 g to affected area four times daily. acetaminophen (TYLENOL ORAL) Take by mouth. loratadine (CLARITIN) 10 mg tablet Take 10 mg by mouth twice daily. MICROGESTIN 1.5/30 1.5-30 mg-mcg Take 1 tablet by mouth once daily. dextroamphetamine-amphetamine (ADDERALL) 20 mg tablet Take 20 mg by mouth once daily. No current facility-administered medications on file prior to visit. [facility] SPECIALTY CLINICAL ASSESSMENT - INFLAMMATORY CONDITIONS V6: Assessment to use: Refill Assessment of injection issues: Yes Infection screening, including annual TB assessment when applicable to medication: Yes Current medication list (including drug interaction assessment): Yes Experience of adverse reactions to the medication: Yes Date of influenza vaccination reminder: 06/04/2023 Date of most recent vaccination assessment: 06/04/2023 Treatment Plan Information: Humira CF 40mg/0.4mL pen Inject 1 pen (40 mg) subcutaneously every 2 weeks. 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 Tx Plan Start Date: No information available Estimated Start Date Info: No information available Est. Estimated Treatment Duration: Until disease progression or unacceptable toxicity Eduarda Staley [facility] Discharge instructions Follow Up Care 04/08/2024 12:41:05 With:Baldo Acosta DO, FAM Address: [address] [id number]- When:3 months Comments:Controlled Medication Followup [facility] [place] 07-16-2024 NoteHNO ID: [id number] Author: ODESSA HEATH RPh Service: ? Author Type: ? Type: Progress Notes Filed: 03/28/2024 15:07 Note Text: [facility] Refill Assessment Medication(s): Humira CF Patient's current medication list and adherence status to current therapy were reviewed by Specialty Pharmacy clinical pharmacist to identify any new drug interactions or non-compliance to therapy. Therapy continues to be appropriate for disease, patient response, and medical condition. Verification of therapeutic benefit and effectiveness with current therapy was completed. Adverse events, barriers in adherence, and side effects were assessed and addressed if applicable. Will proceed with refill with no changes in therapy - patient progressing towards achieving therapeutic goals based on medication-specific laboratory parameters, disease state markers and outcomes. Odessa Heath, PharmD Clinical Pharmacist, [employer] [facility] ; Pool: [facility] Pool #: [id number] Wedding Planning Internship Assessment Patient confirmed: Yes Med/dose confirmed: Yes Supplies needed: No supplies needed Missed doses: No Estimated days supply on hand: 0 Next cycle/dose due: 04/04/24 Copay amount: 0 Payment confirmed: Yes Delivery method: FedEx Signature required: No Delivery address: [address] [facility] [place], [place] [address] Delivery date: 04/01/24 Questions or concerns for the pharmacist?: No Did you have any side effects believed to be related to this medication, that resulted in hospitalization?: No Current Outpatient Medications on File Prior to Visit Medication Sig adalimumab (HUMIRA,CF, PEN) 40 mg/0.4 mL pen kit Inject 1 pen (40 mg) subcutaneously every 2 weeks. pilocarpine (SALAGEN) 5 mg tablet TAKE 1 TABLET BY MOUTH THREE TIMES A DAY celecoxib (CELEBREX) 100 mg capsule Take 1 capsule by mouth two times a day. diclofenac (VOLTAREN) 1 % topical gel Apply 4 g to affected area four times daily. acetaminophen (TYLENOL ORAL) Take by mouth. loratadine (CLARITIN) 10 mg tablet Take 10 mg by mouth twice daily. MICROGESTIN 1.5/30 1.5-30 mg-mcg Take 1 tablet by mouth once daily. dextroamphetamine-amphetamine (ADDERALL) 20 mg tablet Take 20 mg by mouth once daily. No current facility-administered medications on file prior to visit. [facility] Visit Assessment - Inflammatory Conditions: Assessment to use: Refill Vaccination Assessment: Date of influenza vaccination reminder: 06/04/2023 Date of most recent vaccination assessment: 06/04/2023 Treatment Plan Information: Treatment Plan Information: Humira CF 40mg/0.4mL pen Inject 1 pen (40 mg) subcutaneously every 2 weeks. 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 Past therapies: Remicade (anaphylaxis), Xeljanz, Cimzia, leflunomide, MTX Estimated Treatment Duration: Until disease progression or unacceptable toxicity Refill Assessment: Concurrent med therapy and DMARD screening: Yes Assessment of injection issues: Yes Screening for infection: Yes Adverse reactions and mitigation: Yes COPD monitoring (Orencia): N/A Assessment of efficacy: Yes Eduarda Staley CPhT [facility] Evaluation + Plan note Diagnostic Tests Pending * Chlamydia/Gonococcus, MAGUI 03/24/24 [facility]06-17-2024 NoteHNO ID: [id number] Author: ODESSA HEATH RPh Service: ? Author Type: ? Type: Progress Notes Filed: 03/04/2024 09:26 Note Text: [facility] Refill Assessment Medication(s): Humira CF Patient's current medication list and adherence status to current therapy were reviewed by Specialty Pharmacy clinical pharmacist to identify any new drug interactions or non-compliance to therapy. Therapy continues to be appropriate for disease, patient response, and medical condition. Verification of therapeutic benefit and effectiveness with current therapy was completed. Adverse events, barriers in adherence, and side effects were assessed and addressed if applicable. Will proceed with refill with no changes in therapy - patient progressing towards achieving therapeutic goals based on medication-specific laboratory parameters, disease state markers and outcomes. Odessa Heath PharmD Clinical Pharmacist, [employer] [facility] ; Pool: [facility] Pool #: [id number] Wedding Planning Internship Assessment Patient confirmed: Yes Med/dose confirmed: Yes Supplies needed: No supplies needed Missed doses: No Estimated days supply on hand: 0 Next cycle/dose due: 03/07/24 Copay amount: 0 Payment confirmed: Yes Delivery method: FedEx Signature required: No Delivery address: [address] [place] [address] [place], [place] [id number] Delivery date: 03/06/24 Questions or concerns for the pharmacist?: No Did you have any side effects believed to be related to this medication, that resulted in hospitalization?: No Current Outpatient Medications on File Prior to Visit Medication Sig adalimumab (HUMIRA,CF, PEN) 40 mg/0.4 mL pen kit Inject 1 pen (40 mg) subcutaneously every 2 weeks. pilocarpine (SALAGEN) 5 mg tablet TAKE 1 TABLET BY MOUTH THREE TIMES A DAY celecoxib (CELEBREX) 100 mg capsule Take 1 capsule by mouth two times a day. diclofenac (VOLTAREN) 1 % topical gel Apply 4 g to affected area four times daily. acetaminophen (TYLENOL ORAL) Take by mouth. loratadine (CLARITIN) 10 mg tablet Take 10 mg by mouth twice daily. MICROGESTIN 1.5/30 1.5-30 mg-mcg Take 1 tablet by mouth once daily. dextroamphetamine-amphetamine (ADDERALL) 20 mg tablet Take 20 mg by mouth once daily. No current facility-administered medications on file prior to visit. [facility] Visit Assessment - Inflammatory Conditions: Assessment to use: Refill Vaccination Assessment: Date of influenza vaccination reminder: 06/04/2023 Date of most recent vaccination assessment: 06/04/2023 Treatment Plan Information: Treatment Plan Information: Humira CF 40mg/0.4mL pen Inject 1 pen (40 mg) subcutaneously every 2 weeks. 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 Author Type: ? Type: Progress Notes Filed: 02/01/2024 12:43 Note Text: [facility]ty Refill Assessment Medication(s): Humira CF Patient's current medication list and adherence status to current therapy were reviewed by Specialty Pharmacy clinical pharmacist to identify any new drug interactions or non-compliance to therapy. Therapy continues to be appropriate for disease, patient response, and medical condition. Verification of therapeutic benefit and effectiveness with current therapy was completed. Adverse events, barriers in adherence, and side effects were assessed and addressed if applicable. Will proceed with refill with no changes in therapy - patient progressing towards achieving therapeutic goals based on medication-specific laboratory parameters, disease state markers and outcomes. Date of Alyssa De Leon's last Rheumatology office visit: 03/27/23 Next appointment date: none Last labs: 10/02/23 Last TB test: TB Result Date Value Ref Range Status 07/18/2022 Negative Final Odessa Heath PharmD Clinical Pharmacist, [employer] [facility] ; Pool: P [facility] Pool #: [id number] [employer] Assessment Patient confirmed: Yes Med/dose confirmed: Yes Supplies needed: Bandages Missed doses: No Estimated days supply on hand: 0 Next cycle/dose due: 02/08/24 Copay amount: 0 Payment confirmed: Yes Delivery method: FedEx Signature required: No Delivery address: [address] [place] [address] [place], [place] [id number] Delivery date: 02/06/24 Questions or concerns for the pharmacist?: No Current Outpatient Medications on File Prior to Visit Medication Sig adalimumab (HUMIRA,CF, PEN) 40 mg/0.4 mL pen kit Inject 1 pen (40 mg) subcutaneously every 2 weeks. pilocarpine (SALAGEN) 5 mg tablet TAKE 1 TABLET BY MOUTH THREE TIMES A DAY celecoxib (CELEBREX) 100 mg capsule Take 1 capsule by mouth two times a day. diclofenac (VOLTAREN) 1 % topical gel Apply 4 g to affected area four times daily. acetaminophen (TYLENOL ORAL) Take by mouth. loratadine (CLARITIN) 10 mg tablet Take 10 mg by mouth twice daily. MICROGESTIN 1.5/30 1.5-30 mg-mcg Take 1 tablet by mouth once daily. dextroamphetamine-amphetamine (ADDERALL) 20 mg tablet Take 20 mg by mouth once daily. No current facility-administered medications on file prior to visit. [facility] Visit Assessment - Inflammatory Conditions: Assessment to use: Refill Vaccination Assessment: Date of influenza vaccination reminder: 06/04/2023 Date of most recent vaccination assessment: 06/04/2023 Treatment Plan Information: Treatment Plan Information: Humira CF 40mg/0.4mL pen Inject 1 pen (40 mg) subcutaneously every 2 weeks. M06.9 RA Past therapies: Remicade (anaphylaxis), Xeljanz, Cimzia, leflunomide, MTX Estimated Treatment Duration: Until disease progression or unacceptable toxicity Refill Assessment: Concurrent med therapy and DMARD screening: Yes Assessment of injection issues: Yes Screening for infection: Yes Adverse reactions and mitigation: Yes COPD monitoring (Orencia): N/A Assessment of efficacy: Yes Eduarda Staley CPhT [facility] Tele[facility] Note* Telephone Encounter - Odessa Heath [facility] - 01/28/2024 5:00 PM EDT Patient needs refill of Humira Date of Alyssa De Leon's last Rheumatology office visit: 03/27/23 Next appointment date: none Last labs: 10/02/23 Last TB test: TB Result Date Value Ref Range Status 07/18/2022 Negative Final Requested Prescriptions Pending Prescriptions Disp Refills adalimumab (HUMIRA,CF, PEN) 40 mg/0.4 mL pen kit 2 Each 5 Sig: Inject 1 pen (40 mg) subcutaneously every 2 weeks. Patient prefers: [facility] Thank you! Odessa Heath PharmD Clinical Pharmacist, [employer] [facility] ; Pool: P [facility] Pool #: [id number] [facility]05-20-2024 Miscellaneous Notes* Telephone Encounter - Odessa Heath RPh - 01/28/2024 5:00 PM EDT Patient needs refill of Humira Date of Alyssa De Leon's last Rheumatology office visit: 03/27/23 Next appointment date: none Last labs: 10/02/23 Last TB test: TB Result Date Value Ref Range Status 07/18/2022 Negative Final Requested Prescriptions Pending Prescriptions Disp Refills adalimumab (HUMIRA,CF, PEN) 40 mg/0.4 mL pen kit 2 Each 5 Sig: Inject 1 pen (40 mg) subcutaneously every 2 weeks. Patient prefers: [facility] Thank you! Odessa Heath PharmD Clinical Pharmacist, [employer] [facility] ; Pool: P [facility] Pool #: [id number] documented in [facility]Dun[facility]05-[facility]24 Telephone encounter Note * Telephone Encounter - Rebeca Anthony RN - 01/21/2024 12:02 PM EDT Most recent Rheumatology visit: 03/27/2023 (with Janie Herman) Rheumatology Care Team: None on file Recent Office Visits - This Specialty 03/27/2023 Rheumatoid arthritis involving multiple sites, unspecified whether rheumatoid factor present (HCC) Rheumatology Janie Herman MD 12/27/2022 Inflammatory arthritis Rheumatology Janie Herman MD 12/05/2022 Rheumatoid arthritis involving multiple sites, unspecified whether rheumatoid factor present (HCC) Rheumatology Janie Herman MD Upcoming Rheumatology Appointments - Next 365 Days No appointments to display CBC: Latest Ref Rng & Units 03/27/2023 10/02/2023 CBC WBC 3.70 - 11.00 k/uL 5.06 6.89 Hemoglobin 11.5 - 15.5 g/dL 13.0 14.0 Hematocrit 36.0 - 46.0 % 39.6 40.6 Platelet Count 150 - 400 k/uL 325 282 Abs Neut (ANC) 1.45 - 7.50 k/uL 2.43 3.58 Abs Lymph 1.00 - 4.00 k/uL 2.20 2.51 Vitamin D: None on file in the last 6 months LFT: None on file in the last 6 months Hepatic Function: Creatinine: None on file in the last 6 months ESR/CRP: None on file in the last 6 months Uric Acid: None on file in the last 6 months Open Standing (Multiple Instance) Lab Orders Remain Interval Expires Ordered Last Rel. CBC + DIFF [SQCBCDIF] 3/4 Once per week 06/07/24 06/08/23 10/02/23 Auth. provider: King Ho MD Assoc. diagnoses: Mastitis chronic, right Open Future (Single Instance) Lab Orders None Rebeca Anthony RN [facility]05-13-2024 Miscellaneous Notes* Telephone Encounter - Rebeca Anthony RN - 01/21/2024 12:02 PM EDT Most recent Rheumatology visit: 03/27/2023 (with Janie Herman) Rheumatology Care Team: None on file Recent Office Visits - This Specialty 03/27/2023 Rheumatoid arthritis involving multiple sites, unspecified whether rheumatoid factor present (HCC) Rheumatology Janie Herman MD 12/27/2022 Inflammatory arthritis Rheumatology Janie Herman MD 12/05/2022 Rheumatoid arthritis involving multiple sites, unspecified whether rheumatoid factor present (HCC) Rheumatology Janie Herman MD Upcoming Rheumatology Appointments - Next 365 Days No appointments to display CBC: Latest Ref Rng & Units 03/27/2023 10/02/2023 CBC WBC 3.70 - 11.00 k/uL 5.06 6.89 Hemoglobin 11.5 - 15.5 g/dL 13.0 14.0 Hematocrit 36.0 - 46.0 % 39.6 40.6 Platelet Count 150 - 400 k/uL 325 282 Abs Neut (ANC) 1.45 - 7.50 k/uL 2.43 3.58 Abs Lymph 1.00 - 4.00 k/uL 2.20 2.51 Vitamin D: None on file in the last 6 months LFT: None on file in the last 6 months Hepatic Function: Creatinine: None on file in the last 6 months ESR/CRP: None on file in the last 6 months Uric Acid: None on file in the last 6 months Open Standing (Multiple Instance) Lab Orders Remain Interval Expires Ordered Last Rel. CBC + DIFF [SQCBCDIF] 3/4 Once per week 06/07/24 06/08/23 10/02/23 Auth. provider: King Ho MD Assoc. diagnoses: Mastitis chronic, right Open Future (Single Instance) Lab Orders None Rebeca Anthony RN documented in this encounterDunlap [facility] Hospital04-29-2024 Telephone encounter Note * Telephone Encounter - Rebeca Anthony RN - 01/07/2024 9:36 AM EDT Most recent Rheumatology visit: 03/27/2023 (with Janie Herman) Rheumatology Care Team: None on file Recent Office Visits - This Specialty 03/27/2023 Rheumatoid arthritis involving multiple sites, unspecified whether rheumatoid factor present (HCC) Rheumatology Janie Herman MD 12/27/2022 Inflammatory arthritis Rheumatology Janie Herman MD 12/05/2022 Rheumatoid arthritis involving multiple sites, unspecified whether rheumatoid factor present (HCC) Rheumatology Janie Herman MD Upcoming Rheumatology Appointments - Next 365 Days No appointments to display CBC: Latest Ref Rng & Units 03/27/2023 10/02/2023 CBC WBC 3.70 - 11.00 k/uL 5.06 6.89 Hemoglobin 11.5 - 15.5 g/dL 13.0 14.0 Hematocrit 36.0 - 46.0 % 39.6 40.6 Platelet Count 150 - 400 k/uL 325 282 Abs Neut (ANC) 1.45 - 7.50 k/uL 2.43 3.58 Abs Lymph 1.00 - 4.00 k/uL 2.20 2.51 Vitamin D: None on file in the last 6 months LFT: None on file in the last 6 months Hepatic Function: Creatinine: None on file in the last 6 months ESR/CRP: None on file in the last 6 months Uric Acid: None on file in the last 6 months Open Standing (Multiple Instance) Lab Orders Remain Interval Expires Ordered Last Rel. CBC + DIFF [SQCBCDIF] 3/4 Once per week 06/07/24 06/08/23 10/02/23 Auth. provider: King Ho MD Assoc. diagnoses: Mastitis chronic, right Open Future (Single Instance) Lab Orders None Rebeca Anthony RN [facility]04-29-2024 Miscellaneous Notes* Telephone Encounter - Rebeca Anthony RN - 01/07/2024 9:36 AM EDT Most recent Rheumatology visit: 03/27/2023 (with Janie Herman) Rheumatology Care Team: None on file Recent Office Visits - This Specialty 03/27/2023 Rheumatoid arthritis involving multiple sites, unspecified whether rheumatoid factor present (HCC) Rheumatology Janie Herman MD 12/27/2022 Inflammatory arthritis Rheumatology Janie Herman MD 12/05/2022 Rheumatoid arthritis involving multiple sites, unspecified whether rheumatoid factor present (HCC) Rheumatology Janie Herman MD Upcoming Rheumatology Appointments - Next 365 Days No appointments to display CBC: Latest Ref Rng & Units 03/27/2023 10/02/2023 CBC WBC 3.70 - 11.00 k/uL 5.06 6.89 Hemoglobin 11.5 - 15.5 g/dL 13.0 14.0 Hematocrit 36.0 - 46.0 % 39.6 40.6 Platelet Count 150 - 400 k/uL 325 282 Abs Neut (ANC) 1.45 - 7.50 k/uL 2.43 3.58 Abs Lymph 1.00 - 4.00 k/uL 2.20 2.51 Vitamin D: None on file in the last 6 months LFT: None on file in the last 6 months Hepatic Function: Creatinine: None on file in the last 6 months ESR/CRP: None on file in the last 6 months Uric Acid: None on file in the last 6 months Open Standing (Multiple Instance) Lab Orders Remain Interval Expires Ordered Last Rel. CBC + DIFF [SQCBCDIF] 3/4 Once per week 06/07/24 06/08/23 10/02/23 Auth. provider: King Ho MD Assoc. diagnoses: Mastitis chronic, right Open Future (Single Instance) Lab Orders None Rebeca Anthony RN documented in this encounterDunlap [facility] Hospital04-22-2024 History of Present illness Narrative* Mana Shine - 12/31/2023 2:50 PM EDT [facility] Ref[facility] Assessment Medication(s): Humira Patient's current medication list and adherence status to current therapy were reviewed by Specialty Pharmacy clinical pharmacist to identify any new drug interactions or non-compliance to therapy. Therapy continues to be appropriate for disease, patient response, and medical condition. Verification of therapeutic benefit and effectiveness with current therapy was completed. Adverse events, barriers in adherence, and side effects were assessed and addressed if applicable. Will proceed with refill with no changes in therapy - patient progressing towards achieving therapeutic goals based on medication- specific laboratory parameters, disease state markers and outcomes. Odessa Heath, AdrienD Clinical Pharmacist, [employer] [facility] ; Pool: P [facility] Pool #: [id number] [employer] Assessment Patient confirmed: Yes Med/dose confirmed: Yes Supplies needed: No supplies needed Missed doses: No Estimated days supply on hand: 0 Next cycle/dose due: 01/11/24 Copay amount: 0 Payment confirmed: Yes Delivery method: FedEx Signature required: No Delivery address: [address] [place] [address] [address] [facility] [address] [id number] Delivery date: 01/08/24 Questions or concerns for the pharmacist?: No Current Outpatient Medications on File Prior to Visit Medication Sig pilocarpine (SALAGEN) 5 mg tablet Take 1 tablet by mouth three times a day. celecoxib (CELEBREX) 100 mg capsule Take 1 capsule by mouth two times a day. adalimumab (HUMIRA,CF, PEN) 40 mg/0.4 mL pen kit Inject 1 pen (40 mg) subcutaneously every 2 weeks. diclofenac (VOLTAREN) 1 % topical gel Apply 4 g to affected area four times daily. acetaminophen (TYLENOL ORAL) Take by mouth. loratadine (CLARITIN) 10 mg tablet Take 10 mg by mouth twice daily. MICROGESTIN 1.5/30 1.5-30 mg-mcg Take 1 tablet by mouth once daily. dextroamphetamine-amphetamine (ADDERALL) 20 mg tablet Take 20 mg by mouth once daily. No current facility-administered medications on file prior to visit. [facility] Visit Assessment - Inflammatory Conditions: Ivent complete: No Assessment to use: Refill Vaccination Assessment: Date of influenza vaccination reminder: 06/04/2023 Date of most recent vaccination assessment: 06/04/2023 Treatment Plan Information: Treatment Plan Information: Humira CF 40mg/0.4mL pen Inject 1 pen (40 mg) subcutaneously every 2 weeks. M06.9 RA Past therapies: Remicade (anaphylaxis), Xeljanz, Cimzia, leflunomide, MTX Estimated Treatment Duration: Until disease progression or unacceptable toxicity Refill Assessment: Concurrent med therapy and DMARD screening: Yes Assessment of injection issues: Yes Screening for infection: Yes Adverse reactions and mitigation: Yes COPD monitoring (Orencia): N/A Assessment of efficacy: Yes Mana Shine CPhT, Inflammatory/Allergy [facility] [phone] documented in this encounterDunlap Memorial Hospital04-22-2024 NoteHNO ID: [id number] Author: ODESSA HEATH RPh Service: ? Author Type: ? Type: Progress Notes Filed: 01/02/2024 11:40 Note Text: [facility] Refill Assessment Medication(s): Humira Patient's current medication list and adherence status to current therapy were reviewed by Specialty Pharmacy clinical pharmacist to identify any new drug interactions or non-compliance to therapy. Therapy continues to be appropriate for disease, patient response, and medical condition. Verification of therapeutic benefit and effectiveness with current therapy was completed. Adverse events, barriers in adherence, and side effects were assessed and addressed if applicable. Will proceed with refill with no changes in therapy - patient progressing towards achieving therapeutic goals based on medication-specific laboratory parameters, disease state markers and outcomes. Odessa Heath PharmD Clinical Pharmacist, [employer] [facility] ; Pool: [facility] Pool #: [id number] [employer]ship Assessment Patient confirmed: Yes Med/dose confirmed: Yes Supplies needed: No supplies needed Missed doses: No Estimated days supply on hand: 0 Next cycle/dose due: 01/11/24 Copay amount: 0 Payment confirmed: Yes Delivery method: FedEx Signature required: No Delivery address: [address] [place] [address] [address] [facility] [address] [facility] [address] Delivery date: 01/08/24 Questions or concerns for the pharmacist?: No Current Outpatient Medications on File Prior to Visit Medication Sig pilocarpine (SALAGEN) 5 mg tablet Take 1 tablet by mouth three times a day. celecoxib (CELEBREX) 100 mg capsule Take 1 capsule by mouth two times a day. adalimumab (HUMIRA,CF, PEN) 40 mg/0.4 mL pen kit Inject 1 pen (40 mg) subcutaneously every 2 weeks. diclofenac (VOLTAREN) 1 % topical gel Apply 4 g to affected area four times daily. acetaminophen (TYLENOL ORAL) Take by mouth. loratadine (CLARITIN) 10 mg tablet Take 10 mg by mouth twice daily. MICROGESTIN 1.5/30 1.5-30 mg-mcg Take 1 tablet by mouth once daily. dextroamphetamine-amphetamine (ADDERALL) 20 mg tablet Take 20 mg by mouth once daily. No current facility-administered medications on file prior to visit. [facility] Visit Assessment - Inflammatory Conditions: Ivent complete: No Assessment to use: Refill Vaccination Assessment: Date of influenza vaccination reminder: 06/04/2023 Date of most recent vaccination assessment: 06/04/2023 Treatment Plan Information: Treatment Plan Information: Humira CF 40mg/0.4mL pen Inject 1 pen (40 mg) subcutaneously every 2 weeks. M06.9 RA Past therapies: Remicade (anaphylaxis), Xeljanz, Cimzia, leflunomide, MTX Estimated Treatment Duration: Until disease progression or unacceptable toxicity Refill Assessment: Concurrent med therapy and DMARD screening: Yes Assessment of injection issues: Yes Screening for infection: Yes Adverse reactions and mitigation: Yes COPD monitoring (Orencia): N/A Assessment of efficacy: Yes Mana Shine CPhT, Inflammatory/Allergy [facility] [phone]03-[facility]-2024 NoteHNO ID: [id number] Author: ODESSA HEATH RPh Service: ? Author Type: ? Type: Progress Notes Filed: 12/07/2023 14:56 Note Text: [facility] Refill Assessment Medication(s): Humira Patient's current medication list and adherence status to current therapy were reviewed by Specialty Pharmacy clinical pharmacist to identify any new drug interactions or non-compliance to therapy. Therapy continues to be appropriate for disease, patient response, and medical condition. Verification of therapeutic benefit and effectiveness with current therapy was completed. Adverse events, barriers in adherence, and side effects were assessed and addressed if applicable. Will proceed with refill with no changes in therapy - patient progressing towards achieving therapeutic goals based on medication-specific laboratory parameters, disease state markers and outcomes. Odessa Heath PharmD Clinical Pharmacist, [employer] [facility] ; Pool: P [facility] Pool #: [id number] [employer]ship Assessment Patient confirmed: Yes Med/dose confirmed: Yes Supplies needed: Bandages Missed doses: No Estimated days supply on hand: 0 Next cycle/dose due: 12/14/23 Copay amount: 0 Payment confirmed: Yes Delivery method: FedEx Signature required: No Delivery address: [address] [place] [address] Delivery date: 12/11/23 Questions or concerns for the pharmacist?: No Current Outpatient Medications on File Prior to Visit Medication Sig pilocarpine (SALAGEN) 5 mg tablet Take 1 tablet by mouth three times a day. celecoxib (CELEBREX) 100 mg capsule Take 1 capsule by mouth two times a day. adalimumab (HUMIRA,CF, PEN) 40 mg/0.4 mL pen kit Inject 1 pen (40 mg) subcutaneously every 2 weeks. diclofenac (VOLTAREN) 1 % topical gel Apply 4 g to affected area four times daily. acetaminophen (TYLENOL ORAL) Take by mouth. loratadine (CLARITIN) 10 mg tablet Take 10 mg by mouth twice daily. MICROGESTIN 1.5/30 1.5-30 mg-mcg Take 1 tablet by mouth once daily. dextroamphetamine-amphetamine (ADDERALL) 20 mg tablet Take 20 mg by mouth once daily. No current facility-administered medications on file prior to visit. [facility] Visit Assessment - Inflammatory Conditions: Ivent complete: No Assessment to use: Refill Vaccination Assessment: Date of influenza vaccination reminder: 06/04/2023 Date of most recent vaccination assessment: 06/04/2023 Treatment Plan Information: Treatment Plan Information: Humira CF 40mg/0.4mL pen Inject 1 pen (40 mg) subcutaneously every 2 weeks. M06.9 RA Past therapies: Remicade (anaphylaxis), Xeljanz, Cimzia, leflunomide, MTX Estimated Treatment Duration: Until disease progression or unacceptable toxicity Refill Assessment: Concurrent med therapy and DMARD screening: Yes Assessment of injection issues: Yes Screening for infection: Yes Adverse reactions and mitigation: Yes COPD monitoring (Orencia): N/A Assessment of efficacy: Yes Mana Shine CPhT, Inflammatory/Allergy [facility] [phone] [facility]03-19-2024 Miscellaneous Notes* Telephone Encounter - Rebeca Anthony RN - 11/27/2023 11:11 AM EDT Most recent Rheumatology visit: 03/27/2023 (with Janie Herman) Rheumatology Care Team: None on file Recent Office Visits - This Specialty 03/27/2023 Rheumatoid arthritis involving multiple sites, unspecified whether rheumatoid factor present (HCC) Rheumatology Janie Herman MD 12/27/2022 Inflammatory arthritis Rheumatology Janie Herman MD 12/05/2022 Rheumatoid arthritis involving multiple sites, unspecified whether rheumatoid factor present (HCC) Rheumatology Janie Herman MD Upcoming Rheumatology Appointments - Next 365 Days No appointments to display CBC: Latest Ref Rng & Units 03/27/2023 10/02/2023 CBC WBC 3.70 - 11.00 k/uL 5.06 6.89 Hemoglobin 11.5 - 15.5 g/dL 13.0 14.0 Hematocrit 36.0 - 46.0 % 39.6 40.6 Platelet Count 150 - 400 k/uL 325 282 Abs Neut (ANC) 1.45 - 7.50 k/uL 2.43 3.58 Abs Lymph 1.00 - 4.00 k/uL 2.20 2.51 Vitamin D: None on file in the last 6 months LFT: None on file in the last 6 months Hepatic Function: Creatinine: None on file in the last 6 months ESR/CRP: None on file in the last 6 months Uric Acid: None on file in the last 6 months Open Standing (Multiple Instance) Lab Orders Remain Interval Expires Ordered Last Rel. CBC + DIFF [SQCBCDIF] 3/4 Once per week 06/07/24 06/08/23 10/02/23 Auth. provider: King Ho MD Assoc. diagnoses: Mastitis chronic, right Open Future (Single Instance) Lab Orders None Rebeca Anthony RN documented in this encounterDunlap Memorial Hospital03-11-2024 Hospital Discharge instructions Patient Education 11/19/2023 16:45:08 Fibroadenoma, [id number]-[id number] Fibroadenoma A fibroadenoma is a lump (tumor) in the breast. The lump is benign. This means that it is not cancer. It may move under your skin when you touch it. This kind of lump can grow in one breast or in both breasts. What are the causes? The cause of this condition is not known. What increases the risk? Being a woman between the ages of 20 and 30. Being a woman of descent. What are the signs or symptoms? Some lumps are too small to be felt. If you can feel it, it may feel like a lump that is: Firm. Round. Smooth. Able to move around a bit. How is this treated? Regular breast exams are done to check for changes in the lump. In some cases, the lump may be removed if: ?It is large. ?It keeps growing. ?It causes pain or changes in the skin of the breast. ?A young girl has a lump. Lumps in young girls tend to grow over time. Follow these instructions at home: Breast exams Check your breasts at home as told by your doctor. Report any changes or concerns. Check for the following: The size of the lump. The look and feel of the skin of your breasts. The look and feel of your nipples. General instructions Do not smoke or use any products that contain nicotine or tobacco. These can further increase your cancer risk. If you need help quitting, ask your doctor. Keep all follow-up visits. You will need breast exams on a regular basis. Contact a doctor if: The lump changes in size or feels different. The lump starts to be painful. You find a new lump. You have any changes in how the skin on your breast looks. You have any changes in your nipple, such as: ?Fluid leaking from your nipple. ?Redness around your nipple. Summary A fibroadenoma is a lump (tumor) in the breast. The lump is benign. This means that it is not cancer. This may feel firm, round, or smooth, and it may move around a bit when touched. Some lumps are toosmall to be felt. Do breast exams at home. Watch for changes in the size of the lump. Contact your doctor if the lump grows bigger or starts to cause pain. Also, let your doctor know ifyou have any changes in your nipple or in how the skin on your breast looks. This information is not intended to replace advice given to you by your health care provider. Make sure you discuss any questions you have with your health care provider. Document Revised: 06/27/2021 Document Reviewed: 06/27/2021 [employer] Patient Education 2022 CNS Response. Follow Up Care 11/09/2023 09:04:23 With:Link Baldo [facility] Address: [address] [place] [address]- When:3 months Comments:Controlled Medication Followup [facility] 03-11-2024 Evaluation + Plan note Future Scheduled Tests Radiology* US Breast Unilateral Rt Complete 11/19/23 * MA Mamm Diag w/CAD if perf and 3D RT 11/19/23 [facility] 02-27-2024 NoteHNO ID: [id number] Author: BRAD ARRIETA RPh Service: ? Author Type: ? Type: Progress Notes Filed: 11/12/2023 19:51 Note Text: [facility] Refill Assessment Medication(s): Humira CF Patient's current medication list and adherence status to current therapy were reviewed by Specialty Pharmacy clinical pharmacist to identify any new drug interactions or non-compliance to therapy. Therapy continues to be appropriate for disease, patient response, and medical condition. Verification of therapeutic benefit and effectiveness with current therapy was completed. Adverse events, barriers in adherence, and side effects were assessed and addressed if applicable. Will proceed with refill with no changes in therapy - patient progressing towards achieving therapeutic goals based on medication-specific laboratory parameters, disease state markers and outcomes. Cindy Arrieta, AdrienD Clinical Pharmacist, [employer] [facility] ; Pool: P [facility] Pool #: [id number] Wedding Planning Internship Assessment Patient confirmed: Yes Med/dose confirmed: Yes Supplies needed: No supplies needed Missed doses: No Estimated days supply on hand: 0 Next cycle/dose due: 11/16/23 Copay amount: 0 Payment confirmed: Yes Delivery method: FedEx Signature required: No Delivery address: [address] [place] [address] Delivery date: 11/14/23 Questions or concerns for the pharmacist?: No [facility] Visit Assessment - Inflammatory Conditions: Ivent complete: No Assessment to use: Refill Vaccination Assessment: Date of influenza vaccination reminder: 06/04/2023 Date of most recent vaccination assessment: 06/04/2023 Treatment Plan Information: Treatment Plan Information: Humira CF 40mg/0.4mL pen Inject 1 pen (40 mg) subcutaneously every 2 weeks. M06.9 RA Past therapies: Remicade (anaphylaxis), Xeljanz, Cimzia, leflunomide, MTX Estimated Treatment Duration: Until disease progression or unacceptable toxicity Refill Assessment: Concurrent med therapy and DMARD screening: Yes Assessment of injection issues: Yes Screening for infection: Yes Adverse reactions and mitigation: Yes COPD monitoring (Orencia): N/A Assessment of efficacy: Yes Isacc Lundberg CPhT [facility], Inflammatory P: [phone] F: [phone] NoteHNO ID: [id number] Author: ODESSA HEATH RPh Service: ? Author Type: ? Type: Progress Notes Filed: 10/10/2023 17:46 Note Text: [facility] Refill Assessment Medication(s): Humira CF Patient's current medication list and adherence status to current therapy were reviewed by Specialty Pharmacy clinical pharmacist to identify any new drug interactions or non-compliance to therapy. Therapy continues to be appropriate for disease, patient response, and medical condition. Verification of therapeutic benefit and effectiveness with current therapy was completed. Adverse events, barriers in adherence, and side effects were assessed and addressed if applicable. Will proceed with refill with no changes in therapy - patient progressing towards achieving therapeutic goals based on medication-specific laboratory parameters, disease state markers and outcomes. Odessa Heath, AdrienD Clinical Pharmacist, [employer] [facility] ; Pool: P [facility] Pool #: [id number] Wedding Planning Internship Assessment Patient confirmed: Yes Med/dose confirmed: Yes Supplies needed: No supplies needed Missed doses: No Estimated days supply on hand: 0 Next cycle/dose due: 10/19/23 Copay amount: 0 Payment confirmed: Yes Delivery method: FedEx Signature required: Waived on patient request Delivery address: [address] [place] [address] [address] [place] [address] Delivery date: 10/12/23 Questions or concerns for the pharmacist?: No [facility] Visit Assessment - Inflammatory Conditions: Ivent complete: No Assessment to use: Refill Vaccination Assessment: Date of influenza vaccination reminder: 06/04/2023 Date of most recent vaccination assessment: 06/04/2023 Treatment Plan Information: Treatment Plan Information: Humira CF 40mg/0.4mL pen Inject 1 pen (40 mg) subcutaneously every 2 weeks. M06.9 RA Past therapies: Remicade (anaphylaxis), Xeljanz, Cimzia, leflunomide, MTX Estimated Treatment Duration: Until disease progression or unacceptable toxicity Refill Assessment: Concurrent med therapy and DMARD screening: Yes Assessment of injection issues: Yes Screening for infection: Yes Adverse reactions and mitigation: Yes COPD monitoring (Orencia): N/A Assessment of efficacy: Yes Eduarda Staley CPhT [facility] NoteHNO ID: [id number] Author: TREASURE AVILES, DO Service: ? Author Type: Physician Type: Progress Notes Filed: 09/18/2023 15:38 Note Text: REASON FOR TODAY'S VISIT: Patient presents with: Established Patient: Right breast pain Marleen De Leon is a 33 year old / female who presented with a RIGHT breast painful mass on 03/06/2023. 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 States right breast is very painful (8/10 on scale) and she is taking Tramadol nightly along with Elavil. On Humira. Denies any nipple discharge. Trial of doxycyline without tolerability Minocycline currently - but not able to again tolerate the full dose (Dr. Ho ID) Kenalog injection on 08/24/23. States it helps for 2 weeks but not the chronic pain is back . She is tearful. States this has not improved since February Repeat imaging today RESULT: #[id number] - [facility] US BREAST LTD RT LIMITED ULTRASOUND OF RIGHT BREAST: 09/17/2023 HISTORY: Granulomatous Mastitis Of Right Breast. RESULT: Comparison is made to exams dated: 03/20/2023 ultrasound and 04/13/2023 ultrasound. Real-time ultrasound of the right breast was performed. Farnsworth scale images of the real-time examination were reviewed. Ultrasound evaluation of the area of clinical concern in the medial right breast was performed. There are multiple ill defined confluent hypoechoic areas at 3:00 1-3 cmfn, consistent with known biopsy proven granulomatous mastitis. This appears similar compared to ultrasound from 03/2023, and slightly more prominent compared to 04/2023. The patient received kenalog injection on 08/24/2023. No new suspicious sonographic findings. IMPRESSION: BENIGN FINDING There is no sonographic evidence of malignancy. Multiple ill defined hypoechoic areas at 3:0 in the right breast consistent with known biopsy proven granulomatous mastitis, not suspiciously changed compared to 03/2023. Follow up to full clinical and imaging resolution is recommended. Imaging follow up interval can be at the discretion of the surgeon based on the overall clinical asessment of the patient. If the patient continues to clinically improve, a three month follow up ultrasound may be considered. Patient is under the care of Dr. Aviles. EXAMINATION: GEN alert and orientated, well nourished, calm Regional Lymph Nodes There is no concerning supraclavicular, infraclavicular or cervical lymphadenopathy. BREASTS: The patient was examined in the upright and supine position. RIGHT breast continued palpable mass(es) @ 3:00 2 cm FN no fistulas, some resolving ecchymosis from recent injection. No signs of infection, no improvement RIGHT axilla no palpable axillary lymphadenopathy LEFT breast soft, no dominant masses, nipple everted, no discharge, no skin changes LEFT axilla no palpable axillary lymphadenopathy ABD soft, non-distended, non-tender, no organomegaly EXT ambulated independently, good ROM of upper extremities, no evidence of lymphedema IMPRESSION: Alyssa De Leon is a 33 year old female with IGM sx since February 2024. Not worsening, but not improving PLAN: Discussed moving forward with trial of high-does systemic steroids at this pint. She is in agreement. I will reach out to her community health education coordinator Dr. Herman to discuss management of steroid course. She has our names and numbers to stay in touch if she has any questions, concerns or problems in the interim. Treasure Aviles, DO Breast Surgeon Cc: [facility] History of Present illness Narrative* Jaclyn Dior Mammo Tech - 09/17/2023 3:15 PM EST Radiology Service Progress Note PATIENT NAME: Alyssa De Leon DATE OF SERVICE: September 17, 2023 TIME: 3:46 PM PATIENT IDENTITY VERIFICATION COMPLETED USING TWO (2) IDENTIFIERS: Name and Date of confirmedby patient verbally. FALL SCREENING: Has the patient had 2 falls in the last year or 1 fall with injury or currently using an Ambulatory Assistive Device (Walker, Cane, Wheelchair, Crutches, etc.)? No PATIENT GENDER DATA: Female. status: : No status: NO. PATIENT RELEVANT IMPLANT DATA REVIEWED: Yes RADIOLOGY DEPARTMENT: Mammography PERIPHERAL IV DATA: Not applicable SIGNED BY: Wale Calderon September 17, 2023 3:46 PM documented in this encounterDun[facility]01-08-2024 NoteHNO ID: [id number] Author: JACLYN DIOR Mammo Tech Service: ? Author Type: Wedding Planning Internship Type: Progress Notes Filed: 09/17/2023 15:47 Note Text: Radiology Service Progress Note PATIENT NAME: Alyssa De Leon DATE OF SERVICE: September 17, 2023 TIME: 3:46 PM PATIENT IDENTITY VERIFICATION COMPLETED USING TWO (2) IDENTIFIERS: Name and Date of confirmed by patient verbally. FALL SCREENING: Has the patient had 2 falls in the last year or 1 fall with injury or currently using an Ambulatory Assistive Device (Walker, Cane, Wheelchair, Crutches, etc.)? No PATIENT GENDER DATA: Female. status: : No status: NO. PATIENT RELEVANT IMPLANT DATA REVIEWED: Yes RADIOLOGY DEPARTMENT: Mammography PERIPHERAL IV DATA: Not applicable SIGNED BY: Wale Calderon September 17, 2023 3:46 [facility]01-08-2024 NoteHNO ID: [id number] Author: ODESSA HEATH RPh Service: ? Author Type: ? Type: Progress Notes Filed: 09/19/2023 11:51 Note Text: [facility] Ref[facility] Assessment Medication(s): Humira Patient's current medication list and adherence status to current therapy were reviewed by Specialty Pharmacy clinical pharmacist to identify any new drug interactions or non-compliance to therapy. Therapy continues to be appropriate for disease, patient response, and medical condition. Verification of therapeutic benefit and effectiveness with current therapy was completed. Adverse events, barriers in adherence, and side effects were assessed and addressed if applicable. Will proceed with refill with no changes in therapy - patient progressing towards achieving therapeutic goals based on medication-specific laboratory parameters, disease state markers and outcomes. Consultation with Rheum Dr. Herman and Dr. Juan hernandez to resume Humira at this time. Per Epic note 09/18/23 Odessa Heath PharmD Clinical Pharmacist, [employer] [facility] ; Pool: P [facility] Pool #: [id number] Wedding Planning Internship Assessment Patient confirmed: Yes Med/dose confirmed: Yes Supplies needed: Bandages, Alcohol swabs Missed doses: Yes Count of missed doses: 3 Reason for missed doses: due to not having insurance Next cycle/dose due: 09/21/23 Copay amount: 5 Copay form of payment: Credit card on file ([id number]) Payment confirmed: Yes Delivery method: FedEx Signature required: Waived on patient request Delivery address: [address] [place] [address] [address] [facility] [address] [place], [place] [address] Delivery date: 09/21/23 Questions or concerns for the pharmacist?: No [facility] Visit Assessment - Inflammatory Conditions: Ivent complete: No Assessment to use: Refill Vaccination Assessment: Date of influenza vaccination reminder: 06/04/2023 Date of most recent vaccination assessment: 06/04/2023 Treatment Plan Information: Treatment Plan Information: Humira CF 40mg/0.4mL pen Inject 1 pen (40 mg) subcutaneously every 2 weeks. M06.9 RA Past therapies: Remicade (anaphylaxis), Xeljanz, Cimzia, leflunomide, MTX Estimated Treatment Duration: Until disease progression or unacceptable toxicity Refill Assessment: Concurrent med therapy and DMARD screening: Yes Assessment of injection issues: Yes Screening for infection: Yes Adverse reactions and mitigation: Yes COPD monitoring (Orencia): N/A Assessment of efficacy: Yes Eduarda Staley CPhT [facility]01-05-2024 NoteHNO ID: [id number] Author: ?, ?, ? Service: ? Author Type: ? Type: Progress Notes Filed: 09/14/2023 17:38 Note Text: PA for Humira was initiated and pending review. Plan Name: [employer] Plan Agent/Roa: [id number] Case: [id number] Timeline: Urgent Eduarda Staley CPhT [facility]01-05-2024 NoteHNO ID: [id number] Author: ?, ?, ? Service: ? Author Type: ? Type: Progress Notes Filed: 09/14/2023 11:44 Note Text: Benefits investigation was conducted, indicating that a prior authorization is required by patient's insurance plan with [employer]. Encounter will be updated once prior authorization has been submitted by [facility]. [facility] NqmvbnkznWood [facility]01-05-2024 NoteHNO ID: [id number] Author: ?, ?, ? Service: ? Author Type: ? Type: Progress Notes Filed: 09/17/2023 14:41 Note Text: PASTOR for Humira was approved with details listed below. Plan Name: [place] PASTOR reference number: [id number] Approval Dates: 09/14/23-09/13/24 Prescriptions will now be processed through [facility] for determination of next steps. [facility]aley [facility]orhtyduyWood [facility] Hospital12-15-2023 Miscellaneous Notes* Telephone Encounter - Hanny Knapp - 08/24/2023 11:54 AM EST Faxed form to [phone]. Received fax con documented in this encounterDunlap Memorial Hospital12-15-2023 NoteHNO ID: [id number] Author: Treasure Aviles, DO Service: ? Author Type: Physician Type: Progress Notes Filed: 09/04/2023 12:33 PM Note Text: REASON FOR TODAY'S VISIT: Patient presents with: Established Patient: Injection right breast HISTORY of PRESENT ILLNESS: Patient was initially seen for a follow up of RIGHT breast IGM IGM on 08/10/2023 At that time, she was continuing the antibiotic therapy and reported some improvement of symptoms, but not resolution of the issue. She was scheduled to return for ultrasound-guided Kenalog injection for IGM 08/24/2023 in the office. PROCEDURE RIGHT breast IGM kenalog/lidocine injection Risks and benefits were discussed with the patient and she agreed to proceed. Consent signed. Patient and site were confirmed. The palpable RIGHT breast abscess @ 2:00 was identified with US and the additional mass @ 3:00 and the area was prepped and draped in a sterile manner. In the RIGHT breast using US guidance, a 1 cc of lidocaine 1% was used to make a small skin wheal for local anesthesia at 2:00 and 3:00. Next a 18 nicol needle was advanced to the abscess. Aspiration was attempted, but the material was too thick. Kenalog (40mg.ml), 2 ampule was mixed with 5 cc of lidocine 1% Under US guidance 0.5 cc of the mixture at a time was slowly injected into the tissue planes surrounding the abscesses both at 2:00 posterior and at 3:00 anterior. Total Used: (total 80 mg/ML and 7 cc lidocaine 1% injected, 2 areas UIQ) The patient tolerated the procedure well. A bandage was placed over the are and a ice pack. Topical temovate steroid cream was prescribed and the patient instructed to place this TID over the injection sites to prevent development of fistula. She tolerated the procedure well. RTC in 2 weeks for a wound check. She has genetic testing pending for next month. Treasure Aviles, DO Breast Surgeon cc: Tere Norton [id number]12-14-2023 Miscellaneous Notes* Telephone Encounter - Radha Lynne LPN - 08/23/2023 12:46 PM EST Patient aware of below. * Telephone Encounter - Janie Herman MD - 08/21/2023 2:26 PM EST I think she is talking about steroid injection into her breast. If this is the case, please let herknow that this is okay from my perspective. Thank you * Telephone Encounter - Radha Lynne LPN - 08/21/2023 11:58 AM EST Called to get clarification as to what injection patient referring. Requested return call or MC. * Telephone Encounter - Becka Gauthier - 08/21/2023 11:25 AM EST Alyssa is calling Janie Herman MD today to request clearance for injection. Patient asking if Dr. Herman will read over her notes and clear her for injection without being seen. Patient states she cancelled her appointment today as she did not feel well. Patient has been identified by name and birthdate. Duration of symptoms: N/A Person calling: self Call patient at: on cell [phone] (home) [phone] (cell) Was an appointment scheduled: No Closing statement: Results or non-symptom based questions: Thank you for calling [facility], your call will be returned within the next business day. Bceka Severino documented in this encounterDunlap Memorial Hospital12-11-2023 NoteHNO ID: [id number] Author: King Ho MD Service: ? Author Type: Physician Type: Progress Notes Filed: 08/21/2023 10:49 AM Note Text: Alyssa De Leon is a 33 year old female with a history of Infection INTERVAL EVENTS: No relief following Dalbavancin. Zyvox not option/insurance. Initial response to Doxy + Celebrex but could not tolerateGI side effects. R breat lumpy and throbbing- limiting- cannot wear nl bra. 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 REVIEW OF SYSTEMS: All systems were reviewed and are negative except for the ones mentioned in the HPI. PHYSICAL EXAM: Last menstrual period 07/30/2023. GEN:NAD HEENT:MMM NECK:supple no LAD LUNGS:CTA HEART:RRR ABD:soft,BS present EXT: no tenderness SKIN:no rash Breast tender indurated R CURRENT MEDICATIONS: Current Outpatient Medications Medication Sig adalimumab (HUMIRA,CF, PEN) 40 mg/0.4 mL pen kit Inject 1 pen (40 mg) subcutaneously every 2 weeks. diclofenac (VOLTAREN) 1 % topical gel Apply 4 g to affected area four times daily. traMADol (ULTRAM) 50 mg tablet Take 50 mg by mouth every 6 hours as needed. pilocarpine (SALAGEN) 5 mg tablet TAKE 1 TABLET BY MOUTH THREE TIMES DAILY acetaminophen (TYLENOL ORAL) Take by mouth. amitriptyline (ELAVIL) 10 mg tablet Take 1 tablet by mouth daily at bedtime. (Patient taking differently: Take 10 mg by mouth at bedtime as needed.) loratadine (CLARITIN) 10 mg tablet Take 10 mg by mouth twice daily. MICROGESTIN 1.5/30 1.5-30 mg-mcg Take 1 tablet by mouth once daily. dextroamphetamine-amphetamine (ADDERALL) 20 mg tablet Take 20 mg by mouth once daily. No current facility-administered medications for this visit. Antibiotic Treatment Duration: 2 weeks Medication Related Side Effects: none LABS:reviewed Culture:Coryne Imaging:Imaging studies personally reviewed and discussed with team. 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 If no change in pain after 1-2 weeks of steroid injection- Minocycline can be tried. King Ho MD 08/20/2023[facility]12-11-[facility] History of Present illness Narrative* King Ho MD - 08/20/2023 3:08 PM EST Alyssa De Leon is a 33 year old female with a history of Infection INTERVAL EVENTS: No relief following Dalbavancin. Zyvox not option/insurance. Initial response to Doxy + Celebrex but could not tolerateGI side effects. R breat lumpy and throbbing- limiting- cannot wear nl bra. 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 REVIEW OF SYSTEMS: All systems were reviewed and are negative except for the ones mentioned in the HPI. PHYSICAL EXAM: Last menstrual period 07/30/2023. GEN:NAD HEENT:MMM NECK:supple no LAD LUNGS:CTA HEART:RRR ABD:soft,BS present EXT: no tenderness SKIN:no rash Breast tender indurated R CURRENT MEDICATIONS: Current Outpatient Medications Medication Sig adalimumab (HUMIRA,CF, PEN) 40 mg/0.4 mL pen kit Inject 1 pen (40 mg) subcutaneously every 2 weeks. diclofenac (VOLTAREN) 1 % topical gel Apply 4 g to affected area four times daily. traMADol (ULTRAM) 50 mg tablet Take 50 mg by mouth every 6 hours as needed. pilocarpine (SALAGEN) 5 mg tablet TAKE 1 TABLET BY MOUTH THREE TIMES DAILY acetaminophen (TYLENOL ORAL) Take by mouth. amitriptyline (ELAVIL) 10 mg tablet Take 1 tablet by mouth daily at bedtime. (Patient taking differently: Take 10 mg by mouth at bedtime as needed.) loratadine (CLARITIN) 10 mg tablet Take 10 mg by mouth twice daily. MICROGESTIN 1.5/30 1.5-30 mg-mcg Take 1 tablet by mouth once daily. dextroamphetamine-amphetamine (ADDERALL) 20 mg tablet Take 20 mg by mouth once daily. No current facility-administered medications for this visit. Antibiotic Treatment Duration: 2 weeks Medication Related Side Effects: none LABS:reviewed Culture:[place] Imaging:Imaging studies personally reviewed and discussed with team. 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 If no change in pain after 1-2 weeks of steroid injection- Minocycline can be tried. King Ho MD 08/20/2023 documented in this encounterDunlap Memorial Hospital12-01-2023 NoteHNO ID: [id number] Author: Treasure Aviles, DO Service: ? Author Type: Physician Type: Progress Notes Filed: 08/18/2023 7:48 AM Note Text: REASON FOR TODAY'S VISIT: Patient presents with: Established Patient Follow Up HISTORY of PRESENT ILLNESS: Alyssa De Leon is a 32 year old female with a RIGHT breast 3 cm cystic mass structure @ 3:00 position, core bx consistent with IGM. Review showed corynebacterium. HISTORY: Patient was last seen for a follow up of a recurrent RIGHT breast infection, core biopsy consistent with IGM. At that time, she was healing and she was scheduled to meet with Dr. King Ho ( ID) who recommended Zyvox 600 mg po bid, but antibiotic was not covered by her insurance. One time dose of IV Dalbancin was recommended She states she saw some decreased pain improvement with doxycycline but had no appetite and lost 15 pounds. She is disappointed that she did not achieve better relief with the Dalbancin. She does have a follow up later this month. She also has a next week with her community health education coordinator Dr. Janie Herman. She takes Humaria for inflammatory arthritis. (+[place]) Has tried medications in the past see Dr. Herman note 03/27/23 close the medications and side effects. States she has tolerated steroids in the past but currently not on them. States regarding her breast she has noticed increased pain over the past month. Specifically when she raises her arm above her head to get a plate or cup. 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 States she hold her breast most days due to the inflammatory change. She has prescriptions for Ultram. She states she has tried topical Voltaren gel but has not received any relief. States she cannot do celebrex or ibuprofen. EXAMINATION: GEN alert and orientated, well nourished, calm Regional Lymph Nodes There is no concerning supraclavicular, infraclavicular or cervical lymphadenopathy. BREASTS: The patient was examined in the upright and supine position. RIGHT breast soft, lanette a 3 cm mass, centimeters from the nipple approximately 1 cm deep which corresponds to her area of pain and palpable IgM, she does not have any fistula tract formation or overlying skin thckening or erythema, nipple everted, no discharge, no skin changes RIGHT axilla no palpable axillary lymphadenopathy LEFT breast soft, no dominant masses, nipple everted, no discharge, no skin changes LEFT axilla no palpable axillary lymphadenopathy ABD soft, non-distended, non-tender, no organomegaly EXT ambulated independently, good ROM of upper extremities, no evidence of lymphedema IMPRESSION: Alyssa De Leon is a 33 year old female with 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 Corynebacterium identified on stains. Is currently following with ID on antibiotic therapy. Presents today complaining of increased pain. PLAN: Discussed IGM is more common in patients with history of autoimmune disorder. We discussed the course of IGM, and that per the literature it typically resolve within 5 to 18 months and mainstay of treatment is symptomatic. Many patients can manage symptoms, however in cases where symptoms worsen despite antibiotics targeted to corynebacterium - the first next step would be to employ use of steroids. Intrathecal lesion injection of a steroid specifically Kenalog mixed with lidocaine would be the next step over oral antibiotics -although she could try that as an option as well. She has a follow-up with her community health education coordinator next week and will discuss. Plan for ultrasound-guided Kenalog injection for IGM 08/24/2023 in the office. Follow up with ID, Dr. Ho scheduled She has our names and numbers to stay in touch if she has any questions, concerns or problems in the interim. Treasure Aviles DO Breast Surgeon Cc: Dr. Janie Herman (Rheum) Dr. King Ho (ID) cc:[id number] Nurse Note* Chata Daley LPN - 08/10/2023 3:48 PM EST Mastitis follow up Last mammogram on: 03/20/23 bilateral Results: see report Is the patient active on InGaugeIthart Yes Electronically Signed By: Chata Daley LPN In Department: GENERAL SURGERY REVIEW OF PATIENT HISTORY: OB History T0 L2 SAB0 IAB0 Ectopic0 Multiple0 Live Births0 FAMILY HISTORY Problem Relation Age of Onset Bipolar disorder Mother Diabetes Father Breast Cancer Paternal Aunt PAST MEDICAL HISTORY Diagnosis Date Anxiety Depression Rheumatoid arthritis (HCC) PAST SURGICAL HISTORY Procedure Laterality Date NONE US BREAST NEEDLE CORE BIOPSY RT Right 03/23/2023 Social History Tobacco Use Smoking status: Former Types: Cigarettes Quit date: 02/25/2016 Years since quittin.4 Smokeless tobacco: Never Tobacco comments: Less than a pack. Substance Use Topics Alcohol use: Never Drug use: Never documented in this encounterDunlap [facility]12-01-2023 History of Present illness Narrative* Treasure Aviles DO - 08/10/2023 3:25 PM EST REASON FOR TODAY'S VISIT: Patient presents with: Established Patient Follow Up HISTORY of PRESENT ILLNESS: Alyssa De Leon is a 32 year old female with a RIGHT breast 3 cm cystic mass structure @ 3:00 position, core bx consistent with IGM. Review showed corynebacterium. HISTORY: Patient was last seen for a follow up of a recurrent RIGHT breast infection, core biopsy consistentwith IGM. At that time, she was healing and she was scheduled to meet with Dr. King Ho ( ID) who recommended Zyvox 600 mg po bid, but antibiotic was not covered by her insurance. One time dose of IV Dalbancin was recommended She states she saw some decreased pain improvement with doxycycline but had no appetite and lost 15pounds. She is disappointed that she did not achieve better relief with the Dalbancin. She does have a follow up later this month. She also has a next week with her community health education coordinator Dr. Janie Herman. She takes Humaria for inflammatory arthritis. (+[place]) Has tried medications in the past see Dr. Herman note 03/27/23 close the medications and side effects. States she has tolerated steroids in the past but currently not on them. States regarding her breast she has noticed increased pain over the past month. Specifically when she raises her arm above her head to get a plate or cup. 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 States she hold her breast most days due to the inflammatory change. She has prescriptions for Ultram. She states she has tried topical Voltaren gel but has not received any relief. States she cannot docelebrex or ibuprofen. EXAMINATION: GEN alert and orientated, well nourished, calm Regional Lymph Nodes There is no concerning supraclavicular, infraclavicular or cervical lymphadenopathy. BREASTS: The patient was examined in the upright and supine position. RIGHT breast soft, lanette a 3 cm mass, centimeters from the nipple approximately 1 cm deep which corresponds to her area of pain and palpable IgM, she does not have any fistula tract formation or overlying skin thckening or erythema, nipple everted, no discharge, no skin changes RIGHT axilla no palpable axillary lymphadenopathy LEFT breast soft, no dominant masses, nipple everted, no discharge, no skin changes LEFT axilla no palpable axillary lymphadenopathy ABD soft, non-distended, non-tender, no organomegaly EXT ambulated independently, good ROM of upper extremities, no evidence of lymphedema IMPRESSION: Alyssa De Leon is a 33 year old female with 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 Corynebacterium identified on stains. Is currently following with ID onantibiotic therapy. Presents today complaining of increased pain. PLAN: Discussed IGM is more common in patients with history of autoimmune disorder. We discussed the course of IGM, and that per the literature it typically resolve within 5 to 18 months and mainstay of treatment is symptomatic. Many patients can manage symptoms, however in cases where symptoms worsen despite antibiotics targeted to corynebacterium - the first next step would be to employ use of steroids. Intrathecal lesion injection of a steroid specifically Kenalog mixed with lidocaine would be the next step over oral antibiotics -although she could try that as an option as well. She has a follow-up with her community health education coordinator next week and will discuss. Plan for ultrasound-guided Kenalog injection for IGM 08/24/2023 in the office. Follow up with ID, Dr. Ho scheduled She has our names and numbers to stay in touch if she has any questions, concerns or problems in the interim. Treasure Aviles DO Breast Surgeon Cc: Dr. Janie Herman (Rheum) Dr. King Ho (ID) cc: documented in this encounterDunlap [facility] Hospital11-14-2023 NoteHNO ID: [id number] Author: Sarath (Conference Director)Connie Service: ? Author Type: ? Type: Progress Notes Filed: 07/30/2023 5:16 AM Note Text: [facility] Refill Assessment Medication(s): Humira Patient's current medication list and adherence status to current therapy were reviewed by Specialty Pharmacy clinical pharmacist to identify any new drug interactions or non-compliance to therapy. Therapy continues to be appropriate for disease, patient response, and medical condition. Verification of therapeutic benefit and effectiveness with current therapy was completed. Adverse events, barriers in adherence, and side effects were assessed and addressed if applicable. Will proceed with refill with no changes in therapy - patient progressing towards achieving therapeutic goals based on medication-specific laboratory parameters, disease state markers and outcomes. Date of patients last office visit: 03/27/23 Next appointment date: 08/14/23 Last labs: 03/27/23 Cindy Arrieta PharmD Clinical Pharmacist, [employer] [facility] ; Pool: P [facility] Pool #: [id number] Wedding Planning Internship Assessment Patient confirmed: Yes Med/dose confirmed: Yes Supplies needed: No supplies needed Missed doses: No Estimated days supply on hand: 0 Next cycle/dose due: 07/31/23 Copay amount: 0 Payment confirmed: Yes Delivery method: FedEx Signature required: Waived on patient request Delivery address: [address] [facility] [address] Delivery date: 07/31/23 Questions or concerns for the pharmacist?: No [facility] Visit Assessment - Inflammatory Conditions: Ivent complete: No Assessment to use: Refill Vaccination Assessment: Date of influenza vaccination reminder: 06/04/2023 Date of most recent vaccination assessment: 06/04/2023 Treatment Plan Information: Treatment Plan Information: Humira CF 40mg/0.4mL pen Inject 1 pen (40 mg) subcutaneously every 2 weeks. M06.9 RA Past therapies: Remicade (anaphylaxis), Xeljanz, Cimzia, leflunomide, MTX Estimated Treatment Duration: Until disease progression or unacceptable toxicity Refill Assessment: Concurrent med therapy and DMARD screening: Yes Assessment of injection issues: Yes Screening for infection: Yes Adverse reactions and mitigation: Yes COPD monitoring (Orencia): N/A Assessment of efficacy: Yes Connie Clemens (Conference Director)[facility]11-13-2023 Miscellaneous Notes* Telephone Encounter - Jeyson Alex [facility] - 07/23/2023 8:26 AM EST Patient needs refill of adalimumab Date of patients last office visit: 03/27/23 Next appointment date: 08/14/23 Last labs: 03/27/23 Requested Prescriptions Pending Prescriptions Disp Refills adalimumab (HUMIRA,CF, PEN) 40 mg/0.4 mL pen kit 2 Each 5 Sig: Inject 1 pen (40 mg) subcutaneously every 2 weeks. If therapy is being continued, please sign this order request to send refill via eRx to [facility]. Thanks! Jeyson Alex, PharmD PGY-1 [employer] [facility] documented in this encounterDunlap Memorial Hospital10-25-2023 History of Present illness Narrative* Itz Fregoso, RN - 07/04/2023 10:47 AM EDT #22g piv inserted in R AC without incident. Tolerated infusion well. Itz Fregoso RN documented in this encounterDunlap Memorial Hospital10-16-2023 History of Present illness Narrative* Ioana Gonzales - 06/25/2023 9:45 AM EDT [facility] Assessment Medication(s): Humira Chart shows ongoing follow up for mastitis, on antibiotics ALLERGIES Allergen Reactions Hydrocodone-Acetami* Hives Infliximab Hives Leflunomide Intolerance Amy Montenegro [facility] Clinical Pharmacist, Hepatology & HCV [facility] P: ; F: Pool: P [facility] Patient's current medication list and adherence status to current therapy were reviewed by Specialty Pharmacy clinical pharmacist to identify any new drug interactions or non-compliance to therapy. Therapy continues to be appropriate for disease, patient response, and medical condition. Verification of therapeutic benefit and effectiveness with current therapy was completed. Adverse events, barriers in adherence, and side effects were assessed and addressed if applicable. Will proceed with refill with no changes in therapy - patient progressing towards achieving therapeutic goals based on medication- specific laboratory parameters, disease state markers and outcomes. Wedding Planning Internship Assessment Patient confirmed: Yes Med/dose confirmed: Yes Supplies needed: No supplies needed Estimated days supply on hand: 0 Next cycle/dose due: 07/02/23 Copay amount: 0 Payment confirmed: Yes Delivery method: FedEx Signature required: Waived on patient request Delivery address: [address] [place] [address] [address], [facility] [address] Delivery date: 06/27/23 Questions or concerns for the pharmacist?: No [facility] Visit Assessment - Inflammatory Conditions: Assessment to use: Refill Vaccination Assessment: Date of influenza vaccination reminder: 06/04/2023 Date of most recent vaccination assessment: 06/04/2023 Treatment Plan Information: Treatment Plan Information: Humira CF 40mg/0.4mL pen Inject 1 pen (40 mg) subcutaneously every 2 weeks. M06.9 RA Past therapies: Remicade (anaphylaxis), Xeljanz, Cimzia, leflunomide, MTX Estimated Treatment Duration: Until disease progression or unacceptable toxicity Refill Assessment: Concurrent med therapy and DMARD screening: Yes Assessment of injection issues: Yes Screening for infection: Yes Adverse reactions and mitigation: Yes COPD monitoring ([place]rencia): N/A Assessment of efficacy: Yes Ioana Gonzales documented in this encounterDunlap Memorial Hospital09-29-2023 Miscellaneous Notes* Telephone Encounter - Betsey Sy - 06/08/2023 10:27 AM EDT Patients pharmacy called stating this patient needs a PA for the Linezolid medication. Thank you, Betsey Sy documented in this encounterDunlap Memorial Hospital09-29-2023 History of Present illness Narrative* King Ho MD - 06/08/2023 9:46 AM EDT INFECTIOUS DISEASE CONSULT NOTE Date: June 08, 2023 Patient Name: Alyssa De Leon Consultation requested by Dr. Aviles for an opinion regarding mastitis. 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 Biopsy confirmed w Corynebacterium Improvement w po Doxy- but intolerant -GI side effects w 15 lb weight loss C/o pain Location R breast nodule and Axilla Onset months Timing ongoing Improved on Doxy Uneccaptable side effects- GI nausea/lost 15 lb PAST MEDICAL HISTORY Diagnosis Date Anxiety Depression Rheumatoid arthritis (HCC) PAST SURGICAL HISTORY Procedure Laterality Date NONE US BREAST NEEDLE CORE BIOPSY RT Right 03/23/2023 FAMILY HISTORY Problem Relation Age of Onset Bipolar disorder Mother Diabetes Father Breast Cancer Paternal Aunt No heritable diseases that predispose to infection in family. Social History Tobacco Use Smoking status: Former Types: Cigarettes Quit date: 02/25/2016 Years since quittin.2 Smokeless tobacco: Never Tobacco comments: Less than a pack. Substance Use Topics Alcohol use: Never Drug use: Never MEDICATIONS Medications reviewed. Current antibiotics include: none No current facility-administered medications for this visit. Current Outpatient Medications Medication Sig linezolid (ZYVOX) 600 mg tablet Take 1 tablet by mouth two times a day for 14 days. fluconazole (DIFLUCAN) 100 mg tablet Take 1 tablet by mouth once daily for 14 days. doxycycline hyclate (VIBRAMYCIN) 100 mg capsule Take 1 capsule by mouth twice daily for 14 days. diclofenac (VOLTAREN) 1 % topical gel Apply 4 g to affected area four times daily. ondansetron (ZOFRAN) 4 mg tablet Take 1 tablet by mouth every 8 hours as needed for nausea/vomiting. traMADol (ULTRAM) 50 mg tablet Take 50 mg by mouth every 6 hours as needed. celecoxib (CELEBREX) 100 mg capsule Take 1 capsule by mouth twice daily. pilocarpine (SALAGEN) 5 mg tablet TAKE 1 TABLET BY MOUTH THREE TIMES DAILY acetaminophen (TYLENOL ORAL) Take by mouth. adalimumab (HUMIRA,CF, PEN) 40 mg/0.4 mL pen kit Inject 1 pen (40 mg) subcutaneously every 2 weeks. amitriptyline (ELAVIL) 10 mg tablet Take 1 tablet by mouth daily at bedtime. (Patient taking differently: Take 10 mg by mouth at bedtime as needed.) loratadine (CLARITIN) 10 mg tablet Take 10 mg by mouth twice daily. MICROGESTIN 1.5/30 1.5-30 mg-mcg Take 1 tablet by mouth once daily. dextroamphetamine-amphetamine (ADDERALL) 20 mg tablet Take 20 mg by mouth once daily. No current facility-administered medications for this visit. ALLERGIES Allergen Reactions Hydrocodone-Acetami* Hives Infliximab Hives Leflunomide Intolerance REVIEW OF SYSTEMS: A complete ROS was performed and all others are negative Examination: LMP 04/03/2023 PHYSICAL EXAMINATION: GEN:NAD PSYCHE:AAO X 3 HEENT:MMM NECK:supple no LAD LUNGS:CTA HEART:RRR ABD:soft,BS present EXT: no tenderness SKIN:no rash R breast nodular medial- tender LAD tender R axilla Laboratory data: reviewed Microbiology data: Corynebacteria Imaging data: Imaging studies personally reviewed and discussed with team. 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 Therapy continues to be appropriate for disease, patient response, and medical condition. Verification of therapeutic benefit and effectiveness with current therapy was completed. Adverse events, barriers in adherence, and side effects were assessed and addressed if applicable. Will proceed with refill with no changes in therapy - patient progressing towards achieving therapeutic goals based on medication- specific laboratory parameters, disease state markers and outcomes. Wedding Planning Internship Assessment Patient confirmed: Yes Med/dose confirmed: Yes Supplies needed: No supplies needed Missed doses: No Estimated days supply on hand: 0 Next cycle/dose due: 06/05/23 Copay amount: 0 Payment confirmed: Yes Delivery method: FedEx Signature required: Waived on patient request Delivery address: [address] [facility] [address] [place] [address] Delivery date: 06/05/23 Questions or concerns for the pharmacist?: No [facility] Visit Assessment - Inflammatory Conditions: Assessment to use: Refill Vaccination Assessment: Date of influenza vaccination reminder: 02/07/2023 Date of most recent vaccination assessment: 02/07/2023 Treatment Plan Information: Treatment Plan Information: Humira CF 40mg/0.4mL pen Inject 1 pen (40 mg) subcutaneously every 2 weeks. M06.9 RA Past therapies: Remicade (anaphylaxis), Xeljanz, Cimzia, leflunomide, MTX Estimated Treatment Duration: Until disease progression or unacceptable toxicity Eduarda Staley CPhT [facility] documented in this encounterDunlap Memorial Hospital09-15-2023 NoteHNO ID: [id number] Author: Treasure Aviles, DO Service: ? Author Type: Physician Type: Progress Notes Filed: 06/03/2023 3:14 PM Note Text: REASON FOR TODAY'S VISIT: No chief complaint on file. HISTORY of PRESENT ILLNESS: Alyssa De Leon is a 32 year old female with a RIGHT breast 3 cm cystic mass structure @ 3:00 position, core bx consistent with IGM. Pathology review shows corynebacterium. HISTORY: Patient was initially seen for a recurrent RIGHT breast infection on 05/10/2023 At that time, her imaging and past history was thought to be consistent with idiopathic granulomatous mastitis. Cultures results were reviewed and she began a two week course of doxycyline was prescribed and consult With infections disease physician as well as a genetic counselor. These consult are scheduled for the near future. Returns to day for a wound check. Reports area does feel less tender and slightly improved with the medicine States she is nauseous and not eating. Cannot tell if it is from the antibiotics EXAMINATION: GEN alert and orientated, well nourished, calm Regional Lymph Nodes There is no concerning supraclavicular, infraclavicular or cervical lymphadenopathy. BREASTS: The patient was examined in the upright and supine position. RIGHT breast soft, with 3 cm palpable area medial corresponding to the IGM, no fistula tracts, not draining, nipple everted, no discharge, no skin changes RIGHT axilla no palpable axillary lymphadenopathy ABD soft, non-distended, non-tender, no organomegaly EXT ambulated independently, good ROM of upper extremities, no evidence of lymphedema IMPRESSION: Alyssa De Leon is a 32 year old female with a RIGHT breast 3 cm cystic mass structure @ 3:00 position, core bx consistent with IGM. Review shows corynebacterium. PLAN:. Ms. De Leon will follow-up with Dr. Ho (ID) as scheduled, 06/08/2023. Continue with doxycycline, Voltaren gel topical and script given for zofran to help with the nausea. Ms. De Leon will follow-up with me in 1 month. She has our names and numbers to stay in touch if she has any questions, concerns or problems in the interim. Treasure Aviles DO Breast SurgeonMiddlesex County [id number] Nurse Note* Chata Daley LPN - 05/25/2023 1:21 PM EDT Follow up Last mammogram on: 03/20/2023 bilateral Results: see report Is the patient active on InGaugeIthart Yes Electronically Signed By: Chata Daley LPN In Department: GENERAL SURGERY REVIEW OF PATIENT HISTORY: OB History T0 L2 SAB0 IAB0 Ectopic0 Multiple0 Live Births0 FAMILY HISTORY Problem Relation Age of Onset Bipolar disorder Mother Diabetes Father Breast Cancer Paternal Aunt PAST MEDICAL HISTORY Diagnosis Date Anxiety Depression Rheumatoid arthritis (HCC) PAST SURGICAL HISTORY Procedure Laterality Date NONE US BREAST NEEDLE CORE BIOPSY RT Right 03/23/2023 Social History Tobacco Use Smoking status: Former Types: Cigarettes Quit date: 02/25/2016 Years since quittin.2 Smokeless tobacco: Never Tobacco comments: Less than a pack. Substance Use Topics Alcohol use: Never Drug use: Never documented in this encounterDunlap Memorial Hospital09-15-2023 History of Present illness Narrative* Treasure Aviles DO - 05/25/2023 1:00 PM EDT REASON FOR TODAY'S VISIT: No chief complaint on file. HISTORY of PRESENT ILLNESS: Alyssa De Leon is a 32 year old female with a RIGHT breast 3 cm cystic mass structure @ 3:00 position, core bx consistent with IGM. Pathology review shows corynebacterium. HISTORY: Patient was initially seen for a recurrent RIGHT breast infection on 05/10/2023 At that time, her imaging and past history was thought to be consistent with idiopathic granulomatous mastitis. Cultures results were reviewed and she began a two week course of doxycyline was prescribed and consult With infections disease physician as well as a genetic counselor. These consult are scheduled for the near future. Returns to day for a wound check. Reports area does feel less tender and slightly improved with the medicine States she is nauseous and not eating. Cannot tell if it is from the antibiotics EXAMINATION: GEN alert and orientated, well nourished, calm Regional Lymph Nodes There is no concerning supraclavicular, infraclavicular or cervical lymphadenopathy. BREASTS: The patient was examined in the upright and supine position. RIGHT breast soft, with 3 cm palpable area medial corresponding to the IGM, no fistula tracts, not draining, nipple everted, no discharge, no skin changes RIGHT axilla no palpable axillary lymphadenopathy ABD soft, non-distended, non-tender, no organomegaly EXT ambulated independently, good ROM of upper extremities, no evidence of lymphedema IMPRESSION: Alyssa De Leon is a 32 year old female with a RIGHT breast 3 cm cystic mass structure @ 3:00 position, core bx consistent with IGM. Review shows corynebacterium. PLAN:. Ms. De Leon will follow-up with Dr. Ho (ID) as scheduled, 06/08/2023. Continue with doxycycline, Voltaren gel topical and script given for zofran to help with the nausea. Ms. De Leon will follow-up with me in 1 month. She has our names and numbers to stay in touch if she has any questions, concerns or problems in the interim. Treasure Aviles DO Breast Surgeon documented in this encounterDunlap Memorial Hospital08-31-2023 History of Present illness Narrative* Treasure Aviles DO - 05/10/2023 2:00 PM EDT REASON FOR TODAY'S VISIT: Patient presents with: New Patient: Surgical consult Alyssa De Leon is a 32 year old / female who presents to [facility] at the request of Dr. Rodriguez for an opinion regarding a RIGHT breast recurrent infection. Patient states a new RIGHT breast painful mass was noted on 03/06/2023. She was then seen by her PCPwho and ordered diagnostic imaging. Imaging demonstrated a 3.4 x 2.3 x 1.3 cm structure at 3:00 location and a trial of Augmentin antibiotics were prescribed with instruction to return in one week. States there was no improvement. She was sent to Dr. Rodriguez (*general surgeon) at [facility] and an biopsy was performed in the office on 03/23/2023. Pathologist results from the OSH, reported benign breast tissue with focal myxoid fibrosis, mild periductal and perivascular lymphocytic inflammation with a comment that the specimen was insufficient to define or explain the states clinical mass Re-biopsy was recommended. Breast MRI was performed, for further evaluation, on 04/03/2023 measuring the mass to be 2.5 x 4.5 x2.5 cm. US of the palpable mass, at 3:00, showed irregular margins with a diameter of 4 cm. Repeat US guided biopsy of the mass was performed on 04/13 with the same pathology findings. Patient reports hx of R.A., diagnosed as teenager. States right breast is very painful (8/10 on scale) and she is taking Tramadol nightly along with Elavil. On Humira. Denies any nipple discharge. Outside slides were reviewed and our pathologist reported fat necrosis of the 03/23/2023 specimen. 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 Histochemical stains show rare gram-positive rods in cystic spaces, morphologically compatible with Corynebacterium There is a family history of breast cancer in her maternal aunt, paternal aunt, and maternal cousin. PAST MEDICAL HISTORY Diagnosis Date Anxiety Depression Rheumatoid arthritis (HCC) ALLERGIES ALLERGIES Allergen Reactions Hydrocodone-Acetami* Hives Infliximab Hives Leflunomide Intolerance Current Outpatient Medications Medication Sig Dispense Refill traMADol (ULTRAM) 50 mg tablet Take 50 mg by mouth every 6 hours as needed. pilocarpine (SALAGEN) 5 mg tablet TAKE 1 TABLET BY MOUTH THREE TIMES DAILY 90 tablet 0 ibuprofen (MOTRIN ORAL) Take by mouth. acetaminophen (TYLENOL ORAL) Take by mouth. amoxicillin-clavulanic acid (AUGMENTIN) 500-125 mg per tablet Refill(s) 0 fluconazole (DIFLUCAN) 150 mg tablet DIRECTED TAKE ONE TABLET NOW AND REPEAT IN 3 DAYS adalimumab (HUMIRA,CF, PEN) 40 mg/0.4 mL pen kit Inject 1 pen (40 mg) subcutaneously every 2 weeks.2 Each 5 amitriptyline (ELAVIL) 10 mg tablet Take 1 tablet by mouth daily at bedtime. (Patient taking differently: Take 10 mg by mouth at bedtime as needed.) 30 tablet 3 loratadine (CLARITIN) 10 mg tablet Take 10 mg by mouth twice daily. MICROGESTIN 1.5/30 1.5-30 mg-mcg Take 1 tablet by mouth once daily. dextroamphetamine-amphetamine (ADDERALL) 20 mg tablet Take 20 mg by mouth once daily. No current facility-administered medications for this visit. PAST SURGICAL HISTORY Procedure Laterality Date NONE US BREAST NEEDLE CORE BIOPSY RT Right 03/23/2023 OB History BREAST PROCEDURE HISTORY: Breast Biopsies: No prior history. Breast Surgeries: No prior history FAMILY HISTORY Problem Relation Age of Onset Bipolar disorder Mother Diabetes Father Breast Cancer Paternal Aunt Patient is not of Ashkenazi holiness ancestry. Social History Tobacco Use Smoking status: Former Types: Cigarettes Quit date: 02/25/2016 Years since quittin.2 Smokeless tobacco: Never Tobacco comments: Less than a pack. 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 GREY ROLL WORKER: Negative for new frequent or significant headaches. RESP: Negative for cough, wheezing or shortness of breath. CARD: Negative for chest pain, palpitations or leg swelling. GI: Negative for abdominal pain, no change in bowel habits, no blood in stool. : Negative for dysuria, frequency or incontinence. HEME: Patient denies known coagulopathy. SURGICAL MANAGER: Negative for abnormal vaginal bleeding or abnormal vaginal discharge. BREAST: as per HPI. MUSCULOSKELETAL:Hx of R.A. Negative for new joint pain or swelling, no new back or bone pain. SKIN: Negative for lesions, rash, and itching. RADIATION EXPOSURE: There is no history of Radiation Therapy. PHYSICAL EXAM LMP 04/03/2023 GENERAL: Well-nourished, healthy, cooperative, female, in no acute distress, alert and oriented x 3, calm SKIN: Warm, dry, skin color, texture and turgor are normal. HEAD/EYES: Normocephalic, atraumatic and anicteric. NECK: Supple, symmetrical, no thyromegaly. RESP: Chest symmetrical with respirations, non-labored, no wheezing. ABD: Soft, non-distended. No hepatomegaly. No masses. MUSCULOSKELETAL: Upper extremities with normal range of motion, no lymphedema present, patient ambulates independently. REGIONAL LYMPH NODES: There is no concerning cervical, supraclavicular, infraclavicular or axillarylymphadenopathy. BREASTS: The patient was examined in the upright and supine positions. RIGHT Breast - Soft, there is a dominant palpable 3cm asymmetry @ 3:00, nipple everted, no discharge, no skin changes, no drainage or fistula site RIGHT Axilla - No palpable axillary lymphadenopathy. LEFT Breast - Soft, no dominant masses, nipple everted, no discharge, no skin changes LEFT Axilla - No palpable axillary lymphadenopathy. IMAGING 04/23/23 US RIGHT breast 3 x 1 x 1.3 cm cystic mass structure @ 3:00 Core bx with top hat PATHOLOGY FINAL DIAGNOSIS 5 slides received from [facility], [place], [place], labelled [id number], from procedure dated 03/23/2023: Right breast mass, 3 o'clock, needle core biopsy (A1-1 to A1-5): - Breast tissue with organizing fat necrosis. FINAL DIAGNOSIS Outside slide review; [facility]; [place], [place]; outside ; date of collection: 04/13/2023 Breast, right 3:00, ultrasound-guided core needle biopsy: - Cystic neutrophilic granulomatous mastitis. GL 05/02/2023 Diagnosis Comment Histochemical stains show rare gram-positive rods in cystic spaces, morphologically compatible withCorynebacterium. James shaped bacteria are also highlighted by the GMS stain. AFB is negative for mycobacterial organisms. The findings are those of cystic neutrophilic granulomatous mastitis which is a ssociated with infection by Corynebacterium species (see Sanket et al). Dr. Morales has reviewed the case and concurs. IMPRESSION Alyssa De Leon is a 32 year old female with a RIGHT breast 3 cm cystic mass structure @ 3:00 position, core bx consistent with IGM. Review shows corynebacterium. PLAN We reviewed her imaging and history are consistent with idiopathic granulomatous mastitis. We discussed the diagnosis of idiopathic granulomatous mastitis. The underlying cause remains elusive, but an autoimmune mechanism has been postulated. In her case - corynebacterium has been identified as a potential cause - so treatment would start with doxycycline. Script given for 2 weeks Celebrex script for the pain. Consult placed to infectious disease. Family hx of breast cancer - consult to genetics placed RTC in 2 weeks for follow up. Ms. De Leon was given my contact information if she has any further questions or concerns. My final recommendation will be communicated back to the referring physician by way of shared medical record and/or written letter via [place] mail. Treasure Aviles DO Breast Surgeon cc: Dr. Rodriguez documented in this encounterDun[facility]08-[facility]23 Nurse Note* Chata Daley LPN - 05/10/2023 1:55 PM EDT Patient was referred by: Did patient bring outside records to appt today? : Films: Sent in by other facility Pathology: Sent in by other facility Reports: Sent in by other facility Last mammogram on: 03/20/2023 bilateral Results: see report Patient current bra size: 32C Is the patient active on MyChart Yes Electronically Signed By: Chata Daley LPN In Department: [facility] REVIEW OF PATIENT HISTORY: OB History No obstetric history on file. FAMILY HISTORY Problem Relation Age of Onset Bipolar disorder Mother Diabetes Father PAST MEDICAL HISTORY Diagnosis Date Anxiety Depression Rheumatoid arthritis (HCC) PAST SURGICAL HISTORY Procedure Laterality Date NONE Social History Tobacco Use Smoking status: Former Types: Cigarettes Quit date: 02/25/2016 Years since quittin.2 Smokeless tobacco: Never Tobacco comments: Less than a pack. Substance Use Topics Alcohol use: Never Drug use: Never documented in this encounterDunlap [facility]08-28-2023 History of Present illness Narrative* Brendan (Conference Director)Mireya - 05/07/2023 11:13 AM EDT [facility] Refill Assessment Medication(s): Humira Patient's current medication list and adherence status to current therapy were reviewed by Specialty Pharmacy clinical pharmacist to identify any new drug interactions or non-compliance to therapy. Therapy continues to be appropriate for disease, patient response, and medical condition. Verification of therapeutic benefit and effectiveness with current therapy was completed. Adverse events, barriers in adherence, and side effects were assessed and addressed if applicable. Will proceed with refill with no changes in therapy - patient progressing towards achieving therapeutic goals based on medication- specific laboratory parameters, disease state markers and outcomes. Cindy Arrieta, AdrienD Clinical Pharmacist, [employer] [facility] ; Pool: P [facility] Pool #: [id number] Wedding Planning Internship Assessment Patient confirmed: Yes Med/dose confirmed: Yes Supplies needed: No supplies needed Missed doses: No Estimated days supply on hand: 0 Next cycle/dose due: 05/08/23 Copay amount: 0 Payment confirmed: Yes Delivery method: FedEx Signature required: Waived on patient request Delivery address: [address] [place] [address] [address]; [place], [place] Delivery date: 05/08/23 Questions or concerns for the pharmacist?: No [facility] Visit Assessment - Inflammatory Conditions: Ivent complete: No Assessment to use: Refill Vaccination Assessment: Date of influenza vaccination reminder: 02/07/2023 Date of most recent vaccination assessment: 02/07/2023 Treatment Plan Information: Treatment Plan Information: Humira CF 40mg/0.4mL pen Inject 1 pen (40 mg) subcutaneously every 2 weeks. M06.9 RA Past therapies: Remicade (anaphylaxis), Xeljanz, Cimzia, leflunomide, MTX Estimated Treatment Duration: Until disease progression or unacceptable toxicity Refill Assessment: Concurrent med therapy and DMARD screening: Yes Assessment of injection issues: Yes Screening for infection: Yes Adverse reactions and mitigation: Yes COPD monitoring (Orencia): N/A Assessment of efficacy: Yes Mireya Cardona (Conference Director) documented in this encounterDunlap [facility]08-18-2023 History of Present illness Narrative* Eduarda Staley - 04/27/2023 9:21 AM EDT Benefits investigation was conducted, indicating that a prior authorization renewal for Humira is required by patient's insurance plan with [employer]. Encounter will be updated once prior authorization has been submitted by [facility]. Eduarda Staley CPhT [facility] documented in this encounterDunlap [facility]08-15-2023 Miscellaneous Notes* Telephone Encounter - Janie Herman MD - 04/24/2023 4:29 PM EDT Images from the original note were not included. Breast lesion bx consistent with granulomatous mastitis. Differentials include sarcoidosis, granulomatosus with polyangitis, fungal and tubercular infection. Since it started after humira, fungal infection should also be kept in mind. Await tissue for fungal and TB culture. Meantime I will obtain Chest X ray, LEANDER, ANCA, PR3, MPO to rule out sarcoidosis and granulomatosus with polyangiitis documented in this encounterDunlap [facility] Hospital07-18-2023 History of Present illness Narrative* Janie Herman MD - 03/27/2023 9:00 AM EDT Images from the original note were not included. Rheumatology Outpatient Clinic Date of Service: 03/27/2023 Patient: Alyssa De Leon Medical Record: [id number] Primary Care Physician: No primary care provider on file. Referring Provider: NO PCP Last Rheumatology visit: 12/27/2022 (with Janie Herman) Chief complaint: Recheck History of Present Illness Alyssa De Leon is a 32 year old female with medical history of seronegative RA presents on 03/27/2023 for an in-person visit for follow-up of Recheck. She is currently taking adalimumab, amitriptyline HCl, hydrocortisone, prednisone. Alyssa is both RF - 9 (02/24/2019) and CCP - 13.5 (02/24/2019) negative. Her most recent KINGSTON was positive (12/05/2022). HISTORY OF PRESENT ILLNESS History of inflammatory arthritis Diagnosed in 2013- had multiple joint pain and swelling over hands, wrists, feet and knees Was following with a community health education coordinator in [place], [place] Dr. Ángel Kinney, but had to switch due to insurance reasons in 2019 Manifestations: Joint pain and swelling, synovitis, negative CCP and rheumatoid factor antibodies, negative HLAB27 Other: positive KINGSTON (1:80) no erosions in radiograph hands and feet in 02/2019 Extra-articular manifestations include: sicca Denies history of inflammatory eye disease, inflammatory bowel disease, psoriasis, dysentery, chlamydia, gonorrhea or other STDs, history of kidney disease/biopsy, nephrolithiasis, peptic ulcer disease, tuberculosis, Had 1 early miscarriage, blood clots ? denies malignancy, pleural/pericardial effusion, CHF, CAD, CVA. During new patient evaluation on 07/18/2022-she had multiple joint synovitis, infliximab was resumed, methotrexate 7.5 mg weekly with folic acid 1 mg daily was added. 07/2022 Radiograph SI joint-No acute radiographic findings. radiograph bilateral hands-No bony erosions. No acute radiographic findings. No bony erosions. radiograph bilateral feet-No acute radiographic findings. No bony erosions. Received first infusion 07/30/2022 08/09/2022-went to ER due to right-sided weakness and difficulty speech. Was seen by neurology, hadCT and MRI brain without any evidence of stroke. Her symptoms resolved spontaneously Unremarkable CT head, CTA head, neck, chest reviewed in care everywhere 08/2022-synovitis was better, was tolerating methotrexate well, dose of methotrexate increased to 12.5 mg weekly. During second dose of infliximab, she started c/o itching over scalp and swelling around her face and throat. Had few hives over bilateral wrists. She was given benadryl 25 mg and hydrocortisone 100 mg IV with relief in her itching and sensation of swelling. Few minutes later she c/o severe back pain on both sides, along with right leg weakness, she reports the pain and weakness wassimilar to the pain that she had last time, except she does not have over arms and legs. She is moving her bilateral legs however strength is limited by pain. Has normal sensation except funny sensation over right foot. Her vitals including SPO2 was within normal limits. She reported that Her back pain was better and leg weakness had resolved after 30 minutes of ketorolac 30 mg IV injection Infliximab was discontinued. 10/2021-synovitis was significantly better, continued on methotrexate 12.5 mg weekly, folic acid increased to 2 mg daily due to oral ulcers Later in 10/2021 -she reported nodule over right palmar long finger. Maybe also over foot. She continues to have oral ulcers despite increasing dose of folic acid. Differentials for nodules include rheumatoid nodule versus methotrexate induced nodule or cyst. Methotrexate was switched to leflunomide 20 mg daily 11/2022-After 3rd dose of leflunomide had back pain similar to when she had with with infliximab So stopped taking Took benadryl, ibuprofen and back pain resolved. She continues to have oral ulcers despite stoppingmethotrexate. 12/2022- right knee effusion, did arthrocentesis, SF - WBC 1757, crystal and culture negative, started colchicine. Added prednisone 10 mg daily, wanted to try orencia but insurance denied. Started humira. Colchicine caused diarrhea so stopped Humira caused injection site rash. DMARD therapy Hydroxychloroquine - Discontinued because of inefficacy, does not recall side effects Methotrexate - GI side-effects, but patient has difficulty recalling, restarted 7.5 mg weekly 07/2022, tolerated well, increased to 12.5 mg weekly 08/2022- 10/2022, stopped due to multiple oral ulcers Certolizumab (06/03/20) - painful skin sores, muscle aches and cramps, leg swelling. It was helping her joint pain and swelling. Xeljanz 11/2020-11/2021 - diarrhea, nausea, headache, did not help much with joint pain and swelling Infliximab 10/2017-08/2018, 90% of symptoms had resolved, 08/2022- infusion reaction, hives, back pain, numbness Leflunomide 20 mg daily 10/2022 had back pain similar to when she had with with infliximab, So stopped taking by herself Humira 12/2022- INTERVAL HISTORY Today Patient reports that her joint pain and swelling has resolved since starting Humira. Her oral ulcers has also not recurred. Took prednisone for few days in December 2022 when she had a flare and stopped Humira caused localized skin rash with first injection but not with subsequent injection Noted painful breast lump, about 3 weeks ago which has been getting big, seen by breast surgeon, had biopsy Rheum/Ortho Arthrocentesis Injections (last 5) Some values may be hidden. Unless noted otherwise, only the newest values recorded on each date aredisplayed. Injection History 12/27/22 Medication 40 mg methylPREDNISolone acetate 40 mg/mL Location knee Knee Site R knee joint Patient-Entered Data PAIN EVALUATION No data found in the last 1 encounters. PROMIS Assessments PROMIS Assessments 10/16/2022 12/04/2022 03/25/2023 Physical Health Percentile 7 % - 15 % Mental Health Percentile 9 % - 26 % Pain Score 3 - 5 Pain Interference Percentile - 12 % 12 % Fatigue Percentile - 4 % 31 % Physical Function Percentile - 16 % 18 % RAPID 3 [place] Activities of Daily Living 03/25/2023 8:04 PM 12/04/2022 8:13 PM 10/10/2022 10:13 AM Firstanswer obtained - 10/01/2020 12:30 AM Dress self? With SOME difficulty Without ANY difficulty With SOME difficulty With SOME difficulty Get in and out of bed? With SOME difficulty Without ANY difficulty With SOME difficulty With MUCH difficulty Walk outdoors? Without ANY difficulty Without ANY difficulty Without ANY difficulty With SOME difficulty Wash and dry body? With SOME difficulty With SOME difficulty Without ANY difficulty With SOME difficulty Get in and out of car? Without ANY difficulty With SOME difficulty With SOME difficulty With SOME difficulty RAPID 3 Disease Activity Weighed Score Levels: 0 - 1: Near Remission 1.3 - 2.0: Low Severity 2.3 - 4.0: Moderate Severity 4.3 - 10.0: High Severity RAPID-3 Weighed Score 10/10/2022 12/04/2022 03/25/2023 RAPID 3 Weighed Score - - - RAPID 3 Weighed Score 4.5 (High Severity (HS)) 4.89 (High Severity (HS)) 1.67 (Low Severity (LS)) Review of Systems Answers submitted by the patient for this visit: Review of Systems Rheumatology (Submitted on 03/25/2023) Fever : No Recent Unintentional Weight Change: Yes, loosing, usually working more in summer Eye Pain: No Eye Redness: No Vision Disturbance: No Eye Dryness: Yes Nose Bleeds: No Sores in your Mouth: No Trouble Swallowing: No Dry Mouth: Yes Chest Pain: No Leg Swelling: No A Cough: No Shortness of Breath: No Pain with Breathing: No Heartburn: No Abdominal Pain: No Diarrhea: Yes, 2-3 times a day Black Tarry Stools: No Blood in Urine: No Pain or Burning with Urination: Yes Joint Pain or Stiffness: No Muscle Weakness: No Muscle Aches: No Joint Swelling: No Morning Stiffness in Joints: No A Rash: No Skin Color Changes: No Hair Loss: No Nail Changes: No Headaches: Yes Numbness: No Swollen Glands: No Sicca: Dry eyes and mouth Raynauds: denies Past Medical History PAST MEDICAL HISTORY Diagnosis Date Anxiety Depression Rheumatoid arthritis (HCC) Past Surgical History PAST SURGICAL HISTORY Procedure Laterality Date NONE Allergy ALLERGIES Allergen Reactions Hydrocodone-Acetami* Hives Infliximab Hives Leflunomide Intolerance Family History grandmother had SLE/RA The patient denies family history of Sarcoidosis, Scleroderma, IBD or Psoriasis. FAMILY HISTORY Problem Relation Age of Onset Bipolar disorder Mother Diabetes Father Social History Social History Tobacco Use Smoking status: Former Types: Cigarettes Quit date: 02/25/2016 Years since quittin.0 Smokeless tobacco: Never Tobacco comments: Less than a pack. Substance Use Topics Alcohol use: Never Drug use: Never Current Medications Current Outpatient Medications Medication Sig ibuprofen (MOTRIN ORAL) Take by mouth. acetaminophen (TYLENOL ORAL) Take by mouth. amoxicillin-clavulanic acid (AUGMENTIN) 500-125 mg per tablet Refill(s) 0 fluconazole (DIFLUCAN) 150 mg tablet DIRECTED TAKE ONE TABLET NOW AND REPEAT IN 3 DAYS adalimumab (HUMIRA,CF, PEN) 40 mg/0.4 mL pen kit Inject 1 pen (40 mg) subcutaneously every 2 weeks. pilocarpine (SALAGEN) 5 mg tablet TAKE 1 TABLET BY MOUTH THREE TIMES DAILY amitriptyline (ELAVIL) 10 mg tablet Take 1 tablet by mouth daily at bedtime. (Patient taking differently: Take 10 mg by mouth at bedtime as needed.) loratadine (CLARITIN) 10 mg tablet Take 10 mg by mouth twice daily. MICROGESTIN 1.5/30 1.5-30 mg-mcg Take 1 tablet by mouth once daily. dextroamphetamine-amphetamine (ADDERALL) 20 mg tablet Take 20 mg by mouth once daily. No current facility-administered medications for this visit. Labs CBC Latest Ref Rng & Units 07/18/2022 08/15/2022 10/17/2022 12/05/2022 WBC 3.70 - 11.00 k/uL 6.43 8.13 4.61 4.13 HEMOGLOBIN 11.5 - 15.5 g/dL 13.9 14.1 13.0 14.4 HEMATOCRIT 36.0 - 46.0 % 41.0 41.7 38.5 43.6 PLATELETS 150 - 400 k/uL 309 373 322 326 ABS NEUT (ANC) 1.45 - 7.50 k/uL 4.40 4.95 2.37 2.05 ABS LYMPH 1.00 - 4.00 k/uL 1.55 2.36 1.66 1.71 CMP Latest Ref Rng & Units 07/18/2022 08/15/2022 10/17/2022 12/05/2022 SODIUM 136 - 144 mmol/L 141 - - 139 POTASSIUM 3.7 - 5.1 mmol/L 3.6(L) - - 4.0 CHLORIDE 97 - 105 mmol/L 103 - - 103 CO2 22 - 30 mmol/L 26 - - 26 GLUCOSE 74 - 99 mg/dL 77 - - 86 BUN 7 - 21 mg/dL 7 - - 6(L) CREATININE 0.58 - 0.96 mg/dL 0.56(L) 0.55(L) 0.61 0.59 CALCIUM, TOTAL 8.5 - 10.2 mg/dL 9.4 - - 9.6 AST 13 - 35 U/L 16 23 18 19 ALT 7 - 38 U/L 14 - - 17 ALKALINE PHOSPHATASE 34 - 123 U/L 74 - - 65 ESR, WSR Latest Ref Rng & Units 02/24/2019 07/18/2022 08/15/2022 10/17/2022 WSR 0 - 20 mm/hr 5 15 47(H) 2 CRP Latest Ref Rng & Units 02/24/2019 07/18/2022 08/15/2022 10/17/2022 CRP <0.9 mg/dL 0.4 3.8(H) 2.3(H) <0.3 CK Latest Ref Rng & Units 08/15/2022 CK 42 - 196 U/L 38(L) RF and CCP Latest Ref Rng & Units 02/24/2019 RHEUMATOID FACTOR <16 IU/mL <10 CCP ANTIBODY, IGG <20 Units <15 Hepatitis Screen Latest Ref Rng & Units 02/24/2019 07/18/2022 HEPBCOTOL Negative Negative Negative HEPSABQ Negative Positive(A) - HEPCABEIA Negative Negative Negative HBSAGR Negative Negative - TB Screen 02/24/2019 07/18/2022 TBGINT No evidence of current or previous infection with Mycobacterium tuberculosis. Infection withM. tuberculosis complex is unlikely. If latent tuberculosis infection is highly suspected, a negative result does not rule out the infection. Specimens from immunocompromised patients and those <5years of age may show false negative results. In case of a contact investigation, please repeat 8-12 weeks after a known exposure. TBGRES Negative Negative Antibodies Latest Ref Rng & Units 02/24/2019 12/05/2022 12/05/2022 KINGSTON Negative Positive(A) Positive(A) - KINGSTON TITER - 1:80(A) 1:160 - KINGSTON PATTERN - Homogeneous Nuclear homogenous - DNA ANTIBODY W/CONFIRMATION <30 IU/mL <12 <12 <12 ANTI-SM <1.0 AI - <0.2 <0.2 SM ANTIBODY Negative <0.2 Negative Negative RIBOSOMAL ADVANCED RESEARCH PROGRAMS DIRECTOR <1.0 AI <0.2 - - RIBOSOMAL ADVANCED RESEARCH PROGRAMS DIRECTOR AB <1.0 AI - <0.2 <0.2 RIBOSOMAL ADVANCED RESEARCH PROGRAMS DIRECTOR QUAL Negative - Negative Negative CHROMATIN AB <1.0 AI - <0.2 <0.2 CHROMATIN AB QUAL Negative - Negative Negative CHROMATIN ANTIBODY <1.0 AI <0.2 - - SSA ANTIBODY <1.0 AI <0.2 - - SSA ANTIBODY QUAL Negative - Negative Negative ANTI-SSA <1.0 AI - <0.2 <0.2 SSB ANTIBODY <1.0 AI <0.2 - - ANTI-SSB <1.0 AI - <0.2 <0.2 ADVANCED RESEARCH PROGRAMS DIRECTOR ANTIBODY <1.0 AI <0.2 - - ADVANCED RESEARCH PROGRAMS DIRECTOR ANTIBODY QUAL Negative - Negative Negative SCL-70 AB QUAL Negative - Negative Negative SCL-70 ABS, EIA <1.0 AI - <0.2 <0.2 SCLERODERMA AB, IGG <1.0 AI <0.2 - - CENTROMERE AB <1.0 AI <0.2 <0.2 <0.2 CENTROMERE AB QUAL Negative - Negative Negative NISH-1 ANTIBODY, IGG <1.0 AI <0.2 <0.2 <0.2 NISH 1 ANTIBODY QUAL Negative - Negative Negative HLA B27 02/24/2019 HLA-B27 DNA RESULT Negative Urinalysis Latest Ref Rng & Units 12/05/2022 PROTEIN, URINE Trace, Negative Negative RBC, URINE 0-3 /HPF 0-3 /HPF Vitamin D Latest Ref Rng & Units 07/18/2022 VITAMIN D 25 HYDROXY 31.0 - 80.0 ng/mL 12.5(L) Imaging Last XR Hand/Finger - Impression Only XR HAND GENERAL 3V PA/LAT/OBL BILATERAL Exam End: 07/18/2022 11:36 AM (Final result) Impression: IMPRESSION: No acute radiographic findings. No bony erosions. Explosive Operator Grenade: HARSH Transcribe Date/Time: Jul 20 2022 4:36P... Last MRI Hand - Impression Only No resulted procedures found. Last XR Chest - Impression Only No resulted procedures found. Last XR Cervical Spine - Impression Only No resulted procedures found. Health Maintenance Current Immunizations Never Reviewed No immunizations on file. Physical Exam VITAL SIGNS: BP 106/75 Pulse 75 Wt 122 lb (55.3kg) SpO2 99% LMP 10/25/2021 GENERAL APPEARANCE: Well groomed. In no distress. SKIN: No rash, no thickening, nodules, calcifications, discoloration. EYES: PERRL, EOMI Breast-right breast with tender lump with bruise at biopsy site HENT: No oral ulcers, normal external examination of the ears and nose, lips Cardiovascular: Normal rate, rhythm, no murmurs rubs or gallops Respiratory: Normal breath sounds bilaterally, no wheeze/rales Abdomen: Normal bowel sounds, no bruits NEUROLOGIC: Alert and oriented x 3. Motor exam: Normal muscle strength grossly, MUSCULOSKELETAL EXAMINATION: No synovitis or effusion, no tenderness to palpation over bilateral upper and lower extremities Diagnoses: (M06.9) Rheumatoid arthritis involving multiple sites, unspecified whether rheumatoid factor present (HCC) (primary encounter diagnosis) (Z79.899) Encounter for long-term (current) use of high-risk medication Impression and Plan 1. Seronegative inflammatory arthritis Manifestations: Joint pain and swelling, synovitis, dry mouth, oral ulcers ( no genital ulcers), positive KINGSTON with titer, 1: 60, dsDNA, anti-RAVIN negative, negative CCP and rheumatoid factor antibodies, negative HLAB27 Elevated CRP, radiograph hands feet and SI joint with no evidence of erosions and sacroiliitis respectively Status: Patient had reaction to multiple medications in the past, currently doing well on Humira, no synovitis or effusion today, no recurrence of oral ulcers since starting Humira Plan Continue Humira 40 mg subcutaneously every 2 weekly CBC, CMP, sed rate, CRP today 2. Recurrent oral ulcers Denies any vaginal ulcers, denies history of DVT or aneurysms Since this has been very painful and significant, did not tolerate colchicine No recurrence since starting Humira 3. Monitoring for drug toxicity and immunosuppression TB screening negative in 07/2022 Hepatitis B and C negative in 07/2022 4. Chronic pain Patient reports fatigue, widespread body pain, brain fog, nonrestorative sleep She may also have underlying chronic pain Advised to continue, she takes amitriptyline 10 mg daily, only as needed 5. Right breast lump Started 3 weeks ago, painful Had biopsy, awaiting results 6. Healthcare maintenance/Malignancy screening Defer to PCP Orders this visit: Office Visit on 03/27/23 COMP METABOLIC PANEL CBC + DIFF SED RATE WESTERGREN C-REACTIVE PROTEIN (CRP) ibuprofen (MOTRIN ORAL) acetaminophen (TYLENOL ORAL) amoxicillin-clavulanic acid (AUGMENTIN) 500-125 mg per tablet fluconazole (DIFLUCAN) 150 mg tablet Return in about 3 months (around 06/27/2023). I spent a total of 30 minutes on the date of the service which included preparing to see the patient, [id number] patient care, completing clinical documentation, obtaining and/or reviewing separately obtained history, performing a medically appropriate examination, counseling and educating the pat ient/family/caregiver, and ordering medications, tests, or procedures. Janie Herman MD, [facility] Rheumatology documented in this encounterDunlap [facility] Hospital07-12-[facility]23 Hospital Discharge instructions Patient Education 03/21/2023 13:49:08 Breast Cyst Breast Cyst A breast cyst is a sac in the breast that is filled with fluid. They are usually noncancerous (benign) and are common among women. Breast cysts are most often in the upper, outer portion of the breast. One or more cysts may develop. They form when fluid builds up inside the breast glands. There are several types of breast cysts. Some are too small to feel, but these can be seen with imaging tests such as an X-ray of the breast (mammogram) or ultrasound. Breast cysts do not increase your risk of breast cancer. They usually disappear after you no longerhave a menstrual cycle (after menopause), unless you take artificial hormones (are on hormone therapy). What are the causes? This condition may be caused by: Blockage of tubes (ducts) in the breast glands, which leads to fluid buildup. Duct blockage may result from: ?Fibrocystic breast changes. This is a common, benign condition that occurs when women go through hormonal changes during the menstrual cycle. This is a common cause of multiple breast cysts. ?Overgrowth of breast tissue or breast glands. ?Scar tissue in the breast from previous surgery. Changes in certain female hormones (estrogen and progesterone). The exact cause of this condition is not known. What increases the risk? You may be more likely to develop breast cysts if you have not gone through menopause. What are the signs or symptoms? Symptoms of this condition include: Feeling one or more smooth, round, soft lumps (like grapes) in the breast that are easily movable. The lump or lumps may get bigger and more painful before your menstrual period and get smaller afteryour menstrual period. Breast discomfort or pain. How is this diagnosed? This condition may be diagnosed based on: A physical exam. A cyst can be felt by your health care provider during this exam. Imaging tests, such as mammogram or ultrasound. Fluid may be removed from the cyst with a needle (fine-needle aspiration) and tested to make sure the cyst is not cancerous. How is this treated? Treatment may not be needed for this condition. Your health care provider may monitor the cyst to see if it goes away on its own. If the cyst is uncomfortable or gets bigger, or if you do not like how the cyst makes your breast look, you may need treatment. Treatment may include: Hormone therapy. Fine-needle aspiration to drain fluid from the cyst. There is a chance of the cyst coming back (recurring) after aspiration. Surgery to remove the cyst. Follow these instructions at home: Self-exams Do a breast self-exam every month, or as often as directed. A breast self-exam involves: ?Comparing your breasts in the mirror. ?Looking for visible changes in your skin or nipples. ?Feeling for lumps or changes. Having many breast cysts may make it harder to feel for new lumps. Understand how your breasts normally look and feel, and write down any changes in your breasts. Tell your health care provider aboutany changes. Eating and drinking Follow instructions from your health care provider about eating and drinking restrictions. Drink enough fluid to keep your urine pale yellow. Avoid caffeine. Cut down on salt (sodium) in what you eat and drink, especially before your menstrual period. Too much sodium can cause fluid buildup, breast swelling, and discomfort. General instructions See your health care provider regularly. ?Get a yearly physical exam. ?If you are 20 40 years old, get a clinical breast exam every 1 3 years. After the age of 40 years,get this exam every year. ?Get mammograms as often as directed. Take xbvk-ive-nkjpmsp and prescription medicines only as told by your health care provider. Wear a supportive bra, especially when exercising. Keep all follow-up visits as told by your health care provider. This is important. Contact a health care provider if: You feel, or think you feel, a lump in your breast. You notice that both breasts look or feel different than usual. Your breast is still causing pain after your menstrual period is over. You find new lumps or bumps that were not there before. You feel lumps in your armpit. Get help right away if: You have severe pain, tenderness, redness, or warmth in your breast. You have fluid or blood leaking from your nipple. Your breast lump becomes hard and painful. You notice dimpling or wrinkling of the breast or nipple. Summary A breast cyst is a sac in the breast that is filled with fluid. Treatment may not be needed for this condition. If the cyst is uncomfortable or gets bigger, or if you do not like how the cyst makes your breast look, you may need treatment. This information is not intended to replace advice given to you by your health care provider. Make sure you discuss any questions you have with your health care provider. Document Revised: 01/13/2020 Document Reviewed: 01/13/2020 [employer] Patient Education 2022 CNS Response. Follow Up Care 03/21/2023 11:49:42 With:Jeffery Rodriguez Address: [address], [address] [place] [address] [phone] Business (1) When:03/22/2023 13:34:14 [facility]07-12-2023 Evaluation + Plan noteExtracted from: Title:ED Note Author:Mina Posadas PA-C te:03/21/23 Breast cyst (N60.09: Solitar y cyst of unspecified breast) Ordered: acetaminophen-oxycodone, 1 tab(s), Oral, q6hr as needed for pain for 3 day(s), 15 tab(s), Refill(s) 0, [id number], 152.4, cm, 03/21/23 11:55:00 EDT, Height/Length Dosing, 53.6, kg, 03/21/23 11:55:00 EDT, Weight Dosing Orders: acetaminophen-oxycodone, 1 tab(s), Tab, Oral, Once, Stop date 03/21/23 13:17:00 EDT, STAT, Start date 03/21/23 13:17:00 EDT Future Appointments Appointment Date:03/23/2023 09:20:00 AM Scheduled Provider:Michael DONOHUE, Jeffery Massey Location:[facility] Appointment Type:[place] [address] Appointment Date:04/03/2023 10:00:00 AM Scheduled Provider: [facility] Type:US Breast () Future Scheduled Tests Radiology* US Breast Unilateral Rt Complete 04/03/23 [facility]06-06-2023 Miscellaneous Notes* Telephone Encounter - Ophelia Rodriguez MA - 02/13/2023 12:04 PM EDT see other encounter - mychart * Telephone Encounter - Ophelia Rodriguez MA - 02/12/2023 2:15 PM EDT Left message for patient to call office regarding below. pt may have already picked up her written rx -- please inform pt that as stated below she can take her rx to any pharmacy and if Lidocaine is not available , the pharmacy can make it without * Telephone Encounter - Janie Herman MD - 02/09/2023 2:05 PM EDT They can make it without lidocaine. Thank you. * Telephone Encounter - Ophelia Rodriguez MA - 02/09/2023 11:35 AM EDT Spoke with [facility] Ama Marques and DDM in [place] - states that Lidocaine has been recalled - manufacture went out of business and they are having trouble getting it from available manufactures due to national shortage - Lidocaine is on backorder Please advise of alternative since Lidocaine is not available * Telephone Encounter - Jamia Garza MA - 02/08/2023 9:37 AM EDT LMTCB * Telephone Encounter - Janie Herman MD - 02/08/2023 8:53 AM EDT Please ask her to try other pharmacy [facility]g [facility] as well, if not available then they can make without lidocaine. Thank you. * Telephone Encounter - Kait Gordon Ma - 02/06/2023 4:28 PM EDT Alyssa De Leon is calling Janie Herman MD today to request Medication Assistance [facility] calling stating lidocaine visc 2% in the mouth wash is not available. Asking if they could make it without the lidocaine? Please advise. Patient has been identified by name and birthdate. Duration of symptoms: N/A Person calling: pharmacy: mary ellen Call patient at: na [phone] (home) [phone] (cell) Was an appointment scheduled: No Closing statement: Results or non-symptom based questions: Thank you for calling [facility], your call will be returned within the next business day. Kait Gordon Ma documented in this encounterDunlap [facility] Hospital06-06-2023 Miscellaneous Notes* Telephone Encounter - Mabel Dotson MA - 02/13/2023 10:06 AM EDT My chart sent. Mabel Dotson MA February 13, 2023 10:06 AM * Telephone Encounter - Janie Herman MD - 02/13/2023 8:04 AM EDT Please let her know that she can try one without lidocaine. Thank you. Dr Herman * Telephone Encounter - Glenda Benavides RN - 02/12/2023 2:41 PM EDT Pt is identified by name and birthdate: Yes Patient calls states she still has not received medication diphenhydrAMINE 12.5 mg/5 mL hydrocortisone lidocaine visc 2% nystatin oral liquid 180 mL:120 mmL:30 mL (CPD) 100 mL 3 01/30/2023 Sig: Take 5 mL by mouth four times daily as needed. Swish and spit Pharmacy is having difficulty obtaining - hydrocortisone lidocaine visc 2% Please advise documented in this encounterDunlap [facility]05-13-2023 Hospital Discharge instructions Patient Education 01/20/2023 21:32:21 Bacterial Conjunctivitis, Adult, Taic-om-Xucy Bacterial Conjunctivitis, Adult Bacterial conjunctivitis is an infection of your conjunctiva. This is the clear membrane that covers the white part of your eye and the inner part of your eyelid. This infection can make your eye: Red or pink. Itchy or irritated. This condition spreads easily from person to person (is contagious) and from one eye to the other eye. What are the causes? This condition is caused by germs (bacteria). You may get the infection if you come into close contact with: A person who has the infection. Items that have germs on them (are contaminated), such as face towels, contact lens solution, or eye makeup. What increases the risk? You are more likely to get this condition if: You have contact with people who have the infection. You wear contact lenses. You have a sinus infection. You have had a recent eye injury or surgery. You have a weak body defense system (immune system). You have dry eyes. What are the signs or symptoms? Thick, yellowish discharge from the eye. Tearing or watery eyes. Itchy eyes. Burning feeling in your eyes. Eye redness. Swollen eyelids. Blurred vision. How is this treated? Antibiotic eye drops or ointment. Antibiotic medicine taken by mouth. This is used for infections that do not get better with drops or ointment or that last more than 10 days. Cool, wet cloths placed on the eyes. Artificial tears used 2 6 times a day. Follow these instructions at home: Medicines Take or apply your antibiotic medicine as told by your doctor. Do not stop using it even if you start to feel better. Take or apply frkc-djl-jaibvjb and prescription medicines only as told by your doctor. Do not touch your eyelid with the eye-drop bottle or the ointment tube. Managing discomfort Wipe any fluid from your eye with a warm, wet washcloth or a cotton ball. Place a clean, cool, wet cloth on your eye. Do this for 10 20 minutes, 3 4 times a day. General instructions Do not wear contacts until the infection is gone. Wear glasses until your doctor says it is okay towear contacts again. Do not wear eye makeup until the infection is gone. Throw away old eye makeup. Change or wash your pillowcase every day. Do not share towels or washcloths. Wash your hands often with soap and water for at least 20 seconds and especially before touching your face or eyes. Use paper towels to dry your hands. Do not touch or rub your eyes. Do not drive or use heavy machinery if your vision is blurred. Contact a doctor if: You have a fever. You do not get better after 10 days. Get help right away if: You have a fever and your symptoms get worse all of a sudden. You have very bad pain when you move your eye. Your face: ?Hurts. ?Is red. ?Is swollen. You have sudden loss of vision. Summary Bacterial conjunctivitis is an infection of your conjunctiva. This infection spreads easily from person to person. Wash your hands often with soap and water for at least 20 seconds and especially before touching your face or eyes. Use paper towels to dry your hands. Take or apply your antibiotic medicine as told by your doctor. Contact a doctor if you have a fever or you do not get better after 10 days. This information is not intended to replace advice given to you by your health care provider. Make sure you discuss any questions you have with your health care provider. Document Revised: 12/07/2021 Document Reviewed: 12/07/2021 [employer] Patient Education 2022 CNS Response. Follow Up Care 01/20/2023 20:47:52 With:Anjana Barreto Address: [address] [place] [address] [facility] [address] [address] [facility] (1) When:01/23/2023 21:23:01 Comments:Follow-up with your primary care provider in 3 to 5 days. If symptoms worsen, do not improve, or new symptoms arise please report back to emergency department for further evaluation. [facility]05-13-2023 Evaluation + Plan noteExtracted from: Title:ED Note Author:Matthias PENNINGTON, Thomas Richardson te:01/20/23 Conjunctivitis (H10.9: Unspe cified conjunctivitis) Orders: fluorescein ophthalmic, 1 mg, 1 EA, Test, OPTH, Once, Stop date 01/20/23 21:07:00 EDT, STAT, Start date 01/20/23 21:07:00 EDT tetracaine ophthalmic, 2 drop(s), Soln-Opth, OPTH, Once, Stop date 01/20/23 21:07:00 EDT, STAT, Start date 01/20/23 21:07:00 EDT tobramycin ophthalmic, 1 drop(s), Soln-Opth, OPTH, QID for 7 day(s), Stop date 01/27/23 21:21:00 EDT, STAT, Start date 01/20/23 21:22:00 EDT [facility]05-02-2023 History of Present illness Narrative* Eduarda Staley - 01/09/2023 7:42 AM EDT [facility] received prescription(s) for [place] from Dr. Janie Herman's office. Benefits investigation was conducted, indicating that a prior authorization is required by patient's insurance plan with [employer]. Encounter will be updated once prior authorization has been submitted [facility]. Eduarda Staley CPhT [facility] documented in this encounterDunlap [facility] Hospital05-01-2023 Miscellaneous Notes* Addendum Note - Janie Herman MD - 01/08/2023 11:54 AM EDTAddended by: JANIE HERMAN on: 01/08/2023 11:54 AM Modules accepted: Orders documented in this encounterDunlap [facility] Hospital04-06-2023 Miscellaneous Notes* Telephone Encounter - Mateo De Jesus RN - 12/14/2022 10:16 AM EDT Most recent Rheumatology visit: 12/05/2022 (with Janie Herman) Recent Office Visits - This Specialty 12/05/2022 Rheumatoid arthritis involving multiple sites, unspecified whether rheumatoid factor present (HCC) Rheumatology Janie Herman MD 10/17/2022 Rheumatoid arthritis involving multiple sites, unspecified whether rheumatoid factor present (HCC) Rheumatology Janie Herman MD 08/15/2022 Rheumatoid arthritis involving multiple sites, unspecified whether rheumatoid factor present (HCC) Rheumatology Janie Herman MD Upcoming Rheumatology Appointments - Next 365 Days Visit Type Date Time Department [facility] 01/16/2023 10:30 AM [facility] CBC: CBC Latest Ref Rng & Units 10/17/2022 12/05/2022 WBC 3.70 - 11.00 k/uL 4.61 4.13 HEMOGLOBIN 11.5 - 15.5 g/dL 13.0 14.4 HEMATOCRIT 36.0 - 46.0 % 38.5 43.6 PLATELETS 150 - 400 k/uL 322 326 ABS NEUT (ANC) 1.45 - 7.50 k/uL 2.37 2.05 ABS LYMPH 1.00 - 4.00 k/uL 1.66 1.71 Vitamin D: Vitamin D Latest Ref Rng & Units 07/18/2022 VITAMIN D 25 HYDROXY 31.0 - 80.0 ng/mL 12.5(L) LFT: CMP Latest Ref Rng & Units 10/17/2022 12/05/2022 SODIUM 136 - 144 mmol/L - 139 POTASSIUM 3.7 - 5.1 mmol/L - 4.0 CHLORIDE 97 - 105 mmol/L - 103 CO2 22 - 30 mmol/L - 26 GLUCOSE 74 - 99 mg/dL - 86 BUN 7 - 21 mg/dL - 6(L) CREATININE 0.58 - 0.96 mg/dL 0.61 0.59 CALCIUM, TOTAL 8.5 - 10.2 mg/dL - 9.6 AST 13 - 35 U/L 18 19 ALT 7 - 38 U/L - 17 ALKALINE PHOSPHATASE 34 - 123 U/L - 65 Hepatic Function: Creatinine: Creatinine Latest Ref Rng & Units 10/17/2022 12/05/2022 CREAT 0.58 - 0.96 mg/dL 0.61 0.59 ESR/CRP: ESR, WSR Latest Ref Rng & Units 08/15/2022 10/17/2022 WSR 0 - 20 mm/hr 47(H) 2 CRP Latest Ref Rng & Units 08/15/2022 10/17/2022 CRP <0.9 mg/dL 2.3(H) <0.3 Uric Acid: None on file in the last 6 months Open Standing (Multiple Instance) Lab Orders Remain Interval Expires Ordered Last Rel. CBC + DIFF [SQCBCDIF] 02/13 Every 2 months 12/14/22 12/14/21 Auth. provider: Joselyn Foster MD Assoc. diagnoses: Sicca, unspecified type (HCC) COMP METABOLIC PANEL [SQCMP] / Every 2 months 12/14/22 12/14/21 Auth. provider: Joselyn Foster MD Assoc. diagnoses: Sicca, unspecified type (HCC) C-REACTIVE PROTEIN (CRP) [SQCRP] / Every 2 months 12/14/22 12/14/21 Auth. provider: Joselyn Foster MD Assoc. diagnoses: Sicca, unspecified type (HCC) SED RATE WESTERGREN [SQWSR] / Every 2 months 12/14/22 12/14/21 Auth. provider: Joselyn Foster MD Assoc. diagnoses: Sicca, unspecified type (HCC) Open Future (Single Instance) Lab Orders None Requested Prescriptions Pending Prescriptions Disp Refills pilocarpine (SALAGEN) 5 mg tablet [Pharmacy Med Name: Pilocarpine HCl 5 MG Oral Tablet] 90 tablet 0 Sig: TAKE 1 TABLET BY MOUTH THREE TIMES DAILY documented in this encounterDunlap [facility] Hospital03-29-2023 Miscellaneous Notes* Telephone Encounter - Tess Rodriguez RN - 12/06/2022 7:35 PM EDT -Pt Verified by Name and Date of -call back to pt and OV 12/12/22 for cortisone injection with [facility] provider. * Telephone Encounter - Janie Herman MD - 12/06/2022 12:49 PM EDT If PCP is comfortable that should be okay. Thank you * Telephone Encounter - Nora Vaqsuez RN - 12/06/2022 11:41 AM EDT Pt identified by name and Pt given message below Stated understanding Pt reports Takes advil every 4-6 hours Advised to take every 6-8 hours She agrees to cortisone injection States can have pcp do that ( he had done it it before ) State rheum office is 45 minutes away Please call pt back as how to proceed * Telephone Encounter - Jamia Garza MA - 12/06/2022 11:14 AM EDT LMTCB * Telephone Encounter - Janie Herman MD - 12/06/2022 10:51 AM EDT Please check if she could take ibuprofen 600 mg 3 times a day or Aleve 500 mg twice a day for the swelling(Aleve or ibuprofen not both together). If this is just 1 joint, I would prefer cortisone injection rather than oral prednisone. Please let me know if above does not help or if she does not prefer cortisone injection. Thank you * Telephone Encounter - Glenda Benavides RN - 12/06/2022 9:42 AM EDT Pt is identified by name and birthdate: Yes Patient calls, seen in OV 10/07 Diagnoses: (M06.9) Rheumatoid arthritis involving multiple sites, unspecified whether rheumatoid factor present (HCC) (primary encounter diagnosis) States she woke up this morning with increased Flare to Right hand/wrist swelling Left Lateral and wraps around into palm. (+) stiffness in her fingers without swelling or redness Patient is requesting Steroid to help calm symptoms Please advise documented in this encounterDunlap [facility] Hospital03-28-2023 History of Present illness Narrative* Janie Herman MD - 12/05/2022 10:30 AM EDT Images from the original note were not included. Rheumatology Outpatient Clinic Date of Service: 12/05/2022 Patient: Alyssa De Leon Medical Record: [id number] Primary Care Physician: No primary care provider on file. Referring Provider: NO PCP Last Rheumatology visit: 10/17/2022 (with Janie Herman) Chief complaint: Follow Up (SundayNovember 11 patient advised she had an allergic reaction to the medication she started this month.) History of Present Illness Alyssa De Leon is a 32 year old female with medical history of seronegative RA presents on 12/05/2022 for an in-person visit for follow-up of Follow Up (SundayNovember 11 patient advised she had an allergic reaction to the medication she started this month.). She is currently taking amitriptyline HCl, leflunomide. Alyssa is both RF - 9 (02/24/2019) and CCP - 13.5 (02/24/2019) negative. Her most recent KINGSTON was positive (02/24/2019). HISTORY OF PRESENT ILLNESS History of inflammatory arthritis Diagnosed in 2013- had multiple joint pain and swelling over hands, wrists, feet and knees Was following with a community health education coordinator in [place], [place] Dr. Ángel Kinney, but had to switch due to insurance reasons in 2018 Manifestations: Joint pain and swelling, synovitis, negative CCP and rheumatoid factor antibodies, negative HLAB27 Other: positive KINGSTON (1:80) no erosions in radiograph hands and feet in 02/2019 Extra-articular manifestations include: sicca Denies history of inflammatory eye disease, inflammatory bowel disease, psoriasis, dysentery, chlamydia, gonorrhea or other STDs, history of kidney disease/biopsy, nephrolithiasis, peptic ulcer disease, tuberculosis, Had 1 early miscarriage, blood clots ? denies malignancy, pleural/pericardial effusion, CHF, CAD, CVA. DMARD therapy Hydroxychloroquine - Discontinued because of inefficacy Hydroxychloroquine - does not recall side effects Methotrexate - GI side-effects, but patient has difficulty recalling, restarted 7.5 mg weekly 07/2022, tolerated well, increased to 12.5 mg weekly 08/2022- 10/2022, stopped due to multiple oral ulcers Certolizumab (06/03/20) - painful skin sores, muscle aches and cramps, leg swelling. It was helping her joint pain and swelling. Xeljanz 11/2020-11/2021 - diarrhea, nausea, headache, did not help much with joint pain and swelling Infliximab 10/2017-08/2018, 90% of symptoms had resolved, 08/2022- infusion reaction, hives, back pain, numbness Leflunomide 20 mg daily 10/2022 During new patient evaluation on 07/18/2022-she had multiple joint synovitis, infliximab was resumed, methotrexate 7.5 mg weekly with folic acid 1 mg daily was added. 07/2022 Radiograph SI joint-No acute radiographic findings. radiograph bilateral hands-No bony erosions. No acute radiographic findings. No bony erosions. radiograph bilateral feet-No acute radiographic findings. No bony erosions. Received first infusion 07/30/2022 08/09/2022-went to ER due to right-sided weakness and difficulty speech. Was seen by neurology, hadCT and MRI brain without any evidence of stroke. Her symptoms resolved spontaneously Unremarkable CT head, CTA head, neck, chest reviewed in care everywhere 08/2022-synovitis was better, was tolerating methotrexate well, dose of methotrexate increased to 12.5 mg weekly. During second dose of infliximab, she started c/o itching over scalp and swelling around her face and throat. Had few hives over bilateral wrists. She was given benadryl 25 mg and hydrocortisone 100 mg IV with relief in her itching and sensation of swelling. Few minutes later she c/o severe back pain on both sides, along with right leg weakness, she reports the pain and weakness wassimilar to the pain that she had last time, except she does not have over arms and legs. She is moving her bilateral legs however strength is limited by pain. Has normal sensation except funny sensation over right foot. Her vitals including SPO2 was within normal limits. She reported that Her back pain was better and leg weakness had resolved after 30 minutes of ketorolac 30 mg IV injection Infliximab was discontinued. 10/2021-synovitis was significantly better, continued on methotrexate 12.5 mg weekly, folic acid increased to 2 mg daily due to oral ulcers Later in 10/2021 -she reported nodule over right palmar long finger. Maybe also over foot. She continues to have oral ulcers despite increasing dose of folic acid. Differentials for nodules include rheumatoid nodule versus methotrexate induced nodule or cyst. Methotrexate was switched to leflunomide 20 mg daily INTERVAL HISTORY Today After 3rd dose of leflunomide had back pain simlar to when she had with with infliximab So stopped taking Took benadryl, ibuprofen and back pain resolved. She has not been leflunomide since then, has not had joint swelling but has knee pain. She continues to have oral ulcers. She continues to have painful nodule over palmar aspect of righthand and plantar aspect of right foot. Denies any other new symptoms. Patient-Entered Data PAIN EVALUATION 12/04/2022200412/05/2022 1038 Pain Level: 6 6 Pain Location: Back-Lower -- knees and hips Description: Dull;Numbness;Pressure;Sore;Stiffness;Throbbing;Tightness;Tingling -- Dull and aching Duration Amount of Time: 9 -- Duration Units: Hours -- Frequency: Continuous Continuous Intervention/Comfort measure: Reposition;Distractions;Emotional Support/Reassurance;Pillow support;Positioning -- PROMIS Assessments PROMIS Assessments 10/10/2022 10/16/2022 12/04/2022 Physical Health Percentile - 7 % - Mental Health Percentile - 9 % - Pain Score - 3 - Pain Interference Percentile 5 % - 12 % Fatigue Percentile 3 % - 4 % Physical Function Percentile 18 % - 16 % [facility] Activities of Daily Living 12/04/2022 8:13 PM 10/10/2022 10:13 AM 07/17/2022 6:00 PM Firstanswer obtained - 10/01/2020 12:30 AM Dress self? Without ANY difficulty With SOME difficulty With SOME difficulty With SOME difficulty Get in and out of bed? Without ANY difficulty With SOME difficulty With SOME difficulty With MUCH difficulty Walk outdoors? Without ANY difficulty Without ANY difficulty With SOME difficulty With SOME difficulty Wash and dry body? With SOME difficulty Without ANY difficulty With SOME difficulty With SOME difficulty Get in and out of car? With SOME difficulty With SOME difficulty With SOME difficulty With SOME difficulty RAPID 3 Disease Activity Weighed Score Levels: 0 - 1: Near Remission 1.3 - 2.0: Low Severity 2.3 - 4.0: Moderate Severity 4.3 - 10.0: High Severity RAPID-3 Weighed Score 07/17/2022 10/10/2022 12/04/2022 RAPID 3 Weighed Score - - - RAPID 3 Weighed Score Incomplete 4.5 (High Severity (HS)) 4.89 (High Severity (HS)) Review of Systems Answers submitted by the patient for this visit: Review of Systems Rheumatology (Submitted on 12/04/2022) Fever : No Recent Unintentional Weight Change: No Eye Pain: Yes Eye Redness: Yes Vision Disturbance: Yes Eye Dryness: Yes Sores in your Mouth: Yes Dry Mouth: Yes Chest Pain: No Leg Swelling: No Heartburn: Yes Abdominal Pain: Yes Diarrhea: Yes Black Tarry Stools: No Blood in Urine: No Pain or Burning with Urination: Yes Joint Pain or Stiffness: Yes Muscle Weakness: Yes Muscle Aches: Yes Joint Swelling: Yes Morning Stiffness in Joints: Yes A Rash: Yes Do you have sun sensitive rashes?: No Skin Color Changes: Yes Hair Loss: No Nail Changes: Yes Headaches: Yes Numbness: Yes Nausea/vomiting: Nausea sometimes, Diarrhea/constipation Has loose stool 3-4 times a day, sometimes has constipation, even before MTX started Sicca: Dry eyes and mouth Raynauds: Past Medical History PAST MEDICAL HISTORY Diagnosis Date Anxiety Depression Rheumatoid arthritis (HCC) Past Surgical History PAST SURGICAL HISTORY Procedure Laterality Date NONE Allergy ALLERGIES Allergen Reactions Hydrocodone-Acetami* Hives Infliximab Hives Leflunomide Intolerance Family History grandmother had SLE/RA The patient denies family history of Sarcoidosis, Scleroderma, IBD or Psoriasis. FAMILY HISTORY Problem Relation Age of Onset Bipolar disorder Mother Diabetes Father Social History Social History Tobacco Use Smoking status: Former Types: Cigarettes Quit date: 02/25/2016 Years since quittin.7 Smokeless tobacco: Never Tobacco comments: Less than a pack. Substance Use Topics Alcohol use: Never Drug use: Never Current Medications Current Outpatient Medications Medication Sig amitriptyline (ELAVIL) 10 mg tablet Take 1 tablet by mouth daily at bedtime. pilocarpine (SALAGEN) 5 mg tablet TAKE 1 TABLET BY MOUTH THREE TIMES DAILY loratadine (CLARITIN) 10 mg tablet Take 10 mg by mouth twice daily. MICROGESTIN 1.5/30 1.5-30 mg-mcg Take 1 tablet by mouth once daily. dextroamphetamine-amphetamine (ADDERALL) 20 mg tablet Take 20 mg by mouth once daily. colchicine 0.6 mg tablet Take 0.5 tablets by mouth once daily for 7 days, THEN 1 tablet once daily. leflunomide (ARAVA) 20 mg tablet Take 1 tablet by mouth once daily. (Patient not taking: Reported on 12/05/2022) rOPINIRole (REQUIP) 1 mg tablet Take 1 mg by mouth at bedtime as needed. (Patient not taking: No sig reported) No current facility-administered medications for this visit. Labs CBC Latest Ref Rng & Units 02/24/2019 07/18/2022 08/15/2022 10/17/2022 WBC 3.70 - 11.00 k/uL 8.07 6.43 8.13 4.61 HEMOGLOBIN 11.5 - 15.5 g/dL 13.5 13.9 14.1 13.0 HEMATOCRIT 36.0 - 46.0 % 39.9 41.0 41.7 38.5 PLATELETS 150 - 400 k/uL 328 309 373 322 ABS NEUT (ANC) 1.45 - 7.50 k/uL 5.31 4.40 4.95 2.37 ABS LYMPH 1.00 - 4.00 k/uL 2.19 1.55 2.36 1.66 CMP Latest Ref Rng & Units 02/24/2019 07/18/2022 08/15/2022 10/17/2022 SODIUM 136 - 144 mmol/L 138 141 - - POTASSIUM 3.7 - 5.1 mmol/L 4.0 3.6(L) - - CHLORIDE 97 - 105 mmol/L 98 103 - - CO2 22 - 30 mmol/L 24 26 - - GLUCOSE 74 - 99 mg/dL 89 77 - - BUN 7 - 21 mg/dL 15 7 - - CREATININE 0.58 - 0.96 mg/dL 0.68 0.56(L) 0.55(L) 0.61 CALCIUM, TOTAL 8.5 - 10.2 mg/dL 8.7 9.4 - - AST 13 - 35 U/L 26 16 23 18 ALT 7 - 38 U/L 23 14 - - ALKALINE PHOSPHATASE 34 - 123 U/L 77 74 - - ESR, WSR Latest Ref Rng & Units 02/24/2019 07/18/2022 08/15/2022 10/17/2022 WSR 0 - 20 mm/hr 5 15 47(H) 2 CRP Latest Ref Rng & Units 02/24/2019 07/18/2022 08/15/2022 10/17/2022 CRP <0.9 mg/dL 0.4 3.8(H) 2.3(H) <0.3 CK Latest Ref Rng & Units 08/15/2022 CK 42 - 196 U/L 38(L) RF and CCP Latest Ref Rng & Units 02/24/2019 RHEUMATOID FACTOR <16 IU/mL <10 CCP ANTIBODY, IGG <20 Units <15 Hepatitis Screen Latest Ref Rng & Units 02/24/2019 07/18/2022 HEPBCOTOL Negative Negative Negative HEPSABQ Negative Positive(A) - HEPCABEIA Negative Negative Negative HBSAGR Negative Negative - TB Screen 02/24/2019 07/18/2022 TBGINT No evidence of current or previous infection with Mycobacterium tuberculosis. Infection withM. tuberculosis complex is unlikely. If latent tuberculosis infection is highly suspected, a negative result does not rule out the infection. Specimens from immunocompromised patients and those <5years of age may show false negative results. In case of a contact investigation, please repeat 8-12 weeks after a known exposure. TBGRES Negative Negative Antibodies Latest Ref Rng & Units 02/24/2019 KINGSTON Negative Positive(A) KINGSTON TITER Negative 1:80(A) KINGSTON PATTERN - Homogeneous DNA ANTIBODY W/CONFIRMATION <30 IU/mL <12 ADVANCED RESEARCH PROGRAMS DIRECTOR ANTIBODY <1.0 AI <0.2 SSA ANTIBODY <1.0 AI <0.2 SSB ANTIBODY <1.0 AI <0.2 NISH-1 ANTIBODY, IGG <1.0 AI <0.2 RIBOSOMAL ADVANCED RESEARCH PROGRAMS DIRECTOR <1.0 AI <0.2 SM ANTIBODY <1.0 AI <0.2 SCLERODERMA AB, IGG <1.0 AI <0.2 CENTROMERE AB <1.0 AI <0.2 CHROMATIN ANTIBODY <1.0 AI <0.2 HLA B27 02/24/2019 HLA-B27 DNA RESULT Negative Vitamin D Latest Ref Rng & Units 07/18/2022 VITAMIN D 25 HYDROXY 31.0 - 80.0 ng/mL 12.5(L) Imaging Last XR Hand/Finger - Impression Only XR HAND GENERAL 3V PA/LAT/OBL BILATERAL Exam End: 07/18/2022 11:36 AM (Final result) Impression: IMPRESSION: No acute radiographic findings. No bony erosions. Explosive Operator Grenade: PSCB Transcribe Date/Time: Jul 20 2022 4:36P... Last MRI Hand - Impression Only No resulted procedures found. Last XR Chest - Impression Only No resulted procedures found. Last XR Cervical Spine - Impression Only No resulted procedures found. Health Maintenance Current Immunizations Never Reviewed No immunizations on file. Physical Exam VITAL SIGNS: BP 109/72 Pulse 76 Wt 130 lb 11.2 oz (59.3kg) SpO2 98% LMP 10/25/2021 GENERAL APPEARANCE: Well groomed. In no distress. SKIN: No rash, dry patch with scratches on the back of right ankle, no thickening, nodules, calcifications, discoloration. EYES: PERRL, EOMI HENT: Has multiple aphthous ulcer under tongue and buccal mucosa, normal external examination of the ears and nose, lips NEUROLOGIC: Alert and oriented x 3. Motor exam: Normal muscle strength grossly, MUSCULOSKELETAL EXAMINATION: No synovitis on exam today, has painful nodule over base of right long finger and plantar aspect ofright foot No limitation of range of motion, no deformities Diagnoses: (M06.9) Rheumatoid arthritis involving multiple sites, unspecified whether rheumatoid factor present (HCC) (primary encounter diagnosis) (Z79.899) Encounter for long-term (current) use of high-risk medication Impression and Plan 1. Seronegative inflammatory arthritis Manifestations: Joint pain and swelling, synovitis, dry mouth, positive KINGSTON with low titer, 1: 80, dsDNA, anti-RAVIN negative, negative CCP and rheumatoid factor antibodies, negative HLAB27 Elevated CRP, radiograph hands feet and SI joint with no evidence of erosions and sacroiliitis respectively Status: Patient could not tolerate leflunomide due to back pain?, Back pain resolved after stoppingleflunomide, no synovitis on exam today, has painful nodules over palmar aspect of hand and plantaraspect of foot Plan I will repeat KINGSTON, anti-RAVIN, dsDNA to evaluate for lupus due to history of positive KINGSTON, recurrent oral ulcers and inflammatory arthritis Oral also did not get better even after stopping methotrexate If she continues to have persistent synovitis, other options include adding abatacept, sulfasalazine, Rinvoq, Humira or Enbrel Referral to hand orthopedics for evaluation of right hand mass, consider biopsy for histopathology to evaluate for rheumatoid nodule 2. Recurrent oral ulcers Denies any vaginal ulcers, denies history of DVT or aneurysms Since this has been very painful and significant, will trial colchicine 0.3 mg daily and increase to 0.6 mg daily if tolerated after 1 week 3. Monitoring for drug toxicity and immunosuppression TB screening negative in 07/2022 Hepatitis B and C negative in 07/2022 4. Chronic pain Patient reports fatigue, widespread body pain, brain fog, nonrestorative sleep She may also have underlying chronic pain Has not been taking amitriptyline regularly Advised to take amitriptyline 10 mg daily 5. Healthcare maintenance/Malignancy screening Defer to PCP Orders this visit: Office Visit on 12/05/22 COMP METABOLIC PANEL CBC + DIFF KINGSTON BY IFA WITH REFLEX DNA AB DS + CONF BLD ANTI RAVIN ID URINALYSIS, WITH MICROSCOPIC CONSULT PANEL TO ORTHOPAEDICS colchicine 0.6 mg tablet No follow-ups on file. I spent a total of 30 minutes on the date of the service which included preparing to see the patient, [id number] patient care, completing clinical documentation, obtaining and/or reviewing separately obtained history, performing a medically appropriate examination, counseling and educating the pat ient/family/caregiver, and ordering medications, tests, or procedures. Janie Herman MD, [facility] Miscellaneous Notes* Telephone Encounter - Janie Herman MD - 11/06/2022 3:12 PM EST Has nodule over right palmar long finger. Maybe also over foot. She continues to have oral ulcers despite increasing dose of folic acid. Differentials for nodules include rheumatoid nodule versus with a Trixat induced nodule or cyst. Since he also continues to have oral ulcers, I will stop methotrexate, also advised to stop taking folic acid. Will start leflunomide 20 mg daily We discussed the adverse effects related to leflunomide which include but are not limited to headache, nausea, diarrhea, oral ulcers, hepatitis, myelosuppression, skin rash, hair loss. We discussed that she will need drug toxicity monitoring at regular intervals. If she continues to have persistent synovitis we will consider adding Humira/Enbrel next visit * Telephone Encounter - Glenda Benavides RN - 11/06/2022 2:09 PM EST Pt is identified by name and birthdate: Yes Pt seen in OV 10/19 Rheumatoid arthritis involving multiple sites, unspecified whether rheumatoid factor present (HCC) High risk medication use Encounter for long-term (current) use of high-risk medication RX: None States she mentioned Right Hand Pea Size nodule that was bothering her She is calling back states symptoms have worsened (Pea size nodules is Slightly larger, and pain has increased) Pain is 7/10 She is Right handed and 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 Rheumatology Outpatient Clinic Date of Service: 10/17/2022 Patient: Alyssa De Leon Medical Record: [id number] Primary Care Physician: No primary care provider on file. Referring Provider: NO PCP Last Rheumatology visit: 08/15/2022 (with Janie Herman) Chief complaint: Follow Up (2 month follow up. Wants to dicuss medication.) History of Present Illness Alyssa De Leon is a 32 year old female with medical history of seronegative RA presents on 10/17/2022 for an in-person visit for follow-up of Follow Up (2 month follow up. Wants to dicuss medication.). She is currently taking amitriptyline HCl, methotrexate sodium. Alyssa is both RF - 9 (02/24/2019) and CCP - 13.5 (02/24/2019) negative. Her most recent KINGSTON was positive (02/24/2019). HISTORY OF PRESENT ILLNESS History of inflammatory arthritis Diagnosed in 2013- had multiple joint pain and swelling over hands, wrists, feet and knees Was following with a community health education coordinator in [place], [place] Dr. Ángel Kinney, but had to switch due to insurance reasons in 2019 Manifestations: Joint pain and swelling, synovitis, negative CCP and rheumatoid factor antibodies, negative HLAB27 Other: positive KINGSTON (1:80) no erosions in radiograph hands and feet in 02/2019 Extra-articular manifestations include: sicca Prior DMARD therapy include: Hydroxychloroquine - Discontinued because of inefficacy Hydroxychloroquine - does not recall side effects Methotrexate - GI side-effects, but patient has difficulty recalling, restarted 7.5 mg weekly 07/2022, tolerated well, increased to 12.5 mg weekly 08/2022 Certolizumab (06/03/20) - painful skin sores, muscle aches and cramps, leg swelling. It was helping her joint pain and swelling. Xeljanz 11/2020-11/2021 - diarrhea, nausea, headache, did not help much with joint pain and swelling Infliximab 10/2017-08/2018, 90% of symptoms had resolved, 08/2022- infusion reaction, hives, back pain, numbness Denies history of inflammatory eye disease, inflammatory bowel disease, psoriasis, dysentery, chlamydia, gonorrhea or other STDs, history of kidney disease/biopsy, nephrolithiasis, peptic ulcer disease, tuberculosis, Had 1 early miscarriage, blood clots ? denies malignancy, pleural/pericardial effusion, CHF, CAD, CVA. During new patient evaluation on 07/18/2022-she had multiple joint synovitis, infliximab was resumed, methotrexate 7.5 mg weekly with folic acid 1 mg daily was added. 07/2022 Radiograph SI joint-No acute radiographic findings. radiograph bilateral hands-No bony erosions. No acute radiographic findings. No bony erosions. radiograph bilateral feet-No acute radiographic findings. No bony erosions. Received first infusion 07/30/2022 08/09/2022-went to ER due to right-sided weakness and difficulty speech. Was seen by neurology, hadCT and MRI brain without any evidence of stroke. Her symptoms resolved spontaneously Unremarkable CT head, CTA head, neck, chest reviewed in care everywhere 08/2022-synovitis was better, was tolerating methotrexate well, dose of methotrexate increased to 12.5 mg weekly. During second dose of infliximab, she started c/o itching over scalp and swelling around her face and throat. Had few hives over bilateral wrists. She was given benadryl 25 mg and hydrocortisone 100 mg IV with relief in her itching and sensation of swelling. Few minutes later she c/o severe back pain on both sides, along with right leg weakness, she reports the pain and weakness wassimilar to the pain that she had last time, except she does not have over arms and legs. She is moving her bilateral legs however strength is limited by pain. Has normal sensation except funny sensation over right foot. Her vitals including SPO2 was within normal limits. She reported that Her back pain was better and leg weakness had resolved after 30 minutes of ketorolac 30 mg IV injection Infliximab was discontinued. INTERVAL HISTORY Today She is here for follow-up She reports that her joint pain and swelling is much better. Her neurological symptoms has resolvedand has not recurred. 2 and half weeks ago swelling over MCPs, lasted for about 5 days She does report nausea sometimes, started before starting methotrexate, has not gotten worse Sores in mouth has been worse lately Diarrhea started prior to starting methotrexate, has been stable Patient-Entered Data PAIN EVALUATION 10/17/2022 1029 Pain Level: 5 Pain Location: Knee-Left Bilateral Description: Aching Duration Amount of Time: 2 Duration Units: Weeks Frequency: Continuous PROMIS Assessments PROMIS Assessments 07/17/2022 10/10/2022 10/16/2022 Physical Health Percentile - - 7 % Mental Health Percentile - - 9 % Pain Score - - 3 Pain Interference Percentile 10 % 5 % - Fatigue Percentile 4 % 3 % - Physical Function Percentile 24 % 18 % - RAPID 3 [facility] Activities of Daily Living 10/10/2022 10:13 AM 07/17/2022 6:00 PM 10/01/2020 12:30 AM Dress self? With SOME difficulty With SOME difficulty With SOME difficulty Get in and out of bed? With SOME difficulty With SOME difficulty With MUCH difficulty Walk outdoors? Without ANY difficulty With SOME difficulty With SOME difficulty Wash and dry body? Without ANY difficulty With SOME difficulty With SOME difficulty Get in and out of car? With SOME difficulty With SOME difficulty With SOME difficulty RAPID 3 Disease Activity Weighed Score Levels: 0 - 1: Near Remission 1.3 - 2.0: Low Severity 2.3 - 4.0: Moderate Severity 4.3 - 10.0: High Severity RAPID-3 Weighed Score 10/01/2020 07/17/2022 10/10/2022 RAPID 3 Weighed Score - - - RAPID 3 Weighed Score 5.77 (High Severity (HS)) Incomplete 4.5 (High Severity (HS)) Review of Systems Answers submitted by the patient for this visit: Review of Systems Rheumatology (Submitted on 10/12/2022) Fever : No Recent Unintentional Weight Change: No Eye Redness: Yes Vision Disturbance: Yes Eye Dryness: Yes Sores in your Mouth: Yes Trouble Swallowing: No Dry Mouth: Yes Chest Pain: No Leg Swelling: No A Cough: No Shortness of Breath: No Heartburn: No Abdominal Pain: No Diarrhea: Yes Black Tarry Stools: No Blood in Urine: No Pain or Burning with Urination: No Joint Pain or Stiffness: Yes Muscle Weakness: Yes Muscle Aches: Yes Joint Swelling: Yes Morning Stiffness in Joints: Yes A Rash: No Skin Color Changes: No Headaches: Yes Numbness: Yes Swollen Glands: Yes Nausea/vomiting: Nausea sometimes, Diarrhea/constipation Has loose stool 3-4 times a day, sometimes has constipation, even before MTX started Sicca: Dry eyes and mouth Past Medical History PAST MEDICAL HISTORY Diagnosis Date Anxiety Depression Rheumatoid arthritis (HCC) Past Surgical History PAST SURGICAL HISTORY Procedure Laterality Date NONE Allergy ALLERGIES Allergen Reactions Hydrocodone-Acetami* Hives Infliximab Hives Family History grandmother had SLE/RA The patient denies family history of Sarcoidosis, Scleroderma, IBD or Psoriasis. FAMILY HISTORY Problem Relation Age of Onset Bipolar disorder Mother Diabetes Father Social History Social History Tobacco Use Smoking status: Former Types: Cigarettes Quit date: 02/25/2016 Years since quittin.6 Smokeless tobacco: Never Tobacco comments: Less than a pack. Substance Use Topics Alcohol use: Never Drug use: Never Current Medications Current Outpatient Medications Medication Sig pilocarpine (SALAGEN) 5 mg tablet TAKE 1 TABLET BY MOUTH THREE TIMES DAILY loratadine (CLARITIN) 10 mg tablet Take 10 mg by mouth twice daily. MICROGESTIN 1.5/30 1.5-30 mg-mcg Take 1 tablet by mouth once daily. dextroamphetamine-amphetamine (ADDERALL) 20 mg tablet Take 20 mg by mouth once daily. folic acid 1 mg tablet Take 2 tablets by mouth once daily. methotrexate 2.5 mg tablet Take 5 tablets by mouth one time a week. amitriptyline (ELAVIL) 10 mg tablet Take 1 tablet by mouth daily at bedtime. diphenhydrAMINE (BENADRYL) 25 mg capsule Take 1 capsule by mouth every 6 hours as needed. rOPINIRole (REQUIP) 1 mg tablet Take 1 mg by mouth at bedtime as needed. (Patient not taking: No sig reported) No current facility-administered medications for this visit. Labs CBC Latest Ref Rng & Units 02/24/2019 07/18/2022 08/15/2022 WBC 3.70 - 11.00 k/uL 8.07 6.43 8.13 HEMOGLOBIN 11.5 - 15.5 g/dL 13.5 13.9 14.1 HEMATOCRIT 36.0 - 46.0 % 39.9 41.0 41.7 PLATELETS 150 - 400 k/uL 328 309 373 ABS NEUT (ANC) 1.45 - 7.50 k/uL 5.31 4.40 4.95 ABS LYMPH 1.00 - 4.00 k/uL 2.19 1.55 2.36 CMP Latest Ref Rng & Units 02/24/2019 07/18/2022 08/15/2022 SODIUM 136 - 144 mmol/L 138 141 - POTASSIUM 3.7 - 5.1 mmol/L 4.0 3.6(L) - CHLORIDE 97 - 105 mmol/L 98 103 - CO2 22 - 30 mmol/L 24 26 - GLUCOSE 74 - 99 mg/dL 89 77 - BUN 7 - 21 mg/dL 15 7 - CREATININE 0.58 - 0.96 mg/dL 0.68 0.56(L) 0.55(L) CALCIUM, TOTAL 8.5 - 10.2 mg/dL 8.7 9.4 - AST 13 - 35 U/L 26 16 23 ALT 7 - 38 U/L 23 14 - ALKALINE PHOSPHATASE 34 - 123 U/L 77 74 - ESR, WSR Latest Ref Rng & Units 02/24/2019 07/18/2022 08/15/2022 WSR 0 - 20 mm/hr 5 15 47(H) CRP Latest Ref Rng & Units 02/24/2019 07/18/2022 08/15/2022 CRP <0.9 mg/dL 0.4 3.8(H) 2.3(H) CK Latest Ref Rng & Units 08/15/2022 CK 42 - 196 U/L 38(L) RF and CCP Latest Ref Rng & Units 02/24/2019 RHEUMATOID FACTOR <16 IU/mL <10 CCP ANTIBODY, IGG <20 Units <15 Hepatitis Screen Latest Ref Rng & Units 02/24/2019 07/18/2022 HEPBCOTOL Negative Negative Negative HEPSABQ Negative Positive(A) - HEPCABEIA Negative Negative Negative HBSAGR Negative Negative - TB Screen 02/24/2019 07/18/2022 TBGINT No evidence of current or previous infection with Mycobacterium tuberculosis. Infection withM. tuberculosis complex is unlikely. If latent tuberculosis infection is highly suspected, a negative result does not rule out the infection. Specimens from immunocompromised patients and those <5years of age may show false negative results. In case of a contact investigation, please repeat 8-12 weeks after a known exposure. TBGRES Negative Negative Antibodies Latest Ref Rng & Units 02/24/2019 KINGSTON Negative Positive(A) KINGSTON TITER Negative 1:80(A) KINGSTON PATTERN - Homogeneous DNA ANTIBODY W/CONFIRMATION <30 IU/mL <12 ADVANCED RESEARCH PROGRAMS DIRECTOR ANTIBODY <1.0 AI <0.2 SSA ANTIBODY <1.0 AI <0.2 SSB ANTIBODY <1.0 AI <0.2 NISH-1 ANTIBODY, IGG <1.0 AI <0.2 RIBOSOMAL ADVANCED RESEARCH PROGRAMS DIRECTOR <1.0 AI <0.2 SM ANTIBODY <1.0 AI <0.2 SCLERODERMA AB, IGG <1.0 AI <0.2 CENTROMERE AB <1.0 AI <0.2 CHROMATIN ANTIBODY <1.0 AI <0.2 HLA B27 02/24/2019 HLA-B27 DNA RESULT Negative Vitamin D Latest Ref Rng & Units 07/18/2022 VITAMIN D 25 HYDROXY 31.0 - 80.0 ng/mL 12.5(L) Imaging Last XR Hand/Finger - Impression Only XR HAND GENERAL 3V PA/LAT/OBL BILATERAL Exam End: 07/18/2022 11:36 AM (Final result) Impression: IMPRESSION: No acute radiographic findings. No bony erosions. Explosive Operator Grenade: HARSH Transcribe Date/Time: Jul 20 2022 4:36P... Last MRI Hand - Impression Only No resulted procedures found. Last XR Chest - Impression Only No resulted procedures found. Last XR Cervical Spine - Impression Only No resulted procedures found. Health Maintenance Current Immunizations Never Reviewed No immunizations on file. Physical Exam VITAL SIGNS: BP 111/66 Pulse 96 Wt 129 lb 12.8 oz (58.9kg) SpO2 99% LMP 10/25/2021 GENERAL APPEARANCE: Well groomed. In no distress. SKIN: No rash, thickening, nodules, calcifications, discoloration. EYES: PERRL, EOMI HENT: Has 2 aphthous ulcer over buccal mucosa, normal external examination of the ears and nose, lips NECK: No mass or asymmetry, no lymphadenopathy. RESPIRATORY: Normal respiratory effort. Clear to auscultation, no wheeze. CARDIOVASCULAR: regular, normal rate, normal heart sounds, no murmur or rub ABDOMEN: BS normal. No bruits, NEUROLOGIC: Alert and oriented x 3. Motor exam: Normal muscle strength grossly, MUSCULOSKELETAL EXAMINATION: Diffuse tenderness around left shoulder, mild synovitis along right little MCP, synovitis significantly improved compared to last visit No limitation of range of motion, no deformities Diagnoses: (M06.9) Rheumatoid arthritis involving multiple sites, unspecified whether rheumatoid factor present (HCC) (primary encounter diagnosis) (Z79.899) High risk medication use (Z79.899) Encounter for long-term (current) use of high-risk medication Impression and Plan 1. Seronegative inflammatory arthritis Manifestations: Joint pain and swelling, synovitis, negative CCP and rheumatoid factor antibodies, negative HLAB27 Elevated CRP, radiograph hands feet and SI joint with no evidence of erosions and sacroiliitis respectively Status: Synovitis significantly improved compared to last visit Plan Continue methotrexate to 12.5 mg weekly Although she used to get oral ulcers prior to starting methotrexate, she thinks it has been slightly worse, increase folic acid to 2 mg daily Check sed rate, CRP If she continues to have persistent synovitis during next visit, discussed other options including adding sulfasalazine, Rinvoq, Humira or Enbrel We will consider stopping methotrexate if she continues to have oral ulcers despite increasing doseof folic acid 2. Monitoring for drug toxicity and immunosuppression TB screening negative in 07/2022 Hepatitis B and C negative in 07/2022 CBC, AST, albumin, creatinine to monitor methotrexate toxicity today 3. Chronic pain Patient reports fatigue, widespread body pain, brain fog, nonrestorative sleep She may also have underlying chronic pain Continue amitriptyline 10 mg daily 4. Healthcare maintenance/Malignancy screening Defer to PCP Orders this visit: Office Visit on 10/17/22 CREATININE BLD ALBUMIN BLD AST/SGOT BLD CBC + DIFF SED RATE WESTERGREN C-REACTIVE PROTEIN (CRP) folic acid 1 mg tablet methotrexate 2.5 mg tablet amitriptyline (ELAVIL) 10 mg tablet Return in about 3 months (around 01/14/2023). I spent a total of 30 minutes on the date of the service which included preparing to see the patient, [id number] patient care, completing clinical documentation, obtaining and/or reviewing separately obtained history, performing a medically appropriate examination, counseling and educating the pat ient/family/caregiver, and ordering medications, tests, or procedures. Janie Herman MD, [facility] Rheumatology Answers submitted by the patient for this visit: Review of Systems Rheumatology (Submitted on 10/12/2022) Fever : No Recent Unintentional Weight Change: No Eye Redness: Yes Vision Disturbance: Yes Eye Dryness: Yes Sores in your Mouth: Yes Trouble Swallowing: No Dry Mouth: Yes Chest Pain: No Leg Swelling: No A Cough: No Shortness of Breath: No Heartburn: No Abdominal Pain: No Diarrhea: Yes Black Tarry Stools: No Blood in Urine: No Pain or Burning with Urination: No Joint Pain or Stiffness: Yes Muscle Weakness: Yes Muscle Aches: Yes Joint Swelling: Yes Morning Stiffness in Joints: Yes A Rash: No Skin Color Changes: No Headaches: Yes Numbness: Yes Swollen Glands: Yes documented in [facility] Miscellaneous Notes* Telephone Encounter - Ioana Gordillo RN - 09/12/2022 10:16 AM EST Most recent Rheumatology visit: 08/15/2022 (with Janie Herman) Recent Office Visits - This Specialty 08/15/2022 Rheumatoid arthritis involving multiple sites, unspecified whether rheumatoid factor present (HCC) Rheumatology Janie Herman MD 07/18/2022 Inflammatory arthritis Rheumatology Janie Herman MD 10/22/2020 Rheumatoid arthritis involving multiple sites, unspecified whether rheumatoid factor present (HCC) Rheumatology Joselyn Foster MD Upcoming Rheumatology Appointments - Next 365 Days Visit Type Date Time Department [facility] 10/17/2022 10:30 AM [facility] CBC: CBC Latest Ref Rng & Units 07/18/2022 08/15/2022 WBC 3.70 - 11.00 k/uL 6.43 8.13 HEMOGLOBIN 11.5 - 15.5 g/dL 13.9 14.1 HEMATOCRIT 36.0 - 46.0 % 41.0 41.7 PLATELETS 150 - 400 k/uL 309 373 ABS NEUT (ANC) 1.45 - 7.50 k/uL 4.40 4.95 ABS LYMPH 1.00 - 4.00 k/uL 1.55 2.36 Vitamin D: Vitamin D Latest Ref Rng & Units 07/18/2022 VITAMIN D 25 HYDROXY 31.0 - 80.0 ng/mL 12.5(L) LFT: CMP Latest Ref Rng & Units 07/18/2022 08/15/2022 SODIUM 136 - 144 mmol/L 141 - POTASSIUM 3.7 - 5.1 mmol/L 3.6(L) - CHLORIDE 97 - 105 mmol/L 103 - CO2 22 - 30 mmol/L 26 - GLUCOSE 74 - 99 mg/dL 77 - BUN 7 - 21 mg/dL 7 - CREATININE 0.58 - 0.96 mg/dL 0.56(L) 0.55(L) CALCIUM, TOTAL 8.5 - 10.2 mg/dL 9.4 - AST 13 - 35 U/L 16 23 ALT 7 - 38 U/L 14 - ALKALINE PHOSPHATASE 34 - 123 U/L 74 - Creatinine: Creatinine Latest Ref Rng & Units 07/18/2022 08/15/2022 CREAT 0.58 - 0.96 mg/dL 0.56(L) 0.55(L) ESR/CRP: ESR, WSR Latest Ref Rng & Units 07/18/2022 08/15/2022 WSR 0 - 20 mm/hr 15 47(H) CRP Latest Ref Rng & Units 07/18/2022 08/15/2022 CRP <0.9 mg/dL 3.8(H) 2.3(H) Uric Acid: None on file in the last 6 months Open Standing (Multiple Instance) Lab Orders Remain Interval Expires Ordered Last Rel. CBC + DIFF [SQCBCDIF] 02/13 Every 2 months 12/14/22 12/14/21 Auth. provider: Joselyn Foster MD Assoc. diagnoses: Sicca, unspecified type (HCC) COMP METABOLIC PANEL [SQCMP] 02/13 Every 2 months 12/14/22 12/14/21 Auth. provider: Joselyn Foster MD Assoc. diagnoses: Sicca, unspecified type (HCC) C-REACTIVE PROTEIN (CRP) [SQCRP] 02/13 Every 2 months 12/14/22 12/14/21 Auth. provider: Joselyn Foster MD Assoc. diagnoses: Sicca, unspecified type (HCC) SED RATE WESTERGREN [SQWSR] 02/13 Every 2 months 12/14/22 12/14/21 Auth. provider: Joselyn Foster MD Assoc. diagnoses: Sicca, unspecified type (HCC) Open Future (Single Instance) Lab Orders None documented in [facility]Dun[facility]12-[facility] History of Present illness Narrative* Janie Herman MD - 08/22/2022 3:02 PM EST Patient here for infliximab infusion. Longterm through the infusion she started c/o itching over scalp and swelling around her face and throat. Had few hives over bilateral wrists. She was given benadryl 25 mg and hydrocortisone 100 mg IV with relief in her itching and sensation of swelling. Few minutes later she c/o severe back pain on both sides, along with right leg weakness, she reports the pain and weakness was similar to the pain that she had last time, except she does not have over arms and legs. She is moving her bilateral legs however strength is limited by pain. Has normal sensation except funny sensation over right foot. Her vitals including SPO2 was within normal limits. She reported that Her back pain was better and leg weakness had resolved after 30 minutes of ketorolac 30 mg IV injection. Will stop infliximab infusion. Continue methotrexate as prescribed for now with folic acid Benadryl as needed prescribed Advised to go to ER if her symptoms return or worsen She is scheduled for EMG/NCV in few days. * Farida Flannery RN - 08/22/2022 12:28 PM EST Since your last infusion, have you: Had any major change in your health (including new diagnosis of cancer, COPD or cogestive heart failure? No Been hospitalized? No Had any infections? No Taking antibiotics/antivirals/antifungals for current infection? No Had surgery or do you have upcoming surgery? No Received any live vaccines in the last four weeks? No Worsening GI symptoms/abnormal pain/bloating No In the past 7 days have you had: Fevers/chills/night sweats? No New cough or cold symptoms or sore throat? No Nausea/vomiting/diarrhea? No Unusual swelling of your ankles of feet? No Burning/blood with urination or urinary frequency? No New weakness/numbness/stumbling falls? No New rash or open sores? No 1432 pt c/o itching to scalp and a numb feeling of face/ nose. Infusion stopped; normal saline infusion started. VS: 98.7-96-20-113/75 1433 Benadryl 25 mg IV given 1436 Solu-cortef [address] Herman chair side assessing patient 1445 Dr. Herman advised not to restart infusion and medication will be discontinued. Pt c/o severelower back pain; reports pain is the same as when she went to ed. Oxygen 2 L applied. Itching to scalp resolved; facial numbness improving 1451 Toradol 30 mg IV given for back pain 1508 hives noted to bilateral palms and wrists; Benadryl 25 mg IV given 1510 VS: 94-20-110/75, pulse ox 100% on 2 L. Pain resolving; facial numbness resolved 1533 pain improved; resting with normal saline infusing. Waiting for her boyfriend to come pick herup 1545 pt resting comfortably; pain improved. VS: 91-113/72. 1600 pt requesting to use the bathroom. IV removed. Pt able to get up out of the chair unassisted and ambulate to the bathroom without any difficulty. Back pain is resolved. Denies dizziness/lightheadedness. 1610 patient sx all resolved; does not want to wait until 5 pm for her ride. Ok with Dr. Herman for patient to leave. Pt advised to return to the ED if symptoms return; she agreed. documented in [facility]Dun[facility]12-12-2022 Miscellaneous Notes* Telephone Encounter - Brad Flores RN - 08/21/2022 10:33 AM EST I spoke to Alyssa, and she will be coming for her infusion on 08-22-22. She denies having been on anyrecent antibiotics, or having any illnesses or recent infections. documented in this encounterDun[facility]12-06-2022 History of Present illness Narrative* Janie Herman MD - 08/15/2022 10:30 AM EST Images from the original note were not included. Rheumatology Outpatient Clinic Date of Service: 08/15/2022 Patient: Alyssa De Leon Medical Record: [id number] Primary Care Physician: No primary care provider on file. Referring Provider: NO PCP Last Rheumatology visit: 07/18/2022 (with Janie Herman) Chief complaint: Recheck History of Present Illness Alyssa De Leon is a 32 year old female with medical history of seronegative RA presents on 08/15/2022 for an in-person visit for follow-up of Recheck. She is currently taking amitriptyline HCl, methotrexate sodium. Alyssa is both RF - 9 (02/24/2019) and CCP - 13.5 (02/24/2019) negative. Her most recent KINGSTON was positive (02/24/2019). HISTORY OF PRESENT ILLNESS History of inflammatory arthritis Diagnosed in 2013- had multiple joint pain and swelling over hands, wrists, feet and knees Was following with a community health education coordinator in [place], [place] Dr. Ángel Kinney, but had to switch due to insurance reasons in 2018 Manifestations: Joint pain and swelling, synovitis, negative CCP and rheumatoid factor antibodies, negative HLAB27 Other: positive KINGSTON (1:80) no erosions in radiograph hands and feet in 02/2019 Extra-articular manifestations include: sicca Prior DMARD therapy include: Discontinued because of inefficacy: Hydroxychloroquine Methotrexate Discontinued because of side effects: Hydroxychloroquine - does not recall side effects Not taking adderal Methotrexate - GI side-effects, but patient has difficulty recalling Certolizumab (06/03/20) - painful skin sores, muscle aches and cramps, leg swelling. It was helping her joint pain and swelling. Xeljanz 11/2020-11/2021 - diarrhea, nausea, headache, did not help much with joint pain and swelling Discontinued because of insurance issues: Infliximab 10/2017-08/2018, 90% of symptoms had resolved Denies history of inflammatory eye disease, inflammatory bowel disease, psoriasis, dysentery, chlamydia, gonorrhea or other STDs, history of kidney disease/biopsy, nephrolithiasis, peptic ulcer disease, tuberculosis, Had 1 early miscarriage, blood clots ? denies malignancy, pleural/pericardial effusion, CHF, CAD, CVA. During new patient evaluation on 07/18/2022-she had multiple joint synovitis, infliximab was resumed, methotrexate 7.5 mg weekly with folic acid 1 mg daily was added. 07/2022 Radiograph SI joint-No acute radiographic findings. radiograph bilateral hands-No bony erosions. No acute radiographic findings. No bony erosions. radiograph bilateral feet-No acute radiographic findings. No bony erosions. Received first infusion 07/30/2022 08/09/2022-went to ER due to right-sided weakness and difficulty speech. Was seen by neurology, hadCT and MRI brain without any evidence of stroke. Her symptoms resolved spontaneously Unremarkable CT head, CTA head, neck, chest reviewed in care everywhere INTERVAL HISTORY Today She wanted to be seen prior to her second infusion. She reports that her right-sided weakness and pain was almost 90% better. However today she feels soreness all over her body mostly on left side. She denies fever and other respiratory symptoms. She wants to defer infusion due to the symptoms. She also reports fatigue, brain fog, poor sleep Patient-Entered Data PAIN EVALUATION 08/15/2022 1030 Pain Level: 6 Pain Location: -- legs, hips, knees. Description: Aching;Sore Duration Amount of Time: 1 Duration Units: Weeks Frequency: Continuous Intervention/Comfort measure: Medication Comments: motrin, tylenol. PROMIS Assessments PROMIS Assessments 02/24/2019 10/01/2020 07/17/2022 Physical Health Percentile 6.55 % 2 % - Mental Health Percentile 18.67 % 13 % - Pain Score 7 3 - Pain Interference Percentile - 5 % 10 % Fatigue Percentile - 3 % 4 % Physical Function Percentile - 10 % 24 % RAPID 3 [place] Activities of Daily Living 07/17/2022 6:00 PM 10/01/2020 12:30 AM Dress self? With SOME difficulty With SOME difficulty Get in and out of bed? With SOME difficulty With MUCH difficulty Walk outdoors? With SOME difficulty With SOME difficulty Wash and dry body? With SOME difficulty With SOME difficulty Get in and out of car? With SOME difficulty With SOME difficulty RAPID 3 Disease Activity Weighed Score Levels: 0 - 1: Near Remission 1.3 - 2.0: Low Severity 2.3 - 4.0: Moderate Severity 4.3 - 10.0: High Severity RAPID-3 Weighed Score 02/24/2019 10/01/2020 07/17/2022 RAPID 3 Weighed Score 7.2 - - RAPID 3 Weighed Score - 5.77 (High Severity (HS)) Incomplete Review of Systems REVIEW OF SYSTEMS: Joint pain: As above Joint swelling: As above Joint stiffness: 20-40 min Back/neck pain: sometimes Enthesopathic pain: Denies Fever: Denies Change in weight: Denies Lymphadenopathy: Denies Mucosal ulcers: Denies Skin rash: Hands and chest on and off, itchy, resolves spontaneously Photosensitive rash: Denies Alopecia: Denies Chest Pain: Denies Dyspnea: Denies Cough : Denies Difficulty swallowing: Denies Nausea/vomiting: Denies Heartburn: Denies Abdominal Pain: Denies Diarrhea/constipation Has loose stool 3-4 times a day, sometimes has constipation Blood in stool : Denies Dysuria/hematuria: Denies Muscle pain: Diffuse, mostly right side of her Muscle weakness: Right side of body, 90% better Numbness: Denies Headache: Yes, left side with loss of vision that resolved after 27 min change in vision: As above Confusion: Denies Seizures: Denies Raynaud's: Denies Sicca: Dry eyes and mouth Past Medical History PAST MEDICAL HISTORY Diagnosis Date Anxiety Depression Rheumatoid arthritis (HCC) Past Surgical History PAST SURGICAL HISTORY Procedure Laterality Date NONE Allergy ALLERGIES Allergen Reactions Hydrocodone-Acetami* Hives Family History grandmother had SLE/RA The patient denies family history of Sarcoidosis, Scleroderma, IBD or Psoriasis. FAMILY HISTORY Problem Relation Age of Onset Bipolar disorder Mother Diabetes Father Social History Social History Tobacco Use Smoking status: Former Types: Cigarettes Quit date: 02/25/2016 Years since quittin.4 Smokeless tobacco: Never Tobacco comments: Less than a pack. Substance Use Topics Alcohol use: Never Drug use: Never Current Medications Current Outpatient Medications Medication Sig loratadine (CLARITIN) 10 mg tablet Take 10 mg by mouth twice daily. pilocarpine (SALAGEN) 5 mg tablet TAKE 1 TABLET BY MOUTH THREE TIMES DAILY MICROGESTIN 1.5/30 1.5-30 mg-mcg Take 1 tablet by mouth once daily. dextroamphetamine-amphetamine (ADDERALL) 20 mg tablet Take 20 mg by mouth once daily. amitriptyline (ELAVIL) 10 mg tablet Take 1 tablet by mouth daily at bedtime. methotrexate 2.5 mg tablet Take 5 tablets by mouth one time a week. folic acid 1 mg tablet Take 1 tablet by mouth once daily. rOPINIRole (REQUIP) 1 mg tablet Take 1 mg by mouth at bedtime as needed. (Patient not taking: No sig reported) No current facility-administered medications for this visit. Labs CBC Latest Ref Rng & Units 02/24/2019 07/18/2022 WBC 3.70 - 11.00 k/uL 8.07 6.43 HEMOGLOBIN 11.5 - 15.5 g/dL 13.5 13.9 HEMATOCRIT 36.0 - 46.0 % 39.9 41.0 PLATELETS 150 - 400 k/uL 328 309 ABS NEUT (ANC) 1.45 - 7.50 k/uL 5.31 4.40 ABS LYMPH 1.00 - 4.00 k/uL 2.19 1.55 CMP Latest Ref Rng & Units 02/24/2019 07/18/2022 SODIUM 136 - 144 mmol/L 138 141 POTASSIUM 3.7 - 5.1 mmol/L 4.0 3.6(L) CHLORIDE 97 - 105 mmol/L 98 103 CO2 22 - 30 mmol/L 24 26 GLUCOSE 74 - 99 mg/dL 89 77 BUN 7 - 21 mg/dL 15 7 CREATININE 0.58 - 0.96 mg/dL 0.68 0.56(L) CALCIUM, TOTAL 8.5 - 10.2 mg/dL 8.7 9.4 AST 13 - 35 U/L 26 16 ALT 7 - 38 U/L 23 14 ALKALINE PHOSPHATASE 34 - 123 U/L 77 74 ESR, WSR Latest Ref Rng & Units 02/24/2019 07/18/2022 WSR 0 - 20 mm/hr 5 15 CRP Latest Ref Rng & Units 02/24/2019 07/18/2022 CRP <0.9 mg/dL 0.4 3.8(H) RF and CCP Latest Ref Rng & Units 02/24/2019 RHEUMATOID FACTOR <16 IU/mL <10 CCP ANTIBODY, IGG <20 Units <15 Hepatitis Screen Latest Ref Rng & Units 02/24/2019 07/18/2022 HEPBCOTOL Negative Negative Negative HEPSABQ Negative Positive(A) - HEPCABEIA Negative Negative Negative HBSAGR Negative Negative - TB Screen 02/24/2019 07/18/2022 TBGINT No evidence of current or previous infection with Mycobacterium tuberculosis. Infection withM. tuberculosis complex is unlikely. If latent tuberculosis infection is highly suspected, a negative result does not rule out the infection. Specimens from immunocompromised patients and those <5years of age may show false negative results. In case of a contact investigation, please repeat 8-12 weeks after a known exposure. TBGRES Negative Negative Antibodies Latest Ref Rng & Units 02/24/2019 KINGSTON Negative Positive(A) KINGSTON TITER Negative 1:80(A) KINGSTON PATTERN - Homogeneous DNA ANTIBODY W/CONFIRMATION <30 IU/mL <12 ADVANCED RESEARCH PROGRAMS DIRECTOR ANTIBODY <1.0 AI <0.2 SSA ANTIBODY <1.0 AI <0.2 SSB ANTIBODY <1.0 AI <0.2 NISH-1 ANTIBODY, IGG <1.0 AI <0.2 RIBOSOMAL ADVANCED RESEARCH PROGRAMS DIRECTOR <1.0 AI <0.2 SM ANTIBODY <1.0 AI <0.2 SCLERODERMA AB, IGG <1.0 AI <0.2 CENTROMERE AB <1.0 AI <0.2 CHROMATIN ANTIBODY <1.0 AI <0.2 HLA B27 02/24/2019 HLA-B27 DNA RESULT Negative Vitamin D Latest Ref Rng & Units 07/18/2022 VITAMIN D 25 HYDROXY 31.0 - 80.0 ng/mL 12.5(L) Imaging Last XR Hand/Finger - Impression Only XR HAND GENERAL 3V PA/LAT/OBL BILATERAL Exam End: 07/18/2022 11:36 AM (Final result) Impression: IMPRESSION: No acute radiographic findings. No bony erosions. Explosive Operator Grenade: HARSH Transcribe Date/Time: Jul 20 2022 4:36P... Last MRI Hand - Impression Only No resulted procedures found. Last XR Chest - Impression Only No resulted procedures found. Last XR Cervical Spine - Impression Only No resulted procedures found. Health Maintenance Current Immunizations Never Reviewed No immunizations on file. Physical Exam VITAL SIGNS: BP 127/72 Pulse 90 Temp (Src) 97.5 (Temporal Artery) Wt 133 lb (60.3kg) SpO2 95% LMP 10/25/2021 GENERAL APPEARANCE: Well groomed. In no distress. SKIN: No rash, thickening, nodules, calcifications, discoloration. EYES: PERRL, EOMI HENT: No oral ulcers, normal external examination of the ears and nose, lips NECK: No mass or asymmetry, no lymphadenopathy. RESPIRATORY: Normal respiratory effort. Clear to auscultation, no wheeze. CARDIOVASCULAR: regular, normal rate, normal heart sounds, no murmur or rub ABDOMEN: BS normal. No bruits, NEUROLOGIC: Alert and oriented x 3. Sensory exam normal. Motor exam: Normal 5+/5+ muscle strength, it gives away after a while on rightupper and lower extremity secondary to pain. Normal bulk and tone. MUSCULOSKELETAL EXAMINATION: Has diffuse tenderness mostly on the right side of her upper and lower extremity. Mild synovitis along the bilateral long MCP, synovitis significantly improved compared to last visit Diagnoses: (M06.9) Rheumatoid arthritis involving multiple sites, unspecified whether rheumatoid factor present (HCC) (primary encounter diagnosis) (Z79.899) Encounter for long-term (current) use of high-risk medication Impression and Plan 1. Seronegative inflammatory arthritis Manifestations: Joint pain and swelling, synovitis, negative CCP and rheumatoid factor antibodies, negative HLAB27 Elevated CRP, radiograph hands feet and SI joint with no evidence of erosions and sacroiliitis respectively Status: Synovitis significantly improved compared to last visit She reports new symptom of right-sided weakness and diffuse pain without any swelling that started after about 8 days of last infusion that had resolved 90%. Today however she has diffuse soreness, flulike symptoms Reassured that her symptoms did not seem to be from infusion reaction or stroke. She wants to defer infusion today due to her new symptoms Increase dose of methotrexate to 12.5 mg weekly, she has been tolerating 7.5 mg weekly so far Continue folic acid 1 mg daily Will check antiinfliximab antibody Check sed rate, CRP, CK 2. Monitoring for drug toxicity and immunosuppression TB screening negative in 07/2022 Hepatitis B and C negative in 07/2022 CBC, AST, albumin, creatinine to monitor methotrexate toxicity today 3. Chronic pain Patient reports fatigue, widespread body pain, brain fog, nonrestorative sleep She may also have underlying chronic pain Will start amitriptyline 10 mg daily, increase as tolerated Discussed possible side effects 4. Healthcare maintenance/Malignancy screening Defer to PCP Orders this visit: Office Visit on 08/15/22 INFLIXIMAB ACTIVITY AND NEUTRALIZING AB CREATININE BLD ALBUMIN BLD AST/SGOT BLD CBC + DIFF CK CREATINE KINASE C-REACTIVE PROTEIN (CRP) SED RATE WESTERGREN amitriptyline (ELAVIL) 10 mg tablet methotrexate 2.5 mg tablet folic acid 1 mg tablet Return in about 2 months (around 10/16/2022). I spent a total of 30 minutes on the date of the service which included preparing to see the patient, [id number] patient care, completing clinical documentation, obtaining and/or reviewing separately obtained history, performing a medically appropriate examination, counseling and educating the pat ient/family/caregiver, and ordering medications, tests, or procedures. Janie Herman MD, [facility] documented in this encounterDunlap Memorial Hospital12-05-2022 Miscellaneous Notes* Telephone Encounter - Teri Gudino RN - 08/14/2022 3:28 PM EST Pt is scheduled for OV with infusion to follow. * Telephone Encounter - Radha Lynne LPN - 08/14/2022 11:29 AM EST Called patient. Patient stated per neurologist and ER physician reaction NOT related to Renflexis infusion. States somewhere along neuro-aspect . Patient has confirmed and would like to proceed with infusion tomorrow. Per patient ER report has been faxed to office. Patient has been added for visit tomorrow at 10:30am (open slot) as patient will be in infusion. * Telephone Encounter - Nora Vasquez RN - 08/14/2022 8:46 AM EST Pt calls Requesting vv today with rheum provider Was recently in the er d/t ? Reaction to RA infusion meds Scheduled for infusion 08-15 Call transferred to [facility] scheduling to assist with appt scheduling No appt noted Please call pt to discuss above concerns documented in this encounterDunlap Memorial Hospital12-05-2022 Miscellaneous Notes* Telephone Encounter - Teri Gudino RN - 08/14/2022 11:35 AM EST Spoke with Dr Herman she would like to see patient in office prior to infusion. Please schedule ptwith DR. Herman at 10:30 08/15/22 and change infusion to same day at 11:00. * Telephone Encounter - Teri Gudino RN - 08/14/2022 9:31 AM EST Spoke with patient, she was in ED last week was hoping to get a visit with Dr Herman today to talkabout issues that kept her overnight in the hospital. Pt denies any signs or symptoms of infection and believes that she will be okay with infusion tomorrow. Will clarify with Dr Herman. documented in this encounterDunlap Memorial Hospital12-03-2022 Miscellaneous Notes* Telephone Encounter - Radha Drew RN - 08/12/2022 9:49 AM EST Patient calling with question regarding a possible side effect of a Remicade infusion that she received on 08/01/22. She had been evaluated at her local ED and states she is getting better however she has further questions. NOC advised caller that Dr. Chip Herman's (rheumatology) office will be openon Sunday, she want to know if she should come to [facility] ED to be evaluated. Patient conferenced to the O to assist with paging the provider collection correspondent. documented in this encounterDunlap Memorial Hospital12-01-2022 Evaluation + Plan note Extracted from: Title:Discharge Note Author:GERALD DONOHUE, Jael Hernando e:08/10/22 stable Discharged to - Home independently home Discharge Diet(s): Regular (08/10/22 10:44:00) Prescriptions No active prescription medications Home Allergy (Loratadine) 10 mg oral tablet, 10 mg= 1 tab(s), Oral, BID amphetamine-dextroamphetamine 20 mg Cap-ER, 20 mg= 1 cap(s), Oral, Daily folic acid 1 mg Tab, 1 mg= 1 tab(s), Oral, Daily methotrexate 2.5 mg Tab, 7.5 mg= 3 tab(s), Oral, q7day Microgestin 1.5/30 oral tablet, 1 tab(s), Oral, Daily pilocarpine 5 mg Tab, 5 mg= 1 tab(s), Oral, TID Sprintec, 1 tab(s), Oral, Daily With When Contact Information Joe DONOHUE, RUBIN De Anda Within 2 to 4 weeks [address] [place] [address]- Additional Instructions: Extracted from: Title:Consult Note- Neurology Author:Leigh Cerrato RN Date:08/10/22 ASSESSMENT: 32 year old woman with longstanding diagnosis of rheumatoid arthritis and is on Remicade and methotrexate for painful arthralgias that mostly only affect the right side of the body. Her current fluctuating right hemiparesis seems best explained by antalgic weakness and functional weakness. No evidence of any cerebrovascular disease on MRI studies or CTA studies. I don't think this is a reaction to Remicade or methotrexate. PLAN: No additional neurological workup needed at this time. I suspect her right-sided weakness will improve as her pain does. 1. TIA (transient ischemic attack) (G45.9: Transient cerebral ischemic attack, unspecified) 2. Panic attack (F41.0: Panic disorder [episodic paroxysmal anxiety]) 3. Arthritis, rheumatoid (M06.9: Rheumatoid arthritis, unspecified) 4. Chest pain (R07.9: Chest pain, unspecified) 5. Smoker (F17.200: Nicotine dependence, unspecified, uncomplicated) 6. DVT prophylaxis (Z29.9: Encounter for prophylactic measures, unspecified) Extracted from: Title:ED Note Author:Federico Gongora DO Date:10/09/21 1. TIA (transient ischemic a ttack) (G45.9: Transient cerebral ischemic attack, unspecified) 2. Panic attack (F41.0: Panic disorder [episodic paroxysmal anxiety]) 3. Arthritis, rheumatoid (M06.9: Rheumatoid arthritis, unspecified) 4. Chest pain (R07.9: Chest pain, unspecified) 5. Smoker (F17.200: Nicotine dependence, unspecified, uncomplicated) 6. DVT prophylaxis (Z29.9: Encounter for prophylactic measures, unspecified) Orders: methylPREDNISolone, 125 mg = 2 mL, Injection, IV Push, Once, Stop date 08/09/22 15:43:00 EST, STAT, Start date 08/09/22 15:43:00 EST, 08/09/22 15:43:00 EST morphine, 4 mg = 2 mL, Injection, IV Push, Once, Stop date 08/09/22 16:41:00 EST, STAT, Start date 08/09/22 16:41:00 EST, 08/09/22 16:41:00 EST morphine, 2 mg = 1 mL, Injection, IV Push, Once, Stop date 08/09/22 15:43:00 EST, STAT, Start date 08/09/22 15:43:00 EST, 08/09/22 15:43:00 EST Sodium Chloride 0.9% intravenous solution, 1,000 mL, Soln-IV, IV, Once, Stop date 08/09/22 15:36:00 EST, STAT, Start date 08/09/22 15:36:00 EST, mL/hr, Infuse over 61, minute(s) Add on Test Automated Diff Basic Metabolic Panel C-Reactive Protein CBC w/ Auto Diff CTA Chest CTA Head CTA Neck ECG 12 Lead Adult ED Physician consult Hospitalist for continued care eGFR Extra SST Tube Hepatic Function Panel Lactic Acid Lipase Level PT & PTT Saline Lock Insert Sedimentation Rate Automated Troponin 0 Hr. Troponin 9 Hr. U Beta Hcg Qual UA With Cult Reflex Extracted from: Title:Admission H & P Author:Jael DUARTE MD te:08/09/22 1. TIA (transient ischemic a ttack) (G45.9: Transient cerebral ischemic attack, unspecified) 23-hour observation Most likely secondary to panic attack Patient will not require more than 23 hours in the hospital cardiac telemetry Neuro check every [address] head CTA neck CTA head MRI brain Neurology consult PT OT Xanax 0.5 every 8 hours. 2. Panic attack (F41.0: Panic disorder [episodic paroxysmal anxiety]) Xanax 0.5 every 8 hours Prozac 3. Arthritis, rheumatoid (M06.9: Rheumatoid arthritis, unspecified) Resume prednisone 4. Chest pain (R07.9: Chest pain, unspecified) CTA chest no PE:NO AORTIC DISSECTION OR ACUTE INTRATHORACIC PROCESS Toradol IV 30 mg every 6 hours as needed 5. Smoker (F17.200: Nicotine dependence, unspecified, uncomplicated) Nicotine patch 6. DVT prophylaxis (Z29.9: Encounter for prophylactic measures, unspecified) Lovenox daily [facility]11-30-2022 Hospital Discharge instructions Follow Up Care 08/09/2022 14:55:47 With:Adilson Diaz MD, [facility] Address: [address] [place] [id number]- When:2 to 4 weeks [facility]11-22-2022 History of Present illness Narrative* Brad Flores RN - 08/01/2022 7:33 AM EST Since your last infusion, have you: Had any major change in your health (including new diagnosis of cancer, COPD or cogestive heart failure? No Been hospitalized? No Had any infections? No Taking antibiotics/antivirals/antifungals for current infection? No Had surgery or do you have upcoming surgery? No Received any live vaccines in the last four weeks? No Worsening GI symptoms/abnormal pain/bloating No In the past 7 days have you had: Fevers/chills/night sweats? No New cough or cold symptoms or sore throat? No Nausea/vomiting/diarrhea? No Unusual swelling of your ankles of feet? No Burning/blood with urination or urinary frequency? No New weakness/numbness/stumbling falls? No New rash or open sores? No documented in this encounterDunlap Memorial Hospital11-18-2022 Miscellaneous Notes* Telephone Encounter - Blanka Laguna - 07/28/2022 9:29 AM EST Patient was called and scheduled for her infusion. No further action required. * Telephone Encounter - Fadia Valencia - 07/28/2022 9:15 AM EST [facility] as directed below. Postponing encounter (1 week) to ensure patient is scheduled. Fadia Valencia July 28, 2022 9:24 AM * Telephone Encounter - Fadia Valencia - 07/28/2022 9:14 AM EST ----- Message from Tiarra Rodriguez Pss sent at 07/27/2022 2:53 PM EST ----- Regarding: ALYSSA France [[id number]] Pt calling to schedule her first Renflexis Treatment ordered by Dr Herman Pt received approved by Insurance letter and eager to start Pt may be called at the following best ph # and OK 4 detailed [facility] [phone] documented in this encounterDunlap Memorial Hospital11-10-2022 Miscellaneous Notes* Telephone Encounter - Lois Rose (Pharm[facility]) - 07/20/2022 3:04 PM EST === PHARMACY TEAM ==== APPROVAL RECEIVED Benefit Type: Medical Insurance Name: [employer] Authorization received via fax Drug Name(s) & HCPCS Code(s): Renflexis, Q5104 Approval Date Range: 07/19/2022 to 10/17/2022 Approval #: [id number] Dose & Frequency: 175.5 mg D1, D15 induction # Visits/Treatments (if applicable): N/A - based on what is medically necessary within authorization period Temporary Site of Care Approval: N/A documented in this encounterDunlap Memorial Hospital11-08-2022 Miscellaneous Notes* Telephone Encounter - Janie Herman MD - 07/18/2022 11:26 AM EST Current DMARD prescriptions: none Recent infusions: no recent infusions Previous medications: abatacept, adalimumab, certolizumab pegol, methotrexate sodium, tofacitinib citrate Primary Diagnosis: Inflammatory arthritis [M19.90] Response to current treatment: Not responding to current regimen, recommend changing to: Infliximaband add methotrexate Other comorbidities: None Plan: Change tofacitinib to Infliximab Please enroll in patient assistance if appropriate documented in this encounterDunlap Memorial Hospital10-10-2022 Miscellaneous Notes* Telephone Encounter - Jazz Duvall RN - 06/19/2022 10:22 AM EDT Most recent Rheumatology visit: 10/22/2020 (with Patompong Ungprasert) Recent Office Visits - This Specialty 10/22/2020 Rheumatoid arthritis involving multiple sites, unspecified whether rheumatoid factor present (HCC) Rheumatology Patompong Ungprasert, MD 06/03/2020 Rheumatoid arthritis involving multiple sites, unspecified rheumatoid factor presence (HCC) Rheumatology Gina Deacon 02/24/2019 Rheumatoid arthritis involving multiple sites, unspecified rheumatoid factor presence (HCC) [facility]coming Rheumatology Appointments - Next 365 Days Visit Type Date Time Department [facility] 07/18/2022 10:30 AM [facility] CBC: None on file in the last 6 months Vitamin D: None on file in the last 6 months LFT: None on file in the last 6 months Creatinine:None on file in the last 6 months ESR/CRP: None on file in the last 6 months Uric Acid: None on file in the last 6 months Open Standing (Multiple Instance) Lab Orders Remain Interval Expires Ordered Last Rel. CBC + DIFF [SQCBCDIF] 02/13 Every 2 months 12/14/22 12/14/21 Auth. provider: Joselyn Foster MD Assoc. diagnoses: Sicca, unspecified type (HCC) COMP METABOLIC PANEL [SQCMP] 02/13 Every 2 months 12/14/22 12/14/21 Auth. provider: Joselyn Foster MD Assoc. diagnoses: Sicca, unspecified type (HCC) C-REACTIVE PROTEIN (CRP) [SQCRP] 02/13 Every 2 months 12/14/22 12/14/21 Auth. provider: Joselyn Foster MD Assoc. diagnoses: Sicca, unspecified type (HCC) SED RATE WESTERGREN [SQWSR] 02/13 Every 2 months 12/14/22 12/14/21 Auth. provider: Joselyn Foster MD Assoc. diagnoses: Sicca, unspecified type (HCC) Open Future (Single Instance) Lab Orders None Requested Prescriptions Pending Prescriptions Disp Refills pilocarpine (SALAGEN) 5 mg tablet [Pharmacy Med Name: Pilocarpine HCl 5 MG Oral Tablet] 90 tablet 0 Sig: TAKE 1 TABLET BY MOUTH THREE TIMES DAILY Jazz Duvall RN documented in this encounterDunlap Memorial Hospital08-08-2022 Instructions* Patient Instructions* Abbi Ceron PA-C - 04/17/2022 10:23 AM EDT A: [phone] Dr. Joselyn Foster Rheumatology You have been provided referral(s) to General Rheumatology. You can schedule this at your convenience by calling: [facility] [place]: [phone] documented in this encounterDunlap Memorial Hospital08-08-2022 History of Present illness Narrative* Abbi Ceron PA-C - 04/17/2022 10:12 AM EDT GENERAL VISIT Patient seen on Facetime with consent from pt. Unable to log into zoom platform. Location of patient: [place] CC: Alyssa De Leon is a 31 year old female who presents with c/o RA. Subjective She was trying to schedule rheumatology appointment virtually, but was directed to virtual primary care platform. She c/o progressive RA symptoms. Symptoms include: Fatigue and joint pain Hand pain x 2: Past 3 weeks. 1st MCPJ x 2 Knees x 2: Past 2 weeks severe + Red, swollen, tender, stiffness. Last evaluated by rheumatology 1 year ago. Hx of Xeljanz ;ast biologic, but side effects were too severe to tolerate (headache, fatigue, nausea). Off x 1 year. States Remicade in past worked best and tolerated, but there was insurance issue. The patient denies: Sores in month and stomach upset, fevers, chills, weight loss. Reviewed: problem list, medical history, medication list, and allergies Rheumatology note 10/22/2020: Arthritis phenotype includes: Anti-CCP positive: no Rheumatoid factor positive: no Other: positive [place] (1:80) Erosive disease: no Extra-articular manifestations include: sicca Prior DMARD therapy include: Hydroxychloroquine, Methotrexate, Infliximab and Certolizumab Discontinued because of inefficacy: Hydroxychloroquine Methotrexate Discontinued because of side effects: Hydroxychloroquine Methotrexate - GI side-effects, but patient has difficulty recalling Certolizumab (06/03/20) - painful skin sores, muscle aches and cramps, leg swelling Discontinued because of logistical challenge: Infliximab Last seen by Dr. Worthy 06/03 -he made a plan to switch her biologic from Cimzia to Orencia. Unfortunately, the preauthorization process does not go through (probably because Dr. Worthy is is not anymore). Therefore, she decided to take another shot of Cimzia in August. Similar side effect happens afterwards. She also decided to get back on prednisone 5 mg and more recently up to 10 mg daily to try to get by. A and P: 30 year old female [facility]. 1. Seronegative rheumatoid arthritis 2. High risk medication use Her rheumatoid arthritis is still active which is not surprising given that she has not been on anybiologic treatment for over 3 months. At this point, it is clear to me that she has reaction to Cimzia as the rash happens again after she re-took Cimzia in August. I would avoid TNF alpha inhibitor and would agree with Dr. Worthy's planto use Orencia. I informed the patient that she should alert me if she does not get Orencia within the next few months. For now, she could continue to use prednisone 10 mg daily as a bridging therapy. Once she gets the injection of Orencia, I recommend her to decrease prednisone down to 5 mg daily Recommendations/Plan Plan discussed with patient Dr. Joselyn Foster Return Visit: January 14 at 10. ALLERGIES Allergen Reactions Hydrocodone-Acetami* Hives Medications: pilocarpine (SALAGEN, PILOCARPINE,) 5 mg tablet Take 1 tablet by mouth three times daily. dextroamphetamine-amphetamine (ADDERALL) 20 mg tablet Take 20 mg by mouth once daily. tofacitinib tablet 5 mg (XELJANZ) Take 1 tablet by mouth twice daily. rOPINIRole (REQUIP) 1 mg tablet Take 1 mg by mouth at bedtime as needed. (Patient not taking: Reported on 04/17/2022) Objective Video Exam Ht 152.4 cm (5') Wt 56.7 kg (125 lb) LMP 09/27/2021 BMI 24.41 kg/m GENERAL: well appearing, alert, in no acute distress HEENT: no conjunctival injection, pupils equal, moist mucous membranes, and EOMI x 2 PULMONARY: breathing comfortably on room air , no coughing noted, and no wheezing noted 1st MPCJ: mild edema suspected x 2. Pain with thumb ROM x 2. No erythema. Knees difficult to assess virtually. SKIN: no rashes, lesions or skin changes ASSESSMENT/PLAN: 1. Rheumatoid arthritis with negative rheumatoid factor, involving unspecified site (HCC) - ICD9: 714.0, ICD10: M06.00 Prescribing Prednisone bridge until can start biologic: 10mg daily x 2 weeks then 5mg daily x 2 weeks. Hopefully TNF inhibitor Remicade can be prescribed and covered given relief/response to this without side effects in past. Rheumatology evaluation needed to manage RA and prescribe biologics. Discussed limitations of [facility]. Provided rheumatology scheduling information (See d/c instructions). - PREDNISONE 5 MG TABLET Alyssa De Leon is a 31 year old female who presents with c/o RA. Plan as above. See d/c instructions. Abbi Ceron PA-C [facility] Department of [facility] Primary Scale Expert: Dr. Milton Baldwin [facility] documented in this encounterDunlap Memorial Hospital08-08-2022 Nurse Note* Brittney Oconnell RN - 04/17/2022 9:37 AM EDT Items addressed in this encounter: Other VV prechecked Brittney Oconnell RN April 17, 2022 9:37 AM 9:37 AM * Brittney Oconnell RN - 04/17/2022 9:02 AM EDT Items addressed in this encounter: Other VV LVM Brittney Oconnell RN April 17, 2022 9:02 AM 9:02 AM documented in this encounterDunlap Memorial Hospital04-06-2022 Miscellaneous Notes* Telephone Encounter - Marion Zepeda RN - 12/14/2021 10:38 AM EDT Most recent Rheumatology visit: 10/22/2020 (with Patompong Ungprasert) Upcoming Rheumatology Appointments - Next 365 Days No appointments to display CBC: None on file in the last 6 months Vitamin D: None on file in the last 6 months LFT: None on file in the last 6 months Creatinine:None on file in the last 6 months ESR/CRP: None on file in the last 6 months Uric Acid: None on file in the last 6 months Open Standing (Multiple Instance) Lab Orders None Open Future (Single Instance) Lab Orders None documented in this encounterDunlap Memorial HospitalEvaluation + Plan note No data available for this section [facility] Future Appointments Appointment Date:04/03/2023 10:00:00 AM Scheduled Provider: [facility] Type:US Breast (FT) Future Scheduled Tests Radiology* US Breast Unilateral Rt Complete 04/03/23 [facility] Future Appointments Appointment Date:04/03/2023 09:40:00 AM Scheduled Provider:Jeffery Rodriguez MD Location:[facility] Appointment Type:GS Established 15 Appointment Date:04/03/2023 10:00:00 AM Scheduled Provider: [facility] Appoint[facility] Type:US Breast (FT) Future Scheduled Tests Radiology* US Breast Unilateral Rt Complete 04/03/23 * MRI Breast w/o and w/ Contrast, Bilat 03/23/23 [facility] Evaluation + Plan note Future Appointments Appointment Date:04/20/2023 10:20:00 AM Scheduled Provider:Jeffery Rodriguez MD Location:[facility] Appointment Type: Post Op 15 [facility] Future Appointments Appointment Date:04/15/2024 01:20:00 PM Scheduled Provider:Baldo Acosta DO Location:[facility] Appointment Type: Open [facility] [place] Evaluation + Plan note Future Appointments Appointment Date:08/11/2024 10:00:00 AM Scheduled Provider:VIKTOR WHITTEN Location:[facility] [place] [facility] [place] [facility]* Diagnosis Sicca, unspecified type (HCC) [facility] Diagnosis Rheumatoid arthritis with negative rheumatoid factor, involving unspecified site (HCC)- Primary [facility] Diagnosis Sicca, unspecified type (HCC) [facility] Diagnosis Inflammatory arthritis- Primary Unspecified inflammatory polyarthropathy Rheumatoid arthritis of multiple sites with negative rheumatoid factor (HCC) [facility] Diagnosis Rheumatoid arthritis involving multiple sites, unspecified whether rheumatoid factor present (HCC)- Primary Encounter for long-term (current) use of high-risk medication Encounter for long-term (current) use of other medications [facility] Diagnosis Inflammatory arthritis- Primary Unspecified inflammatory polyarthropathy Rheumatoid arthritis of multiple sites with negative rheumatoid factor (HCC) [facility] Diagnosis Sicca, unspecified type (HCC) [facility]* Diagnosis Rheumatoid arthritis involving multiple sites, unspecified whether rheumatoid factor present (HCC)- Primary High risk medication use Encounter for long-term (current) use of other medications Encounter for long-term (current) use of high-risk medication Encounter for long-term (current) use of other medications [facility] Diagnosis Rheumatoid arthritis involving multiple sites, unspecified whether rheumatoid factor present (HCC)- Primary Encounter for long-term (current) use of high-risk medication Encounter for long-term (current) use of other medications [facility]* Diagnosis Sicca, unspecified type (HCC) [facility]* Diagnosis Rheumatoid arthritis of multiple sites with negative rheumatoid factor (HCC)- Primary [facility]* Diagnosis Inflammatory arthritis- Primary Unspecified inflammatory polyarthropathy Rheumatoid arthritis involving multiple sites, unspecified whether rheumatoid factor present (HCC) [facility] Diagnosis Rheumatoid arthritis involving multiple sites, unspecified whether rheumatoid factor present (HCC)- Primary Encounter for long-term (current) use of high-risk medication Encounter for long-term (current) use of other medications documented [facility] hospital note* Diagnosis Rheumatoid arthritis involving multiple sites, unspecified whether rheumatoid factor present (HCC) [facility] Diagnosis Inflammatory arthritis- Primary Unspecified inflammatory polyarthropathy [facility] Diagnosis Rheumatoid arthritis of multiple sites with negative rheumatoid factor (HCC)- Primary [facility] Diagnosis Inflammatory arthritis Unspecified inflammatory polyarthropathy [facility] Diagnosis Rheumatoid arthritis of multiple sites with negative rheumatoid factor (HCC)- Primary [facility]* Diagnosis Mastitis chronic, right- Primary [facility] Diagnosis Rheumatoid arthritis of multiple sites with negative rheumatoid factor (HCC)- Primary [facility]* Diagnosis Mastitis chronic, right- Primary [facility] Diagnosis Mastitis chronic, right [facility] Diagnosis Rheumatoid arthritis of multiple sites with negative rheumatoid factor (HCC)- Primary [facility]* Diagnosis Mastitis chronic, right- Primary [facility] Diagnosis Inflammatory arthritis Unspecified inflammatory polyarthropathy Rheumatoid arthritis involving multiple sites, unspecified whether rheumatoid factor present (HCC) [facility] Diagnosis Rheumatoid arthritis of multiple sites with negative rheumatoid factor (HCC)- Primary [facility]* Diagnosis Granulomatous mastitis of right breast- Primary [facility]* Diagnosis Granulomatous mastitis of right breast- Primary [facility]* Diagnosis Rheumatoid arthritis of multiple sites with negative rheumatoid factor (HCC)- Primary [facility] Diagnosis Sicca, unspecified type (HCC) [facility]* Diagnosis Rheumatoid arthritis of multiple sites with negative rheumatoid factor (HCC)- Primary [facility] Diagnosis Rheumatoid arthritis involving multiple sites, unspecified whether rheumatoid factor present (HCC)- Primary Inflammatory arthritis Unspecified inflammatory polyarthropathy [facility] Diagnosis Rheumatoid arthritis of multiple sites with negative rheumatoid factor (HCC)- Primary [facility] Diagnosis Rheumatoid arthritis of multiple sites with negative rheumatoid factor (HCC)- Primary [facility] Diagnosis Granulomatous mastitis of right breast [facility] Diagnosis Rheumatoid arthritis in remission (Multi)- Primary High risk medication use Granulomatous mastitis of right breast documented in this encounter [facility] Work Phone: Evaluation note* Diagnosis Granulomatous mastitis of right breast documented in this encounter [facility] Work Phone: Evaluation note* Diagnosis Pre-op examination Request for sterilization Menorrhagia with regular cycle Abnormal uterine bleeding (AUB) Pelvic pain in female Unspecified symptom associated with female genital organs [facility] Abscess of axilla, left- Primary Upper respiratory tract infection, unspecified type documented in this encounter [facility] Work Phone: Evaluation noteNo assessment information available [facility] Work Phone: Evaluation note* Diagnosis Folliculitis- Primary Other specified disease of hair and hair follicles documented in this encounter [facility] Work Phone: Evaluation note* Diagnosis Sicca, unspecified type (HCC) [facility] Dis[facility] instructions No data available for this section [facility] Attachments The following attachments cannot be sent through Care Everywhere. * Upper Respiratory Infection ED (Colombian) * Skin Abscess ([place]ombian) [facility] Progress note No data available for this section [facility] Diagnostic Procedure Only (Routine) - Closed Specialty Diagnoses / Procedures Referred By Contac t Referred To Contact XR IMAGING Diagnoses Rheumatoid arthritis involving multiple sites, unspecified whether rheumatoid factor present (HCC) Procedures XR SACROILIAC JOINTS 2V AP PELVIS/FERGUESON RADIOLOGIC EXAMINATION SACROILIAC JNTS <3 VIEWS Janie Herman MD [address] [place] [address] Xr Imaging Referral ID Status Reason Start Date Expiration Date V isits Requested Visits Authorized [id number] Closed Auto-Generate d Referral 07/18/2022 08/17/2023 1 1 * Diagnostic Procedure Only (Routine) - Closed Specialty Diagnoses / Procedures Referred By Angelo walls Referred To Contact XR IMAGING Diagnoses Rheumatoid arthritis involving multiple sites, unspecified whether rheumatoid factor present (HCC) Procedures XR HAND GENERAL 3V PA/LAT/OBL BILATERAL RADEX HAND MINIMUM 3 VIEWS Janie Herman MD [address] [id number] Xr Imaging Referral ID Status Reason Start Date Expiration Date V isits Requested Visits Authorized [id number] Closed Auto-Generate d Referral 07/18/2022 08/17/2023 1 1 * Diagnostic Procedure Only (Routine) - Closed Specialty Diagnoses / Procedures Referred By Angelo walls Referred To Contact XR IMAGING Diagnoses Rheumatoid arthritis involving multiple sites, unspecified whether rheumatoid factor present (HCC) Procedures XR FOOT GENERAL 3V AP/LAT/OBL BILATERAL RADEX FOOT COMPLETE MINIMUM 3 VIEWS Janie Herman MD [address] [place] [address] Xr Imaging Referral ID Status Reason Start Date Expiration Date V isits Requested Visits Authorized [id number] Closed Auto-Generate d Referral 07/18/2022 08/17/2023 1 1 [facility] for referral (narrative) Referred by: Michael DONOHUE, [facility] [place] Reason for referral (narrative)* Diagnostic Procedure Only (Routine) - Closed Specialty Diagnoses / Procedures Referred By Contac t Referred To Contact BR IMAGING Diagnoses Granulomatous mastitis of right breast Procedures US BREAST LTD RIGHT US BREAST UNI REAL [place] [address] [place] [address] [facility] Imaging [address] [place] [address] Referral ID Status Reason Start Date Expiration Date Visits Requested Visits Authorized [id number] Closed Auto-Generated Referral OON/Self Pay Override OON Notification Letter Clearance Not Met -Financial Clearance Bypassed 09/17/2023 09/09/[address] [facility] for referral (narrative)* Consultation (Routine) - Authorized Specialty Diagnoses / Procedures Referred By Contac t Referred To Contact Breast Surgery Diagnoses Granulomatous mastitis of right breast Shirley Salazar MD [address] [address] Referral ID Status Reason Start Date Expiration Date Visits Requested Visits Authorized [id number] Authorized Specialty Services Required 06/16/2024 06/16/2025 1 1 [facility] Work Phone: [facility] specialty [facility] for visit Narrative* Diagnostic Procedure Only (Routine) - Closed Specialty Diagnoses / Procedures Referred By Contac t Referred To Contact XR IMAGING Diagnoses Rheumatoid arthritis involving multiple sites, unspecified whether rheumatoid factor present (HCC) Procedures XR SACROILIAC JOINTS 2V AP PELVIS/FERGUESON RADIOLOGIC EXAMINATION SACROILIAC JNTS <3 VIEWS Janie Herman MD [address] [place] [address] Xr Imaging Referral ID Status Reason Start Date Expiration Date V isits Requested Visits Authorized [id number] Closed Auto-Generate d Referral 07/18/2022 08/17/2023 1 1 [facility] for visit Narrative* Consultation (Routine) - Authorized Specialty Diagnoses / Procedures Referred By Contac t Referred To Contact Breast Surgery Diagnoses Granulomatous mastitis of right breast Shirley Salazar MD [address] [place] [address] Phone: tel: fax: Referral ID Status Reason Start Date Expiration Date Visits Requested Visits Authorized [id number] Authorized Specialty Services Required 06/16/2024 06/16/[address] [facility] Work Phone: Summary Purpose Family History No Family History Records Found No data available for this section No Family History Records Found No data available for this section No data available for this section No data available for this section No data available for this section No Family History Records FoundNo Family History Records Found No data available for this section No data available for this section No Family History Records Found No data available for this section No data available for this section No data available for this section No Family History Records FoundNo Family History Records FoundNo Family History Records FoundNo Family History Records Found No data available for this section No Family History Records FoundNo Family History Records FoundNo Family History Records Found Advance Directives Advance Directive Response Recorded Date/ Time Advance Directives No August 11:16am Medications Administered Section Inactive Administered Medications - up to 3 most recent administrations Medication Order MAR Action Action Date Dose Rate Site acetaminophen 1,000 mg tab(s) (TYLENOL) 1,000 mg, ORAL, ONCE, 1 dose, On Sun08/01/22 at 0800, No more than 4000 mg of acetaminophen should be given per day (FROM ALL SOURCES), If ordered PRN for pain, patient/guardian may elect to receive this medication for higher pain levels INSTEAD of the opioid, if preferred: N/A Given 08/01/2022 7:49 AM EST 1,000 mg diphenhydrAMINE 25 mg (BENADRYL) 25 mg, ORAL, ONCE, 1 dose, On Sun08/01/22 at 0800 Given 08/01/2022 7:49 AM EST 25 mg inFLIXimab-abda 200 mg in NaCl 0.9% 250 mL (RENFLEXIS) 200 mg, INTRAVENOUS, at 83.33-250 mL/hr, Administer over 1-3 Hours, ONCE, 1 dose, On Sun08/01/22 at 0800, TOTAL VOLUME = 250 mL EXP: 08/09/22 Rounded to 200mg per policy Administer with 0.2 micron filter. Rate/Dose Change 08/01/2022 9:52 AM EST 250 mL/hr Rate/Dose Change 08/01/2022 9:22 AM EST 150 mL/ hr Rate/Dose Change 08/01/2022 9:07 AM EST 80 mL/h r Inactive Administered Medications - up to 3 most recent administrations Medication Order MAR Action Action Date Dose Rate Site acetaminophen 1,000 mg tab(s) (TYLENOL) 1,000 mg, ORAL, ONCE, 1 dose, On Sun08/22/22 at 1230, No more than 4000 mg of acetaminophen should be given per day (FROM ALL SOURCES), If ordered PRN for pain, patient/guardian may elect to receive this medication for higher pain levels INSTEAD of the opioid, if preferred: N/A Given 08/22/2022 12:39 PM EST 1,000 mg diphenhydrAMINE 25 mg (BENADRYL) 25 mg, ORAL, ONCE, 1 dose, On Sun08/22/22 at 1230 Given 08/22/2022 12:39 PM EST 25 mg diphenhydrAMINE 50 mg injection (BENADRYL) 50 mg, INTRAVENOUS, NEEDED, 1 dose, Starting on Sun08/22/22 at 1229, Until Sun08/22/22 at 1508, Administer per hypersensitivity/anaphylaxis grading in nursing communication Given 08/22/2022 3:08 PM EST 25 mg Given 08/22/2022 2:33 PM EST 25 mg hydrocortisone sodium succinate (PF) 100 mg injection (Solu-CORTEF) 100 mg, INTRAVENOUS, NEEDED, 1 dose, Starting on Sun08/22/22 at 1229, Until Sun08/22/22 at 1436, Administer per hypersensitivity/anaphylaxis grading in nursing communication Given 08/22/2022 2:36 PM EST 100 mg inFLIXimab-abda 200 mg in NaCl 0.9% 250 mL (RENFLEXIS) 200 mg, INTRAVENOUS, at 83.33-250 mL/hr, Administer over 1-3 Hours, ONCE, 1 dose, On Sun08/22/22 at 1230, TOTAL VOLUME = 250 mL. EXP: 08/30/22 Rounded to 200mg per policy Administer with 0.2 micron filter. Rate/Dose Change 08/22/2022 2:19 PM EST 150 mL/hr Rate/Dose Change 08/22/2022 2:04 PM EST 80 mL/h r Rate/Dose Change 08/22/2022 1:49 PM EST 40 mL/h r keTORolac 30 mg injection (TORADOL) 30 mg, INTRAVENOUS, ONCE, 1 dose, On Sun08/22/22 at 1530, Ketorolac (Toradol) is indicated for the short-term (up to 5 days) management of moderately severe acute pain. Continuation of ketorolac (Toradol) beyond 5 days increases the risk of developing serious adverse events. Please verify the duration of therapy for ketorolac (Toradol), If ordered PRN for pain, patient/guardian may elect to receive this medication for higher pain levels INSTEAD of the opioid, if preferred: Yes Given 08/22/2022 2:51 PM EST 30 mg Inactive Administered Medications - up to 3 most recent administrations Medication Order MAR Action Action Date Dose Rate Site dalbavancin 1,500 mg in D5W 350 mL (DALVANCE) 1,500 mg, INTRAVENOUS, at 700 mL/hr, Administer over 30 Minutes, ONCE, 1 dose, On Sun07/04/23 at 0800, Flush line with D5W before and after administration., Antimicrobial indication: Pathogen-directed New Bag/Syringe/Sarah le 07/04/2023 8:00 AM EDT 1,500 mg 700 mL/hr Arm, Right Reason for Referral Referred by: Baldo Acosta DO Specialty Diagnoses / Procedures Referred By Contkelin t Referred To Contact King Ho MD [address] [address] Referral ID Status Reason Start Date Expiration Date Visits Re quested Visits Authorized [id number] Closed 1 1 Specialty Diagnoses / Procedures Referred By Contac t Referred To Contact Diagnoses Mastitis chronic, right Procedures CONSULT TO MEDICAL GENETICS - CANCER MEDICAL GENETICS COUNSELING EACH 30 [place] [address] [place] [address] [address] [id number] [place] [address] Referral ID Status Reason Start Date Expiration Date Visits Requested Visits Authorized [id number] Authorized PCP Requested Referral Auto-Generate d Referral 05/10/2023 05/09/2024 1 1 Specialty Diagnoses / Procedures Referred By Contac t Referred To Contact Infectious Diseases Diagnoses Mastitis chronic, right Procedures CONSULT TO INFECTIOUS DISEASES OFFICE/OUTPATIENT [facility]3] 60-[place] [address] [place] [address] Referral ID Status Reason Start Date Expiration Date Visits Requested Visits Authorized [id number] Authorized PCP Requested Referral 05/10/2023 05/09/2024 1 1 Specialty Diagnoses / Procedures Referred By Contac t Referred To Contact Orthopedics Diagnoses Rheumatoid arthritis involving multiple sites, unspecified whether rheumatoid factor present (HCC) Procedures CONSULT PANEL TO ORTHOPAEDICS OFFICE/OUTPATIENT [facility]3] 60-74 MINUTES Janie Herman MD [address] [place] [address] Referral ID Status Reason Start Date Expiration Date Visits Requested Visits Authorized [id number] Authorized PCP Requested Referral 12/05/2022 12/05/2023 1 1 Specialty Diagnoses / Procedures Referred By Contac t Referred To Contact Janie Herman MD [address] [place] [address] Referral ID Status Reason Start Date Expiration Date Visits Re quested Visits Authorized [id number] Closed 1 1 Additional Source Comments INFORMATION SOURCE (unrecogn ized section and content) DATE CREATED AUTHOR 04/02/2020 [facility] DATE CREATED AUTHOR AUTHOR'S ORGANIZ ATION 09/06/2023 [facility] DATE CREATED AUTHOR AUTHOR'S ORGANIZ ATION 03/28/2024 [facility] DATE CREATED AUTHOR AUTHOR'S ORGANIZ ATION 04/17/2024 [facility] DATE CREATED AUTHOR AUTHOR'S ORGANIZ ATION 07/04/2024 [facility] DATE CREATED AUTHOR AUTHOR'S ORGANIZ ATION 07/05/2024 [facility] DATE CREATED AUTHOR AUTHOR'S ORGANIZ ATION 07/13/2024 [facility] DATE CREATED AUTHOR AUTHOR'S ORGANIZ ATION 07/16/2024 Jadiel Henry [facility] DATE CREATED AUTHOR AUTHOR'S ORGANIZ ATION 07/17/2024 [facility] DATE CREATED AUTHOR AUTHOR'S ORGANIZ ATION 07/18/2024 [facility] DATE CREATED AUTHOR AUTHOR'S ORGANIZ ATION 07/20/2024 [facility] Source Comments (unrecognize d section and content) In the event this informatio n is protected by the Federal Confidentiality of Alcohol and Drug Abuse Patient Records regulations: The Federal rules restrict any use of the information to criminally investigate or prosecute any alcohol or drug abuse patient.[facility] the event this information is protected by the Federal Confidentiality of Alcohol and Drug Abuse Patient Records regulations: The Federal rules restrict any use of the information to criminally investigate or prosecute any alcohol or drug abuse patient.[facility] the event this information is protected by the Federal Confidentiality of Alcohol and Drug Abuse Patient Records regulations: The Federal rules restrict any use of the information to criminally investigate or prosecute any alcohol or drug abuse patient.[facility] the event this information is protected by the Federal Confidentiality of Alcohol and Drug Abuse Patient Records regulations: The Federal rules restrict any use of the information to criminally investigate or prosecute any alcohol or drug abuse patient.[facility] the event this information is protected by the Federal Confidentiality of Alcohol and Drug Abuse Patient Records regulations: The Federal rules restrict any use of the information to criminally investigate or prosecute any alcohol or drug abuse patient.[facility] the event this information is protected by the Federal Confidentiality of Alcohol and Drug Abuse Patient Records regulations: The Federal rules restrict any use of the information to criminally investigate or prosecute any alcohol or drug abuse patient.[facility] the event this information is protected by the Federal Confidentiality of Alcohol and Drug Abuse Patient Records regulations: The Federal rules restrict any use of the information to criminally investigate or prosecute any alcohol or drug abuse patient.[facility] HospitalIn the event this information is protected by the Federal Confidentiality of Alcohol and Drug Abuse Patient Records regulations: The Federal rules restrict any use of the information to criminally investigate or prosecute any alcohol or drug abuse patient.[facility] Hospital[facility] the event this information is protected by the Federal Confidentiality of Alcohol and Drug Abuse Patient Records regulations: The Federal rules restrict any use of the information to criminally investigate or prosecute any alcohol or drug abuse patient.[facility] HospitalIn the event this information is protected by the Federal Confidentiality of Alcohol and Drug Abuse Patient Records regulations: The Federal rules restrict any use of the information to criminally investigate or prosecute any alcohol or drug abuse patient.[facility] HospitalIn the event this information is protected by the Federal Confidentiality of Alcohol and Drug Abuse Patient Records regulations: The Federal rules restrict any use of the information to criminally investigate or prosecute any alcohol or drug abuse patient.[facility] HospitalIn the event this information is protected by the Federal Confidentiality of Alcohol and Drug Abuse Patient Records regulations: The Federal rules restrict any use of the information to criminally investigate or prosecute any alcohol or drug abuse patient.[facility] HospitalIn the event this information is protected by the Federal Confidentiality of Alcohol and Drug Abuse Patient Records regulations: The Federal rules restrict any use of the information to criminally investigate or prosecute any alcohol or drug abuse patient.[facility] HospitalIn the event this information is protected by the Federal Confidentiality of Alcohol and Drug Abuse Patient Records regulations: The Federal rules restrict any use of the information to criminally investigate or prosecute any alcohol or drug abuse patient.[facility] HospitalIn the event this information is protected by the Federal Confidentiality of Alcohol and Drug Abuse Patient Records regulations: The Federal rules restrict any use of the information to criminally investigate or prosecute any alcohol or drug abuse patient.[facility] HospitalIn the event this information is protected by the Federal Confidentiality of Alcohol and Drug Abuse Patient Records regulations: The Federal rules restrict any use of the information to criminally investigate or prosecute any alcohol or drug abuse patient.[facility] HospitalIn the event this information is protected by the Federal Confidentiality of Alcohol and Drug Abuse Patient Records regulations: The Federal rules restrict any use of the information to criminally investigate or prosecute any alcohol or drug abuse patient.[facility] HospitalIn the event this information is protected by the Federal Confidentiality of Alcohol and Drug Abuse Patient Records regulations: The Federal rules restrict any use of the information to criminally investigate or prosecute any alcohol or drug abuse patient.[facility] HospitalIn the event this information is protected by the Federal Confidentiality of Alcohol and Drug Abuse Patient Records regulations: The Federal rules restrict any use of the information to criminally investigate or prosecute any alcohol or drug abuse patient.[facility] HospitalIn the event this information is protected by the Federal Confidentiality of Alcohol and Drug Abuse Patient Records regulations: The Federal rules restrict any use of the information to criminally investigate or prosecute any alcohol or drug abuse patient.[facility] HospitalIn the event this information is protected by the Federal Confidentiality of Alcohol and Drug Abuse Patient Records regulations: The Federal rules restrict any use of the information to criminally investigate or prosecute any alcohol or drug abuse patient.[facility] HospitalIn the event this information is protected by the Federal Confidentiality of Alcohol and Drug Abuse Patient Records regulations: The Federal rules restrict any use of the information to criminally investigate or prosecute any alcohol or drug abuse patient.[facility] HospitalIn the event this information is protected by the Federal Confidentiality of Alcohol and Drug Abuse Patient Records regulations: The Federal rules restrict any use of the information to criminally investigate or prosecute any alcohol or drug abuse patient.[facility] HospitalIn the event this information is protected by the Federal Confidentiality of Alcohol and Drug Abuse Patient Records regulations: The Federal rules restrict any use of the information to criminally investigate or prosecute any alcohol or drug abuse patient.[facility] HospitalIn the event this information is protected by the Federal Confidentiality of Alcohol and Drug Abuse Patient Records regulations: The Federal rules restrict any use of the information to criminally investigate or prosecute any alcohol or drug abuse patient.[facility] HospitalIn the event this information is protected by the Federal Confidentiality of Alcohol and Drug Abuse Patient Records regulations: The Federal rules restrict any use of the information to criminally investigate or prosecute any alcohol or drug abuse patient.[facility] HospitalIn the event this information is protected by the Federal Confidentiality of Alcohol and Drug Abuse Patient Records regulations: The Federal rules restrict any use of the information to criminally investigate or prosecute any alcohol or drug abuse patient.[facility] HospitalIn the event this information is protected by the Federal Confidentiality of Alcohol and Drug Abuse Patient Records regulations: The Federal rules restrict any use of the information to criminally investigate or prosecute any alcohol or drug abuse patient.[facility] HospitalIn the event this information is protected by the Federal Confidentiality of Alcohol and Drug Abuse Patient Records regulations: The Federal rules restrict any use of the information to criminally investigate or prosecute any alcohol or drug abuse patient.[facility] HospitalIn the event this information is protected by the Federal Confidentiality of Alcohol and Drug Abuse Patient Records regulations: The Federal rules restrict any use of the information to criminally investigate or prosecute any alcohol or drug abuse patient.[facility] HospitalIn the event this information is protected by the Federal Confidentiality of Alcohol and Drug Abuse Patient Records regulations: The Federal rules restrict any use of the information to criminally investigate or prosecute any alcohol or drug abuse patient.[facility] HospitalIn the event this information is protected by the Federal Confidentiality of Alcohol and Drug Abuse Patient Records regulations: The Federal rules restrict any use of the information to criminally investigate or prosecute any alcohol or drug abuse patient.[facility] HospitalIn the event this information is protected by the Federal Confidentiality of Alcohol and Drug Abuse Patient Records regulations: The Federal rules restrict any use of the information to criminally investigate or prosecute any alcohol or drug abuse patient.[facility] HospitalIn the event this information is protected by the Federal Confidentiality of Alcohol and Drug Abuse Patient Records regulations: The Federal rules restrict any use of the information to criminally investigate or prosecute any alcohol or drug abuse patient.[facility] HospitalIn the event this information is protected by the Federal Confidentiality of Alcohol and Drug Abuse Patient Records regulations: The Federal rules restrict any use of the information to criminally investigate or prosecute any alcohol or drug abuse patient.[facility] HospitalIn the event this information is protected by the Federal Confidentiality of Alcohol and Drug Abuse Patient Records regulations: The Federal rules restrict any use of the information to criminally investigate or prosecute any alcohol or drug abuse patient.[facility] HospitalIn the event this information is protected by the Federal Confidentiality of Alcohol and Drug Abuse Patient Records regulations: The Federal rules restrict any use of the information to criminally investigate or prosecute any alcohol or drug abuse patient.[facility] HospitalIn the event this information is protected by the Federal Confidentiality of Alcohol and Drug Abuse Patient Records regulations: The Federal rules restrict any use of the information to criminally investigate or prosecute any alcohol or drug abuse patient.[facility] HospitalIn the event this information is protected by the Federal Confidentiality of Alcohol and Drug Abuse Patient Records regulations: The Federal rules restrict any use of the information to criminally investigate or prosecute any alcohol or drug abuse patient.[facility] HospitalIn the event this information is protected by the Federal Confidentiality of Alcohol and Drug Abuse Patient Records regulations: The Federal rules restrict any use of the information to criminally investigate or prosecute any alcohol or drug abuse patient.[facility] HospitalIn the event this information is protected by the Federal Confidentiality of Alcohol and Drug Abuse Patient Records regulations: The Federal rules restrict any use of the information to criminally investigate or prosecute any alcohol or drug abuse patient.[facility] HospitalIn the event this information is protected by the Federal Confidentiality of Alcohol and Drug Abuse Patient Records regulations: The Federal rules restrict any use of the information to criminally investigate or prosecute any alcohol or drug abuse patient.[facility] HospitalIn the event this information is protected by the Federal Confidentiality of Alcohol and Drug Abuse Patient Records regulations: The Federal rules restrict any use of the information to criminally investigate or prosecute any alcohol or drug abuse patient.[facility] HospitalIn the event this information is protected by the Federal Confidentiality of Alcohol and Drug Abuse Patient Records regulations: The Federal rules restrict any use of the information to criminally investigate or prosecute any alcohol or drug abuse patient.[facility] HospitalIn the event this information is protected by the Federal Confidentiality of Alcohol and Drug Abuse Patient Records regulations: The Federal rules restrict any use of the information to criminally investigate or prosecute any alcohol or drug abuse patient.[facility] HospitalIn the event this information is protected by the Federal Confidentiality of Alcohol and Drug Abuse Patient Records regulations: The Federal rules restrict any use of the information to criminally investigate or prosecute any alcohol or drug abuse patient.[facility] HospitalIn the event this information is protected by the Federal Confidentiality of Alcohol and Drug Abuse Patient Records regulations: The Federal rules restrict any use of the information to criminally investigate or prosecute any alcohol or drug abuse patient.[facility] HospitalIn the event this information is protected by the Federal Confidentiality of Alcohol and Drug Abuse Patient Records regulations: The Federal rules restrict any use of the information to criminally investigate or prosecute any alcohol or drug abuse patient.[facility] HospitalIn the event this information is protected by the Federal Confidentiality of Alcohol and Drug Abuse Patient Records regulations: The Federal rules restrict any use of the information to criminally investigate or prosecute any alcohol or drug abuse patient.[facility] HospitalIn the event this information is protected by the Federal Confidentiality of Alcohol and Drug Abuse Patient Records regulations: The Federal rules restrict any use of the information to criminally investigate or prosecute any alcohol or drug abuse patient.[facility] HospitalIn the event this information is protected by the Federal Confidentiality of Alcohol and Drug Abuse Patient Records regulations: The Federal rules restrict any use of the information to criminally investigate or prosecute any alcohol or drug abuse patient.[facility] HospitalIn the event this information is protected by the Federal Confidentiality of Alcohol and Drug Abuse Patient Records regulations: The Federal rules restrict any use of the information to criminally investigate or prosecute any alcohol or drug abuse patient.[facility] HospitalIn the event this information is protected by the Federal Confidentiality of Alcohol and Drug Abuse Patient Records regulations: The Federal rules restrict any use of the information to criminally investigate or prosecute any alcohol or drug abuse patient.[facility] HospitalIn the event this information is protected by the Federal Confidentiality of Alcohol and Drug Abuse Patient Records regulations: The Federal rules restrict any use of the information to criminally investigate or prosecute any alcohol or drug abuse patient.[facility] HospitalIn the event this information is protected by the Federal Confidentiality of Alcohol and Drug Abuse Patient Records regulations: The Federal rules restrict any use of the information to criminally investigate or prosecute any alcohol or drug abuse patient.[facility] HospitalIn the event this information is protected by the Federal Confidentiality of Alcohol and Drug Abuse Patient Records regulations: The Federal rules restrict any use of the information to criminally investigate or prosecute any alcohol or drug abuse patient.[facility] HospitalIn the event this information is protected by the Federal Confidentiality of Alcohol and Drug Abuse Patient Records regulations: The Federal rules restrict any use of the information to criminally investigate or prosecute any alcohol or drug abuse patient.[facility] HospitalIn the event this information is protected by the Federal Confidentiality of Alcohol and Drug Abuse Patient Records regulations: The Federal rules restrict any use of the information to criminally investigate or prosecute any alcohol or drug abuse patient.[facility] HospitalIn the event this information is protected by the Federal Confidentiality of Alcohol and Drug Abuse Patient Records regulations: The Federal rules restrict any use of the information to criminally investigate or prosecute any alcohol or drug abuse patient.[facility] HospitalIn the event this information is protected by the Federal Confidentiality of Alcohol and Drug Abuse Patient Records regulations: The Federal rules restrict any use of the information to criminally investigate or prosecute any alcohol or drug abuse patient.[facility] HospitalIn the event this information is protected by the Federal Confidentiality of Alcohol and Drug Abuse Patient Records regulations: The Federal rules restrict any use of the information to criminally investigate or prosecute any alcohol or drug abuse patient.[facility] Reason for Visit (unrecogniz ed section and content) Reason Onset Date Comments Refill Request 12/14/2021 Reason Comments Rheumatoid Arthritis Patient has not see n anyone for her RA in over a year. Reason Comments Refill Request Reason Comments Medication Preauthorization Reason Comments Insurance Authorization Renflexis Approv al ( 07/19/2022 - 10/17/2022 175.5 mg D1, D15 for induction: caresource) Reason Comments Infusion Specialty Diagnoses / Procedures Referred By Contac t Referred To Contact Diagnoses Rheumatoid arthritis (HCC) Inflammatory arthritis Procedures INJECTION, Janie Truong MD [address] [id number] Rheu Infusion [facility] [address] [id number] Referral ID Status Reason Start Date Expiration Date Visits Requested Visits Authorized [id number] Authorized Patient Cleared - Admin/Chairm an/Director advise to proceed 07/19/2022 10/29/2022 99 99 Reason Comments Question Remicade question Reason Comments Appointment Reason Comments Recheck Specialty Diagnoses / Procedures [facility] To Contact Diagnoses Rheumatoid arthritis (HCC) Inflammatory arthritis Procedures INJECTION, Janie Truong MD [address] [place] [address] Rheu Infusion [facility] [address] [place] [address] Referral ID Status Reason Start Date Expiration Date V isits Requested Visits Authorized [id number] Closed Patient Cleared - Admin/Chairm an/Director advise to proceed 07/19/2022 10/29/2022 99 99 Reason Comments Follow Up 2 month follow up. W ants to dicuss medication. Reason Comments Patient Update Hand Pain Reason Comments Follow Up SundayNovember 11 p atient advised she had an allergic reaction to the medication she started this month. Reason Comments Patient Update Wrist Pain Reason Onset Date Comments SPP Inflammatory Conditions - Treatment Referral 01/09/2023 [employer] Insurance Authorization 01/09/2023 Prior Au Submission Pending Reason Comments Medication Problem Reason Comments Medication Assistance Reason Onset Date Comments SPP Inflammatory Conditions - Follow-up 04/27/20 [facility] Insurance Authorization 04/27/2023 Prior Au Renewal Pending Reason Onset Date Comments SPP Inflammatory Conditions - Medication Refill 05/07/2023 [facility] Reason Comments New Patient Surgical consult Reason Onset Date Comments SPP Inflammatory Conditions - Medication Refill 06/01/2023 [facility] CF Reason Comments Established Patient Reason Comments Medication Problem Linezolid Specialty Diagnoses / Procedures Referred By Angelo walls Referred To Contact Infectious Diseases Diagnoses Mastitis chronic, right Procedures CONSULT TO INFECTIOUS DISEASES OFFICE/OUTPATIENT NEW [facility] 60-[place] [address] [place] [address] Referral ID Status Reason Start Date Expiration Date V isits Requested Visits Authorized [id number] Closed PCP Requested Referral 05/10/2023 05/09/2024 1 1 Reason Onset Date Comments SPP Inflammatory Conditions - Medication Refill 06/25/2023 Humira Reason Onset Date Comments Refill Request 07/05/2023 Reason Onset Date Comments SPP Inflammatory Conditions - Medication Refill 07/24/2023 [facility]ira Reason Comments Established Patient Follow Up Reason Comments Patient Question 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 Reason Onset Date Comments SPP Inflammatory Conditions - Medication Refill 11/06/2023 [facility] CF Reason Onset Date Comments Refill Request 11/27/2023 Reason Onset Date Comments SPP Inflammatory Conditions - Medication Refill 12/31/2023 Humira Reason Comments Med Change Request Reason Onset Date Comments SPP Inflammatory Conditions - Medication Refill 01/29/2024 Humira CF Reason Onset Date Comments SPP Inflammatory Conditions - Medication Refill 02/25/2024 Humira CF -(NCA-01/2025) Reason Onset Date Comments SPP Inflammatory Conditions - Medication Refill 03/25/2024 Humira - (NCA 03/2026) Reason Onset Date Comments SPP Inflammatory Conditions - Medication Refill 04/22/2024 Humira CF - (NCA 01/2025) Reason Onset Date Comments SPP Inflammatory Conditions - Medication Refill 05/20/2024 Humira - (NCA 01/2025) Reason Comments Radiology Mammogram Specialty Diagnoses / Procedures Referred By Angelo walls Referred To Contact [facility] Diagnoses Granulomatous mastitis of right breast Procedures US BREAST LTD RIGHT US BREAST UNI REAL [place] [address] [place] [address] [facility] [address] [place] [address] Referral ID Status Reason Start Date Expiration Date Visits Requested Visits Authorized [id number] Closed Auto-Generated Referral OON/Self Pay Override OON Notification Letter Clearance Not Met -Financial Clearance Bypassed 09/17/2023 09/09/2024 1 0 Reason Comments Rheumatoid Arthritis Reason Onset Date Comments SPP Inflammatory Conditions - Medication Refill 06/19/2024 Humira CF - (NCA 01/2025) Reason Comments Pre-op Visit Endometrial Biopsy Reason Comments Fever Pt thinks she is bec oming septic from mrsa diagnosed back in April, c/o fever and flu like sx Reason Comments Mass NPV mass in left arm pit.Land Checker: Brad Del Real CMA Patient Care team informatio n (unrecognized section and content) Cna Instructor Relationship Specialty Start Date End Date LinkBaldo DO [address] [place] [address] PCP - General Family Medicine 10/02/23 Cna Instructor Relationship Specialty Start Date End Date Baldo Acosta DO [address] [place] [address] PCP - General Family Medicine 10/02/23 Cna Instructor Relationship Specialty Start Date End Date Baldo Acosta DO [address] [place] [address] PCP - General Family Medicine 10/02/23 Cna Instructor Relationship Specialty Start Date End Date Baldo Acosta DO [address] [place] [phone] PCP - General Family Medicine 10/02/23 Cna Instructor Relationship Specialty Start Date End Date LinkBaldo DO [address] [place] [phone] PCP - General Family Medicine 10/02/23 Cna Instructor Relationship Specialty Start Date End Date LinkBaldo DO [address] [place] [phone] PCP - General Family Medicine 10/02/23 Cna Instructor Relationship Specialty Start Date End Date LinkBaldo MD [address] [place] [phone] PCP - General Family Medicine 04/03/23 Cna Instructor Relationship Specialty Start Date End Date Generic Provider, No [place] [address] PCP - General Scale Expert 07/03/24 07/03/24 Team Status: Inactive Member Role Status Dates Denys Haas DO Attending Provider Active Start : July 02, 2024 End: July 02, 2024 Cna Instructor Relationship Specialty Start Date End Date LinkBaldo DO [address] [place] [phone] PCP - General Family Medicine 07/07/24 Cna Instructor Relationship Specialty Start Date End Date Baldo Acosta DO [address] [place] [phone] PCP - General Family Medicine 07/07/24 Cna Instructor Relationship Specialty Start Date End Date Baldo Acosta DO [address] [place] [phone] PCP - General Family Medicine 07/07/24 Scheduled Active and Recently Administ ered Medications (unrecognized section and content) Medication Order 07/01/2024 07/02/2024 07/03/2024 potassium chloride CR (Klor-Con M20) ER tablet 40 mEq (COMPLETED) 40 mEq, oral, Once, On Nancy 07/03/24 at 1315, For 1 dose, Best given with food and plenty of water to minimize gastric irritation. Do not crush or chew. 1317 (Given - Provid er: Tristan Agarwal LPN) Goals (unrecognized section and content) Goals may be documented in a n alternate section FOR RECORDS PERTAINING TO PATIENTS WHO ARE OR HAVE BEEN ENROLLED IN A CHEMICAL DEPENDENCY/SUBSTANCEABUSE PROGRAM, SOME INFORMATION MAY BE OMITTED. This clinical summary was aggregated from multiple sources. Caution should be exercised in using it in the provision of clinical care. This summary normalizes information from multiple sources, and as a consequence, information in this document may materially change the coding, format and clinical context of patient data. In addition, data may be omitted in some cases. CLINICAL DECISIONS SHOULD BE BASED ON THE PRIMARY CLINICAL RECORDS. [employer] provides no warranty or guarantee of the accuracy or completeness of information in this document.
[2024-08-01 06:28] LABS: Basophils Percent Auto 0.5 % (0.2-2.0); Eosinophils Absolute Auto 0.2 10^3/uL (0.0-0.7); Eosinophils Percent Auto 3.5 % (0.9-7.0); Hemoglobin 13.5 g/dL (12.0-16.0); Immature Granulocytes Abs Auto 0.01 10^3/uL (0.00-0.03); Immature Granulocytes Pct Auto 0.2 % (0.0-0.5); Lymphocytes Absolute Auto 3.2 10^3/uL (1.2-3.8); Lymphocytes Percent Auto 57.6 % (20.5-60.0); Mean Corpuscular HGB Conc 35.5 g/dL (29.9-35.2); Mean Corpuscular Hemoglobin 33.4 pg (26.7-34.0); Mean Corpuscular Volume 94.1 fL (81.0-99.0); Mean Platelet Volume 9.4 fL (9.5-13.5); Monocytes Absolute Auto 0.5 10^3/uL (0.3-0.8); Monocytes Percent Auto 9.7 % (1.7-12.0); Neutrophils Absolute Auto 1.6 10^3/uL (1.4-6.5); Neutrophils Percent Auto 28.5 % (43.0-75.0); Platelet Count 316 10^3/uL (150-450); Red Blood Count 4.04 10^6/uL (4.20-5.40); Red Cell Distribution Width 12.8 % (11.0-15.0); White Blood Count 5.5 10^3/uL (4.0-11.0)
[2024-08-01 06:57] LABS: HCG Quantitative <1 mIU/mL
[2024-08-01] MEDS: LACTATED RINGER'S SOLUTION 1,000 ML 50 ML IV (06:59)
[2024-08-01] MEDS: LACTATED RINGER'S SOLUTION 1,000 ML 1000 ML IV (09:13)
--- NOTE | 2024-08-01 09:25 | P.ON_ITS ---
Brief Operative Note Date of procedure: 08/01/24 Pre-op diagnosis general: desires sterilization, menorrhagia, dysmenorrhea Post-op diagnosis: same as pre-op Procedure: NAME OF PROCEDURE: robotic assisted Laparoscopic bilateral salpingectomy, with Leanne endometrial ablation with hysteroscopy PROCEDURE: The patient was taken back to the OR where she was prepped and draped in the normal sterile fashion after being placed in the dorsal lithotomy position, after being placed under general anesthesia without difficulty. a weighted speculum was then placed into the vagina. Pap and endometrial bx were performed without difficultyThe anterior lip was grasped with a single tooth tenaculum. The patient was then sounded to approximatley 9cm. The patient was gently sounded using Hegar dilators and the hysteroscope was passed through the cervix into the uterus where both ostia were seen. No gross evidence of polyps, fibroids or malignancy. The cervical length was noted to be 4cm. The Leanne ablation apparatus was set to approximately 5cm in length. This was placed in through the cervix and into the uterus. After the seal was tested, at that time the total ablation of 120 seconds was performed with the Leanne without difficulty. All instruments were removed from the vagina. A wet sponge stick was placed into the patient's vagina. Attention was then turned to the patient's abdomen, where a scalpel was used to make a small infraumbilical incision. The S retractors were then used to dissect the underlying layers until the fascia could be seen. The fascia was then grasped with Cale clamps and tented up. A knife was then used to make a small incision to the fascia. The muscle was identified, at that time two sutures of #0 Vicryl on a GI needlewas then used and placed through the fascia. The peritoneum was then identified and entered bluntly. The 10-4 Mychal was then placed into the patient's abdomen. This was confirmed with direct visualization of the bowel, using the laparoscope. The patient's abdomen was then insufflated using approximately 4 liters of CO2 gas. Survey of the patient's abdomen demonstrated normal appearing ovaries, uterus and tubes. A second and third lateral robotic p orts, which was 8mm in size, was then placed laterally after incision was made in the skin under direct visualization. the robotic arms were engaged. The patient's tube on the patient's right side was identified. The tube was then tented up using a grasper. The ligasure was used to transect and coagulate the mesosalpingx from the fimbriated end to the insertion at the uterus, the tube was amputated and removed in its entirety.? Excellent hemostasis was noted. ?This was performed on the contralateral sideas well. The lateral ports were then moved under direct visualization with excellent hemostasis. The abdomen was deinsufflated. All instruments were removed from the patient's abdomen. The fascia was closed using the #0 Vicryl on GI needle. The skin was closed using 4- 0 Vicryl subcuticularly. All instruments were removed from the patient's vagina as well. The patient was taken out of the dorsal lithotomy position and placed in the supine position and taken to recovery in stable condition. Sponge, lap and needle counts were correct x2. ??? Anesthesia: MILTON Surgeon: Denys Haas Master Merchandiser: Alondra Patrick Estimated blood loss (mL): 5 Pathology: other (tubes) Condition: stable Disposition: PACU Urinary Catheter Management Urinary Catheter Management Urethral: Cath placed during this visit: no
[2024-08-01] MEDS: OXYCODONE HCL/ACETAMINOPHEN 5MG/325MG 1 TAB PO (10:17)
[2024-08-01] MEDS: KETOROLAC TROMETHAMINE 30 MG/ML VIAL IVP (10:17)
[2024-08-01] MEDS: MEPERIDINE HCL/PF 25 MG/ML VIAL IM (11:02)
[2024-08-01] MEDS: PROMETHAZINE HCL 25 MG TABLET PO (11:03)
--- NOTE | 2024-08-01 13:00 | PC.NURSE ---
1225- Patient ambulates to BR with assist X1. Patient steady on feet. Patient voids moderate amount of clear colored urine. Shae-pad remains dry.
== END 2024-08-01 12:35 | disposition home or self-care (01) ==
LOC: SURGOUT 06:15
PROVIDERS: Visit Provider Obstetrics & Gynecology
PROC: (CPT 840; principal; 2024-08-01 07:30)
PROC: (CPT 840; 2024-08-01 07:30)
DX: Z30.2 Encounter for sterilization (principal); N92.0 Excessive and frequent menstruation with regular cycle; N94.6 Dysmenorrhea, unspecified
CPT/HCPCS: 58563; 58661; 36415; 84702; 85025; J0131; J1100; J1171; J1720; J1885; J2175; J2250; J2405; J2704; J3010; Q0169